=== PATIENT | female | born 1945 | race Caucasian/White ===

== ENCOUNTER → 2016-11-30 | Outpatient (CLI) | payer MEDICARE ==
[2016-11-30 11:12] LABS: Basophils % (A) 1 %; CH 31.3; CHCM 32.7; Eosinophils # (A) 0.2 k/uL (0-0.7); Eosinophils % (A) 4 %; HCT 41.7 % (34.0-46.0); HDW 2.14; HGB 13.8 gm/dL (11.4-16.0); Luc # (Auto) 0.16; Luc % (Auto) 3; Lymphocytes # (A) 1.3 k/uL (1.0-4.8); Lymphocytes % (A) 23 %; MCH 31.9 pg (25.0-35.0); MCHC 33.2 g/dL (31.0-37.0); MCV 95.9 fL (80.0-100.0); Mean Platelet Volume 6.4; Monocytes # (A) 0.4 k/uL (0-1.0); Monocytes % (A) 7 %; Neutrophils # (A) 3.5 k/uL (1.3-7.7); Neutrophils % (A) 63 %; RBC 4.35 m/uL (3.80-5.40); RDW 12.3 % (11.5-15.5); WBC 5.6 k/uL (3.8-10.6); WBC (Perox) 5.39
[2016-11-30 11:34] LABS: ALT 43 U/L (9-52); AST 30 U/L (14-36); Alkaline Phosphatase 90 U/L (38-126); Anion Gap 12 mmol/L; Blood Urea Nitrogen 17 mg/dL (7-17); Calcium 9.9 mg/dL (8.4-10.2); Carbon Dioxide 23 mmol/L (22-30); Chloride 108 mmol/L (98-107); Cholesterol 168 mg/dL (<200); Creatine Kinase 178 U/L (30-135); Glucose 114 mg/dL (74-99); HDL Cholesterol 78 mg/dL (40-60); Non-African American GFR(MDRD) >60 (>60 ml/min/1.73 sqM); Sodium 143 mmol/L (137-145); Total Protein 7.3 g/dL (6.3-8.2); Triglycerides 109 mg/dL (<150)
[2016-11-30 12:21] LABS: Vitamin B12 >1000 pg/mL
[2016-11-30 14:32] LABS: Hemoglobin A1C 5.9 % (4.2-6.1)
== END | disposition home or self-care (01) ==
LOC: LABWHC1 10:40
PROVIDERS: ATTEND Internal Medicine Nephrology
DX: Z01.419 Encounter for gynecological examination (general) (routine) without abnormal findings (principal); K57.30 Diverticulosis of large intestine without perforation or abscess without bleeding; R73.01 Impaired fasting glucose; E78.5 Hyperlipidemia, unspecified
CPT/HCPCS: 36415; 80053; 80061; 82306; 82550; 82607; 83036; 84443; 85025

== ENCOUNTER → 2017-02-01 | Outpatient (CLI) | payer MEDICARE ==
[2017-02-01 11:47] LABS: Anion Gap 12 mmol/L; Blood Urea Nitrogen 14 mg/dL (7-17); Carbon Dioxide 24 mmol/L (22-30); Chloride 108 mmol/L (98-107); Glucose 102 mg/dL (74-99); Iron 78 ug/dL (37-170); Magnesium 1.9 mg/dL (1.6-2.3); Non-African American GFR(MDRD) >60 (>60 ml/min/1.73 sqM); Phosphorous 3.5 mg/dL (2.5-4.5); Potassium 4.3 mmol/L (3.5-5.1); Sodium 144 mmol/L (137-145); Uric Acid 4.9 mg/dL (3.7-7.4)
[2017-02-01 11:56] LABS: % Iron Saturation 25.7 % (20-50); Total Iron Binding Capacity 304 ug/dL (265-497)
[2017-02-01 12:15] LABS: Appearance,Urine Clear (Clear); Bilirubin,Urine Negative (Negative); Glucose,Urine (UA) Negative (Negative); Ketones,Urine Negative (Negative); Leukocyte Esterase,Urine Moderate (Negative); Mucus,Urine Rare /hpf; Nitrite,Urine Negative (Negative); Particle Count 2086; Protein,Urine Negative (Negative); RBC,Urine <1 /hpf (0-5); Specific Gravity,Urine 1.015 (1.001-1.035); Squamous Epithelial Cell,Urine 1 /hpf (0-4); UA Billing (MACRO vs. MICRO) MICRO; Urobilinogen,Urine <2.0 mg/dL (<2.0); WBC,Urine 4 /hpf (0-5)
[2017-02-01 12:33] LABS: Basophils % (A) 1 %; CH 31.6; CHCM 33.1; Eosinophils # (A) 0.3 k/uL (0-0.7); Eosinophils % (A) 5 %; HCT 43.6 % (34.0-46.0); HDW 2.12; HGB 14.2 gm/dL (11.4-16.0); Luc # (Auto) 0.16; Luc % (Auto) 2; Lymphocytes # (A) 1.4 k/uL (1.0-4.8); Lymphocytes % (A) 21 %; MCH 31.2 pg (25.0-35.0); MCHC 32.5 g/dL (31.0-37.0); Mean Platelet Volume 6.7; Monocytes # (A) 0.4 k/uL (0-1.0); Monocytes % (A) 6 %; Neutrophils # (A) 4.4 k/uL (1.3-7.7); Neutrophils % (A) 65 %; RBC 4.54 m/uL (3.80-5.40); RDW 12.6 % (11.5-15.5); WBC 6.7 k/uL (3.8-10.6); WBC (Perox) 6.58
== END | disposition home or self-care (01) ==
LOC: LABWHC1 10:51
PROVIDERS: ATTEND Nurse Practitioner Family
DX: I10 Essential (primary) hypertension (principal); D64.9 Anemia, unspecified; E55.9 Vitamin D deficiency, unspecified; E21.3 Hyperparathyroidism, unspecified; M10.9 Gout, unspecified; N39.0 Urinary tract infection, site not specified
CPT/HCPCS: 36415; 80048; 81001; 82306; 82728; 83540; 83550; 83735; 83970; 84100; 84550; 85025

== ENCOUNTER → 2017-06-07 | Outpatient (CLI) | payer MEDICARE ==
[2017-06-07 08:25] LABS: Basophils % (A) 1 %; CH 29.6; CHCM 31.6; Eosinophils # (A) 0.3 k/uL (0-0.7); Eosinophils % (A) 6 %; HCT 43.4 % (34.0-46.0); HDW 2.12; HGB 14.2 gm/dL (11.4-16.0); Luc % (Auto) 2; Lymphocytes # (A) 1.9 k/uL (1.0-4.8); Lymphocytes % (A) 33 %; MCH 30.7 pg (25.0-35.0); MCHC 32.7 g/dL (31.0-37.0); Mean Platelet Volume 7.2; Monocytes # (A) 0.5 k/uL (0-1.0); Monocytes % (A) 9 %; Neutrophils # (A) 2.8 k/uL (1.3-7.7); Neutrophils % (A) 50 %; RBC 4.61 m/uL (3.80-5.40); RDW 13.2 % (11.5-15.5); WBC 5.6 k/uL (3.8-10.6); WBC (Perox) 5.45
[2017-06-07 08:34] LABS: ALT 46 U/L (9-52); AST 32 U/L (14-36); Alkaline Phosphatase 92 U/L (38-126); Anion Gap 9 mmol/L; Blood Urea Nitrogen 16 mg/dL (7-17); Calcium 10.1 mg/dL (8.4-10.2); Carbon Dioxide 25 mmol/L (22-30); Chloride 108 mmol/L (98-107); Cholesterol 188 mg/dL (<200); Creatine Kinase 69 U/L (30-135); Glucose 111 mg/dL (74-99); HDL Cholesterol 71 mg/dL (40-60); Non-African American GFR(MDRD) >60 (>60 ml/min/1.73 sqM); Potassium 4.2 mmol/L (3.5-5.1); Sodium 142 mmol/L (137-145); Total Bilirubin 0.7 mg/dL (0.2-1.3); Total Protein 7.2 g/dL (6.3-8.2)
== END | disposition home or self-care (01) ==
LOC: LABWHC1 07:53
PROVIDERS: ATTEND Family Medicine
DX: E78.5 Hyperlipidemia, unspecified (principal); I10 Essential (primary) hypertension; R73.01 Impaired fasting glucose; R60.9 Edema, unspecified
CPT/HCPCS: 36415; 80053; 80061; 82550; 83036; 84439; 84443; 85025

== ENCOUNTER → 2017-06-23 | Outpatient (CLI) | payer MEDICARE ==
--- NOTE | 2017-06-24 14:03 | MM ---
Reason for exam: screening (asymptomatic). Last mammogram was performed 1 year ago. History: Patient is postmenopausal. Family history of breast cancer in cousin and breast cancer in aunt. Benign excisional biopsy of the right breast, September 13, 1998. Benign cyst aspiration of the left breast. Physical Findings: A clinical breast exam by your physician is recommended on an annual basis and results should be correlated with mammographic findings. MG 3D Screening Mammo W/Cad Bilateral CC and MLO view(s) were taken. Prior study comparison: July 06, 2016, bilateral MG 3d screening mammo w/cad. June 14, 2015, bilateral MG 3d screening mammo w/cad. The breast tissue is heterogeneously dense. This may lower the sensitivity of mammography. Finding: There are typically benign vascular, round calcifications in both breasts. There is no discrete abnormality. ASSESSMENT: Benign, BI-RAD 2 RECOMMENDATION: Routine screening mammogram of both breasts in 1 year.
== END | disposition home or self-care (01) ==
LOC: RADMAMWWP 07:12
PROVIDERS: ATTEND Family Medicine
DX: Z12.31 Encounter for screening mammogram for malignant neoplasm of breast (principal); Z80.3 Family history of malignant neoplasm of breast
CPT/HCPCS: 77063; G0202

== ENCOUNTER → 2017-11-23 | Outpatient (CLI) | payer MEDICARE ==
[2017-11-23 10:46] LABS: Appearance,Urine Cloudy (Clear); Bilirubin,Urine Negative (Negative); Blood,Urine Negative (Negative); Color,Urine Yellow; Glucose,Urine (UA) Negative (Negative); Ketones,Urine Negative (Negative); Leukocyte Esterase,Urine Large (Negative); Mucus,Urine Occasional /hpf; Nitrite,Urine Negative (Negative); Protein,Urine Negative (Negative); RBC,Urine 2 /hpf (0-5); Specific Gravity,Urine 1.013 (1.001-1.035); Squamous Epithelial Cell,Urine 6 /hpf (0-4); Urobilinogen,Urine <2.0 mg/dL (<2.0); WBC,Urine 19 /hpf (0-5)
[2017-11-23 10:48] LABS: Basophils % (A) 1 %; Eosinophils # (A) 0.3 k/uL (0-0.7); Eosinophils % (A) 6 %; HCT 41.8 % (34.0-46.0); HGB 14.2 gm/dL (11.4-16.0); Lymphocytes # (A) 1.3 k/uL (1.0-4.8); Lymphocytes % (A) 26 %; MCH 31.2 pg (25.0-35.0); MCHC 34.1 g/dL (31.0-37.0); MCV 91.4 fL (80.0-100.0); Mean Platelet Volume 6.8; Monocytes # (A) 0.3 k/uL (0-1.0); Monocytes % (A) 7 %; Neutrophils # (A) 2.8 k/uL (1.3-7.7); Neutrophils % (A) 59 %; Platelet Count 300 k/uL (150-450); RBC 4.57 m/uL (3.80-5.40); RDW 12.2 % (11.5-15.5); WBC 4.8 k/uL (3.8-10.6)
[2017-11-23 11:12] LABS: Albumin 4.3 g/dL (3.5-5.0); Potassium 3.9 mmol/L (3.5-5.1); Total Bilirubin 0.5 mg/dL (0.2-1.3); Total Protein 6.6 g/dL (6.3-8.2)
[2017-11-23 11:24] LABS: T4, Free (Free Thyroxine) 1.22 ng/dL (0.78-2.19)
[2017-11-23 15:34] LABS: Vitamin D 25 Hydroxy 47.1 ng/mL (30.0-100.0)
[2017-11-23 18:39] LABS: Hemoglobin A1C 6.2 % (4.0-6.0)
== END | disposition home or self-care (01) ==
LOC: LABWHC1 09:57
PROVIDERS: ATTEND Family Medicine
DX: E78.5 Hyperlipidemia, unspecified (principal); R73.03 Prediabetes; R73.01 Impaired fasting glucose
CPT/HCPCS: 36415; 80053; 80061; 81001; 82306; 82607; 83036; 84439; 84443; 85025

== ENCOUNTER → 2017-12-29 | Outpatient (CLI) | payer MEDICARE ==
[2017-12-29 11:52] LABS: Basophils % (A) 1 %; Eosinophils # (A) 0.3 k/uL (0-0.7); Eosinophils % (A) 5 %; HCT 44.6 % (34.0-46.0); HGB 14.5 gm/dL (11.4-16.0); Lymphocytes # (A) 1.4 k/uL (1.0-4.8); Lymphocytes % (A) 22 %; MCH 30.4 pg (25.0-35.0); MCHC 32.4 g/dL (31.0-37.0); MCV 93.9 fL (80.0-100.0); Mean Platelet Volume 6.6; Monocytes # (A) 0.4 k/uL (0-1.0); Monocytes % (A) 6 %; Neutrophils % (A) 64 %; Platelet Count 323 k/uL (150-450); RBC 4.75 m/uL (3.80-5.40); RDW 12.2 % (11.5-15.5); WBC 6.2 k/uL (3.8-10.6)
[2017-12-29 11:55] LABS: Appearance,Urine Cloudy (Clear); Bilirubin,Urine Negative (Negative); Blood,Urine Negative (Negative); Color,Urine Yellow; Glucose,Urine (UA) Negative (Negative); Ketones,Urine Negative (Negative); Leukocyte Esterase,Urine Large (Negative); Mucus,Urine Few /hpf; Nitrite,Urine Negative (Negative); Protein,Urine Trace (Negative); RBC,Urine 6 /hpf (0-5); Squamous Epithelial Cell,Urine 4 /hpf (0-4); Urobilinogen,Urine <2.0 mg/dL (<2.0); WBC,Urine 35 /hpf (0-5)
[2017-12-29 12:09] LABS: Magnesium 1.8 mg/dL (1.6-2.3); Phosphorus 3.6 mg/dL (2.5-4.5); Potassium 3.9 mmol/L (3.5-5.1); Uric Acid 5.9 mg/dL (3.7-7.4)
[2017-12-29 15:43] LABS: Parathyroid Hormone Intact 61.7 pg/mL (14.0-72.0)
[2017-12-29 15:57] LABS: Iron Saturation 32.48 (12.00-45.00)
== END | disposition home or self-care (01) ==
LOC: LABWHC1 11:04
PROVIDERS: ATTEND Internal Medicine Nephrology
DX: N18.2 Chronic kidney disease, stage 2 (mild) (principal); D63.1 Anemia in chronic kidney disease; E55.9 Vitamin D deficiency, unspecified; N39.0 Urinary tract infection, site not specified; M10.9 Gout, unspecified
CPT/HCPCS: 36415; 80048; 81001; 82306; 82728; 83540; 83550; 83735; 83970; 84100; 84550; 85025

== ENCOUNTER → 2018-06-21 | Outpatient (CLI) | payer MEDICARE ==
[2018-06-21 12:03] LABS: Basophils % (A) 1 %; Eosinophils # (A) 0.2 k/uL (0-0.7); Eosinophils % (A) 5 %; HCT 43.1 % (34.0-46.0); HGB 14.4 gm/dL (11.4-16.0); Lymphocytes # (A) 1.1 k/uL (1.0-4.8); Lymphocytes % (A) 29 %; MCH 31.2 pg (25.0-35.0); MCHC 33.4 g/dL (31.0-37.0); MCV 93.6 fL (80.0-100.0); Mean Platelet Volume 6.7; Monocytes # (A) 0.3 k/uL (0-1.0); Monocytes % (A) 8 %; Neutrophils # (A) 2.1 k/uL (1.3-7.7); Neutrophils % (A) 55 %; Platelet Count 303 k/uL (150-450); RBC 4.61 m/uL (3.80-5.40); RDW 12.2 % (11.5-15.5); WBC 3.8 k/uL (3.8-10.6)
[2018-06-21 12:26] LABS: Appearance,Urine Clear (Clear); Bilirubin,Urine Negative (Negative); Blood,Urine Negative (Negative); Color,Urine Yellow; Glucose,Urine (UA) Negative (Negative); Ketones,Urine Negative (Negative); Leukocyte Esterase,Urine Large (Negative); Mucus,Urine Rare /hpf; Nitrite,Urine Negative (Negative); PH, Urine 6.5 (5.0-8.0); Protein,Urine Negative (Negative); RBC,Urine 2 /hpf (0-5); Specific Gravity,Urine 1.015 (1.001-1.035); Squamous Epithelial Cell,Urine 4 /hpf (0-4); Urobilinogen,Urine <2.0 mg/dL (<2.0)
[2018-06-21 17:22] LABS: Iron Saturation 37.76 (12.00-45.00)
[2018-06-21 18:25] LABS: Parathyroid Hormone Intact 39.1 pg/mL (14.0-72.0)
[2018-06-21 18:34] LABS: DNA Double-Stranded NEGATIVE (NEGATIVE)
[2018-06-21 18:44] LABS: Anion Gap 7.5 mmol/L (4.00-12.00); Carbon Dioxide 25.5 mmol/L (21.6-31.8); Magnesium 1.8 mg/dL (1.5-2.4); Phosphorus 3.4 mg/dL (2.4-5.1); Potassium 4.1 mmol/L (3.5-5.5); Uric Acid 6.1 mg/dL (2.9-7.7)
[2018-06-21 19:54] LABS: Total Volume 24 Hour,Urine 2050 mL
[2018-06-21 20:30] LABS: Total Protein 24 Hour,Urine 102.5 mg/24Hr
[2018-06-22 09:07] LABS: Complement C3 93.1 mg/dL (80.0-207.0)
[2018-06-22 14:10] LABS: C-ANCA <1:20 Titer (<1:20); P-ANCA <1:20 Titer (<1:20)
== END | disposition home or self-care (01) ==
LOC: LABWHC1 10:42
PROVIDERS: ATTEND Internal Medicine Nephrology
DX: N18.2 Chronic kidney disease, stage 2 (mild) (principal); D63.1 Anemia in chronic kidney disease; E55.9 Vitamin D deficiency, unspecified; N39.0 Urinary tract infection, site not specified; R80.9 Proteinuria, unspecified; M10.9 Gout, unspecified; N17.9 Acute kidney failure, unspecified
CPT/HCPCS: 36415; 80048; 81001; 81050; 82728; 83516; 83540; 83550; 83735; 83883; 83970; 84100; 84156; 84166; 84550; 85025; 86038; 86160; 86162; 86225; 86255; 86334; 87086

== ENCOUNTER → 2018-11-30 | Outpatient (CLI) | payer MEDICARE ==
[2018-11-30 09:54] LABS: Basophils % (A) 1 %; Eosinophils # (A) 0.4 k/uL (0-0.7); Eosinophils % (A) 9 %; HCT 43.9 % (34.0-46.0); HGB 13.9 gm/dL (11.4-16.0); Lymphocytes # (A) 1.2 k/uL (1.0-4.8); Lymphocytes % (A) 27 %; MCH 30.7 pg (25.0-35.0); MCHC 31.6 g/dL (31.0-37.0); MCV 96.9 fL (80.0-100.0); Mean Platelet Volume 6.5; Monocytes # (A) 0.3 k/uL (0-1.0); Monocytes % (A) 6 %; Neutrophils # (A) 2.3 k/uL (1.3-7.7); Neutrophils % (A) 54 %; Platelet Count 302 k/uL (150-450); RBC 4.53 m/uL (3.80-5.40); RDW 12.7 % (11.5-15.5); WBC 4.3 k/uL (3.8-10.6)
[2018-11-30 10:48] LABS: Appearance,Urine Clear (Clear); Bacteria,Urine Rare /hpf; Bilirubin,Urine Negative (Negative); Blood,Urine Trace (Negative); Color,Urine Light Yellow; Glucose,Urine (UA) Negative (Negative); Ketones,Urine Negative (Negative); Leukocyte Esterase,Urine Moderate (Negative); Mucus,Urine Rare /hpf; Nitrite,Urine Negative (Negative); PH, Urine 6.5 (5.0-8.0); Protein,Urine Negative (Negative); RBC,Urine <1 /hpf (0-5); Specific Gravity,Urine 1.014 (1.001-1.035); Squamous Epithelial Cell,Urine 1 /hpf (0-4); Urobilinogen,Urine <2.0 mg/dL (<2.0); WBC,Urine 3 /hpf (0-5)
[2018-11-30 19:52] LABS: Hemoglobin A1C 5.9 % (4.0-6.0)
[2018-11-30 20:14] LABS: T4, Free (Free Thyroxine) 1.1 ng/dL (0.80-1.80)
[2018-11-30 20:20] LABS: Albumin 4.5 g/dL (3.80-4.90); Albumin/Globulin Ratio 2.37 (1.60-3.17); Calcium 9.9 mg/dL (8.7-10.3); Globulin 1.9 g/dL (1.6-3.3); LDL Cholesterol,Calculated 81.2 mg/dL (0.0-131.0); Potassium 4.2 mmol/L (3.5-5.5); Total Bilirubin 0.6 mg/dL (0.3-1.2); Total Protein 6.4 g/dL (6.2-8.2); Uric Acid 5.7 mg/dL (2.9-7.7); VLDL Calculation 13.8 mg/dL (5.00-40.00)
[2018-11-30 20:46] LABS: Protein, Total 6.3 g/dL (6.2-8.2)
[2018-12-01 13:59] LABS: Albumin 3.85 g/dL (3.80-4.90); Gamma Globulin 0.69 g/dL (0.70-1.50)
== END ==
LOC: LABWHC1 08:29
PROVIDERS: ATTEND Family Medicine
DX: I10 Essential (primary) hypertension (principal); J45.20 Mild intermittent asthma, uncomplicated; E78.5 Hyperlipidemia, unspecified; R73.03 Prediabetes
CPT/HCPCS: 36415; 80053; 80061; 81001; 82164; 82607; 83036; 84165; 84439; 84443; 84550; 85025; 86038

== ENCOUNTER → 2018-12-13 | Outpatient (CLI) | payer MEDICARE ==
--- NOTE | 2018-12-14 08:34 | BD ---
EXAMINATION TYPE: Axial Bone Density DATE OF EXAM: 12/13/2018 COMPARISON: 07.06.2016 CLINICAL HISTORY: 73 YR OLD FEMALE....ICD-10 M89.9 N95.1 POST MENOPAUSAL Height: 58.8 Weight: 142 FRAX RISK QUESTIONS: Family History (Parent hip fracture): YES Glucocorticoids (More than 3mos): YES (Ex: prednisone, prednisolone, methylprednisolone, dexamethasone, and hydrocortisone). RISK FACTORS HISTORY OF: Family History of Osteoporosis: YES, HER MOTHER, WITH BROKEN HIP Postmenopausal woman: YES AT 52 YRS OLD Lost more than 2 inches in height since high school: YES MEDICATIONS: Prednisone or other steroids: YES, ADVAIR INHALER, SINGULAIR, PROAIR, ASTHMA, FOR ABOUT 25 YRS Additional Medications: BP MEDS, STATIN FOR CHOLESTEROL, REFLUX MEDS, VIT D Additional History: HYPERTENSION, CHOLESTEROL, EXAM MEASUREMENTS: Bone mineral densitometry was performed using the [employer]. Bone mineral density as measured about the Lumbar spine is: ----- L1-L4(G/cm2): 1.258 T Score Values are as follows: ----- L1: -0.5 ----- L2: 1.2 ----- L3: 0.8 ----- L4: 0.8 ----- L1-L4: 0.7 Bone mineral density has: Increased 6.9% since study of: 07.06.2016 Bone mineral density about the R hip (g/cm2): 1.116 Bone mineral density about the L hip (g/cm2): 1.091 T Score values are as follows: -----R Neck: 0.4 -----L Neck: -0.4 -----R Total: 0.9 -----L Total: 0.7 Bone mineral density has: Increased 4.2% since study of: 07.06.2016 FRAX%s: THERE IS A 18.6% CHANCE FOR A MAJOR OSTEOPOROTIC FX AND A 6.8% FOR HIP.....PROBABILITY FOR FX IN 10 YRS TIME IMPRESSION: Normal (Values between +1 and -1 indicate normal bone mass). Consider repeating this study in 5 year s or sooner if there is some new clinical indication. There is a spinal curvature. NOTE: T-SCORE=SD OF THE YOUNG ADULT MEAN.
--- NOTE | 2018-12-15 08:58 | MM ---
Reason for exam: screening (asymptomatic). Last mammogram was performed 1 year and 6 months ago. History: Patient is postmenopausal. Family history of breast cancer in cousin and breast cancer in aunt. Benign excisional biopsy of the right breast, September 13, 1998. Benign cyst aspiration of the left breast. Physical Findings: A clinical breast exam by your physician is recommended on an annual basis and results should be correlated with mammographic findings. MG 3D Screening Mammo W/Cad Bilateral CC and MLO view(s) were taken. Prior study comparison: June 23, 2017, bilateral MG 3d screening mammo w/cad. July 06, 2016, bilateral MG 3d screening mammo w/cad. The breast tissue is heterogeneously dense. This may lower the sensitivity of mammography. No significant changes when compared with prior studies. ASSESSMENT: Benign, BI-RAD 2 RECOMMENDATION: Routine screening mammogram of both breasts in 1 year.
== END | disposition home or self-care (01) ==
LOC: RADMAMWWP 14:35
PROVIDERS: ATTEND Family Medicine
DX: Z12.31 Encounter for screening mammogram for malignant neoplasm of breast (principal); N95.1 Menopausal and female climacteric states; M89.9 Disorder of bone, unspecified
CPT/HCPCS: 77063; 77067; 77080

== ENCOUNTER → 2018-12-29 | Outpatient (CLI) | payer MEDICARE ==
[2018-12-29 11:51] LABS: Appearance,Urine Clear (Clear); Bilirubin,Urine Negative (Negative); Blood,Urine Negative (Negative); Color,Urine Light Yellow; Glucose,Urine (UA) Negative (Negative); Ketones,Urine Negative (Negative); Leukocyte Esterase,Urine Moderate (Negative); Nitrite,Urine Negative (Negative); PH, Urine 6.5 (5.0-8.0); Protein,Urine Negative (Negative); Specific Gravity,Urine 1.009 (1.001-1.035); Squamous Epithelial Cell,Urine <1 /hpf (0-4); Urobilinogen,Urine <2.0 mg/dL (<2.0)
[2018-12-29 11:59] LABS: Basophils % (A) 1 %; Eosinophils # (A) 0.3 k/uL (0-0.7); Eosinophils % (A) 7 %; HCT 40.9 % (34.0-46.0); HGB 13.4 gm/dL (11.4-16.0); Lymphocytes # (A) 1.3 k/uL (1.0-4.8); Lymphocytes % (A) 28 %; MCH 30.8 pg (25.0-35.0); MCHC 32.7 g/dL (31.0-37.0); MCV 94.1 fL (80.0-100.0); Mean Platelet Volume 6.9; Monocytes # (A) 0.3 k/uL (0-1.0); Monocytes % (A) 6 %; Neutrophils # (A) 2.6 k/uL (1.3-7.7); Neutrophils % (A) 56 %; Platelet Count 304 k/uL (150-450); RBC 4.34 m/uL (3.80-5.40); RDW 13.3 % (11.5-15.5); WBC 4.6 k/uL (3.8-10.6)
[2018-12-29 17:11] LABS: Iron Saturation 34.46 (12.00-45.00)
[2018-12-29 17:15] LABS: Anion Gap 8.3 mmol/L (4.00-12.00); Calcium 9.6 mg/dL (8.7-10.3); Carbon Dioxide 22.7 mmol/L (21.6-31.8); Magnesium 1.8 mg/dL (1.5-2.4); Phosphorus 3.7 mg/dL (2.4-5.1); Potassium 3.9 mmol/L (3.5-5.5); Uric Acid 4.5 mg/dL (2.9-7.7)
[2018-12-29 17:19] LABS: Vitamin D 25 Hydroxy 48.3 ng/mL (30.0-100.0)
== END | disposition home or self-care (01) ==
LOC: LABWHC1 11:11
PROVIDERS: ATTEND Nurse Practitioner Family
DX: E55.9 Vitamin D deficiency, unspecified (principal); M10.9 Gout, unspecified; N39.0 Urinary tract infection, site not specified; N18.2 Chronic kidney disease, stage 2 (mild); D63.1 Anemia in chronic kidney disease
CPT/HCPCS: 36415; 80048; 81001; 82306; 82728; 83540; 83550; 83735; 83970; 84100; 84550; 85025

== ENCOUNTER → 2019-06-16 | Outpatient (CLI) | payer MEDICARE ==
[2019-06-16 10:34] LABS: Basophils # (A) 0.1 k/uL (0-0.2); Basophils % (A) 1 %; Eosinophils # (A) 0.3 k/uL (0-0.7); Eosinophils % (A) 6 %; HCT 43.3 % (34.0-46.0); HGB 14.2 gm/dL (11.4-16.0); Lymphocytes # (A) 1.2 k/uL (1.0-4.8); Lymphocytes % (A) 24 %; MCH 31.2 pg (25.0-35.0); MCHC 32.7 g/dL (31.0-37.0); MCV 95.2 fL (80.0-100.0); Mean Platelet Volume 5.8; Monocytes # (A) 0.4 k/uL (0-1.0); Monocytes % (A) 8 %; Neutrophils # (A) 2.9 k/uL (1.3-7.7); Neutrophils % (A) 59 %; Platelet Count 314 k/uL (150-450); RBC 4.55 m/uL (3.80-5.40); RDW 12.6 % (11.5-15.5); WBC 4.9 k/uL (3.8-10.6)
[2019-06-16 16:52] LABS: African American GFR (CKD) 83.6 (60.0-200.0); Albumin 4.6 g/dL (3.80-4.90); Albumin/Globulin Ratio 2.3 (1.60-3.17); BUN/Creat Ratio 22.5 Ratio (12.00-20.00); Calcium 9.8 mg/dL (8.7-10.3); Chol/HDL Ratio 2.2; LDL Cholesterol,Calculated 80.4 mg/dL (0.0-131.0); Non-African American GFR(CKD) 72.1 (60.0-200.0); Potassium 4.1 mmol/L (3.5-5.5); Total Bilirubin 0.6 mg/dL (0.2-1.2); Total Protein 6.6 g/dL (6.2-8.2); Uric Acid 5.3 mg/dL (2.9-7.7); VLDL Calculation 14.6 mg/dL (5.00-40.00)
[2019-06-16 16:59] LABS: T4, Free (Free Thyroxine) 1.2 ng/dL (0.80-1.80)
[2019-06-16 18:39] LABS: Hemoglobin A1C 5.8 % (4.0-6.0)
== END | disposition home or self-care (01) ==
LOC: LABWHC1 09:09
PROVIDERS: ATTEND Family Medicine
DX: J45.20 Mild intermittent asthma, uncomplicated (principal); E78.5 Hyperlipidemia, unspecified; I12.9 Hypertensive chronic kidney disease with stage 1 through stage 4 chronic kidney disease, or unspecified chronic kidney disease; N17.9 Acute kidney failure, unspecified; R73.03 Prediabetes
CPT/HCPCS: 36415; 80053; 80061; 82607; 83036; 84439; 84443; 84550; 85025

== ENCOUNTER → 2020-03-15 | Outpatient (CLI) | payer MEDICARE ==
[2020-03-15 15:11] LABS: Basophils % (A) 1 %; Eosinophils # (A) 0.3 k/uL (0-0.7); Eosinophils % (A) 5 %; HCT 42.8 % (34.0-46.0); HGB 13.6 gm/dL (11.4-16.0); Lymphocytes # (A) 1.6 k/uL (1.0-4.8); Lymphocytes % (A) 26 %; MCH 30.7 pg (25.0-35.0); MCHC 31.8 g/dL (31.0-37.0); MCV 96.4 fL (80.0-100.0); Mean Platelet Volume 6.8; Monocytes # (A) 0.5 k/uL (0-1.0); Monocytes % (A) 8 %; Neutrophils # (A) 3.6 k/uL (1.3-7.7); Neutrophils % (A) 59 %; Platelet Count 325 k/uL (150-450); RBC 4.44 m/uL (3.80-5.40); RDW 12.3 % (11.5-15.5); WBC 6.2 k/uL (3.8-10.6)
[2020-03-15 15:21] LABS: Appearance,Urine Clear (Clear); Bacteria,Urine Rare /hpf; Bilirubin,Urine Negative (Negative); Blood,Urine Negative (Negative); Color,Urine Yellow; Glucose,Urine (UA) Negative (Negative); Ketones,Urine Negative (Negative); Leukocyte Esterase,Urine Large (Negative); Mucus,Urine Occasional /hpf; Nitrite,Urine Negative (Negative); PH, Urine 5.5 (5.0-8.0); Protein,Urine Negative (Negative); RBC,Urine 1 /hpf (0-5); Specific Gravity,Urine 1.024 (1.001-1.035); Squamous Epithelial Cell,Urine 2 /hpf (0-4); Urobilinogen,Urine <2.0 mg/dL (<2.0); WBC,Urine 4 /hpf (0-5)
[2020-03-15 15:45] LABS: Protein/Creatinine Ratio,Urine 0.037
[2020-03-15 19:30] LABS: % Iron Saturation 22.85 (12.00-45.00); Albumin 4.4 g/dL (3.80-4.90); Anion Gap 6.4 mmol/L (4.00-12.00); BUN/Creat Ratio 23.33 Ratio (12.00-20.00); Calcium 9.9 mg/dL (8.7-10.3); Carbon Dioxide 26.6 mmol/L (21.6-31.8); Magnesium 1.9 mg/dL (1.5-2.4); Non-African American GFR(CKD) 62.1 (60.0-200.0); Phosphorus 3.5 mg/dL (2.4-5.1); Potassium 4.6 mmol/L (3.5-5.5); Uric Acid 6.3 mg/dL (2.9-7.7)
[2020-03-15 19:37] LABS: Ferritin 93.9 ng/mL (10.0-291.0)
== END | disposition home or self-care (01) ==
LOC: LABWHC1 13:50
PROVIDERS: ATTEND Internal Medicine Nephrology
DX: N39.0 Urinary tract infection, site not specified (principal); E55.9 Vitamin D deficiency, unspecified; N25.81 Secondary hyperparathyroidism of renal origin; M10.9 Gout, unspecified; D63.1 Anemia in chronic kidney disease; N18.2 Chronic kidney disease, stage 2 (mild); R80.9 Proteinuria, unspecified
CPT/HCPCS: 36415; 80048; 81001; 82040; 82306; 82570; 82728; 83540; 83550; 83735; 83970; 84100; 84156; 84550; 85025

== ENCOUNTER → 2020-06-12 | Outpatient (CLI) | payer MEDICARE ==
[2020-06-12 11:27] LABS: Basophils % (A) 1 %; Eosinophils # (A) 0.3 k/uL (0-0.7); Eosinophils % (A) 5 %; HCT 43.8 % (34.0-46.0); HGB 14.3 gm/dL (11.4-16.0); Lymphocytes # (A) 1.2 k/uL (1.0-4.8); Lymphocytes % (A) 22 %; MCH 31.3 pg (25.0-35.0); MCHC 32.7 g/dL (31.0-37.0); MCV 95.9 fL (80.0-100.0); Mean Platelet Volume 6.7; Monocytes # (A) 0.4 k/uL (0-1.0); Monocytes % (A) 7 %; Neutrophils # (A) 3.3 k/uL (1.3-7.7); Neutrophils % (A) 62 %; Platelet Count 292 k/uL (150-450); RBC 4.57 m/uL (3.80-5.40); RDW 12.3 % (11.5-15.5); WBC 5.3 k/uL (3.8-10.6)
[2020-06-12 18:52] LABS: Albumin 4.4 g/dL (3.80-4.90); Albumin/Globulin Ratio 1.91 (1.60-3.17); Anion Gap 7.5 mmol/L (4.00-12.00); BUN/Creat Ratio 18.75 Ratio (12.00-20.00); Calcium 9.8 mg/dL (8.7-10.3); Carbon Dioxide 26.5 mmol/L (21.6-31.8); Chol/HDL Ratio 2.33; Globulin 2.3 g/dL (1.6-3.3); LDL Cholesterol,Calculated 78.6 mg/dL (0.0-131.0); Magnesium 1.8 mg/dL (1.5-2.4); Non-African American GFR(CKD) 71.6 (60.0-200.0); Potassium 4.2 mmol/L (3.5-5.5); Total Bilirubin 0.7 mg/dL (0.2-1.2); Total Protein 6.7 g/dL (6.2-8.2); VLDL Calculation 14.4 mg/dL (5.00-40.00)
[2020-06-12 18:59] LABS: T4, Free (Free Thyroxine) 1.2 ng/dL (0.80-1.80)
[2020-06-12 19:22] LABS: Hemoglobin A1C 6.2 % (4.0-6.0)
== END | disposition home or self-care (01) ==
LOC: LABWHC1 10:09
PROVIDERS: ATTEND Family Medicine
DX: I10 Essential (primary) hypertension (principal); E78.5 Hyperlipidemia, unspecified; R60.9 Edema, unspecified; R73.01 Impaired fasting glucose
CPT/HCPCS: 36415; 80053; 80061; 82550; 82607; 83036; 83735; 84439; 84443; 85025

== ENCOUNTER → 2021-03-12 | Outpatient (CLI) | payer MEDICARE ==
--- NOTE | 2021-03-12 10:35 | BD ---
EXAMINATION TYPE: Axial Bone Density DATE OF EXAM: 03/12/2021 COMPARISON: 12.13.2018 CLINICAL HISTORY: 75 YR OLD FEMALE.....ICD-10 CODE: M89.9 DISORDER OF BD Height: 58.2 Weight: 151 FRAX RISK QUESTIONS: Family History (Parent hip fracture): YES Glucocorticoids (More than 3mos): YES (Ex: prednisone, prednisolone, methylprednisolone, dexamethasone, and hydrocortisone). RISK FACTORS HISTORY OF: Family History of Osteoporosis: YES, MOTHER Postmenopausal woman: YES, AT AGE 56 YRS OLD Lost more than 2 inches in height since high school: YES Hyperparathyroidism: NO Adrenal Insufficiency: NO MEDICATIONS: Prednisone or other steroids: YES FOR ASTHMA, Additional Medications: BP MEDS, CHOLESTEROL MEDS, VIT D Additional History: HYPERTENSION, BORDERLINE DIABETIC, CHOLESTEROL EXAM MEASUREMENTS: Bone mineral densitometry was performed using the [employer]. Bone mineral density as measured about the Lumbar spine is: ----- L1-L4(G/cm2): 1.172 T Score Values are as follows: ----- L1: -0.6 ----- L2: 1.0 ----- L3: -1.0 ----- L4: 0.1 ----- L1-L4: -0.1 Bone mineral density has: Decreased -7.9% SINCE: 12.04.2018 STUDY Bone mineral density about the R hip (g/cm2): 1.061 Bone mineral density about the L hip (g/cm2): 1.114 T Score values are as follows: -----R Neck: 0.2 -----L Neck: 0.2 -----R Total: 0.4 -----L Total: 0.8 Bone mineral density has: Decreased -1.5% SINCE: 12.04.2018 STUDY FRAX%s: THERE IS A 16.4% CHANCE FOR A MAJOR OSTEOPOROTIC FX AND A 5.2% FOR HIP.....PROBABILITY FO R FX IN 10 YRS TIME IMPRESSION: No evidence for osteoporosis or osteopenia at this time. NOTE: T-SCORE=SD OF THE YOUNG ADULT MEAN.
== END | disposition home or self-care (01) ==
LOC: RADBDWWP 08:36
PROVIDERS: ATTEND Family Medicine
DX: Z12.31 Encounter for screening mammogram for malignant neoplasm of breast (principal)
CPT/HCPCS: 77063; 77067; 77080

== ENCOUNTER → 2021-04-07 | Outpatient (CLI) | payer MEDICARE ==
[2021-04-07 15:19] LABS: Basophils # (A) 0.05 X 10*3/uL (0.00-0.10); Basophils % (A) 0.9 %; Eosinophils # (A) 0.31 X 10*3/uL (0.04-0.35); Eosinophils % (A) 5.4 %; HCT 40.1 % (37.2-46.3); Lymphocytes % (A) 22.8 %; MCH 30.2 pg (27.0-32.0); MCHC 32.4 g/dL (32.0-37.0); Mean Platelet Volume 9.1 fL (9.5-12.2); Monocytes # (A) 0.52 X 10*3/uL (0.20-1.00); Monocytes % (A) 9.1 %; Neutrophils # (A) 3.51 X 10*3/uL (1.80-7.70); Neutrophils % (A) 61.4 %; Platelet Count 337 X 10*3/uL (140-440); RBC 4.31 X 10*6/uL (4.10-5.20); RDW 12.3 % (11.5-14.5); WBC 5.71 X 10*3/uL (4.50-10.00)
[2021-04-07 16:10] LABS: African American GFR (CKD) 96.9 (60.0-200.0); Albumin 4.4 g/dL (3.80-4.90); Albumin/Globulin Ratio 1.91 (1.60-3.17); Anion Gap 8.4 mmol/L (4.00-12.00); BUN/Creat Ratio 22.86 Ratio (12.00-20.00); Calcium 9.7 mg/dL (8.7-10.3); Carbon Dioxide 25.6 mmol/L (21.6-31.8); Chol/HDL Ratio 2.46; Globulin 2.3 g/dL (1.6-3.3); LDL Cholesterol,Calculated 84.2 mg/dL (0.0-131.0); Non-African American GFR(CKD) 83.6 (60.0-200.0); Total Bilirubin 0.8 mg/dL (0.2-1.2); Total Protein 6.7 g/dL (6.2-8.2); VLDL Calculation 13.8 mg/dL (5.00-40.00)
[2021-04-07 18:22] LABS: Hemoglobin A1C 6.2 % (4.0-6.0)
== END | disposition home or self-care (01) ==
LOC: LABWHC1 09:13
PROVIDERS: ATTEND Family Medicine
DX: R73.01 Impaired fasting glucose (principal); I10 Essential (primary) hypertension; E78.5 Hyperlipidemia, unspecified; R73.03 Prediabetes; J45.20 Mild intermittent asthma, uncomplicated
CPT/HCPCS: 36415; 80053; 80061; 82550; 82607; 83036; 84443; 85025

== ENCOUNTER → 2021-12-29 | Outpatient (CLI) | payer MEDICARE ==
[2021-12-29 17:56] LABS: Basophils # (A) 0.05 X 10*3/uL (0.00-0.10); Basophils % (A) 0.8 %; Eosinophils # (A) 0.23 X 10*3/uL (0.04-0.35); Eosinophils % (A) 3.9 %; HCT 44.1 % (37.2-46.3); HGB 13.7 g/dL (12.0-15.0); Immature Grans, Automated 0.3 %; Lymphocytes # (A) 1.42 X 10*3/uL (0.90-5.00); MCH 29.8 pg (27.0-32.0); MCHC 31.1 g/dL (32.0-37.0); MCV 96.1 fL (80.0-97.0); Mean Platelet Volume 9.2 fL (9.5-12.2); Monocytes # (A) 0.53 X 10*3/uL (0.20-1.00); NRBC Per 100 WBC 0 /100 WBCS (0.0-0.0); Neutrophils # (A) 3.67 X 10*3/uL (1.80-7.70); Platelet Count 340 X 10*3/uL (140-440); RBC 4.59 X 10*6/uL (4.10-5.20); RDW 12.6 % (11.5-14.5); WBC 5.92 X 10*3/uL (4.50-10.00)
[2021-12-29 18:31] LABS: ALT 27 U/L (8-44); AST 24 U/L (13-35); African American GFR (CKD) 81.8 (60.0-200.0); Albumin 4.6 g/dL (3.8-4.9); Alkaline Phosphatase 97 U/L (41-126); BUN/Creat Ratio 17.63 Ratio (12.00-20.00); Blood Urea Nitrogen 14.1 mg/dL (9.0-27.0); Carbon Dioxide 25.3 mmol/L (20.0-27.5); Chloride 106 mmol/L (96-109); Chol/HDL Ratio 2.46 Ratio; Globulin 2.3 g/dL (1.6-3.3); Glucose 102 mg/dL (70-110); LDL Cholesterol,Calculated 86.7 mg/dL (0.0-131.0); Non-African American GFR(CKD) 70.6 (60.0-200.0); Potassium 4.6 mmol/L (3.5-5.5); Sodium 141 mmol/L (135-145); Total Protein 6.9 g/dL (6.2-8.2)
== END | disposition home or self-care (01) ==
LOC: LABWHC1 10:33
PROVIDERS: ATTEND Family Medicine
DX: Z00.00 Encounter for general adult medical examination without abnormal findings (principal); N17.9 Acute kidney failure, unspecified; R73.9 Hyperglycemia, unspecified; E78.5 Hyperlipidemia, unspecified
CPT/HCPCS: 36415; 80053; 80061; 82306; 82607; 83036; 84443; 85025

== ENCOUNTER → 2022-06-16 | Outpatient (CLI) | payer MEDICARE ==
[2022-06-16 18:28] LABS: Basophils # (A) 0.07 X 10*3/uL (0.00-0.10); Basophils % (A) 0.9 %; Eosinophils # (A) 0.21 X 10*3/uL (0.04-0.35); Eosinophils % (A) 2.8 %; HCT 42.5 % (37.2-46.3); HGB 13.5 g/dL (12.0-15.0); Immature Grans, Automated 0.4 %; Lymphocytes # (A) 1.64 X 10*3/uL (0.90-5.00); Lymphocytes % (A) 21.7 %; MCH 29.9 pg (27.0-32.0); MCHC 31.8 g/dL (32.0-37.0); Mean Platelet Volume 9.4 fL (9.5-12.2); Monocytes # (A) 0.67 X 10*3/uL (0.20-1.00); Monocytes % (A) 8.9 %; NRBC Per 100 WBC 0 /100 WBCS (0.0-0.0); Neutrophils # (A) 4.93 X 10*3/uL (1.80-7.70); Neutrophils % (A) 65.3 %; Platelet Count 305 X 10*3/uL (140-440); RBC 4.52 X 10*6/uL (4.10-5.20); RDW 12.8 % (11.5-14.5); WBC 7.55 X 10*3/uL (4.50-10.00)
[2022-06-16 19:56] LABS: ALT 30 U/L (8-44); AST 20 U/L (13-35); African American GFR (CKD) 95.5 (60.0-200.0); Albumin 4.5 g/dL (3.8-4.9); Albumin/Globulin Ratio 2.09 (1.60-3.17); Alkaline Phosphatase 107 U/L (41-126); Blood Urea Nitrogen 13.8 mg/dL (9.0-27.0); Calcium 10.1 mg/dL (8.7-10.3); Carbon Dioxide 25.5 mmol/L (20.0-27.5); Chloride 105 mmol/L (96-109); Chol/HDL Ratio 2.23 Ratio; Globulin 2.2 g/dL (1.6-3.3); Glucose 110 mg/dL (70-110); LDL Cholesterol,Calculated 84.3 mg/dL (0.0-131.0); Non-African American GFR(CKD) 82.4 (60.0-200.0); Potassium 4.5 mmol/L (3.5-5.5); Sodium 141 mmol/L (135-145); Total Protein 6.7 g/dL (6.2-8.2); VLDL Calculation 14.44 mg/dL (5.00-40.00)
== END | disposition home or self-care (01) ==
LOC: LABWHC1 12:30
PROVIDERS: ATTEND Family Medicine
DX: I10 Essential (primary) hypertension (principal); E78.5 Hyperlipidemia, unspecified; R73.01 Impaired fasting glucose
CPT/HCPCS: 36415; 80053; 80061; 83036; 84443; 85025

== ENCOUNTER → 2023-06-09 | Outpatient (CLI) | payer MEDICARE ==
--- NOTE | 2023-06-10 17:23 | MM ---
Reason for Exam: Screening (asymptomatic). Last mammogram was performed 1 year(s) and 3 month(s) ago. Patient History: Menarche at age 11. First Full-Term at age 20. Postmenopausal. Patient has history of breast feeding. Other cancer, age 68. Benign Cyst Aspiration on the left side. 09/13/1998, Benign Excisional Biopsy on the right side. Maternal cousin had breast cancer. Maternal aunt had breast cancer. Risk Values: Mila 5 year model risk: 1.8%. NCI Lifetime model risk: 3.0%. Prior Study Comparison: 03/12/2021 Bilateral Screening Mammogram, [facility]. 03/16/2022 Bilateral MG 3D screening mammo w/cad, [facility]. 03/19/2022 Right MG 3D work up w/cad RT, [facility]. Tissue Density: The breast tissue is heterogeneously dense. This may lower the sensitivity of mammography. Findings: Analyzed By CAD. Abdomen appears symmetrical and stable. No significant interval change. Was marked on the right breast. No suspicious groups of microcalcifications, spiculated or lobular masses, architectural distortion or other secondary signs of malignancy are mammographically apparent. Overall Assessment: Benign, BI-RAD 2 Management: Screening Mammogram of both breasts in 1 year. A negative mammogram report should not preclude additional follow up of suspicious palpable abnormalities. Patient should continue monthly self breast exam. A clinical breast exam by your physician is recommended on an annual basis and results should be correlated with mammographic findings. Electronically signed and approved by: Barber Hubbard D.O. Radiologis
== END | disposition home or self-care (01) ==
LOC: RADMAMWWP 15:27
PROVIDERS: ATTEND Family Medicine
DX: Z12.31 Encounter for screening mammogram for malignant neoplasm of breast (principal); Z78.0 Asymptomatic menopausal state; Z80.3 Family history of malignant neoplasm of breast
CPT/HCPCS: 77063; 77067

== ENCOUNTER 2023-11-29 17:27 | Emergency (ER) | payer MEDICARE ==
--- NOTE | 2023-11-29 17:35 | ED ---
General Adult HPI - General Stated complaint: poss Stroke Time Seen by Provider: 11/29/23 17:30 Source: patient, EMS, RN notes reviewed Mode of arrival: EMS Limitations: altered mental status, physical limitation - History of Present Illness Initial comments: Patient is an 78-year-old female presenting to the emergency department with concern for stroke. Last known well 430. EMS states that was present and witnessed the event. EMS notices waxing and waning of mental status. They did notice right-sided weakness as well. Patient has slurred speech and nonsensical speech and unable to provide additional history. EMS believes patient is on Eliquis - Related Data Home Medications Medication Instructions Recorded Confirmed Atorvastatin [Lipitor] 10 mg PO DAILY 01/25/15 11/29/23 Bumetanide [BUMEX] 0.5 mg PO MOTH 11/29/23 11/29/23 Bumetanide [BUMEX] 0.5 mg PO SUTUWEFRSA PRN 11/29/23 11/29/23 Montelukast [Singulair] 10 mg PO HS 11/29/23 11/29/23 Olmesartan Medoxomil 40 mg PO DAILY 11/29/23 11/29/23 amLODIPine [Norvasc] 5 mg PO DAILY 11/29/23 11/29/23 hydrALAZINE HCL [Apresoline] 50 mg PO TID 11/29/23 11/29/23 hydroCHLOROthiazide 12.5 mg PO DAILY 11/29/23 11/29/23 Allergies Allergy/AdvReac Type Severity Reaction Status Date / Time Penicillins Allergy Rash/Hives Verified 11/29/23 18:09 Review of Systems ROS Statement: Those systems with pertinent positive or pertinent negative responses have been documented in the HPI. ROS Other: All systems not noted in ROS Statement are negative. Limitations: ROS unobtainable due to patients medical condition Neurological: Reports: as per HPI, weakness Past Medical History Past Medical History: Asthma, Hyperlipidemia, Hypertension History of Any Multi-Drug Resistant Organisms: None Reported Past Surgical History: Tubal Ligation Additional Past Surgical History / Comment(s): kidney removed Past Psychological History: No Psychological Hx Reported Smoking Status: Never smoker Past Alcohol Use History: Occasional Past Drug Use History: None Reported General Exam Limitations: altered mental status, physical limitation General appearance: alert Head exam: Present: normocephalic Eye exam: Present: normal appearance, PERRL, EOMI ENT exam: Present: normal oropharynx Neck exam: Present: normal inspection Respiratory exam: Present: normal lung sounds bilaterally Cardiovascular Exam: Present: regular rate, normal rhythm GI/Abdominal exam: Present: soft. Absent: tenderness Extremities exam: Present: normal inspection Neurological exam: Present: alert, altered Expanded Neurological exam: Present: protecting the airway, other (Slurred speech and garbled speech. Nonsensical speech. Some right-sided neglect. Unable to assess sensation) Speech: Present: expressive aphasia Cranial nerves: EOM's Intact: Normal Motor strength exam: RUE: 2/1, LUE: 5, RLE: 4, LLE: 5 Eye Response: (3) open to voice Motor Response: (6) obeys commands Verbal Response: incomprehensible sounds Psychiatric exam: Present: flat affect Skin exam: Present: normal color Course Vital Signs 11/29/23 11/29/23 11/29/23 17:29 17:38 17:42 Temperature 98.4 F Pulse Rate 86 193 H Respiratory 16 Rate Blood Pressure 200/111 193/103 202/99 O2 Sat by Pulse 97 Oximetry Fraction of Inspired Oxygen (FIO2) 11/29/23 11/29/23 11/29/23 17:45 17:49 18:00 Temperature Pulse Rate 86 84 Respiratory 18 18 Rate Blood Pressure 183/106 164/87 192/106 O2 Sat by Pulse 94 L 92 L Oximetry Fraction of Inspired Oxygen (FIO2) 11/29/23 11/29/23 11/29/23 18:10 18:20 18:25 Temperature Pulse Rate 84 97 106 H Respiratory 18 14 14 Rate Blood Pressure 197/90 202/135 221/124 O2 Sat by Pulse 91 L 98 98 Oximetry Fraction of Inspired Oxygen (FIO2) 11/29/23 11/29/23 11/29/23 18:30 18:35 18:40 Temperature Pulse Rate 114 H 112 H Respiratory Rate Blood Pressure 210/115 214/100 O2 Sat by Pulse 97 86 L Oximetry Fraction of 100 Inspired Oxygen (FIO2) 11/29/23 11/29/23 11/29/23 18:45 18:48 18:55 Temperature Pulse Rate 110 H 105 H Respiratory 20 18 Rate Blood Pressure 141/74 146/71 O2 Sat by Pulse 99 100 Oximetry Fraction of 100 Inspired Oxygen (FIO2) 11/29/23 19:05 Temperature Pulse Rate 104 H Respiratory 20 Rate Blood Pressure 134/71 O2 Sat by Pulse 100 Oximetry Fraction of Inspired Oxygen (FIO2) EKG Findings - EKG Results: EKG: interpreted by MARIE, sinus rhythm, normal axis, normal QRS, normal ST/T Procedures - Intubation Paralytic: Rocuronium Mg Given: 70 Laryngoscope: other (Attempt with Salas, Landry and glides) Intubation Complications: unable to intubate, difficult intubation Additional Comments: Unable to intubate with standard as well is glide scope despite several a ttempts. JIGGER MACHINE OPERATOR was called and was able to intubate after several attempts using glide scope and bougie. Breaks were taken for bag ventilation to ensure patient did not become hypoxic. Patient did not aspirate. Medical Decision Making - Medical Decision Making Code stroke was called at 5:30 PM. Conversation with at 5:45 PM. He confirms that patient is not on Eliquis. He also states last known well was noon. Secondary to this patient is not a candidate for tPA. Last known well is greater than 4.5 hours and risks are felt to outweigh the benefits [id number] Case was earlier discussed with Dr. Deluca who does recommend transfer to [facility]. Family refuses transfer to [facility]. Discussion had regarding [facility]. But that has also been refused. Patient family requests [facility] and we are calling them I did speak with Grey at [facility], who recommends transfer to a closer facility. He did speak with his neurosurgeon Dr. Garces and they do not accept. Was pt. sent in by a medical professional or institution (, PA, INJECTION MOULDING MACHINE OPERATOR, urgent care, hospital, or custodial...) When possible be specific @ -No Did you speak to anyone other than the patient for history (EMS, parent, family, police, friend...)? What history was obtained from this source @ -EMS helps provide history as patient is a poor historian. Did you review nursing and triage notes (agree or disagree)? Why? @ -I reviewed and agree with nursing and triage notes Were old charts reviewed (outside hosp., previous admission, EMS record, old EKG, old radiological studies, urgent care reports/EKG's, custodial records)? Report findings @ -No old charts were reviewed Differential Diagnosis (chest pain, altered mental status, abdominal pain women, abdominal pain men, vaginal bleeding, weakness, fever, dyspnea, syncope, hea dache, dizziness, GI bleed, back pain, seizure, CVA, palpatations, mental health, musculoskeletal)? @ -Differential Weakness: Hypoglycemia, shock, sepsis, hyponatremia, anemia, infection, SC, ETOH, adverse medicine reaction, overdose, stroke, this is not meant to be an all-inclusive list. EKG interpreted by me (3pts min.). @ -As above X-rays interpreted by me (1pt min.). @ -Chest x-ray shows endotracheal tube in appropriate position CT interpreted by me (1pt min.). @ -CT scan of the brain shows left thalamic bleed with blood in the ventricle U/S interpreted by me (1pt. min.). @ -None done What testing was considered but not performed or refused? (CT, X-rays, U/S, labs)? Why? @ -None What meds were considered but not given or refused? Why? @ -None Did you discuss the management of the patient with other professionals (professionals i.e. , PA, INJECTION MOULDING MACHINE OPERATOR, lab, RT, psych nurse, social sciences department chair, manager inside, teacher, postal delivery officer, case management associate)? Give summary @ -Case was discussed with Dr. Deluca who does recommend transfer to [facility]. Case also discussed with Dr. Cotto who will accept to the emergency department at [facility] Was smoking cessation discussed for >3mins.? @ -No Was critical care preformed (if so, how long)? @ -35 minutes critical care Were there social determinants of health that impacted care today? How? (Homelessness, low income, unemployed, alcoholism, drug addiction, transportation, low edu. Level, literacy, decrease access to med. care, prison, rehab)? @ -No Was there de-escalation of care discussed even if they declined (Discuss DNR or withdrawal of care, Hospice)? DNR status @ -No What co-morbidities impacted this encounter? (DM, HTN, Smoking, COPD, CAD, Cancer, CVA, ARF, Chemo, Hep., AIDS, mental health diagnosis, sleep apnea, morbid obesity)? @ -Underlying hypertension Was patient admitted / discharged? Hospital course, mention meds given and route, prescriptions, significant lab abnormalities, going to OR and other pertinent info. @ -Patient presents with NIH 12 onset sometime between noon and 4. Last known well is noon. Patient not a candidate for tPA. CT scan with thalamic bleed. Patient is hypertensive. Patient was started on nicardipine. Patient was intubated secondary to reevaluation not protecting her airway. Patient will be transferred to [facility]. Undiagnosed new problem with uncertain prognosis? @ -No Drug Therapy requiring intensive monitoring for toxicity (Heparin, Nitro, Insulin, Cardizem)? @ -Patient is on nicardipine drip Were any procedures done? @ -No Diagnosis/symptom? @ -Intracranial hemorrhage Acute, or Chronic, or Acute on Chronic? @ -Acute Uncomplicated (without systemic symptoms) or Complicated (systemic symptoms)? @ -Complicated with hypertensive emergency Side effects of treatment? @ -No Exacerbation, Progression, or Severe Exacerbation? @ -No Poses a threat to life or bodily function? How? (Chest pain, USA, SC, pneumonia, PE, COPD, DKA, ARF, appy, cholecystitis, CVA, Diverticulitis, Homicidal, Suicidal, threat to staff... and all critical care pts) @ -Threat to neurological function - Lab Data Result diagrams: 11/29/23 17:43 11/29/23 17:43 Lab Results 11/29/23 11/29/23 11/29/23 Range/Units 17:43 17:43 17:43 WBC 5.5 (3.8-10.6) k/uL RBC 4.01 (3.80-5.40) m/uL Hgb 12.8 (11.4-16.0) gm/dL Hct 38.2 (34.0-46.0) % MCV 95.4 (80.0-100.0) fL MCH 32.0 (25.0-35.0) pg MCHC 33.6 (31.0-37.0) g/dL RDW 13.0 (11.5-15.5) % Plt Count 292 (150-450) k/uL MPV 8.2 Neutrophils % 55 % Lymphocytes % 26 % Monocytes % 9 % Eosinophils % 6 % Basophils % 1 % Neutrophils # 3.0 (1.3-7.7) k/uL Lymphocytes # 1.4 (1.0-4.8) k/uL Monocytes # 0.5 (0-1.0) k/uL Eosinophils # 0.4 (0-0.7) k/uL Basophils # 0.0 (0-0.2) k/uL PT 10.0 (10.0-12.5) sec INR 0.9 (<1.2) APTT 24.2 (22.0-30.0) sec Sodium 139 (137-145) mmol/L Potassium 4.2 (3.5-5.1) mmol/L Chloride 109 H (98-107) mmol/L Carbon Dioxide 23 (22-30) mmol/L Anion Gap 7 mmol/L BUN 15 (7-17) mg/dL Creatinine 0.57 (0.52-1.04) mg/dL Est GFR (CKD-EPI)AfAm >90 (>60 ml/min/1.73 sqM) Est GFR (CKD-EPI)NonAf 88 (>60 ml/min/1.73 sqM) Glucose 97 (74-99) mg/dL Calcium 9.9 (8.4-10.2) mg/dL Total Bilirubin 0.3 (0.2-1.3) mg/dL AST 28 (14-36) U/L ALT 26 (4-34) U/L Alkaline Phosphatase 114 (38-126) U/L Creatine Kinase 83 (30-135) U/L Total Protein 6.5 (6.3-8.2) g/dL Albumin 4.0 (3.5-5.0) g/dL Critical Care Time Critical Care Time: Yes Total Critical Care Time: 35 Disposition Clinical Impression: Thalamic hemorrhage with stroke Disposition: OTHER INSTITUTION NOT DEFINED Condition: Critical Is patient prescribed a controlled substance at d/c from ED?: No Referrals: Silvina Coronado MD [Primary Care Provider] - 1-2 days Time of Disposition: 19:00 - Out of Hospital Transfer - Req. Specs Out of Hospital Transfer - Requested Specifics: Other Emergency Center
[2023-11-29] MEDS: ONDANSETRON 4 MG/2 ML VIAL IVP STA (17:48)
--- NOTE | 2023-11-29 18:02 | CT ---
EXAMINATION TYPE: CT brain wo con DATE OF EXAM: 11/29/2023 COMPARISON: 04/27/2023 HISTORY: code stroke, neuro defecits, vomiting and weakness. CT DLP: 1116.0 mGycm Automated exposure control for dose reduction was used. FINDINGS: There is moderate to marked acute intraventricular hemorrhage involving the lateral, third ventricles and fourth ventricle. There is a small parenchymal hemorrhage in the region of the left thalamus and posterior limb of the left internal capsule which is likely secondary to hypertension. There is no mass effect or shift of the midline structures. The ventricles, basal cisterns and sulci over convexities are moderately enlarged consistent with mod erate generalized atrophy appropriate for the patient's age. There is moderate decreased density in t he periventricular white matter consistent with moderate ischemic white matter demyelination. The intraorbital contents appear normal symmetric. Visualized paranasal sinuses and mastoid air cells are well aerated. IMPRESSION: 1. Moderate to marked acute diffuse intraventricular hemorrhage. 2. Acute parenchymal hemorrhage in the region of the left thalamus and posterior limb of the left int ernal capsule which extends to the intraventricular system. 3. NO MASS EFFECT OR SHIFT IN MIDLINE STRUCTURES. 4. STABLE SENESCENT CHANGES
[2023-11-29] MEDS: ROCURONIUM 10 MG/ML (5 ML VIAL) IV STA (18:18)
--- NOTE | 2023-11-29 18:20 | CT ---
EXAMINATION TYPE: CT angio head neck DATE OF EXAM: 11/29/2023 HISTORY: code stroke, neuro defecits, vomiting and weakness. confusion and slurred speech COMPARISON: CT DLP: 360 mGycm. Automated Exposure Control for Dose Reduction was Utilized. TECHNIQUE: CTA scan of the head and neck is performed with IV Contrast, patient injected with 65ml m L of Isovue 370, axial images are obtained, coronal and sagittal reformatted images are reviewed. 3D reconstructed images are created on an independent workstation and reviewed. FINDINGS: FINDINGS: The brachiocephalic origins are widely patent and no significant stenosis. There is no significant stenosis of the common or internal carotid arteries within the neck. There is no stenosis of the vertebral arteries. Intracranially, there is no stenosis, segmental occlusion, sizable aneurysm sac or vascular malformat ion. IMPRESSION:. No significant abnormality seen. NASCET criteria was used in interpretation of this exam?
[2023-11-29 18:23] LABS: Basophils % (A) 1 %; Eosinophils # (A) 0.4 k/uL (0-0.7); Eosinophils % (A) 6 %; HCT 38.2 % (34.0-46.0); HGB 12.8 gm/dL (11.4-16.0); Lymphocytes # (A) 1.4 k/uL (1.0-4.8); Lymphocytes % (A) 26 %; MCHC 33.6 g/dL (31.0-37.0); MCV 95.4 fL (80.0-100.0); Mean Platelet Volume 8.2; Monocytes # (A) 0.5 k/uL (0-1.0); Monocytes % (A) 9 %; Neutrophils % (A) 55 %; Platelet Count 292 k/uL (150-450); RBC 4.01 m/uL (3.80-5.40); WBC 5.5 k/uL (3.8-10.6)
[2023-11-29] MEDS: niCARdipine 20 MG in SODIUM CHLORIDE 0.9% 192 ML IV SCH (18:23)
[2023-11-29] MEDS: MIDAZOLAM 1 MG/ML 5 ML VIAL IV STA (18:31)
[2023-11-29 18:35] LABS: INR 0.9 (<1.2); Partial Thromboplastin Time 24.2 sec (22.0-30.0)
[2023-11-29] MEDS ORDERED: LORazepam 2 MG/ML INJ IV PRN (18:48)
[2023-11-29 18:59] LABS: ALT 26 U/L (4-34); AST 28 U/L (14-36); African American GFR (CKD) >90 (>60 ml/min/1.73 sqM); Alkaline Phosphatase 114 U/L (38-126); Anion Gap 7 mmol/L; Blood Urea Nitrogen 15 mg/dL (7-17); Calcium 9.9 mg/dL (8.4-10.2); Carbon Dioxide 23 mmol/L (22-30); Chloride 109 mmol/L (98-107); Creatine Kinase 83 U/L (30-135); Glucose 97 mg/dL (74-99); Non-African American GFR(CKD) 88 (>60 ml/min/1.73 sqM); Potassium 4.2 mmol/L (3.5-5.1); Sodium 139 mmol/L (137-145); Total Bilirubin 0.3 mg/dL (0.2-1.3); Total Protein 6.5 g/dL (6.3-8.2)
--- NOTE | 2023-11-29 19:03 | XR ---
EXAMINATION TYPE: XR chest 1V confirm line [facility] DATE OF EXAM: 11/29/2023 COMPARISON: NONE HISTORY: Tube placement TECHNIQUE: Single frontal view of the chest is obtained. FINDINGS: ET tube is 1.3 cm above the burke. There is an NG tube within the stomach. There is possible mild pulmonary vascular congestion. There is no pleural effusion or pneumothorax. The heart size is normal for the technique. There is no airspace consolidation. The osseous structures are intact. IMPRESSION: 1. ET tube 1.3 cm above the burke. NG tube within the stomach. 2. Possible mild pulmonary vascular congestion with no other significant abnormality seen. IMPRESSION: No acute process.
[2023-11-29] MEDS: LORazepam 2 MG/ML INJ IV PRN (20:02)
[2023-11-29 20:52] VITALS: BP 142/70; PULSE 101; RESP 22; TEMP 98
[2023-11-29] MEDS ORDERED: CHLORHEXIDINE GLUCONATE 15 ML CUP MUCOUS MEM SCH (21:00)
== END 2023-11-29 20:10 | disposition other institution (70) ==
LOC: EC 17:27
DX: I62.9 Nontraumatic intracranial hemorrhage, unspecified (principal); R29.712 NIHSS score 12; I10 Essential (primary) hypertension; Z88.0 Allergy status to penicillin; Z79.899 Other long term (current) drug therapy
CPT/HCPCS: 36415; 94002; 93005; 80053; 82550; 85025; 85610; 85730; 70496; 70450; 70498; 99291; 96365; 96375 ×2; J2060; J2405; J2704; Q9967

== ENCOUNTER 2024-04-18 17:00 | Inpatient (IN) | payer MEDICARE ==
--- NOTE | 2024-04-18 17:25 | ED ---
Altered Mental Status HPI - General Chief Complaint: Weakness Stated Complaint: Weakness Time Seen by Provider: 04/18/24 17:02 Source: EMS, RN notes reviewed, old records reviewed Mode of arrival: EMS - History of Present Illness Initial Comments: This is an 78-year-old female to the ER. Patient presents today for evaluation of of failure to thrive weakness altered mental status difficulty breathing increased respiration rate, patient has increased unresponsiveness difficulty and slow to respond with worsening symptoms at home. Patient recently did have an inpatient transfer for intracranial hemorrhage and has been at rehab with significant and slow deterioration MD Complaint: altered mental status, confusion, decreased responsiveness -: unknown Severity: severe Associated Symptoms: denies other symptoms Treatments Prior to Arrival: IV fluid, oxygen - Related Data Home Medications Medication Instructions Recorded Confirmed Acetaminophen Tab [Tylenol] 650 mg PEG/G-TUBE Q6H PRN 04/18/24 04/18/24 Amino Acids/Protein Hydrolys 30 ml PEG/G-TUBE TID@0900,1300,2100 04/18/24 04/18/24 [Pro-Stat Awc Liquid] Ascorbic Acid [Vitamin C] 500 mg PEG/G-TUBE DAILY 04/18/24 04/18/24 Carbidopa-Levodopa 25-100 mg See Taper PEG/G-TUBE DIRECTED 04/18/24 04/18/24 [Sinemet 25-100] Cholecalciferol [Vitamin D3 (25 50 mcg PEG/G-TUBE DAILY 04/18/24 04/18/24 Mcg = 1000 Iu)] Dapagliflozin Propanediol [Farxiga] 5 mg PEG/G-TUBE HS 04/18/24 04/18/24 Enoxaparin [Lovenox] 40 mg SQ HS 04/18/24 04/18/24 Famotidine [Pepcid] 20 mg PEG/G-TUBE DAILY@0600 04/18/24 04/18/24 Insulin Glargine,Hum.rec.anlog 15 units SQ HS 04/18/24 04/18/24 [Lantus Solostar Pen] Jevity 1.5 Vladimir Liquid 1 dose PEG/G-TUBE DIRECTED 04/18/24 04/18/24 Loratadine 10 mg PEG/G-TUBE DAILY PRN 04/18/24 04/18/24 Metoprolol Tartrate [Lopressor] 25 mg PEG/G-TUBE BID 04/18/24 04/18/24 Sennosides/Docusate Sodium [Senna 1 tab PEG/G-TUBE Q24H PRN 04/18/24 04/18/24 Plus 8.6-50 mg Tablet] Therahoney External Gel 1 applic TOPICAL DAILY PRN 04/18/24 04/18/24 Therahoney External Gel 1 applic TOPICAL HS 04/18/24 04/18/24 Zinc Gluconate [Zinc] 50 mg PEG/G-TUBE DAILY 04/18/24 04/18/24 amLODIPine [Norvasc] 10 mg PEG/G-TUBE DAILY 04/18/24 04/18/24 guaiFENesin [guaiFENesin Oral 200 mg PEG/G-TUBE Q4H PRN 04/18/24 04/18/24 Solution] levETIRAcetam ORAL SOLN [Keppra 500 mg PEG/G-TUBE BID 04/18/24 04/18/24 Oral Soln] lisinopriL [Zestril] 20 mg PEG/G-TUBE DAILY 04/18/24 04/18/24 metFORMIN HCL [Glucophage] 500 mg PEG/G-TUBE BID 04/18/24 04/18/24 Allergies Allergy/AdvReac Type Severity Reaction Status Date / Time Penicillins Allergy Rash/Hives Verified 04/18/24 17:35 Review of Systems ROS Statement: Those systems with pertinent positive or pertinent negative responses have been documented in the HPI. ROS Other: All systems not noted in ROS Statement are negative. Past Medical History Past Medical History: Asthma, Hyperlipidemia, Hypertension History of Any Multi-Drug Resistant Organisms: None Reported Past Surgical History: Tubal Ligation Additional Past Surgical History / Comment(s): kidney removed Past Psychological History: No Psychological Hx Reported Smoking Status: Never smoker Past Alcohol Use History: Occasional Past Drug Use History: None Reported General Exam Limitations: language barrier, altered mental status, physical limitation General appearance: alert, anxious, in distress Head exam: Present: atraumatic, normocephalic, normal inspection Eye exam: Present: normal appearance, PERRL, EOMI. Absent: scleral icterus, conjunctival injection, periorbital swelling ENT exam: Present: normal exam, mucous membranes moist Neck exam: Present: normal inspection. Absent: tenderness, meningismus, lymphadenopathy Respiratory exam: Present: normal lung sounds bilaterally. Absent: respiratory distress, wheezes, rales, rhonchi, stridor Cardiovascular Exam: Present: regular rate, normal rhythm, normal heart sounds. Absent: systolic murmur, diastolic murmur, rubs, gallop, clicks GI/Abdominal exam: Present: soft, normal bowel sounds. Absent: distended, tenderness, guarding, rebound, rigid Extremities exam: Present: normal inspection, full ROM, normal capillary refill. Absent: tenderness, pedal edema, joint swelling, calf tenderness Back exam: Present: normal inspection Neurological exam: Present: alert, oriented X3, CN II-XII intact Psychiatric exam: Present: normal affect, normal mood Skin exam: Present: warm, dry, intact, normal color. Absent: rash Course Vital Signs 04/18/24 04/18/24 04/18/24 17:02 17:31 17:32 Temperature 98.5 F Pulse Rate 96 Respiratory 24 Rate Blood Pressure 142/78 O2 Sat by Pulse 95 Oximetry Fraction of 35 35 Inspired Oxygen (FIO2) 04/18/24 04/18/24 04/18/24 17:36 17:41 17:59 Temperature 98.2 F Pulse Rate 109 H 112 H Respiratory 18 Rate Blood Pressure 196/108 O2 Sat by Pulse 97 Oximetry Fraction of 35 Inspired Oxygen (FIO2) 04/18/24 04/18/24 04/18/24 19:19 21:12 22:19 Temperature Pulse Rate 110 H 106 H 105 H Respiratory 18 20 20 Rate Blood Pressure 178/95 153/85 160/88 O2 Sat by Pulse 95 94 L 95 Oximetry Fraction of Inspired Oxygen (FIO2) 04/18/24 04/19/24 04/19/24 23:00 01:55 04:48 Temperature Pulse Rate 105 H 116 H 92 Respiratory 20 16 18 Rate Blood Pressure 170/93 151/113 142/74 O2 Sat by Pulse 95 94 L 94 L Oximetry Fraction of Inspired Oxygen (FIO2) 04/19/24 04/19/24 06:38 07:59 Temperature 98.8 F Pulse Rate 90 92 Respiratory 14 18 Rate Blood Pressure 129/68 132/66 O2 Sat by Pulse 92 L 92 L Oximetry Fraction of Inspired Oxygen (FIO2) - Reevaluation(s) Reevaluation #1: 04/18/24 18:01 Medical records reviewed Reevaluation #2: 04/18/24 18:01 Patient symptoms unchanged Reevaluation #3: 04/19/24 12:24 Family informed of results at length, the ER spoken with in regards to transition to hospice which they agree with Reevaluation #4: 04/18/24 18:01 Was pt. sent in by a medical professional or institution ([facility] Pantoja, PHYSICALLY IMPAIRED TEACHER, urgent care, hospital, or [place] [facility] facility...) When possible be specific @ -no Did you speak to anyone other than the patient for history (EMS, parent, family, police, friend...)? What history was obtained from this source @ -no Did you review nursing and triage notes (agree or disagree)? Why? @ -agree Are old charts reviewed (outside hosp., previous admission, EMS record, old EKG, old radiological studies, urgent care reports/EKG's, [place] [facility] records)? Report findings @ -yes Differential Diagnosis (chest pain, altered mental status, abdominal pain women, abdominal pain men, vaginal bleeding, weakness, fever, dyspnea, syncope, headache, dizziness, GI bleed, back pain, seizure, CVA, palpatations, mental he alth, musculoskeletal)? @ -prior EKG interpreted by me (3pts min.). @ -yes X-rays interpreted by me (1pt min.). @ -yes negative for acute disease CT interpreted by me (1pt min.). @ -Yes negative for acute disease U/S interpreted by me (1pt. min.). @ -no What testing was considered but not performed or refused? (CT, X-rays, U/S, labs)? Why? @ -none What meds were considered but not given or refused? Why? @ -none Did you discuss the management of the patient with other professionals (meera barbour i.e. [facility] Pantoja, PHYSICALLY IMPAIRED TEACHER, lab, RT, psych nurse, social work nurse, tire debeader, teacher, program officer, case packer)? Give summary @ -no Was smoking cessation discussed for >3mins.? @ -no Was critical care preformed (if so, how long)? @ -yes31 Were there social determinants of health that impacted care today? How? (Homelessness, low income, unemployed, alcoholism, drug addiction, transportation, low edu. Level, literacy, decrease access to med. care, assisted, rehab)? @ -none Was there de-escalation of care discussed even if they declined (Discuss DNR or withdrawal of care, Hospice)? DNR status @ -no What co-morbidities impacted this encounter? (DM, HTN, Smoking, COPD, CAD, Cancer, CVA, ARF, Chemo, Hep., AIDS, mental health diagnosis, sleep apnea, morbid obesity)? @ -none Was patient admitted / discharged? Hospital course, mention meds given and route, prescriptions, significant lab abnormalities, going to OR and other pertinent info. @ - 78 female to ER placed on BiPAP on arrival secondary to significant tachypnea. Patient taken off BiPAP after she has normal bowel gas patient remains unresponsive here in the ER, after long conversation with family patient is transition to hospice care and comfort care Admitted Undiagnosed new problem with uncertain prognosis? @ -no Drug Therapy requiring intensive monitoring for toxicity (Heparin, Nitro, Insulin, Cardizem)? @ -no Were any procedures done? @ -no Diagnosis/symptom? @ -Failure to thrive, clinical and physical deterioration from positive CVA Acute, or Chronic, or Acute on Chronic? @ -Acute Uncomplicated (without systemic symptoms) or Complicated (systemic symptoms)? @ -Complicated Side effects of treatment? @ -no Exacerbation, Progression, or Severe Exacerbation? @ -exacerbation Poses a threat to life or bodily function? How? (Chest pain, [place], [place], pneumonia, PE, COPD, DKA, ARF, appy, cholecystitis, CVA, Diverticulitis, Homicidal, Suicidal, threat to staff... and all critical care pts) @ -yes Reevaluation #5: Differential Altered Mental Status: Hypoglycemia, DKA, hypercapnia, ETOH, overdose, CO poisoning, trauma, myxedema coma, HTN encephalopathy, infection, encephalitis, psychosis, intercranial hemorrhage, hepatic encephalopathy, meningitis, CVA, this is not meant to be an all-inclusive list Differential Dyspnea: Coronary syndrome, arrhythmia, tamponade, asthma, COPD, pulmonary embolism, pneumonia, pneumothorax, pulmonary effusion, anaphylaxis, diabetic ketoacidosis, flailed chest, pulmonary contusion, diaphragmatic rupture, anemia, neuromuscular, this is not meant to be an all-inclusive list. - Consultations Consultation #1: Spoke with Dr. Cox who agrees to accept this patient Medical Decision Making - Medical Decision Making 78 female to ER placed on BiPAP on arrival secondary to significant tachypnea. Patient taken off BiPAP after she has normal bowel gas patient remains unresponsive here in the ER, after long conversation with family patient is tra nsition to hospice care and comfort care - Lab Data Result diagrams: 04/27/24 06:10 04/27/24 06:10 Lab Results 04/18/24 04/18/24 04/18/24 Range/Units 17:40 17:40 17:40 WBC 12.7 H (3.8-10.6) k/uL RBC 4.54 (3.80-5.40) m/uL Hgb 14.1 (11.4-16.0) gm/dL Hct 43.9 (34.0-46.0) % MCV 96.6 (80.0-100.0) fL MCH 31.1 (25.0-35.0) pg MCHC 32.2 (31.0-37.0) g/dL RDW 12.7 (11.5-15.5) % Plt Count 394 (150-450) k/uL MPV 7.8 Neutrophils % 73 % Lymphocytes % 18 % Monocytes % 6 % Eosinophils % 2 % Basophils % 0 % Neutrophils # 9.2 H (1.3-7.7) k/uL Lymphocytes # 2.3 (1.0-4.8) k/uL Monocytes # 0.7 (0-1.0) k/uL Eosinophils # 0.2 (0-0.7) k/uL Basophils # 0.1 (0-0.2) k/uL PT 9.7 L (10.0-12.5) sec INR 0.9 (<1.2) APTT 22.3 (22.0-30.0) sec D-Dimer (<0.60) mg/L FEU VBG pH (7.31-7.41) VBG pCO2 (37-51) mmHg VBG HCO3 (24-28) mmol/L Sodium 138 (137-145) mmol/L Potassium 4.5 (3.5-5.1) mmol/L Chloride 107 (98-107) mmol/L Carbon Dioxide 23 (22-30) mmol/L Anion Gap 8 mmol/L BUN 25 H (7-17) mg/dL Creatinine 0.40 L (0.52-1.04) mg/dL Est GFR (CKD-EPI)AfAm >90 (>60 ml/min/1.73 sqM) Est GFR (CKD-EPI)NonAf >90 (>60 ml/min/1.73 sqM) Glucose 161 H (74-99) mg/dL Plasma Lactic Acid Parminder (0.7-2.0) mmol/L Calcium 10.1 (8.4-10.2) mg/dL Phosphorus 3.1 (2.5-4.5) mg/dL Magnesium 2.0 (1.6-2.3) mg/dL Total Bilirubin 0.6 (0.2-1.3) mg/dL AST 34 (14-36) U/L ALT 62 H (4-34) U/L Alkaline Phosphatase 172 H (38-126) U/L Troponin I (0.000-0.034) ng/mL Total Protein 6.7 (6.3-8.2) g/dL Albumin 3.8 (3.5-5.0) g/dL TSH 1.050 (0.465-4.680) mIU/L 04/18/24 04/18/24 04/18/24 Range/Units 17:40 17:40 17:40 WBC (3.8-10.6) k/uL RBC (3.80-5.40) m/uL Hgb (11.4-16.0) gm/dL Hct (34.0-46.0) % MCV (80.0-100.0) fL MCH (25.0-35.0) pg MCHC (31.0-37.0) g/dL RDW (11.5-15.5) % Plt Count (150-450) k/uL MPV Neutrophils % % Lymphocytes % % Monocytes % % Eosinophils % % Basophils % % Neutrophils # (1.3-7.7) k/uL Lymphocytes # (1.0-4.8) k/uL Monocytes # (0-1.0) k/uL Eosinophils # (0-0.7) k/uL Basophils # (0-0.2) k/uL PT (10.0-12.5) sec INR (<1.2) APTT (22.0-30.0) sec D-Dimer (<0.60) mg/L FEU VBG pH 7.45 H (7.31-7.41) VBG pCO2 37 (37-51) mmHg VBG HCO3 25 (24-28) mmol/L Sodium (137-145) mmol/L Potassium (3.5-5.1) mmol/L Chloride (98-107) mmol/L Carbon Dioxide (22-30) mmol/L Anion Gap mmol/L BUN (7-17) mg/dL Creatinine (0.52-1.04) mg/dL Est GFR (CKD-EPI)AfAm (>60 ml/min/1.73 sqM) Est GFR (CKD-EPI)NonAf (>60 ml/min/1.73 sqM) Glucose (74-99) mg/dL Plasma Lactic Acid Parminder 1.5 (0.7-2.0) mmol/L Calcium (8.4-10.2) mg/dL Phosphorus (2.5-4.5) mg/dL Magnesium (1.6-2.3) mg/dL Total Bilirubin (0.2-1.3) mg/dL AST (14-36) U/L ALT (4-34) U/L Alkaline Phosphatase (38-126) U/L Troponin I <0.012 (0.000-0.034) ng/mL Total Protein (6.3-8.2) g/dL Albumin (3.5-5.0) g/dL TSH (0.465-4.680) mIU/L 04/18/24 Range/Units 20:57 WBC (3.8-10.6) k/uL RBC (3.80-5.40) m/uL Hgb (11.4-16.0) gm/dL Hct (34.0-46.0) % MCV (80.0-100.0) fL MCH (25.0-35.0) pg MCHC (31.0-37.0) g/dL RDW (11.5-15.5) % Plt Count (150-450) k/uL MPV Neutrophils % % Lymphocytes % % Monocytes % % Eosinophils % % Basophils % % Neutrophils # (1.3-7.7) k/uL Lymphocytes # (1.0-4.8) k/uL Monocytes # (0-1.0) k/uL Eosinophils # (0-0.7) k/uL Basophils # (0-0.2) k/uL PT (10.0-12.5) sec INR (<1.2) APTT (22.0-30.0) sec D-Dimer 0.96 H (<0.60) mg/L FEU VBG pH (7.31-7.41) VBG pCO2 (37-51) mmHg VBG HCO3 (24-28) mmol/L Sodium (137-145) mmol/L Potassium (3.5-5.1) mmol/L Chloride (98-107) mmol/L Carbon Dioxide (22-30) mmol/L Anion Gap mmol/L BUN (7-17) mg/dL Creatinine (0.52-1.04) mg/dL Est GFR (CKD-EPI)AfAm (>60 ml/min/1.73 sqM) Est GFR (CKD-EPI)NonAf (>60 ml/min/1.73 sqM) Glucose (74-99) mg/dL Plasma Lactic Acid Parminder (0.7-2.0) mmol/L Calcium (8.4-10.2) mg/dL Phosphorus (2.5-4.5) mg/dL Magnesium (1.6-2.3) mg/dL Total Bilirubin (0.2-1.3) mg/dL AST (14-36) U/L ALT (4-34) U/L Alkaline Phosphatase (38-126) U/L Troponin I (0.000-0.034) ng/mL Total Protein (6.3-8.2) g/dL Albumin (3.5-5.0) g/dL TSH (0.465-4.680) mIU/L - EKG Data -: EKG Interpreted by Me (EKG is sinus tachycardia 103 MS 158 QRS 82 QTc 412) - Radiology Data Radiology results: report reviewed (Chest x-ray is negative for acute disease CT brain CTA chest negative for acute disease), image reviewed Critical Care Time Critical Care Time: Yes Total Critical Care Time: 31 Disposition Clinical Impression: Dehydration, Weakness, Altered mental status, Unresponsive, Status post CVA Disposition: ADMITTED IP TO THIS [facility] Condition: Serious Is patient prescribed a controlled substance at d/c from ED?: No
[2024-04-18] MEDS: IPRATROPIUM-ALBUTEROL 3 ML NEB INHALATION STA (17:41)
[2024-04-18] MEDS: MORPHINE SULFATE 2 MG/ML SYRINGE IVP STA (17:52)
[2024-04-18] MEDS: SODIUM CHLORIDE 0.9% 1,000 ML IV STA ×2 (17:55→17:57)
[2024-04-18 17:56] LABS: Basophils # (A) 0.1 k/uL (0-0.2); Basophils % (A) 0 %; Eosinophils # (A) 0.2 k/uL (0-0.7); Eosinophils % (A) 2 %; HCT 43.9 % (34.0-46.0); HGB 14.1 gm/dL (11.4-16.0); Lymphocytes # (A) 2.3 k/uL (1.0-4.8); Lymphocytes % (A) 18 %; MCH 31.1 pg (25.0-35.0); MCHC 32.2 g/dL (31.0-37.0); MCV 96.6 fL (80.0-100.0); Mean Platelet Volume 7.8; Monocytes # (A) 0.7 k/uL (0-1.0); Monocytes % (A) 6 %; Neutrophils # (A) 9.2 k/uL (1.3-7.7); Neutrophils % (A) 73 %; Platelet Count 394 k/uL (150-450); RBC 4.54 m/uL (3.80-5.40); RDW 12.7 % (11.5-15.5); WBC 12.7 k/uL (3.8-10.6)
[2024-04-18 18:10] LABS: ALT 62 U/L (4-34); AST 34 U/L (14-36); African American GFR (CKD) >90 (>60 ml/min/1.73 sqM); Albumin 3.8 g/dL (3.5-5.0); Alkaline Phosphatase 172 U/L (38-126); Anion Gap 8 mmol/L; Blood Urea Nitrogen 25 mg/dL (7-17); Calcium 10.1 mg/dL (8.4-10.2); Carbon Dioxide 23 mmol/L (22-30); Chloride 107 mmol/L (98-107); Glucose 161 mg/dL (74-99); Non-African American GFR(CKD) >90 (>60 ml/min/1.73 sqM); Phosphorus 3.1 mg/dL (2.5-4.5); Potassium 4.5 mmol/L (3.5-5.1); Sodium 138 mmol/L (137-145); Total Bilirubin 0.6 mg/dL (0.2-1.3); Total Protein 6.7 g/dL (6.3-8.2)
[2024-04-18 18:12] LABS: VBG PH 7.45 (7.31-7.41)
[2024-04-18 18:23] LABS: INR 0.9 (<1.2); Partial Thromboplastin Time 22.3 sec (22.0-30.0); Prothrombin Time 9.7 sec (10.0-12.5)
--- NOTE | 2024-04-18 19:14 | XR ---
EXAMINATION TYPE: XR chest 1V portable DATE OF EXAM: 04/18/2024 COMPARISON: 11/29/2023 INDICATION: Short of breath history of recent COVID TECHNIQUE: Single frontal view of the chest is obtained. FINDINGS: The heart size is normal. The pulmonary vasculature is normal. The lungs are clear. 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 IMPRESSION: 1. No acute pulmonary process radiographically apparent. [facility], , 04/18/2024 7:12 PM
--- NOTE | 2024-04-18 21:06 | CT ---
EXAMINATION TYPE: CT brain wo con DATE OF EXAM: 04/18/2024 COMPARISON: INDICATION: AMS DLP: 1242.9 mGycm, Automated exposure control for dose reduction was used. CONTRAST: None CT of the brain is performed utilizing 3 mm thick sections through the posterior fossa and 3 mm thick sections through the remaining calvarium. Study is performed within 24 hours of arrival to the hosp ital. No abnormal hyperdensity is present to suggest an acute intracranial hemorrhage. No mass lesion is evident. There is a hypodense area within the frontal parietal junction. Subcortical infarct be considered. Va sogenic edema could be within the differential. White matter ischemic changes could be considered. Th ere is additional periventricular white matter hypodensity likely on the basis of white matter ischem ic changes. Ventricles and sulci are prominent for the patient age. Calcifications within the right frontal sinus. Mild mucosal thickening anterior ethmoid air cells. r-fluid levels in the right sphenoid sinus. Remaining paranasal sinuses and mastoid air cells are maranda ar. IMPRESSION: 1. Right frontal parietal subcortical white matter hypodensity. Differential diagnosis could includ e subcortical infarct, vasogenic edema, or chronic white matter ischemic changes. Consider MRI with c ontrast for additional evaluation. 2. Atrophy with additional chronic appearing periventricular white matter ischemic-type changes. 3. Possible acute paranasal sinusitis with air-fluid levels right sphenoid and right frontal sinuses. [facility], , 04/18/2024 9:04 PM
--- NOTE | 2024-04-18 21:08 | CT ---
CTA CHEST EXAMINATION TYPE: CT angio chest DATE OF EXAM: 04/18/2024 INDICATION: R/O PE. CT DLP: 314.9 mGycm, Automated exposure control for dose reduction was used. CONTRAST: Patient injected with 100 ml mL of Isovue 370. COMPARISON: None TECHNIQUE: CT of the chest is performed on a spiral scan at 2 mm thick sections. Study is performed with intravenous contrast timed for evaluation for pulmonary embolism. This will limit additional po rtions of the evaluation. 3-D MIP images reconstructed by the technologist are reviewed on the compu ter in the coronal and sagittal planes. FINDINGS: No persistent filling defects are evident to suggest an acute pulmonary embolism. No mediastinal or hilar adenopathy enlarged by CT criteria is evident. The ascending aorta diameter at the level of the main pulmonary artery is 3.6 cm. The main pulmonary artery diameter at the bifurcation is 2.8 cm. Some atelectasis is likely within the dependent lung bases bilaterally. There is a hypodensity within the left lobe thyroid. Ill-defined hypodensity may be a right lobe thyr oid. Additional evaluation with ultrasound is recommended. Limited CT sections were through the upper abdomen. Upper abdomen appears unremarkable. IMPRESSION: 1. Acute pulmonary embolism. 2. Atelectasis within the dependent lung bases bilaterally. [facility], , 04/18/2024 9:06 PM
[2024-04-18] MEDS ORDERED: NALOXONE 0.4 MG/ML 1 ML VIAL IV PRN (21:14)
[2024-04-18 22:34] LABS: Appearance,Urine Clear (Clear); Bilirubin,Urine Negative (Negative); Blood,Urine Negative (Negative); Color,Urine Colorless; Glucose,Urine (UA) 4+ (Negative); Ketones,Urine Negative (Negative); Leukocyte Esterase,Urine Negative (Negative); Nitrite,Urine Negative (Negative); Protein,Urine Negative (Negative); Specific Gravity,Urine 1.018 (1.001-1.035); Urobilinogen,Urine <2.0 mg/dL (<2.0)
[2024-04-19] MEDS ORDERED: [UNRECOGNIZED DRUG - OTHER] TOPICAL PRN (01:51)
[2024-04-19] MEDS: METOPROLOL TARTRATE 25 MG TAB PEG/G-TUBE SCH (02:05)
[2024-04-19] MEDS: NON FORMULARY DRUG (Jevity 1.5 Cal Liquid 1,000 ML Ml) PEG/G-TUBE SCH (02:47)
[2024-04-19] MEDS: FAMOTIDINE 20 MG TAB PEG/G-TUBE SCH (07:34)
[2024-04-19] MEDS ORDERED: LORATADINE 10 MG TAB PEG/G-TUBE PRN (09:00)
[2024-04-19] MEDS: metFORMIN 500 MG TAB PEG/G-TUBE SCH (10:33)
[2024-04-19] MEDS: ASCORBIC ACID 500 MG TAB PEG/G-TUBE SCH (10:34)
[2024-04-19] MEDS: CHOLECALCIFEROL 25 MCG (1000 IU) TABLET PEG/G-TUBE SCH (10:34)
[2024-04-19] MEDS: lisinopriL 20 MG TAB PEG/G-TUBE SCH (10:34)
[2024-04-19] MEDS: CARBIDOPA-LEVODOPA 25-100 MG 1 EACH TAB PEG/G-TUBE SCH (10:36)
[2024-04-19] MEDS: levETIRAcetam ORAL SOLN 500 MG/5 ML CUP PEG/G-TUBE SCH (10:36)
[2024-04-19] MEDS: amLODIPine 10 MG TAB PEG/G-TUBE SCH (10:36)
[2024-04-19] MEDS: ZINC SULFATE 220 MG CAP PEG/G-TUBE SCH ×2 (10:37→10:50)
[2024-04-19] MEDS ORDERED: DEXTROSE 50% SYRINGE 50 ML IVP PRN ×2 (14:10)
[2024-04-19 17:03] LABS: Glucose,Whole Blood 182 mg/dL (70-110)
--- NOTE | 2024-04-19 17:50 | P.CNNES ---
History of Present Illness Consult date: 04/19/24 Requesting physician: Lisa Cox Reason for Consult: unresponsiveness, hx of stroke History of Present Illness: This is an 78-year-old woman with history of intraventricular hemorrhage/parenchymal hemorrhage status post EVD on 11/2023, recent COVID 19 infection about 2 weeks ago present emergency department because of altered mental status and failure to thrive. History is obtained from the patient's daughter who are bedside. It seems the patient presented to our facility 11/29/2023 to our emergency department she had weakness vomiting and she had a CT of the head which shows acute parenchymal hemorrhage over the left thalamus posterior limb of left internal capsule which extends into the intraventricular system/intraventricular hemorrhage as a result she was transferred to [facility]. There she was evaluated by neurosurgeon and she had EVD temporary. She was started on Keppra as seizure prophylaxis. Intubated on the ventilator. Because of her stroke she had right-sided weakness. Eventually discharged to rehab and she was having fluctuation in mentation. About 2 weeks ago she had COVID-19 infection was having fluctuation in mentation. She was evaluated by Dr. Oviedo, neurologist as an outpatient and she suspected patient has Parkinson's from her recent stroke and placed her on Sinemet 2023. Family did not feel that there is any improvement in her symptoms. She is also on baclofen as well as she was on amantadine. Baclofen was discontinued since it was making her sleepy. According to the daughters they were notified by [facility] team that her bleed was due to uncontrolled hypertension. But they think her blood pressure was controlled. There is a questionable whether she was on anticoagulation or not such as Eliquis and and it is not consistent answer for patient's per the daughters but they will try to clarify. Some of the workup during this hospital visit consisted of: Oxygen saturation is between 92-94 since overnight. Ammonia level is less than 9 TSH is 1.050 Sodium, calcium, AST is within normal limits. ALT 62 Serum glucose is 161 CT of the head is reported as right frontal parietal subcortical white matter hypodensity. Differential diagnosis could include subcortical infarct, vasogenic edema or chronic white matter ischemic changes. Consider MRI with contrast for additional evaluation. Atrophy with additional chronic appearing periventricular white matter ischemic type changes. Possible acute paranasal sinusitis. Personally reviewed CT and I do see the hypodensity over the right frontal parietal region more on the right but questionably also on the left but does not seem acute seems more subacute. CT angiography of the chest is reported as acute pulmonary embolism. But addendum states no pulmonary embolism. Review of Systems Limited. 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 Lt Knee replacment Feb 2023 . Past Psychological History: No Psychological Hx Reported Smoking Status: Never smoker Past Alcohol Use History: Occasional Past Drug Use History: None Reported Medications and Allergies Home Medications Medication Instructions Recorded Confirmed Type Acetaminophen Tab [Tylenol] 650 mg PEG/G-TUBE Q6H PRN 04/18/24 04/18/24 History Amino Acids/Protein Hydrolys 30 ml PEG/G-TUBE TID@0900,1300,2100 04/18/24 04/18/24 History [Pro-Stat Awc Liquid] Ascorbic Acid [Vitamin C] 500 mg PEG/G-TUBE DAILY 04/18/24 04/18/24 History Carbidopa-Levodopa 25-100 mg See Taper PEG/G-TUBE DIRECTED 04/18/24 04/18/24 History [Sinemet 25-100] Cholecalciferol [Vitamin D3 (25 50 mcg PEG/G-TUBE DAILY 04/18/24 04/18/24 History Mcg = 1000 Iu)] Dapagliflozin Propanediol [Farxiga] 5 mg PEG/G-TUBE HS 04/18/24 04/18/24 History Enoxaparin [Lovenox] 40 mg SQ HS 04/18/24 04/18/24 History Famotidine [Pepcid] 20 mg PEG/G-TUBE DAILY@0600 04/18/24 04/18/24 History Insulin Glargine,Hum.rec.anlog 15 units SQ HS 04/18/24 04/18/24 History [Lantus Solostar Pen] Jevity 1.5 Vladimir Liquid 1 dose PEG/G-TUBE DIRECTED 04/18/24 04/18/24 History Loratadine 10 mg PEG/G-TUBE DAILY PRN 04/18/24 04/18/24 History Metoprolol Tartrate [Lopressor] 25 mg PEG/G-TUBE BID 04/18/24 04/18/24 History Sennosides/Docusate Sodium [Senna 1 tab PEG/G-TUBE Q24H PRN 04/18/24 04/18/24 History Plus 8.6-50 mg Tablet] Therahoney External Gel 1 applic TOPICAL DAILY PRN 04/18/24 04/18/24 History Therahoney External Gel 1 applic TOPICAL HS 04/18/24 04/18/24 History Zinc Gluconate [Zinc] 50 mg PEG/G-TUBE DAILY 04/18/24 04/18/24 History amLODIPine [Norvasc] 10 mg PEG/G-TUBE DAILY 04/18/24 04/18/24 History guaiFENesin [guaiFENesin Oral 200 mg PEG/G-TUBE Q4H PRN 04/18/24 04/18/24 History Solution] levETIRAcetam ORAL SOLN [Keppra 500 mg PEG/G-TUBE BID 04/18/24 04/18/24 History Oral Soln] lisinopriL [Zestril] 20 mg PEG/G-TUBE DAILY 04/18/24 04/18/24 History metFORMIN HCL [Glucophage] 500 mg PEG/G-TUBE BID 04/18/24 04/18/24 History Allergies Allergy/AdvReac Type Severity Reaction Status Date / Time Penicillins Allergy Rash/Hives Verified 04/18/24 17:35 Physical Examination - Vital Signs Vital Signs: Vital Signs Temp Pulse Pulse Resp BP BP Pulse Ox 04/19/24 12:48 98.6 F 104 H 20 146/67 92 L 04/19/24 08:29 93 L 04/19/24 08:00 98.5 F 99 18 164/76 93 L 04/19/24 07:59 92 18 132/66 92 L 04/19/24 06:38 98.8 F 90 14 129/68 92 L 04/19/24 04:48 92 18 142/74 94 L 04/19/24 01:55 116 H 16 151/113 94 L 04/18/24 23:00 105 H 20 170/93 95 04/18/24 22:19 105 H 20 160/88 95 04/18/24 21:12 106 H 20 153/85 94 L 04/18/24 19:19 110 H 18 178/95 95 04/18/24 17:59 98.2 F 112 H 18 196/108 97 04/18/24 17:41 109 H 04/18/24 17:36 04/18/24 17:32 04/18/24 17:31 FiO2 04/19/24 12:48 04/19/24 08:29 04/19/24 08:00 04/19/24 07:59 04/19/24 06:38 04/19/24 04:48 04/19/24 01:55 04/18/24 23:00 04/18/24 22:19 04/18/24 21:12 04/18/24 19:19 04/18/24 17:59 04/18/24 17:41 04/18/24 17:36 35 04/18/24 17:32 35 04/18/24 17:31 35 Intake and Output 04/19/24 04/19/24 04/19/24 06:59 14:59 22:59 Output Total 750 Balance -750 Output: Urine 750 Other: Voiding Method External Catheter Weight 62.596 kg General: Lying in bed and does not appear in acute distress. Neuro: Very Limited. She is severely encephalopathic and minimally open eyes with painful stimuli. She is not verbally responsive. Questionable right facial weakness but per family they do not appreciate it. Motor: Strength is limited and has her knees bend. Otherwise limited in assessment. Results - Laboratory Findings CBC and BMP: 04/18/24 17:40 04/18/24 17:40 Abnormal Lab Findings: Abnormal Labs 04/18/24 04/18/24 04/18/24 17:40 17:40 17:40 WBC 12.7 H Neutrophils # 9.2 H PT 9.7 L D-Dimer VBG pH BUN 25 H Creatinine 0.40 L Glucose 161 H POC Glucose (mg/dL) ALT 62 H Alkaline Phosphatase 172 H Urine Glucose (UA) 04/18/24 04/18/24 04/18/24 17:40 20:57 22:15 WBC Neutrophils # PT D-Dimer 0.96 H VBG pH 7.45 H BUN Creatinine Glucose POC Glucose (mg/dL) ALT Alkaline Phosphatase Urine Glucose (UA) 4+ H 04/19/24 17:01 WBC Neutrophils # PT D-Dimer VBG pH BUN Creatinine Glucose POC Glucose (mg/dL) 182 H ALT Alkaline Phosphatase Urine Glucose (UA) Assessment and Plan Assessment: This is an 78-year-old woman who on November 2023 had left basal ganglia bleed with intraventricular hemorrhage on the CT in our facility as a result she was transferred to [facility] and had EVD and was placed on Keppra intubated on a ventilator. Per family members as result of stroke she had right-sided weakness then eventually was discharged to rehab. 2 weeks ago she had COVID-19. She is having fluctuation in mentation. Also she was evaluated by her outpatient neurologist who on 04/06/2024 suspected Parkinson's questionable due to her bleed and placed her on Sinemet, was placed on Baclofen which Baclofen was discontinue who is recently having altered mental status. Altered mental status fluctuation in mentation seems more delirium. Rule out underlying seizure because of recent bleed. Also rule out stroke. CT head shows right frontal parietal subcortical white matter hypodensity. Recent left basal ganglia bleed with intraventricular hemorrhage on 11/2023 and outside facility felt due to uncontrol hypertension status post EVD ([facility]) patient has residual right hemiparesis Parkinson's disease that suspected by her outpatient neurologist due to her bleed Status post PEG tube Hypertension Plan: MRI of the brain with and without is ordered by the primary team is pending. If does have acute stroke then will get rest of stroke work-up. I ordered a routine EEG Patient is continued on her Keppra 500 mg twice daily that was started since her bleed on 11/2023. I discontinued her Sinemet since per family no improvement in her condition with medication and patient were in agreement of discontinuing medication. I ordered vitamin B12 folate Will defer the rest of the medical management to primary and other specialist Plan is discussed with the patient's daughters were at bedside as well as the nurse Thank for the consult Time with Patient: Greater than 30
[2024-04-19] MEDS: INSULIN ASPART (NovoLOG) 100 UNIT/ML VIAL SQ SCH (17:59)
[2024-04-19 20:17] LABS: Glucose,Whole Blood 109 mg/dL (70-110)
[2024-04-19] MEDS ORDERED: [UNRECOGNIZED DRUG - OTHER] TOPICAL SCH (21:00)
[2024-04-19] MEDS: DAPAGLIFLOZIN PROPANEDIOL 5 MG TABLET PEG/G-TUBE SCH (21:26)
[2024-04-19] MEDS: INSULIN DETEMIR (LEVEMIR) 100 UNIT/ML SYR SQ SCH (21:26)
[2024-04-20 07:14] LABS: Glucose,Whole Blood 101 mg/dL (70-110)
[2024-04-20 12:55] LABS: Glucose,Whole Blood 167 mg/dL (70-110)
[2024-04-20] MEDS: ENOXAPARIN 40 MG/0.4 ML SYRINGE SQ SCH (13:54)
--- NOTE | 2024-04-20 15:47 | P.PN ---
Subjective Progress Note Date: 04/20/24 I am following up with the patient and she is accompanied with her daughter who feels she is slightly better today compared to yesterday. Objective - Vital Signs Vital signs: Vital Signs Temp 98.0 F 04/20/24 12:50 Pulse 89 04/20/24 12:50 Resp 18 04/20/24 12:50 BP 123/76 04/20/24 12:50 Pulse Ox 96 04/20/24 12:50 FiO2 35 04/18/24 17:36 Intake & Output 04/19/24 04/20/24 04/20/24 18:59 06:59 18:59 Output Total 750 400 Balance -750 -400 Weight 62.596 kg 62.596 kg Output: Urine 750 400 Other: Voiding Method External Catheter External Catheter - Exam General: Lying in bed and does not appear in acute distress. Neuro: Limited. Patient is drowsy but is awake to voice. She is not verbalizing but is following commands. She was able to show me a thumbs up closing her eyes, attempting to stick out her tongue and she smiled. Patient is tracking well today. Motor: Strength is unable to assess because of her overall cooperation. Some of the workup during this hospital visit consisted of: Ammonia level is less than 9 TSH is 1.050 Vitamin B12: 811 Serum folate: 9.6 HbA1c: 7.3 Sodium, calcium, AST is within normal limits. ALT 62 Serum glucose is 161 CT of the head is reported as right frontal parietal subcortical white matter hypodensity. Differential diagnosis could include subcortical infarct, vasogenic edema or chronic white matter ischemic changes. Consider MRI with contrast for additional evaluation. Atrophy with additional chronic appearing periventricular white matter ischemic type changes. Possible acute paranasal sinusitis. Personally reviewed CT and I do see the hypodensity over the right frontal parietal region more on the right but questionably also on the left but does not seem acute seems more subacute. CT angiography of the chest is reported as acute pulmonary embolism. But addendum states no pulmonary embolism. - Labs CBC & Chem 7: 04/18/24 17:40 04/18/24 17:40 Labs: Abnormal Lab Results - Last 24 Hours (Table) 04/19/24 04/20/24 04/20/24 Range/Units 17:01 05:02 12:52 POC Glucose (mg/dL) 182 H 167 H (70-110) mg/dL Hemoglobin A1c 7.3 H (<=6.0) % Assessment and Plan Assessment: This is an 78-year-old woman who on November 2023 had left basal ganglia bleed with intraventricular hemorrhage on the CT in our facility as a result she was transferred to [facility] and had EVD and was placed on Keppra intubated on a ventilator. Per family members as result of stroke she had right-sided weakness then eventually was discharged to rehab. 2 weeks ago she had COVID-19. She is having fluctuation in mentation. Also she was evaluated by her outpatient neurologist who on 04/06/2024 suspected Parkinson's questionable due to her bleed and placed her on Sinemet, was placed on Baclofen which Baclofen was discontinue who is recently having altered mental status. Altered mental status fluctuation in mentation seems more delirium. Rule out stroke. CT head shows right frontal parietal subcortical white matter hypodensity. Preliminary EEG is negative for seizure---mentation is mildly better today (more awake, following commands). Recent left basal ganglia bleed with intraventricular hemorrhage on 11/2023 and outside facility felt due to uncontrol hypertension status post EVD ([facility]) patient has residual right hemiparesis Parkinson's disease that suspected by her outpatient neurologist due to her bleed Status post PEG tube Hypertension Plan: MRI of the brain with and without is ordered by the primary team is pending. If does have acute stroke then will get rest of stroke work-up. Preliminary EEG: Is negative for seizure Patient is continued on her Keppra 500 mg twice daily that was started since her bleed on 11/2023. I discontinued her Sinemet on 04/19/2024 since per family no improvement in her condition with medication and patient were in agreement of discontinuing medication. Will defer the rest of the medical management to primary and other specialist Plan is discussed with the patient's daughter who is at bedside. Time with Patient: Less than 30
--- NOTE | 2024-04-20 16:11 | MR ---
EXAMINATION TYPE: MR brain wo/w con DATE OF EXAM: 04/20/2024 COMPARISON: CT brain noncontrast 414 HISTORY: Weakness, mental status changes. CONTRAST: Performed utilizing 6 mL intravenous Gadavist gadolinium contrast. TECHNIQUE: Multiplanar, multiecho imaging on a 3.0 Kemi magnet is performed through the brain. Stud y is performed within 24 hours of arrival to the hospital. The craniovertebral junction is normal. The pituitary is normal. There is no intensity within the right frontal lobe extending towards the anterior right lateral vent ricle. Vascular flow voids into this region. Venous malformation may be within the differential. Some blooming artifact may be present. Suspicious enhancement is not identified. Diffusion-weighted imaging is performed. No abnormal hyperintensity is present to suggest an acute i ntracranial infarct or acute ischemic change. There is patchy to confluent periventricular white matter hyperintensity, likely on the basis of alterations workroom clerk dave white matter ischemic changes. Ventricles and sulci are prominent for the patient age. IMPRESSION: 1. 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 2. Atrophy with chronic appearing patchy periventricular white matter ischemic-type changes. [facility], , 04/20/2024 4:09 PM
[2024-04-20 17:15] LABS: Glucose,Whole Blood 143 mg/dL (70-110)
[2024-04-20 20:26] LABS: Glucose,Whole Blood 118 mg/dL (70-110)
[2024-04-20] MEDS ORDERED: NON FORMULARY DRUG (Amino Acids/Protein Hydrolys [Pro-Stat Awc Liquid] 887 ML Liquid) PEG/G-TUBE SCH (21:00)
--- NOTE | 2024-04-21 03:19 | EEG ---
ELECTROENCEPHALOGRAM REPORT CLINICAL HISTORY: This is an 78-year-old woman with altered mental status. The video EEG is obtained to evaluate for seizure epileptiform activity. RELEVANT MEDICATION: Keppra. EEG TYPE: This is a routine 21 channel EEG with video using the 10/20 electrode placement system. DESCRIPTION: Wakefulness is only obtained. During awake state, background consists of low-to- moderate voltage of 6 to 7 hertz activity and minimally intermixed with delta activity at times. There is no physiological stage 2 sleep architecture. There is no focal slowing. There is moderate diffuse myogenic artifact. Interictal and ictal are none. ACTIVATION PROCEDURE: Photic stimulation did not evoke a posterior driving response. There is no abnormality during the photic stimulation. Hyperventilation is not performed. CLINICAL INTERPRETATION: This is an abnormal routine EEG. The background slowing is suggestive of mild to moderate encephalopathy. There is no focal slowing, epileptiform discharge, or seizure on the EEG. Clinical correlation is recommended. PETER / MARY: [id number] / [id number]
[2024-04-21 07:20] LABS: Glucose,Whole Blood 188 mg/dL (70-110)
--- NOTE | 2024-04-21 09:13 | P.HPIM ---
History of Present Illness H&P Date: 04/19/24 Chief Complaint: Metabolic encephalopathy HISTORY OF PRESENT ILLNESS: This is an 78-year-old female with a previous medical history significant for hypertension and hypertensive cardiovascular disease, hyperlipidemia, history of asthma, history of major cerebrovascular accident that was in December 2023 when she suffered from significant intracranial hemorrhage she was initially evaluated at [facility] at that time, and she was transported to a tertiary care center at [facility], she ended up having evacuation of the hematoma and after that she had a prolonged hospital stay due to significant respiratory failure requiring ventilator and a trach placement along with a PEG tube placement, she became nonverbal, she had dense right-sided hemiplegia, patient apparently transported to [facility] and after that she was transported to [facility] for physical therapy and rehabilitation, she was under the care of a different physician, I assumed her care care few weeks ago at [facility], patient had contacted [facility] about a week ago and she developed to have a significant respiratory distress at that time, she had a chest x-ray did not show evidence of acute or maladies she could not take Paxlovid because she was unable to swallow the medications, and we could not crush the medicine put in the PEG tube, patient was treated with supportive care at that time, she was given zinc as well as vitamin D and vitamin C and she was given some breathing treatment, patient has done well up till yesterday when the patient became more obtunded and she has been none verbal ever since her stroke, and the family requested the patient to be transported to the emergency department [facility], she had a CT scan of brain did not show evidence of acute normalities, but because of her presentation she was sent for CT angiography of the chest to rule out any pulm embolism that was negative, but because of the presentation she was admitted to the hospital initially family were in agreement to go for no code and a hospice consult however they changed her mind next day after I spoke with the daughter and the and they s tated they wanted her to continue current treatment without any resuscitation at this point in time, I consulted neurology and obtained MRI of the brain with and without deion. REVIEW OF SYSTEMS: Patient is unresponsive at this point in time. Could not obtain any review of system Constitutional: No documented fever, no chills, no night sweats. No weight change. No weakness, fatigue or lethargy. No daytime sleepiness. EENT: No headache. No blurred vision or double vision, no loss of vision. No loss of Hearing, no ringing in the ears, no dizziness. No nasal drainage or congestion. No epistaxis. No sore throat. Lungs: No shortness of breath, no cough, no sputum production. No wheezing. Reports dyspnea with activity. Cardiovascular: No chest pain, no lower extremity edema. No palpitations. No paroxysmal nocturnal dyspnea. No orthopnea. No lightheadedness or dizziness. No syncopal episodes. Abdominal: Reports abdominal pain. No nausea, vomiting. No diarrhea. No constipation. No bloody or tarry stools reports loss of appetite. Genitourinary: No dysuria, increased frequency, urgency. No urinary retention. Musculoskeletal: No myalgias. No muscle weakness, no gait dysfunction, no frequent falls. No back pain. No neck pain. Integumentary: No wounds, no lesions. No rash or pruritus. No unusual bruising. No change in hair or nails. Neurologic: No aphasia. No facial droop. No change in mentation. No head injury. No headache. No paralysis. No paresthesia. Psychiatric: No depression. No anxiety. No mood swings. Endocrine: No abnormal blood sugars. No weight change. PAST MEDICAL HISTORY: Hypertension and hypertensive cardiovascular disease. Mixed hyperlipidemia. History of mild persistent asthma. History of intracranial bleed with right-sided hemiplegia. History of respiratory failure status post tracheostomy placement and removal Prolonged history of dysphagia status post PEG tube placement. Nonverbal. Parkinsonism. PAST SURGICAL HISTORY: Craniotomy for intracranial bleed. Tracheostomy placement and removal PEG tube placement Left knee replacement 2022 Donated one of her kidneys to her brother. SOCIAL HISTORY: Patient is a lifelong non-smoker, she denies any alcohol ingestion she denies any drug use or abuse, she currently resides at [facility]. FAMILY HISTORY: Noncontributory. PHYSICAL EXAMINATION: General: 78-year-old female laying down in bed does not respond to verbal stimuli. HEENT: Head is atraumatic, normocephalic, pupils were equal patient does not follow any command at this time and her mucous membranes of mouth are somewhat dry. Neck: Supple, no JVP, normal carotid upstroke bilaterally, no lymphadenopathy. Chest: Decreased breath sounds at the bases, few rhonchi, no expiratory wheezes, no chest wall tenderness, no intercostal retractions. Heart: First heart sound is normal, second heart sounds normal Abdomen: Soft, nontender, nondistended, positive bowel sounds. PEG tube in place. Extremities: There is no edema no calf tenderness DP +2 bilaterally. Neurologic examination: Patient is unresponsive at this point in time, she is clenching both upper and lower extremities, she does have a baseline right-sided hemiplegia. ASSESSMENT AND PLAN: 1. Acute toxic metabolic encephalopathy of unclear etiology rule out acute ischemic event CT scan of the brain did not show evidence of acute normalities, laboratory evaluation did not show any evidence of metabolic abnormality that explain her mental status changes, I obtain MRI of the brain with and without deion I obtain neurology consultation, I reviewed the CT scan of the brain with her family, I reviewed the CT angiography of the chest with her family, we will continue to monitor the patient very closely at this point in time. 2. History of intracranial bleed with right sided hemiplegia status post surgical intervention status post tracheostomy placement removal status post PEG tube placement, patient is currently nonverbal she is a wheelchair/bedbound with right-sided hemiplegia. 3. Hypertension and hypertensive cardiovascular disease. Continue budipine 10 mg orally once every day, continue metoprolol 25 mg per PEG tube twice every day, continue with lisinopril 20 mg once every day. Monitor the patient blood pressure very closely. 4. Mixed hyperlipidemia. Patient is not take any statin at this point in time. 5. Diabetes mellitus type 2. Continue Levemir 15 units at bedtime along with the Farxiga 5 mg once every day, hold metformin since the patient received IV diet for the next 48 hours monitor the patient blood glucose level before each meal and bedtime. 6. Parkinsonism. Patient was taken off Sinemet per the request of her family. 7. Atelectasis continue guaifenesin as needed. 8. Recent COVID-19 infection resolved. 9. DVT prophylaxis. Continue Lovenox 40 mg subcutaneous every 24 hours. 10. GI prophylaxis. Continue patient on famotidine 20 mg per PEG tube once every day. 11. Admit to inpatient. Estimated length of stay 2 midnights. 12. Patient is no code. 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 Lt Knee replacment Feb 2023 . Past Psychological History: No Psychological Hx Reported Smoking Status: Never smoker Past Alcohol Use History: Occasional Past Drug Use History: None Reported Medications and Allergies Home Medications Medication Instructions Recorded Confirmed Type Acetaminophen Tab [Tylenol] 650 mg PEG/G-TUBE Q6H PRN 04/18/24 04/18/24 History Amino Acids/Protein Hydrolys 30 ml PEG/G-TUBE TID@0900,1300,2100 04/18/24 04/18/24 History [Pro-Stat Awc Liquid] Ascorbic Acid [Vitamin C] 500 mg PEG/G-TUBE DAILY 04/18/24 04/18/24 History Carbidopa-Levodopa 25-100 mg See Taper PEG/G-TUBE DIRECTED 04/18/24 04/18/24 History [Sinemet 25-100] Cholecalciferol [Vitamin D3 (25 50 mcg PEG/G-TUBE DAILY 04/18/24 04/18/24 History Mcg = 1000 Iu)] Dapagliflozin Propanediol [Farxiga] 5 mg PEG/G-TUBE HS 04/18/24 04/18/24 History Enoxaparin [Lovenox] 40 mg SQ HS 04/18/24 04/18/24 History Famotidine [Pepcid] 20 mg PEG/G-TUBE DAILY@0600 04/18/24 04/18/24 History Insulin Glargine,Hum.rec.anlog 15 units SQ HS 04/18/24 04/18/24 History [Lantus Solostar Pen] Jevity 1.5 Vladimir Liquid 1 dose PEG/G-TUBE DIRECTED 04/18/24 04/18/24 History Loratadine 10 mg PEG/G-TUBE DAILY PRN 04/18/24 04/18/24 History Metoprolol Tartrate [Lopressor] 25 mg PEG/G-TUBE BID 04/18/24 04/18/24 History Sennosides/Docusate Sodium [Senna 1 tab PEG/G-TUBE Q24H PRN 04/18/24 04/18/24 History Plus 8.6-50 mg Tablet] Therahoney External Gel 1 applic TOPICAL DAILY PRN 04/18/24 04/18/24 History Therahoney External Gel 1 applic TOPICAL HS 04/18/24 04/18/24 History Zinc Gluconate [Zinc] 50 mg PEG/G-TUBE DAILY 04/18/24 04/18/24 History amLODIPine [Norvasc] 10 mg PEG/G-TUBE DAILY 04/18/24 04/18/24 History guaiFENesin [guaiFENesin Oral 200 mg PEG/G-TUBE Q4H PRN 04/18/24 04/18/24 History Solution] levETIRAcetam ORAL SOLN [Keppra 500 mg PEG/G-TUBE BID 04/18/24 04/18/24 History Oral Soln] lisinopriL [Zestril] 20 mg PEG/G-TUBE DAILY 04/18/24 04/18/24 History metFORMIN HCL [Glucophage] 500 mg PEG/G-TUBE BID 04/18/24 04/18/24 History Allergies Allergy/AdvReac Type Severity Reaction Status Date / Time Penicillins Allergy Rash/Hives Verified 04/18/24 17:35 Physical Exam Vitals: Vital Signs Temp Pulse Pulse Resp BP BP Pulse Ox 04/19/24 12:48 98.6 F 104 H 20 146/67 92 L 04/19/24 08:29 93 L 04/19/24 08:00 98.5 F 99 18 164/76 93 L 04/19/24 07:59 92 18 132/66 92 L 04/19/24 06:38 98.8 F 90 14 129/68 92 L 04/19/24 04:48 92 18 142/74 94 L 04/19/24 01:55 116 H 16 151/113 94 L 04/18/24 23:00 105 H 20 170/93 95 04/18/24 22:19 105 H 20 160/88 95 04/18/24 21:12 106 H 20 153/85 94 L 04/18/24 19:19 110 H 18 178/95 95 04/18/24 17:59 98.2 F 112 H 18 196/108 97 04/18/24 17:41 109 H 04/18/24 17:36 04/18/24 17:32 04/18/24 17:31 04/18/24 17:02 98.5 F 96 24 142/78 95 FiO2 04/19/24 12:48 04/19/24 08:29 04/19/24 08:00 04/19/24 07:59 04/19/24 06:38 04/19/24 04:48 04/19/24 01:55 04/18/24 23:00 04/18/24 22:19 04/18/24 21:12 04/18/24 19:19 04/18/24 17:59 04/18/24 17:41 04/18/24 17:36 35 04/18/24 17:32 35 04/18/24 17:31 35 04/18/24 17:02 Intake and Output 04/18/24 04/19/24 04/19/24 22:59 06:59 14:59 Other: Weight 62.596 kg 62.596 kg Results CBC & Chem 7: 04/18/24 17:40 04/18/24 17:40 Labs: Abnormal Lab Results - Last 24 Hours (Table) 04/18/24 04/18/24 04/18/24 Range/Units 17:40 17:40 17:40 WBC 12.7 H (3.8-10.6) k/uL Neutrophils # 9.2 H (1.3-7.7) k/uL PT 9.7 L (10.0-12.5) sec D-Dimer (<0.60) mg/L FEU VBG pH (7.31-7.41) BUN 25 H (7-17) mg/dL Creatinine 0.40 L (0.52-1.04) mg/dL Glucose 161 H (74-99) mg/dL ALT 62 H (4-34) U/L Alkaline Phosphatase 172 H (38-126) U/L Urine Glucose (UA) (Negative) 04/18/24 04/18/24 04/18/24 Range/Units 17:40 20:57 22:15 WBC (3.8-10.6) k/uL Neutrophils # (1.3-7.7) k/uL PT (10.0-12.5) sec D-Dimer 0.96 H (<0.60) mg/L FEU VBG pH 7.45 H (7.31-7.41) BUN (7-17) mg/dL Creatinine (0.52-1.04) mg/dL Glucose (74-99) mg/dL ALT (4-34) U/L Alkaline Phosphatase (38-126) U/L Urine Glucose (UA) 4+ H (Negative) Thrombosis Risk Factor Assmnt - Choose All That Apply Any of the Below Risk Factors Present?: No
--- NOTE | 2024-04-21 09:15 | P.PN ---
Subjective Progress Note Date: 04/20/24 HISTORY OF PRESENT ILLNESS: This is an 78-year-old female with a previous medical history signi ficant for hypertension and hypertensive cardiovascular disease, hyperlipidemia, history of asthma, history of major cerebrovascular accident that was in December 2023 when she suffered from significant intracranial hemorrhage she was initially evaluated at [facility] at that time, and she was transported to a tertiary care center at [facility], she ended up having evacuation of the hematoma and after that she had a prolonged hospital stay due to significant respiratory failure requiring ventilator and a trach placement along with a PEG tube placement, she became nonverbal, she had dense right-sided hemiplegia, patient apparently transported to [facility] and after that she was transported to [facility] for physical therapy and rehabilitation, she was under the care of a different physician, I assumed her care care few weeks ago at [facility], patient had contacted COVID-19 about a week ago and she developed to have a significant respiratory distress at that time, she had a chest x-ray did not show evidence of acute or maladies she could not take Paxlovid because she was unable to swallow the medications, and we could not crush the medicine put in the PEG tube, patient was treated with supportive care at that time, she was given zinc as well as vitamin D and vitamin C and she was given some breathing treatment, patient has done well up till yesterday when the patient became more obtunded and she has been none verbal ever since her stroke, and the family requested the patient to be transported to the emergency department [facility], she had a CT scan of brain did not show evidence of acute normalities, but because of her presentation she was sent for CT angiography of the chest to rule out any pulm embolism that was negative, but because of the presentation she was admitted to the hospital initially family were in agreement to go for no code and a hospice consult however they changed her mind next day after I spoke with the daughter and the and they stated they wanted her to continue current treatment without any resuscitation at this point in time, I consulted neurology and obtained MRI of the brain with and without deion. 04/20: Patient is more awake and more alert today, she is nonverbal, she is not responding to any verbal stimuli at this time, she is staring at everybody and but she is not following any command at this point in time, she is not moving her upper or lower extremities, she is scheduled to go for MRI of the brain with and without gadolinium at 3:00 this afternoon, I will continue to follow-up with the patient very closely continue patient on Keppra 500 mg per PEG tube twice every day, neurology is following, we will continue with current treatment at this point in time until further recommendation the family stated that the patient is a candidate to go for inpatient rehabilitation I will discuss this with physical therapy and Occupational Therapy will keep patient on nothing per mouth until evaluated by the speech therapist again. REVIEW OF SYSTEMS: Patient is unresponsive at this point in time. Could not obtain any review of system Constitutional: No documented fever, no chills, no night sweats. No weight change. No weakness, fatigue or lethargy. No daytime sleepiness. EENT: No headache. No blurred vision or double vision, no loss of vision. No loss of Hearing, no ringing in the ears, no dizziness. No nasal drainage or congestion. No epistaxis. No sore throat. Lungs: No shortness of breath, no cough, no sputum production. No wheezing. Reports dyspnea with activity. Cardiovascular: No chest pain, no lower extremity edema. No palpitations. No paroxysmal nocturnal dyspnea. No orthopnea. No lightheadedness or dizziness. No syncopal episodes. Abdominal: Reports abdominal pain. No nausea, vomiting. No diarrhea. No constipation. No bloody or tarry stools reports loss of appetite. Genitourinary: No dysuria, increased frequency, urgency. No urinary retention. Musculoskeletal: No myalgias. No muscle weakness, no gait dysfunction, no frequent falls. No back pain. No neck pain. Integumentary: No wounds, no lesions. No rash or pruritus. No unusual br uising. No change in hair or nails. Neurologic: No aphasia. No facial droop. No change in mentation. No head injury. No headache. No paralysis. No paresthesia. Psychiatric: No depression. No anxiety. No mood swings. Endocrine: No abnormal blood sugars. No weight change. PHYSICAL EXAMINATION: General: 78-year-old female laying down in bed does not respond to verbal stimuli. HEENT: Head is atraumatic, normocephalic, pupils were equal patient does not follow any command at this time and her mucous membranes of mouth are somewhat dry. Neck: Supple, no JVP, normal carotid upstroke bilaterally, no lymphadenopathy. Chest: Decreased breath sounds at the bases, few rhonchi, no expiratory wheezes, no chest wall tenderness, no intercostal retractions. Heart: First heart sound is normal, second heart sounds normal Abdomen: Soft, nontender, nondistended, positive bowel sounds. PEG tube in place. Extremities: There is no edema no calf tenderness DP +2 bilaterally. Neurologic examination: Patient is unresponsive at this point in time, she is clenching both upper and lower extremities, she does have a baseline right-sided hemiplegia. ASSESSMENT AND PLAN: 1. Acute toxic metabolic encephalopathy of unclear etiology rule out acute ischemic event CT scan of the brain did not show evidence of acute normalities, laboratory evaluation did not show any evidence of metabolic abnormality that explain her mental status changes, I obtain MRI of the brain with and without deion I obtain neurology consultation, I reviewed the CT scan of the brain with her family, I reviewed the CT angiography of the chest with her family, we will continue to monitor the patient very closely at this point in time. 2. History of intracranial bleed with right sided hemiplegia status post surgical intervention status post tracheostomy placement removal status post PEG tube placement, patient is currently nonverbal she is a wheelchair/bedbound with right-sided hemiplegia. Continue Keppra 500 mg twice every day monitor levels. 3. Hypertension and hypertensive cardiovascular disease. Continue amlodipine 10 mg orally once every day, continue metoprolol 25 mg per PEG tube twice every day, continue with lisinopril 20 mg once every day. Monitor the patient blood pressure very closely. 4. Mixed hyperlipidemia. Patient is not take any statin at this point in time. 5. Diabetes mellitus type 2. Continue Levemir 15 units at bedtime along with the Farxiga 5 mg once every day, hold metformin since the patient received IV diet for the next 48 hours monitor the patient blood glucose level before each meal and bedtime. 6. Parkinsonism. Patient was taken off Sinemet per the request of her family. 7. Atelectasis continue guaifenesin as needed. 8. Recent COVID-19 infection resolved. 9. DVT prophylaxis. Continue Lovenox 40 mg subcutaneous every 24 hours. 10. GI prophylaxis. Continue patient on famotidine 20 mg per PEG tube once every day. Objective - Vital Signs Vital signs: Vital Signs Temp 98.0 F 04/20/24 12:50 Pulse 89 04/20/24 12:50 Resp 18 04/20/24 12:50 BP 123/76 04/20/24 12:50 Pulse Ox 96 04/20/24 12:50 FiO2 35 04/18/24 17:36 Intake & Output 04/19/24 04/20/24 04/20/24 18:59 06:59 18:59 Output Total 750 400 Balance -750 -400 Weight 62.596 kg 62.596 kg Output: Urine 750 400 Other: Voiding Method External Catheter External Catheter - Labs CBC & Chem 7: 04/18/24 17:40 04/18/24 17:40 Labs: Abnormal Lab Results - Last 24 Hours (Table) 04/19/24 04/20/24 04/20/24 Range/Units 17:01 05:02 12:52 POC Glucose (mg/dL) 182 H 167 H (70-110) mg/dL Hemoglobin A1c 7.3 H (<=6.0) %
[2024-04-21 11:02] LABS: Basophils # (A) 0.04 X 10*3/uL (0.00-0.10); Basophils % (A) 0.6 %; Eosinophils # (A) 0.23 X 10*3/uL (0.04-0.35); Eosinophils % (A) 3.7 %; HCT 35.7 % (37.2-46.3); HGB 11.5 g/dL (12.0-15.0); Lymphocytes # (A) 0.98 X 10*3/uL (0.90-5.00); Lymphocytes % (A) 15.7 %; MCH 31.7 pg (27.0-32.0); MCHC 32.2 g/dL (32.0-37.0); MCV 98.3 FL (80.0-97.0); Mean Platelet Volume 10.5 FL (9.5-12.2); Monocytes # (A) 0.53 X 10*3/uL (0.20-1.00); Monocytes % (A) 8.5 %; NRBC Per 100 WBC 0 X 10*3/uL (0.00-0.01); Neutrophils # (A) 4.43 X 10*3/uL (1.80-7.70); Neutrophils % (A) 70.7 %; Platelet Count 325 X 10*3/uL (140-440); RBC 3.63 X 10*6/uL (4.10-5.20); RDW 12.8 % (11.5-14.5); WBC 6.26 X 10*3/uL (4.50-10.00)
[2024-04-21 11:04] LABS: ALT 39 U/L (8-44); AST 21 U/L (13-35); Albumin 3.1 g/dL (3.8-4.9); Albumin/Globulin Ratio 1.35 Ratio (1.60-3.17); Alkaline Phosphatase 116 U/L (41-126); Blood Urea Nitrogen 12.2 mg/dL (9.0-27.0); Calcium 9.1 mg/dL (8.7-10.3); Carbon Dioxide 23.3 mmol/L (21.6-31.8); Chloride 107 mmol/L (96-109); Globulin 2.3 g/dL (1.6-3.3); Glucose 143 mg/dL (70-110); Potassium 4.1 mmol/L (3.5-5.5); Sodium 141 mmol/L (135-145); Total Bilirubin 0.2 mg/dL (0.3-1.2); Total Protein 5.4 g/dL (6.2-8.2)
[2024-04-21 11:27] LABS: Glucose,Whole Blood 188 mg/dL (70-110)
--- NOTE | 2024-04-21 14:25 | P.PN ---
Subjective Progress Note Date: 04/21/24 I am following up with the patient and she is accompanied with her daughter and she stated that the patient has fluctuation in mentation. Objective - Vital Signs Vital signs: Vital Signs Temp 98.1 F 04/21/24 13:08 Pulse 88 04/21/24 13:08 Resp 16 04/21/24 13:08 BP 129/73 04/21/24 13:08 Pulse Ox 96 04/21/24 13:08 FiO2 35 04/18/24 17:36 Intake & Output 04/20/24 04/21/24 04/21/24 18:59 06:59 18:59 Output Total 500 600 Balance -500 -600 Weight 62.596 kg Output: Urine 500 600 Other: Voiding Method External Catheter External Catheter External Catheter # Bowel Movements 1 - Exam General: Lying in bed and does not appear in acute distress. Neuro: Limited. Patient is drowsy. Is following few simple command but had to repeat the comma nd to her multiple times. She was able to close her eyes, showed me a thumbs up and attempted to open her mouth. She is not verbalizing. Motor: Strength is unable to assess because of her overall cooperation. Some of the workup during this hospital visit consisted of: Ammonia level is less than 9 TSH is 1.050 Vitamin B12: 811 Serum folate: 9.6 HbA1c: 7.3 Sodium, calcium, AST is within normal limits. ALT 62 Serum glucose is 161 CT of the head is reported as right frontal parietal subcortical white matter hypodensity. Differential diagnosis could include subcortical infarct, vasogenic edema or chronic white matter ischemic changes. Consider MRI with contrast for additional evaluation. Atrophy with additional chronic appearing periventricular white matter ischemic type changes. Possible acute paranasal sinusitis. Personally reviewed CT and I do see the hypodensity over the right frontal parietal region more on the right but questionably also on the left but does not seem acute seems more subacute. CT angiography of the chest is reported as acute pulmonary embolism. But rebecca hill states no pulmonary embolism. Routine EEG is abnormal. The background slowing suggestive of mild to moderate encephalopathy. 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 Atrophy with chronic appearing patchy periventricular white matter ischemic type changes. - Labs CBC & Chem 7: 04/21/24 04:16 04/21/24 04:16 Labs: Abnormal Lab Results - Last 24 Hours (Table) 04/20/24 04/20/24 04/21/24 Range/Units 17:08 20:22 04:16 RBC 3.63 L (4.10-5.20) X 10*6/uL Hgb 11.5 L (12.0-15.0) g/dL Hct 35.7 L (37.2-46.3) % MCV 98.3 H (80.0-97.0) FL Immature Gran # 0.05 H (0.00-0.04) X 10*3/uL Creatinine (0.6-1.5) mg/dL BUN/Creatinine Ratio (12.00-20.00) Ratio Glucose (70-110) mg/dL POC Glucose (mg/dL) 143 H 118 H (70-110) mg/dL Total Bilirubin (0.3-1.2) mg/dL Total Protein (6.2-8.2) g/dL Albumin (3.8-4.9) g/dL Albumin/Globulin Ratio (1.60-3.17) Ratio 04/21/24 04/21/24 04/21/24 Range/Units 04:16 07:19 11:25 RBC (4.10-5.20) X 10*6/uL Hgb (12.0-15.0) g/dL Hct (37.2-46.3) % MCV (80.0-97.0) FL Immature Gran # (0.00-0.04) X 10*3/uL Creatinine 0.5 L (0.6-1.5) mg/dL BUN/Creatinine Ratio 24.40 H (12.00-20.00) Ratio Glucose 143 H (70-110) mg/dL POC Glucose (mg/dL) 188 H 188 H (70-110) mg/dL Total Bilirubin 0.2 L (0.3-1.2) mg/dL Total Protein 5.4 L (6.2-8.2) g/dL Albumin 3.1 L (3.8-4.9) g/dL Albumin/Globulin Ratio 1.35 L (1.60-3.17) Ratio Assessment and Plan Assessment: This is an 78-year-old woman who on November 2023 had left basal ganglia bleed with intraventricular hemorrhage on the CT in our facility as a result she was transferred to [facility] and had EVD and was placed on Keppra intubated on a ventilator. Per family members as result of stroke she had right-sided weakness then eventually was discharged to rehab. 2 weeks ago she had COVID-19. She is having fluctuation in mentation. Also she was evaluated by her outpatient neurologist who on 04/06/2024 suspected Parkinson's questionable due to her bleed and placed her on Sinemet, was placed on Baclofen which Baclofen was discontinue who is recently having altered mental status. Altered mental status fluctuation in mentation seems more delirium. EEG is negative for seizure or discharges. On MRI Brain there is no acute or subacute ischemic stroke. 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 I recommend the patient to follow- up with Dr. Power (interventional neurologist over [facility]) for further management of malformation. Consider outpatient Diagnostic cerebral angiogram. Patient is continued on her Keppra 500 mg twice daily that was started since her bleed on 11/2023. I discontinued her Sinemet on 04/19/2024 since per family no improvement in her condition with medication and patient were in agreement of discontinuing medication. Will defer the rest of the medical management to primary and other specialist The patient will benefit from rehab. Plan is discussed with the patient's daughter who is at bedside. Will follow-up with patient sporadically. Time with Patient: Less than 30
--- NOTE | 2024-04-21 16:39 | P.PN ---
Subjective Progress Note Date: 04/21/24 HISTORY OF PRESENT ILLNESS: This is an 78-year-old female with a previous medical history signi ficant for hypertension and hypertensive cardiovascular disease, hyperlipidemia, history of asthma, history of major cerebrovascular accident that was in December 2023 when she suffered from significant intracranial hemorrhage she was initially evaluated at [facility] at that time, and she was transported to a tertiary care center at [facility], she ended up having evacuation of the hematoma and after that she had a prolonged hospital stay due to significant respiratory failure requiring ventilator and a trach placement along with a PEG tube placement, she became nonverbal, she had dense right-sided hemiplegia, patient apparently transported to [facility] and after that she was transported to [facility] for physical therapy and rehabilitation, she was under the care of a different physician, I assumed her care care few weeks ago at [facility], patient had contacted COVID-19 about a week ago and she developed to have a significant respiratory distress at that time, she had a chest x-ray did not show evidence of acute or maladies she could not take Paxlovid because she was unable to swallow the medications, and we could not crush the medicine put in the PEG tube, patient was treated with supportive care at that time, she was given zinc as well as vitamin D and vitamin C and she was given some breathing treatment, patient has done well up till yesterday when the patient became more obtunded and she has been none verbal ever since her stroke, and the family requested the patient to be transported to the emergency department [facility], she had a CT scan of brain did not show evidence of acute normalities, but because of her presentation she was sent for CT angiography of the chest to rule out any pulm embolism that was negative, but because of the presentation she was admitted to the hospital initially family were in agreement to go for no code and a hospice consult however they changed her mind next day after I spoke with the daughter and the and they stated they wanted her to continue current treatment without any resuscitation at this point in time, I consulted neurology and obtained MRI of the brain with and without deion. 04/20: Patient is more awake and more alert today, she is nonverbal, she is not responding to any verbal stimuli at this time, she is staring at everybody and but she is not following any command at this point in time, she is not moving her upper or lower extremities, she is scheduled to go for MRI of the brain with and without gadolinium at 3:00 this afternoon, I will continue to follow-up with the patient very closely continue patient on Keppra 500 mg per PEG tube twice every day, neurology is following, we will continue with current treatment at this point in time until further recommendation the family stated that the patient is a candidate to go for inpatient rehabilitation I will discuss this with physical therapy and Occupational Therapy will keep patient on nothing per mouth until evaluated by the speech therapist again. 04/21: Patient is laying down in bed does not follow any commands at this point in time, her daughter who is a visiting dentist from [place] is having issues with her mom going back to [facility] on the [place] at this time, and she think her mother can go home and according to what piano case and bench assembler suggested for the patient to be a good candidate for inpatient rehabilitation as well as physical therapy we will discuss with them and we will consult Dr. Melara for further evaluation recommendation patient underwent MRI of the brain with and without deion that showed evidence of right frontal AV malformation, and our neurologist recommended outpatient angiogram by neurosurgery that she has seen at [facility], meanwhile the patient had an EEG did not show evidence of acute seizure, continue Keppra for now, continue current treatment plan, will follow-up with the patient very closely, apparently the family is not ready for hospice at this point in time, and they want the patient to have more physical therapy in an inpatient rehab facility. REVIEW OF SYSTEMS: Patient is unresponsive at this point in time. Could not obtain any review of system Constitutional: No documented fever, no chills, no night sweats. No weight change. No weakness, fatigue or lethargy. No daytime sleepiness. EENT: No headache. No blurred vision or double vision, no loss of vision. No loss of Hearing, no ringing in the ears, no dizziness. No nasal drainage or congestion. No epistaxis. No sore throat. Lungs: No shortness of breath, no cough, no sputum production. No wheezing. Reports dyspnea with activity. Cardiovascular: No chest pain, no lower extremity edema. No palpitations. No paroxysmal nocturnal dyspnea. No orthopnea. No lightheadedness or dizziness. No syncopal episodes. Abdominal: Reports abdominal pain. No nausea, vomiting. No diarrhea. No constipation. No bloody or tarry stools reports loss of appetite. Genitourinary: No dysuria, increased frequency, urgency. No urinary retention. Musculoskeletal: No myalgias. No muscle weakness, no gait dysfunction, no frequent falls. No back pain. No neck pain. Integumentary: No wounds, no lesions. No rash or pruritus. No unusual bruising. No change in hair or nails. Neurologic: No aphasia. No facial droop. No change in mentation. No head injury. No headache. No paralysis. No paresthesia. Psychiatric: No depression. No anxiety. No mood swings. Endocrine: No abnormal blood sugars. No weight change. PHYSICAL EXAMINATION: General: 78-year-old female laying down in bed does not respond to verbal stimuli. HEENT: Head is atraumatic, normocephalic, pupils were equal patient does not follow any command at this time and her mucous membranes of mouth are somewhat dry. Neck: Supple, no JVP, normal carotid upstroke bilaterally, no lymphadenopathy. Chest: Decreased breath sounds at the bases, few rhonchi, no expiratory wheezes, no chest wall tenderness, no intercostal retractions. Heart: First heart sound is normal, second heart sounds normal Abdomen: Soft, nontender, nondistended, positive bowel sounds. PEG tube in place. Extremities: There is no edema no calf tenderness DP +2 bilaterally. Neurologic examination: Patient is unresponsive at this point in time, she is clenching both upper and lower extremities, she does have a baseline right-sided hemiplegia. ASSESSMENT AND PLAN: 1. Acute toxic metabolic encephalopathy of unclear etiology rule out acute is chemic event CT scan of the brain did not show evidence of acute normalities, laboratory evaluation did not show any evidence of metabolic abnormality that explain her mental status changes, I obtain MRI of the brain with and without deion I obtain neurology consultation, I reviewed the CT scan of the brain with her family, I reviewed the CT angiography of the chest with her family, we will continue to monitor the patient very closely at this point in time. MRI of the brain did not show evidence of acute infarct or stroke it did show evidence of AV malformation in the right frontal lobe. 2. History of intracranial bleed with right sided hemiplegia status post surgical intervention status post tracheostomy placement removal status post PEG tube placement, patient is currently nonverbal she is a wheelchair/bedbound with right-sided hemiplegia. Continue Keppra 500 mg twice every day monitor levels. MRI did show evidence of right frontal AV malformation that she will need to have an angiogram as an outpatient. 3. Hypertension and hypertensive cardiovascular disease. Continue amlodipine 10 mg orally once every day, continue metoprolol 25 mg per PEG tube twice every day, continue with lisinopril 20 mg once every day. Monitor the patient blood pressure very closely. 4. Mixed hyperlipidemia. Patient is not take any statin at this point in time. 5. Diabetes mellitus type 2. Continue Levemir 15 units at bedtime along with the Farxiga 5 mg once every day, hold metformin since the patient received IV diet for the next 48 hours monitor the patient blood glucose level before each meal and bedtime. 6. Parkinsonism. Patient was taken off Sinemet per the request of her family. 7. Atelectasis continue guaifenesin as needed. 8. Recent COVID-19 infection resolved. 9. DVT prophylaxis. Continue Lovenox 40 mg subcutaneous every 24 hours. 10. GI prophylaxis. Continue patient on famotidine 20 mg per PEG tube once every day. 11. Medical debility continue physical therapy and Occupational Therapy. 12. Consult physical therapy and rehabilitation for possible inpatient rehabilitation. Objective - Vital Signs Vital signs: Vital Signs Temp 98.1 F 04/21/24 13:08 Pulse 88 04/21/24 13:08 Resp 16 04/21/24 13:08 BP 129/73 04/21/24 13:08 Pulse Ox 96 04/21/24 13:08 FiO2 35 04/18/24 17:36 Intake & Output 04/20/24 04/21/24 04/21/24 18:59 06:59 18:59 Output Total 500 600 Balance -500 -600 Weight 62.596 kg Output: Urine 500 600 Other: Voiding Method External Catheter External Catheter External Catheter # Bowel Movements 1 - Labs CBC & Chem 7: 04/21/24 04:16 04/21/24 04:16 Labs: Abnormal Lab Results - Last 24 Hours (Table) 04/20/24 04/20/24 04/21/24 Range/Units 17:08 20:22 04:16 RBC 3.63 L (4.10-5.20) X 10*6/uL Hgb 11.5 L (12.0-15.0) g/dL Hct 35.7 L (37.2-46.3) % MCV 98.3 H (80.0-97.0) FL Immature Gran # 0.05 H (0.00-0.04) X 10*3/uL Creatinine (0.6-1.5) mg/dL BUN/Creatinine Ratio (12.00-20.00) Ratio Glucose (70-110) mg/dL POC Glucose (mg/dL) 143 H 118 H (70-110) mg/dL Total Bilirubin (0.3-1.2) mg/dL Total Protein (6.2-8.2) g/dL Albumin (3.8-4.9) g/dL Albumin/Globulin Ratio (1.60-3.17) Ratio 04/21/24 04/21/24 04/21/24 Range/Units 04:16 07:19 11:25 RBC (4.10-5.20) X 10*6/uL Hgb (12.0-15.0) g/dL Hct (37.2-46.3) % MCV (80.0-97.0) FL Immature Gran # (0.00-0.04) X 10*3/uL Creatinine 0.5 L (0.6-1.5) mg/dL BUN/Creatinine Ratio 24.40 H (12.00-20.00) Ratio Glucose 143 H (70-110) mg/dL POC Glucose (mg/dL) 188 H 188 H (70-110) mg/dL Total Bilirubin 0.2 L (0.3-1.2) mg/dL Total Protein 5.4 L (6.2-8.2) g/dL Albumin 3.1 L (3.8-4.9) g/dL Albumin/Globulin Ratio 1.35 L (1.60-3.17) Ratio
[2024-04-21 17:23] LABS: Glucose,Whole Blood 127 mg/dL (70-110)
[2024-04-21 20:00] LABS: Glucose,Whole Blood 134 mg/dL (70-110)
[2024-04-22 07:15] LABS: Glucose,Whole Blood 193 mg/dL (70-110)
[2024-04-22 12:08] LABS: Glucose,Whole Blood 130 mg/dL (70-110)
--- NOTE | 2024-04-22 17:04 | P.PN ---
Subjective Progress Note Date: 04/22/24 78-year-old female with a previous medical history significant for hypertension and hypertensive cardiovascular disease, hyperlipidemia, history of asthma, history of major cerebrovascular accident that was in December 2023 when she suffered from significant intracranial hemorrhage she was initially evaluated at [facility] at that time, and she was transported to a tertiary care center at [facility], she ended up having evacuation of the hematoma and after that she had a prolonged hospital stay due to significant respiratory failure requiring ventilator and a trach placement along with a PEG tube placement, she became nonverbal, she had dense right-sided hemiplegia, patient apparently transported to [facility] and after that she was transported to [facility] for physical therapy and rehabilitation, she was under the care of a different physician, I assumed her care care few weeks ago at [facility], patient had contacted [facility] about a week ago and she developed to have a significant respiratory distress at that time, she had a chest x-ray did not show evidence of acute or maladies she could not take Paxlovid because she was unable to swallow the medications, and we could not crush the medicine put in the PEG tube, patient was treated with supportive care at that time, she was given zinc as well as vitamin D and vitamin C and she was given some b reathing treatment, patient has done well up till yesterday when the patient became more obtunded and she has been none verbal ever since her stroke, and the family requested the patient to be transported to the emergency department [facility], she had a CT scan of brain did not show evidence of acute normalities, but because of her presentation she was sent for CT angiography of the chest to rule out any pulm embolism that was negative, but because of the presentation she was admitted to the hospital initially family were in agreement to go for no code and a hospice consult however they changed her mind next day after I spoke with the daughter and the and they stated they wanted her to continue current treatment without any resuscitation at this point in time, I consulted neurology and obtained MRI of the brain with and without deion. Objective - Vital Signs Vital signs: Vital Signs Temp 98.5 F 04/22/24 07:16 Pulse 89 04/22/24 07:16 Resp 18 04/22/24 07:16 BP 108/67 04/22/24 07:16 Pulse Ox 96 09/28/24 07:16 FiO2 35 04/18/24 17:36 Intake & Output 04/21/24 04/22/24 04/22/24 18:59 06:59 18:59 Intake Total 735 Balance 735 Weight 48 kg Intake: Tube Feeding 675 Other 60 Other: Voiding Method External Catheter External Catheter External Catheter - Exam General: 78-year-old female laying down in bed does not respond to verbal stimuli. HEENT: Head is atraumatic, normocephalic, pupils were equal patient does not follow any command at this time and her mucous membranes of mouth are somewhat dry. Neck: Supple, no JVP, normal carotid upstroke bilaterally, no lymphadenopathy. Chest: Decreased breath sounds at the bases, few rhonchi, no expiratory wheezes, no chest wall tenderness, no intercostal retractions. Heart: First heart sound is normal, second heart sounds normal Abdomen: Soft, nontender, nondistended, positive bowel sounds. PEG tube in place. Extremities: There is no edema no calf tenderness DP +2 bilaterally. Neurologic examination: Patient is unresponsive at this point in time, she is clenching both upper and lower extremities, she does have a baseline right-sided hemiplegia. - Labs CBC & Chem 7: 04/21/24 04:16 04/21/24 04:16 Labs: Abnormal Lab Results - Last 24 Hours (Table) 04/21/24 04/21/24 04/22/24 Range/Units 17:21 19:58 07:14 POC Glucose (mg/dL) 127 H 134 H 193 H (70-110) mg/dL 04/22/24 Range/Units 12:06 POC Glucose (mg/dL) 130 H (70-110) mg/dL Assessment and Plan Assessment: 1. Acute toxic metabolic encephalopathy of unclear etiology rule out acute ischemic event CT scan of the brain did not show evidence of acute normalities, laboratory evaluation did not show any evidence of metabolic abnormality that explain her mental status changes, I obtain MRI of the brain with and without deion I obtain neurology consultation, I reviewed the CT scan of the brain with her family, I reviewed the CT angiography of the chest with her family, we will continue to monitor the patient very closely at this point in time. MRI of the brain did not show evidence of acute infarct or stroke it did show evidence of AV malformation in the right frontal lobe. 2. History of intracranial bleed with right sided hemiplegia status post surgical intervention status post tracheostomy placement removal status post PEG tube placement, patient is currently nonverbal she is a wheelchair/bedbound with right-sided hemiplegia. Continue Keppra 500 mg twice every day monitor levels. MRI did show evidence of right frontal AV malformation that she will need to have an angiogram as an outpatient. 3. Hypertension and hypertensive cardiovascular disease. Continue amlodipine 10 mg orally once every day, continue metoprolol 25 mg per PEG tube twice every day, continue with lisinopril 20 mg once every day. Monitor the patient blood pressure very closely. 4. Mixed hyperlipidemia. Patient is not take any statin at this point in time. 5. Diabetes mellitus type 2. Continue Levemir 15 units at bedtime along with the Farxiga 5 mg once every day, hold metformin since the patient received IV diet for the next 48 hours monitor the patient blood glucose level before each meal and bedtime. 6. Parkinsonism. Patient was taken off Sinemet per the request of her family. 7. Atelectasis continue guaifenesin as needed. 8. Recent COVID-19 infection resolved. 9. DVT prophylaxis. Continue Lovenox 40 mg subcutaneous every 24 hours. 10. GI prophylaxis. Continue patient on famotidine 20 mg per PEG tube once every day. 11. Medical debility continue physical therapy and Occupational Therapy. 12. Consult physical therapy and rehabilitation for possible inpatient rehabilitation.
[2024-04-22 17:18] LABS: Glucose,Whole Blood 117 mg/dL (70-110)
[2024-04-22 20:06] LABS: Glucose,Whole Blood 118 mg/dL (70-110)
[2024-04-23 07:09] LABS: Glucose,Whole Blood 214 mg/dL (70-110)
[2024-04-23 09:09] LABS: Basophils # (A) 0.04 X 10*3/uL (0.00-0.10); Basophils % (A) 0.6 %; Eosinophils # (A) 0.23 X 10*3/uL (0.04-0.35); Eosinophils % (A) 3.4 %; HCT 35.4 % (37.2-46.3); HGB 11.5 g/dL (12.0-15.0); Lymphocytes # (A) 1.07 X 10*3/uL (0.90-5.00); Lymphocytes % (A) 15.7 %; MCH 31.9 pg (27.0-32.0); MCHC 32.5 g/dL (32.0-37.0); MCV 98.1 FL (80.0-97.0); Mean Platelet Volume 9.9 FL (9.5-12.2); Monocytes # (A) 0.59 X 10*3/uL (0.20-1.00); Monocytes % (A) 8.6 %; NRBC Per 100 WBC 0 X 10*3/uL (0.00-0.01); Neutrophils # (A) 4.86 X 10*3/uL (1.80-7.70); Neutrophils % (A) 71.1 %; Platelet Count 354 X 10*3/uL (140-440); RBC 3.61 X 10*6/uL (4.10-5.20); RDW 12.7 % (11.5-14.5); WBC 6.83 X 10*3/uL (4.50-10.00)
[2024-04-23 09:39] LABS: BUN/Creat Ratio 37.25 Ratio (12.00-20.00); Blood Urea Nitrogen 14.9 mg/dL (9.0-27.0); Calcium 9.3 mg/dL (8.7-10.3); Carbon Dioxide 26.2 mmol/L (21.6-31.8); Chloride 106 mmol/L (96-109); Glucose 222 mg/dL (70-110); Potassium 4.1 mmol/L (3.5-5.5); Sodium 142 mmol/L (135-145)
--- NOTE | 2024-04-23 10:50 | P.PN ---
Subjective Progress Note Date: 04/23/24 I am following-up with patient and she is accompanied with her daughter. The daughter stated that her mother actually smiled to her and has good and bad days. She feels her mother will benefit from short and mcc rehab. Objective - Vital Signs Vital signs: Vital Signs Temp 98.1 F 04/23/24 07:07 Pulse 95 04/23/24 07:07 Resp 18 04/23/24 07:07 BP 129/68 04/23/24 07:07 Pulse Ox 97 04/23/24 08:41 FiO2 35 04/18/24 17:36 Intake & Output 04/22/24 04/23/24 04/23/24 18:59 06:59 18:59 Intake Total 555 Balance 555 Intake: Tube Feeding 525 Other 30 Other: Voiding Method External Catheter External Catheter - Exam General: Lying in bed and does not appear in acute distress. Neuro: Very Limited. Severely drowsy and briefly open eyes. Otherwise not verbalizing or following commands or moving extremities. Some of the workup during this hospital visit consisted of: Ammonia level is less than 9 TSH is 1.050 Vitamin B12: 811 Serum folate: 9.6 HbA1c: 7.3 Sodium, calcium, AST is within normal limits. ALT 62 Serum glucose is 161 CT of the head is reported as right frontal parietal subcortical white matter hypodensity. Differential diagnosis could include subcortical infarct, vasogenic edema or chronic white matter ischemic changes. Consider MRI with contrast for additional evaluation. Atrophy with additional chronic appearing periventricular white matter ischemic type changes. Possible acute paranasal sinusitis. Personally reviewed CT and I do see the hypodensity over the right frontal parietal region more on the right but questionably also on the left but does not seem acute seems more subacute. CT angiography of the chest is reported as acute pulmonary embolism. But addendum states no pulmonary embolism. Routine EEG is abnormal. The background slowing suggestive of mild to moderate encephalopathy. 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 Atrophy with chronic appearing patchy periventricular white matter ischemic type changes. - Labs CBC & Chem 7: 04/23/24 06:06 04/23/24 06:06 Labs: Abnormal Lab Results - Last 24 Hours (Table) 09/28/24 09/28/24 09/28/24 Range/Units 12:06 17:16 20:04 RBC (4.10-5.20) X 10*6/uL Hgb (12.0-15.0) g/dL Hct (37.2-46.3) % MCV (80.0-97.0) FL Creatinine (0.6-1.5) mg/dL BUN/Creatinine Ratio (12.00-20.00) Ratio Glucose (70-110) mg/dL POC Glucose (mg/dL) 130 H 117 H 118 H (70-110) mg/dL 04/23/24 04/23/24 04/23/24 Range/Units 06:06 06:06 07:08 RBC 3.61 L (4.10-5.20) X 10*6/uL Hgb 11.5 L (12.0-15.0) g/dL Hct 35.4 L (37.2-46.3) % MCV 98.1 H (80.0-97.0) FL Creatinine 0.4 L (0.6-1.5) mg/dL BUN/Creatinine Ratio 37.25 H (12.00-20.00) Ratio Glucose 222 H (70-110) mg/dL POC Glucose (mg/dL) 214 H (70-110) mg/dL Assessment and Plan Assessment: This is an 78-year-old woman who on November 2023 had left basal ganglia bleed with intraventricular hemorrhage on the CT in our facility as a result she was transferred to [facility] and had EVD and was placed on Keppra intubated on a ventilator. Per family members as result of stroke she had right-sided weakness then eventually was discharged to rehab. 2 weeks ago she had COVID-19. She is having fluctuation in mentation. Also she was evaluated by her outpatient neurologist who on 04/06/2024 suspected Parkinson's questionable due to her bleed and placed her on Sinemet, was placed on Baclofen which Baclofen was discontinue who is recently having altered mental status. Altered mental status fluctuation in mentation seems more delirium. EEG is negative for seizure or discharges. On MRI Brain there is no acute or subacute ischemic stroke. 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 I recommend the patient to follow- up with Dr. Power (interventional neurologist over [facility]) for further management of malformation. Consider outpatient Diagnostic cerebral angiogram. I will obtain a repeat EEG since continues to be very encephalopathic. Patient is continued on her home Keppra 500 mg twice daily that was started since her bleed on 11/2023. If repeat EEG is negative for seizure or discharges and continues to be sleepy, consider changing medicaiton to Vimpat 50mg bid. I discontinued her Sinemet on 04/19/2024 since per family no improvement in her condition with medication and patient were in agreement of discontinuing medication. Will defer the rest of the medical management to primary and other specialist The patient is severely encephalopathic and it will be hard for her to participate in rehab at this time from neurological perspective. But the daughter feels she will benefit from acute and mcc rehab. At this time if she remains this without improvement, her quality of life appears poor. Plan is discussed with the patient's daughter who is at bedside and her nurse. Dr. Parmar will resume neurology service tomorrow A.M. Time with Patient: Less than 30
[2024-04-23 11:59] LABS: Glucose,Whole Blood 201 mg/dL (70-110)
--- NOTE | 2024-04-23 13:05 | P.PN ---
Subjective Progress Note Date: 04/23/24 78-year-old female with a previous medical history significant for hypertension and hypertensive cardiovascular disease, hyperlipidemia, history of asthma, history of major cerebrovascular accident that was in December 2023 when she suffered from significant intracranial hemorrhage she was initially evaluated at [facility] at that time, and she was transported to a tertiary care center at [facility], she ended up having evacuation of the hematoma and after that she had a prolonged hospital stay due to significant respiratory failure requiring ventilator and a trach placement along with a PEG tube placement, she became nonverbal, she had dense right-sided hemiplegia, patient apparently [facility] and after that she was transported to [facility] for physical therapy and rehabilitation, she was under the care of a different physician, I assumed her care care few weeks ago at [facility], patient had contacted [facility] about a week ago and she developed to have a significant respiratory distress at that time, she had a chest x-ray did not show evidence of acute or maladies she could not take Paxlovid because she was unable to swallow the medications, and we could not crush the medicine put in the PEG tube, patient was treated with supportive care at that time, she was given zinc as well as vitamin D and vitamin C and she was given some b reathing treatment, patient has done well up till yesterday when the patient became more obtunded and she has been none verbal ever since her stroke, and the family requested the patient to be transported to the emergency department [facility], she had a CT scan of brain did not show evidence of acute normalities, but because of her presentation she was sent for CT angiography of the chest to rule out any pulm embolism that was negative, but because of the presentation she was admitted to the hospital initially family were in agreement to go for no code and a hospice consult however they changed her mind next day after I spoke with the daughter and the and they stated they wanted her to continue current treatment without any resuscitation at this point in time, I consulted neurology and obtained MRI of the brain with and without deion. 04/23/2024 Patient is seen and evaluated with daughter at bedside; family is still interested in inpatient rehab; PMR has been consulted Vital signs are reviewed and remained stable Labs reviewed WBC 6.8, hemoglobin of 11.5 and platelet count of 354, sodium 142, potassium 4.1, BUNs/creatinine of 14.9/0.4 --Plan is for patient to be evaluated by PMR for possible inpatient rehab; family does seem to be thinking about possible palliative care if patient does not qualify for rehab Objective - Vital Signs Vital signs: Vital Signs Temp 98.1 F 04/23/24 07:07 Pulse 95 04/23/24 07:07 Resp 18 04/23/24 07:07 BP 129/68 04/23/24 07:07 Pulse Ox 97 04/23/24 07:07 FiO2 35 04/18/24 17:36 Intake & Output 04/22/24 04/23/24 04/23/24 18:59 06:59 18:59 Intake Total 555 Balance 555 Intake: Tube Feeding 525 Other 30 Other: Voiding Method External Catheter External Catheter - Exam General: 78-year-old female laying down in bed does not respond to verbal stimuli. HEENT: Head is atraumatic, normocephalic, pupils were equal patient does not f ollow any command at this time and her mucous membranes of mouth are somewhat dry. Neck: Supple, no JVP, normal carotid upstroke bilaterally, no lymphadenopathy. Chest: Decreased breath sounds at the bases, few rhonchi, no expiratory wheezes, no chest wall tenderness, no intercostal retractions. Heart: First heart sound is normal, second heart sounds normal Abdomen: Soft, nontender, nondistended, positive bowel sounds. PEG tube in place. Extremities: There is no edema no calf tenderness DP +2 bilaterally. Neurologic examination: Patient is unresponsive at this point in time, she is clenching both upper and lower extremities, she does have a baseline right-sided hemiplegia. - Labs CBC & Chem 7: 04/23/24 06:06 04/23/24 06:06 Labs: Abnormal Lab Results - Last 24 Hours (Table) 04/22/24 04/22/24 04/22/24 Range/Units 12:06 17:16 20:04 POC Glucose (mg/dL) 130 H 117 H 118 H (70-110) mg/dL 04/23/24 Range/Units 07:08 POC Glucose (mg/dL) 214 H (70-110) mg/dL Assessment and Plan Assessment: 1. Acute toxic metabolic encephalopathy of unclear etiology rule out acute ischemic event CT scan of the brain did not show evidence of acute normalities, laboratory evaluation did not show any evidence of metabolic abnormality that explain her mental status changes, I obtain MRI of the brain with and without deion I obtain neurology consultation, I reviewed the CT scan of the brain with her family, I reviewed the CT angiography of the chest with her family, we will continue to monitor the patient very closely at this point in time. MRI of the brain did not show evidence of acute infarct or stroke it did show evidence of AV malformation in the right frontal lobe. 2. History of intracranial bleed with right sided hemiplegia status post surgical intervention status post tracheostomy placement removal status post PEG tube placement, patient is currently nonverbal she is a wheelchair/bedbound with right-sided hemiplegia. Continue Keppra 500 mg twice every day monitor levels. MRI did show evidence of right frontal AV malformation that she will need to have an angiogram as an outpatient. 3. Hypertension and hypertensive cardiovascular disease. Continue amlodipine 10 mg orally once every day, continue metoprolol 25 mg per PEG tube twice every day, continue with lisinopril 20 mg once every day. Monitor the patient blood pressure very closely. 4. Mixed hyperlipidemia. Patient is not take any statin at this point in time. 5. Diabetes mellitus type 2. Continue Levemir 15 units at bedtime along with the Farxiga 5 mg once every day, hold metformin since the patient received IV diet for the next 48 hours monitor the patient blood glucose level before each meal and bedtime. 6. Parkinsonism. Patient was taken off Sinemet per the request of her family. 7. Atelectasis continue guaifenesin as needed. 8. Recent COVID-19 infection resolved. 9. DVT prophylaxis. Continue Lovenox 40 mg subcutaneous every 24 hours. 10. GI prophylaxis. Continue patient on famotidine 20 mg per PEG tube once every day. 11. Medical debility continue physical therapy and Occupational Therapy. 12. Consult physical therapy and rehabilitation for possible inpatient rehabilitation.
[2024-04-23 16:52] LABS: Glucose,Whole Blood 105 mg/dL (70-110)
[2024-04-23 20:21] LABS: Glucose,Whole Blood 123 mg/dL (70-110)
[2024-04-24 06:28] LABS: Basophils % (A) 1 %; Eosinophils # (A) 0.3 k/uL (0-0.7); Eosinophils % (A) 4 %; HCT 35.6 % (34.0-46.0); HGB 11.8 gm/dL (11.4-16.0); Lymphocytes # (A) 0.9 k/uL (1.0-4.8); Lymphocytes % (A) 15 %; MCH 31.6 pg (25.0-35.0); MCHC 33.1 g/dL (31.0-37.0); MCV 95.5 fL (80.0-100.0); Mean Platelet Volume 8.3; Monocytes # (A) 0.4 k/uL (0-1.0); Monocytes % (A) 7 %; Neutrophils # (A) 4.4 k/uL (1.3-7.7); Neutrophils % (A) 71 %; Platelet Count 350 k/uL (150-450); RBC 3.73 m/uL (3.80-5.40); RDW 13.1 % (11.5-15.5); WBC 6.1 k/uL (3.8-10.6)
[2024-04-24 07:28] LABS: Glucose,Whole Blood 221 mg/dL (70-110)
[2024-04-24 07:31] LABS: African American GFR (CKD) >90 (>60 ml/min/1.73 sqM); Anion Gap 6 mmol/L; Blood Urea Nitrogen 20 mg/dL (7-17); Calcium 9.6 mg/dL (8.4-10.2); Carbon Dioxide 29 mmol/L (22-30); Chloride 109 mmol/L (98-107); Glucose 200 mg/dL (74-99); Non-African American GFR(CKD) >90 (>60 ml/min/1.73 sqM); Potassium 4.4 mmol/L (3.5-5.1); Sodium 144 mmol/L (137-145)
[2024-04-24] MEDS: ACETAMINOPHEN TAB 325 MG TAB PEG/G-TUBE PRN (09:19)
[2024-04-24 12:08] LABS: Glucose,Whole Blood 111 mg/dL (70-110)
[2024-04-24 17:24] LABS: Glucose,Whole Blood 144 mg/dL (70-110)
[2024-04-24 17:42] LABS: Appearance,Urine Clear (Clear); Bacteria,Urine Rare /hpf; Bilirubin,Urine Negative (Negative); Blood,Urine Negative (Negative); Color,Urine Yellow; Glucose,Urine (UA) 3+ (Negative); Ketones,Urine Negative (Negative); Leukocyte Esterase,Urine Negative (Negative); Mucus,Urine Rare /hpf; Nitrite,Urine Negative (Negative); Protein,Urine 1+ (Negative); RBC,Urine 4 /hpf (0-5); Squamous Epithelial Cell,Urine 14 /hpf (0-4); WBC,Urine 3 /hpf (0-5)
[2024-04-24 17:44] LABS: Specific Gravity,Urine 1.047 (1.001-1.035)
--- NOTE | 2024-04-24 19:18 | P.PN ---
Subjective Progress Note Date: 04/24/24 Patient was initially seen by Dr. Anurag Esteves. Please refer to his note for details. Patient is a 78-year-old female with left thalamic and basal ganglia bleed, with intraventricular extension in November 2023 and was placed on Keppra, who is having altered mental status and cannot cooperate in rehab. 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 Some of the workup during this hospital visit consisted of: Ammonia level is less than 9 TSH is 1.050 Vitamin B12: 811 Serum folate: 9.6 HbA1c: 7.3 Sodium, calcium, AST is within normal limits. ALT 62 Serum glucose is 161 CT of the head is reported as right frontal parietal subcortical white matter hypodensity. Differential diagnosis could include subcortical infarct, vasogenic edema or chronic white matter ischemic changes. Consider MRI with contrast for additional evaluation. Atrophy with additional chronic appearing periventricular white matter ischemic type changes. Possible acute paranasal sinusitis. Personally reviewed CT and I do see the hypodensity over the right frontal parietal region more on the right but questionably also on the left but does not seem acute seems more subacute. CT angiography of the chest is reported as acute pulmonary embolism. But addendum states no pulmonary embolism. Routine EEG is abnormal. The background slowing suggestive of mild to moderate encephalopathy. 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 Atrophy with chronic appearing patchy periventricular white matter ischemic type changes. Objective - Vital Signs Vital signs: Vital Signs Temp 97.7 F 04/24/24 13:25 Pulse 88 04/24/24 13:25 Resp 17 04/24/24 13:25 BP 141/77 04/24/24 13:25 Pulse Ox 97 04/24/24 13:25 FiO2 35 04/18/24 17:36 Intake & Output 04/24/24 04/24/24 04/25/24 06:59 18:59 06:59 Intake Total 945 Balance 945 Weight 39 kg 62.5 kg Intake: Tube Feeding 825 Other 120 Other: Voiding Method External Catheter External Catheter - Exam Patient is an elderly female, who is laying in the bed, obtunded. Patient has oxygen by nasal cannula. Patient appears very spacey, encephalopathic, nonverbal. Patient's strength is very limited, she is spastic in the arms and legs. Patient does not follow directions. Does not squeeze hand. Patient's legs are spastic. No obvious visible seizure-like activity noted. - Labs CBC & Chem 7: 04/24/24 05:31 04/24/24 05:31 Labs: Abnormal Lab Results - Last 24 Hours (Table) 04/23/24 04/24/24 04/24/24 Range/Units 20:20 05:31 05:31 RBC 3.73 L (3.80-5.40) m/uL Lymphocytes # 0.9 L (1.0-4.8) k/uL Chloride 109 H (98-107) mmol/L BUN 20 H (7-17) mg/dL Creatinine 0.46 L (0.52-1.04) mg/dL Glucose 200 H (74-99) mg/dL POC Glucose (mg/dL) 123 H (70-110) mg/dL Ur Specific [place] (1.001-1.035) Urine Protein (Negative) Urine Glucose (UA) (Negative) Ur Squamous Epith Cells (0-4) /hpf Urine Bacteria (None) /hpf Urine Mucus (None) /hpf 04/24/24 04/24/24 04/24/24 Range/Units 07:27 12:07 14:48 RBC (3.80-5.40) m/uL Lymphocytes # (1.0-4.8) k/uL Chloride (98-107) mmol/L BUN (7-17) mg/dL Creatinine (0.52-1.04) mg/dL Glucose (74-99) mg/dL POC Glucose (mg/dL) 221 H 111 H (70-110) mg/dL Ur Specific [place] 1.047 H (1.001-1.035) Urine Protein 1+ H (Negative) Urine Glucose (UA) 3+ H (Negative) Ur Squamous Epith Cells 14 H (0-4) /hpf Urine Bacteria Rare H (None) /hpf Urine Mucus Rare H (None) /hpf 04/24/24 Range/Units 17:22 RBC (3.80-5.40) m/uL Lymphocytes # (1.0-4.8) k/uL Chloride (98-107) mmol/L BUN (7-17) mg/dL Creatinine (0.52-1.04) mg/dL Glucose (74-99) mg/dL POC Glucose (mg/dL) 144 H (70-110) mg/dL Ur Specific [place] (1.001-1.035) Urine Protein (Negative) Urine Glucose (UA) (Negative) Ur Squamous Epith Cells (0-4) /hpf Urine Bacteria (None) /hpf Urine Mucus (None) /hpf Assessment and Plan Assessment: This is an 78-year-old woman who on November 2023 had left basal ganglia bleed with intraventricular hemorrhage on the CT in our facility as a result she was t ransferred to [facility] and had EVD and was placed on Keppra intubated on a ventilator. Per family members as result of stroke she had right-sided weakness then eventually was discharged to rehab. 2 weeks ago she had COVID-19. She is having fluctuation in mentation. Also she was evaluated by her outpatient neurologist who on 04/06/2024 suspected Parkinson's questionable due to her bleed and placed her on Sinemet, was placed on Baclofen which Baclofen was discontinue who is recently having altered mental status. Altered mental status fluctuation in mentation seems more delirium. Initial EEG is negative for seizure or discharges, however repeat EEG performed today showed epileptiform activity over the left temporal parietal region. On MRI Brain there is no acute or subacute ischemic stroke. 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 Recent left basal ganglia bleed with intraventricular hemorrhage on 11/2023 and outside facility felt due to uncontrol hypertension status post EVD ([facility]) patient has residual right hemiparesis Parkinson's disease that suspected by her outpatient neurologist due to her bleed Status post PEG tube Hypertension Plan: Patient's repeat EEG performed today revealed epileptic focus involving the left temporal parietal region, and also evidence of moderate to severe background slowing, consistent with encephalopathy. No electrographic seizure was recorded. Patient is currently on Keppra 500 mg twice daily. Increase Keppra to 1000 mg twice daily. We will give her Vimpat 200 mg loading dose followed by 100 mg IV twice daily. Repeat EEG in the morning. Dr. Esteves has discontinued her Sinemet on 04/19/2024 since per family no improvement in her condition with medication and patient were in agreement of discontinuing medication. Will defer the rest of the medical management to primary and other specialist The patient is severely encephalopathic and it will be hard for her to participate in rehab at this time from neurological perspective. Agree with this recommendation. However as per Dr. Esteves's discussion with patient's daughter, she feels she will benefit from acute and nursing home rehab. At this time if she remains this without improvement, her quality of life appears poor.
[2024-04-24 20:05] LABS: Glucose,Whole Blood 137 mg/dL (70-110)
--- NOTE | 2024-04-24 20:17 | P.CONS ---
History of Present Illness - Reason for Consult Consult date: 04/24/24 rehab recommendations - Chief Complaint AMS - History of Present Illness This is an 78-year-old female who has been residing at a rehab facility since her CVA in November. Per Patient's daughter Tiara, her father has been paying private pay for her to stay there and get therapy. Patient made some gains with therapy but daughter did not feel she got enough Speech therapy. Prior to stroke was living with her . She has supportive family. Patient with a previous medical history significant for hypertension and hypertensive cardiovascular disease, hyperlipidemia, history of asthma, history of major cerebrovascular accident that was in December 2023 when she suffered from significant intracranial hemorrhage she was initially evaluated at [facility] at that time, and she was transported to a tertiary care center at [facility], she ended up having evacuation of the hematoma and after that she had a prolonged hospital stay due to significant respiratory failure requiring ventilator and a trach placement along with a PEG tube placement, she became nonverbal, she had dense right-sided hemiplegia, patient apparently transported to [facility] and after that she was transported to [facility] for physical therapy and rehabilitation. While at [facility], patient had contacted COVID-19 about a week ago and she developed to have a significant respiratory distress at that time, she had a chest x-ray did not show evidence of acute or maladies she could not take Paxlovid because she was unable to swallow the medications, and could not crush the medicine put in the PEG tube, patient was treated with supportive care at that time, she was given zinc as w ell as vitamin D and vitamin C and she was given some breathing treatment. Patient became more obtunded and she has been none verbal ever since her stroke, and the family requested the patient to be transported to the emergency department [facility]. She had a CT scan of brain, did not show evidence of acute normalities, but because of her presentation she was sent for CT angiography of the chest to rule out any pulm embolism that was negative. Neurology consulted and MRI of the brain with and without deion ordered, venous malformation of frontal lobe on MRI, f/u with Dr Power recommended. Patient still very encephalopathic, having trouble participating with therapy. PM&R consulted for rehab recommendations. patient seen by therapies, total assist. Per records, Family requested hospice informational. 9/30/24: Patient sleeping With initial presentation to see her, patient's abundio urbina was at the bedside and reports the patient just recently fell asleep. She reports that she's very frustrated, she does not want hospice for her mother. She reports that her father just wants to be able to take her home, she feels that they have the funds and support to be able to have her go home. She did not care for the amount of services from a therapy standpoint that were being provided at [facility] for being a private pay patient. She reports that she has worked with her mother over the past several days, and her mother has bent her right arm up at the elbow, has smiled, and has done tracking with her eyes. She feels that the Covid infection really knocked her back, reports that the week prior she was able to say hi to her mom and she would reply back. She has been aphasic since her stroke. Patient's daughter expresses multiple times that she wants long-term rehab and short-term rehab and hopefully can get her home. Unfortunately, I think that she is not grasping the different types of rehabs. She reports that she would be happy to have her mom go home and work with therapies and have support. I did observe videos of the patient moving her right arm at the elbow, this was during the evening hours. I discussed with the daughter that sometimes there is Sleep wake disturbances that occur with strokes and that she may be more receptive and active during the evening/night hours. Review of Systems reviewed, encephalopathy limiting Past Medical History Past Medical History: Asthma, Hyperlipidemia, Hypertension Additional Past Medical History / Comment(s): CVA November,-R side deficit and nonverbal History of Any Multi-Drug Resistant Organisms: None Reported Past Surgical History: Orthopedic Surgery, Tubal Ligation Additional Past Surgical History / Comment(s): kidney removed [Donated to [facility]] . Lt Knee replacment Feb 2023 . Past Psychological History: No Psychological Hx Reported Smoking Status: Never smoker Past Alcohol Use History: Occasional Past Drug Use History: None Reported Medications and Allergies Home Medications Medication Instructions Recorded Confirmed Type Acetaminophen Tab [Tylenol] 650 mg PEG/G-TUBE Q6H PRN 04/18/24 04/18/24 History Amino Acids/Protein Hydrolys 30 ml PEG/G-TUBE TID@0900,1300,2100 04/18/24 04/18/24 History [Pro-Stat Awc Liquid] Ascorbic Acid [Vitamin C] 500 mg PEG/G-TUBE DAILY 04/18/24 04/18/24 History Carbidopa-Levodopa 25-100 mg See Taper PEG/G-TUBE DIRECTED 04/18/24 04/18/24 History [Sinemet 25-100] Cholecalciferol [Vitamin D3 (25 50 mcg PEG/G-TUBE DAILY 04/18/24 04/18/24 History Mcg = 1000 Iu)] Dapagliflozin Propanediol [Farxiga] 5 mg PEG/G-TUBE HS 04/18/24 04/18/24 History Enoxaparin [Lovenox] 40 mg SQ HS 04/18/24 04/18/24 History Famotidine [Pepcid] 20 mg PEG/G-TUBE DAILY@0600 04/18/24 04/18/24 History Insulin Glargine,Hum.rec.anlog 15 units SQ HS 04/18/24 04/18/24 History [Lantus Solostar Pen] Jevity 1.5 Vladimir Liquid 1 dose PEG/G-TUBE DIRECTED 04/18/24 04/18/24 History Loratadine 10 mg PEG/G-TUBE DAILY PRN 04/18/24 04/18/24 History Metoprolol Tartrate [Lopressor] 25 mg PEG/G-TUBE BID 04/18/24 04/18/24 History Sennosides/Docusate Sodium [Senna 1 tab PEG/G-TUBE Q24H PRN 04/18/24 04/18/24 History Plus 8.6-50 mg Tablet] Therahoney External Gel 1 applic TOPICAL DAILY PRN 04/18/24 04/18/24 History Therahoney External Gel 1 applic TOPICAL HS 04/18/24 04/18/24 History Zinc Gluconate [Zinc] 50 mg PEG/G-TUBE DAILY 04/18/24 04/18/24 History amLODIPine [Norvasc] 10 mg PEG/G-TUBE DAILY 04/18/24 04/18/24 History guaiFENesin [guaiFENesin Oral 200 mg PEG/G-TUBE Q4H PRN 04/18/24 04/18/24 History Solution] levETIRAcetam ORAL SOLN [Keppra 500 mg PEG/G-TUBE BID 04/18/24 04/18/24 History Oral Soln] lisinopriL [Zestril] 20 mg PEG/G-TUBE DAILY 04/18/24 04/18/24 History metFORMIN HCL [Glucophage] 500 mg PEG/G-TUBE BID 04/18/24 04/18/24 History Allergies Allergy/AdvReac Type Severity Reaction Status Date / Time Penicillins Allergy Rash/Hives Verified 04/18/24 17:35 Physical Exam Vitals: Vital Signs Temp Pulse Resp BP Pulse Ox 04/24/24 13:25 97.7 F 88 17 141/77 97 04/24/24 07:29 99.8 F H 99 18 122/67 96 04/24/24 01:38 98.5 F 95 16 117/65 96 04/23/24 20:00 98.8 F 99 16 144/79 97 Intake and Output 04/24/24 04/24/24 04/24/24 06:59 14:59 22:59 Intake Total 945 Balance 945 Intake: Tube Feeding 825 Other 120 Other: Voiding Method External Catheter Weight 39 kg 39 kg General: Patient Resting in bed with head of bed, elevated, Daughter at the bedside. Patient with some right side neglect, does track her eyes to the left. HEENT: Head is atraumatic, normocephalic, pupils were equal, her mucous membranes of mouth are somewhat dry. Neck: Supple Respiratory:Even a non-labored, respirations and oxygen via nasal cannula Heart: in no acute cardiac distress Abdomen: Soft, nontender, nondistended, PEG tube in place. Extremities: There is no edema no calf tenderness Neurologic examination:Patient is aphasic, likely global. She does not produce any speech. She does show some emotion to painful stimuli, tries to withdraw. She has right upper extremity flaccid hemiparesis, she has increased tone in her left arm, possibly some cogwheel rigidity. She has contracture in the bilateral legs, she is wearing prafos. inaccurately able to assess sensation Results CBC & Chem 7: 04/24/24 05:31 04/24/24 05:31 Labs: Abnormal Lab Results - Last 24 Hours (Table) 04/23/24 04/24/24 04/24/24 Range/Units 20:20 05:31 05:31 RBC 3.73 L (3.80-5.40) m/uL Lymphocytes # 0.9 L (1.0-4.8) k/uL Chloride 109 H (98-107) mmol/L BUN 20 H (7-17) mg/dL Creatinine 0.46 L (0.52-1.04) mg/dL Glucose 200 H (74-99) mg/dL POC Glucose (mg/dL) 123 H (70-110) mg/dL 04/24/24 04/24/24 Range/Units 07:27 12:07 RBC (3.80-5.40) m/uL Lymphocytes # (1.0-4.8) k/uL Chloride (98-107) mmol/L BUN (7-17) mg/dL Creatinine (0.52-1.04) mg/dL Glucose (74-99) mg/dL POC Glucose (mg/dL) 221 H 111 H (70-110) mg/dL Assessment and Plan Assessment: # Acute toxic metabolic encephalopathy of unclear etiology -neurology following -family requested hospice informational, Tiara, she is not interested in hospice for her mother, does not feel that her father wants hospice for her either, father is her DPOA #Venous malformation of frontal lobe -Do you recommend follow up with Dr. Power #History of intracranial bleed with right sided hemiplegia status post surgical intervention with right hemiplegia # History of tracheostomy placement removal #History of PEG tube placement # Aphasia, global #Lower extremity contractures # Hypertension and hypertensive cardiovascular disease. # Mixed hyperlipidemia. # Diabetes mellitus type 2 # Parkinsonism. Patient was taken off Sinemet per the request of her family. # Recent COVID-19 infection resolved. # DVT prophylaxis. Continue Lovenox 40 mg subcutaneous every 24 hours. # your medical dx and management Dispo: Patient unable to participate with therapy in current state, although hospice seems appropriate at this time, family does not want it at this time. Had lengthy discussion with patient's daughter Tiara, if patient has The financial funds and the support at home, meaning 15/02 support with appropriate equipment i.e. hospital bed, Alex lift, peg tube supplies, patient could return home with her if this is what the family wants. If she has improvements would recommend [facility] for slower paced rehab although as patient has been in rehab facility since November, likely minimal improvements. Patient seen and examined in coordination with Dr Joyner Thank you for consulting our services.
[2024-04-24] MEDS: Lacosamide IV (ages 17+ yrs) 200 MG/20 ML ML IVP SCH (20:21)
--- NOTE | 2024-04-24 21:12 | EEG ---
ELECTROENCEPHALOGRAM REPORT PREAMBLE: This is an 78-year-old female who has altered mental status, does not respond to any questions or follows command. CURRENT MEDICATIONS: 1. Keppra. 2. Zestril. 3. Lopressor. 4. Insulin. 5. Lovenox. 6. Norvasc. EEG FINDINGS: This is a 21-channel digital EEG recorded with video component, utilizing 10/20 international system with referential and bipolar montages. The background consists of disorganized, generalized slowing in mixed frequencies of 4 to 6 hertz theta intermixed with some 2 to 3 years of delta in bihemispheric region. Background does not seem to be reactive to eye opening or closing. Photic driving response was not seen. Frequent left temporal sharp and slow waves were seen frequently during the study. No electrographic seizures were recorded. Different stages of sleep were not clearly seen. IMPRESSION: 1. This is an abnormal EEG due to presence of epileptic focus involving the left temporoparietal region. This is suggestive of underlying cortical irritability and tendency for focal onset seizure. No electrographic seizure was recorded. 2. Background slowing and disorganization suggestive of at least moderate encephalopathy. 3. When compared to the EEG from 04/20/2024, this focal epileptiform activity is a new finding. Followup EEG recommended as clinically indicated. MMODL / IJN: [id number] /
[2024-04-25 07:25] LABS: Glucose,Whole Blood 227 mg/dL (70-110)
[2024-04-25 08:32] LABS: Basophils # (A) 0.04 X 10*3/uL (0.00-0.10); Basophils % (A) 0.5 %; Eosinophils # (A) 0.31 X 10*3/uL (0.04-0.35); Eosinophils % (A) 3.8 %; HCT 36.4 % (37.2-46.3); HGB 11.7 g/dL (12.0-15.0); Lymphocytes # (A) 0.98 X 10*3/uL (0.90-5.00); MCH 31.4 pg (27.0-32.0); MCHC 32.1 g/dL (32.0-37.0); MCV 97.6 FL (80.0-97.0); Mean Platelet Volume 9.8 FL (9.5-12.2); Monocytes % (A) 7.3 %; NRBC Per 100 WBC 0 X 10*3/uL (0.00-0.01); Neutrophils % (A) 75.9 %; Platelet Count 382 X 10*3/uL (140-440); RBC 3.73 X 10*6/uL (4.10-5.20); RDW 12.9 % (11.5-14.5); WBC 8.17 X 10*3/uL (4.50-10.00)
[2024-04-25] MEDS: Lacosamide IV (ages 17+ yrs) 200 MG/20 ML ML IVP SCH ×2 (08:54→21:46)
[2024-04-25 09:05] LABS: ALT 47 U/L (8-44); AST 28 U/L (13-35); Albumin 3.3 g/dL (3.8-4.9); Albumin/Globulin Ratio 1.22 Ratio (1.60-3.17); Alkaline Phosphatase 129 U/L (41-126); Blood Urea Nitrogen 25.4 mg/dL (9.0-27.0); Calcium 9.6 mg/dL (8.7-10.3); Carbon Dioxide 27.2 mmol/L (21.6-31.8); Chloride 108 mmol/L (96-109); Globulin 2.7 g/dL (1.6-3.3); Glucose 192 mg/dL (70-110); Potassium 3.9 mmol/L (3.5-5.5); Sodium 146 mmol/L (135-145); Total Bilirubin 0.3 mg/dL (0.3-1.2)
[2024-04-25] MEDS: levETIRAcetam ORAL SOLN 500 MG/5 ML CUP PEG/G-TUBE SCH ×2 (09:24→21:45)
[2024-04-25 12:11] LABS: Glucose,Whole Blood 173 mg/dL (70-110)
[2024-04-25 17:07] LABS: Glucose,Whole Blood 129 mg/dL (70-110)
[2024-04-25 20:54] LABS: Glucose,Whole Blood 144 mg/dL (70-110)
--- NOTE | 2024-04-25 21:12 | EEG ---
ELECTROENCEPHALOGRAM REPORT PREAMBLE: This is an 78-year-old female with a severely abnormal EEG yesterday, now is undergoing a followup EEG today. The patient currently on Vimpat and Keppra besides other medications. EEG FINDINGS: This is a 21-channel digital EEG recorded with video component, utilizing 10/20 international system with referential and bipolar montages. This is a prolonged EEG performed for 46 minutes. Recording start time is 12:39 p.m. on 04/25/2024 and recording end time is 1:25 p.m. on 04/25/2024. The recording starts with presence of diffuse, moderate amplitude bilaterally symmetric mixed theta and some delta frequency rhythm. Frequent right hemispheric sharp waves were seen. Sometimes these are bilaterally symmetric and sometimes independent involving the left hemispheric region as well. Sometimes it becomes repetitive at 1 hertz. Clinically, no motor activity was noted. Different stages of sleep were not seen. Photic driving response was not seen. IMPRESSION: 1. This is a severely abnormal EEG due to background slowing, suggestive of moderate to severe encephalopathy. 2. Continued presence of epileptiform activity, now fluctuating between the right hemispheric region, and left and sometimes bisynchronous, at times becomes repetitive at 1 hertz. No clear-cut electrographic seizure however was seen. When compared to the EEG from yesterday, there is improvement in the epileptiform activity over the left hemispheric region, but now with more involvement of the right hemispheric region. Clinical correlation and continuous EEG monitoring recommended. Nonconvulsive status in the differential. PETER / PETERN: [id number] / OBINNA
[2024-04-26 07:08] LABS: Glucose,Whole Blood 176 mg/dL (70-110)
--- NOTE | 2024-04-26 09:26 | P.PN ---
Subjective Progress Note Date: 04/25/24 04/25/2024: Patient was seen for a follow-up. Patient continues to be severely encephalopathic. Patient is very groggy. No obvious seizure-like activity noted. Patient's granddaughter was present, but I was able to talk to patient's daughter Alina Hinkle on the phone. 04/24/2024: Patient was initially seen by Dr. Anurag Esteves. Please refer to his note for details. Patient is a 78-year-old female with left thalamic and basal ganglia bleed, with intraventricular extension in November 2023 and was placed on Keppra, who is having altered mental status and cannot cooperate in rehab. 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 Some of the workup during this hospital visit consisted of: Ammonia level is less than 9 TSH is 1.050 Vitamin B12: 811 Serum folate: 9.6 HbA1c: 7.3 Sodium, calcium, AST is within normal limits. ALT 62 Serum glucose is 161 CT of the head is reported as right frontal parietal subcortical white matter hypodensity. Differential diagnosis could include subcortical infarct, vasogenic edema or chronic white matter ischemic changes. Consider MRI with contrast for additional evaluation. Atrophy with additional chronic appearing periventricular white matter ischemic type changes. Possible acute paranasal sinusitis. Personally reviewed CT and I do see the hypodensity over the right frontal parietal region more on the right but questionably also on the left but does not seem acute seems more subacute. CT angiography of the chest is reported as acute pulmonary embolism. But addendum states no pulmonary embolism. Routine EEG is abnormal. The background slowing suggestive of mild to moderate encephalopathy. 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 Atrophy with chronic appearing patchy periventricular white matter ischemic type changes. Objective - Vital Signs Vital signs: Vital Signs Temp 99.6 F 04/25/24 19:22 Pulse 90 04/25/24 19:22 Resp 18 04/25/24 19:22 BP 119/71 04/25/24 19:22 Pulse Ox 96 04/25/24 19:22 FiO2 35 04/18/24 17:36 Intake & Output 04/25/24 04/25/24 04/26/24 06:59 18:59 06:59 Output Total 400 Balance -400 Output: Urine 400 Other: Voiding Method Diaper Diaper External Catheter External Catheter - Exam Patient is an elderly female, who is laying in the bed. Patient has oxygen by nasal cannula. Patient is very somnolent, encephalopathic. Patient slightly opens her eyes with noxious stimulus. She moves her fingers to nailbed pressure. No obvious seizure-like activity noted. Patient slightly facial grimaces. - Labs CBC & Chem 7: 04/25/24 05:38 04/25/24 05:38 Labs: Abnormal Lab Results - Last 24 Hours (Table) 04/24/24 04/25/24 04/25/24 Range/Units 20:05 05:38 05:38 RBC 3.73 L (4.10-5.20) X 10*6/uL Hgb 11.7 L (12.0-15.0) g/dL Hct 36.4 L (37.2-46.3) % MCV 97.6 H (80.0-97.0) FL Sodium 146 H (135-145) mmol/L Creatinine 0.5 L (0.6-1.5) mg/dL BUN/Creatinine Ratio 50.80 H (12.00-20.00) Ratio Glucose 192 H (70-110) mg/dL POC Glucose (mg/dL) 137 H (70-110) mg/dL ALT 47 H (8-44) U/L Alkaline Phosphatase 129 H (41-126) U/L Total Protein 6.0 L (6.2-8.2) g/dL Albumin 3.3 L (3.8-4.9) g/dL Albumin/Globulin Ratio 1.22 L (1.60-3.17) Ratio 04/25/24 04/25/24 04/25/24 Range/Units 07:24 12:11 17:06 RBC (4.10-5.20) X 10*6/uL Hgb (12.0-15.0) g/dL Hct (37.2-46.3) % MCV (80.0-97.0) FL Sodium (135-145) mmol/L Creatinine (0.6-1.5) mg/dL BUN/Creatinine Ratio (12.00-20.00) Ratio Glucose (70-110) mg/dL POC Glucose (mg/dL) 227 H 173 H 129 H (70-110) mg/dL ALT (8-44) U/L Alkaline Phosphatase (41-126) U/L Total Protein (6.2-8.2) g/dL Albumin (3.8-4.9) g/dL Albumin/Globulin Ratio (1.60-3.17) Ratio Assessment and Plan Assessment: This is an 78-year-old woman who on November 2023 had left basal ganglia bleed with intraventricular hemorrhage on the CT in our facility as a result she was transferred to [facility] and had EVD and was placed on Keppra intubated on a ventilator. Per family members as result of stroke she had right-sided weakness then eventually was discharged to rehab. 2 weeks ago she had COVID-19. She is having fluctuation in mentation. Also she was evaluated by her outpatient neurologist who on 04/06/2024 suspected Parkinson's questionable due to her bleed and placed her on Sinemet, was placed on Baclofen which Baclofen was discontinue who is recently having altered mental status. Altered mental status fluctuation in mentation seems more delirium. Initial EEG is negative for seizure or discharges, however repeat EEG performed 04/24/2024 showed epileptiform activity over the left temporal parietal region. On MRI Brain there is no acute or subacute ischemic stroke. 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 Recent left basal ganglia bleed with intraventricular hemorrhage on 11/2023 due to uncontrolled hypertension status post EVD ([facility]) patient has residual right hemiparesis Parkinson's disease that suspected by her outpatient neurologist due to her bleed Status post PEG tube Hypertension Plan: EEG 04/24/2024 revealed epileptic focus involving the left temporal parietal region, and also evidence of moderate to severe background slowing, consistent with encephalopathy. No electrographic seizure was recorded. Patient was placed on Vimpat 200 mg loading dose followed by 100 mg IV twice daily. Also dose of Keppra was increased from 500 to 1000 mg twice daily. EEG 04/25/2024 revealed continued presence of epileptiform activity now fluctuating between the right hemispheric region and left and sometimes bi synchronous, at times becomes repetitive at 1 Hz. No clear-cut electrographic seizure however was seen. When compared to the EEG from yesterday, there is improvement in the epileptiform activity over the left hemispheric region, but now with more involvement of the right hemispheric region. Clinical correlation and continuous EEG monitoring recommended. Vimpat increased to 200 mg twice daily and Keppra 1500 mg twice daily. I discussed with patient's daughter Alina Hinkle, informed her about the results of the EEG. Also recommended patient may need continuous EEG monitoring. She is okay for patient to be transferred to higher level of care. I discussed with patient's primary physician, informed him about the results of the EEG and discussion with the daughter. Repeat EEG in the morning. Dr. Esteves has discontinued her Sinemet on 04/19/2024 since per family no improvement in her condition with medication and patient were in agreement of discontinuing medication. Will defer the rest of the medical management to primary and other specialist
[2024-04-26 12:06] LABS: Glucose,Whole Blood 167 mg/dL (70-110)
--- NOTE | 2024-04-26 16:05 | P.PN ---
Subjective Progress Note Date: 04/25/24 HISTORY OF PRESENT ILLNESS: This is an 78-year-old female with a previous medical history signi ficant for hypertension and hypertensive cardiovascular disease, hyperlipidemia, history of asthma, history of major cerebrovascular accident that was in December 2023 when she suffered from significant intracranial hemorrhage she was initially evaluated at [facility] at that time, and she was transported to a tertiary care center at [facility], she ended up having evacuation of the hematoma and after that she had a prolonged hospital stay due to significant respiratory failure requiring ventilator and a trach placement along with a PEG tube placement, she became nonverbal, she had dense right-sided hemiplegia, patient apparently transported to [facility] and after that she was transported to [facility] for physical therapy and rehabilitation, she was under the care of a different physician, I assumed her care care few weeks ago at [facility], patient had contacted COVID-19 about a week ago and she developed to have a significant respiratory distress at that time, she had a chest x-ray did not show evidence of acute or maladies she could not take Paxlovid because she was unable to swallow the medications, and we could not crush the medicine put in the PEG tube, patient was treated with supportive care at that time, she was given zinc as well as vitamin D and vitamin C and she was given some breathing treatment, patient has done well up till yesterday when the patient became more obtunded and she has been none verbal ever since her stroke, and the family requested the patient to be transported to the emergency department [facility], she had a CT scan of brain did not show evidence of acute normalities, but because of her presentation she was sent for CT angiography of the chest to rule out any pulm embolism that was negative, but because of the presentation she was admitted to the hospital initially family were in agreement to go for no code and a hospice consult however they changed her mind next day after I spoke with the daughter and the and they stated they wanted her to continue current treatment without any resuscitation at this point in time, I consulted neurology and obtained MRI of the brain with and without deion. 04/20: Patient is more awake and more alert today, she is nonverbal, she is not responding to any verbal stimuli at this time, she is staring at everybody and but she is not following any command at this point in time, she is not moving her upper or lower extremities, she is scheduled to go for MRI of the brain with and without gadolinium at 3:00 this afternoon, I will continue to follow-up with the patient very closely continue patient on Keppra 500 mg per PEG tube twice every day, neurology is following, we will continue with current treatment at this point in time until further recommendation the family stated that the patient is a candidate to go for inpatient rehabilitation I will discuss this with physical therapy and Occupational Therapy will keep patient on nothing per mouth until evaluated by the speech therapist again. 04/21: Patient is laying down in bed does not follow any commands at this point in time, her daughter who is a visiting dentist from [place] is having issues with her mom going back to [facility] on the [place] at this time, and she think her mother can go home and according to what immigration case worker suggested for the patient to be a good candidate for inpatient rehabilitation as well as physical therapy we will discuss with them and we will consult Dr. Melara for further evaluation recommendation patient underwent MRI of the brain with and without deion that showed evidence of right frontal AV malformation, and our neurologist recommended outpatient angiogram by neurosurgery that she has seen at [facility], meanwhile the patient had an EEG did not show evidence of acute seizure, continue Keppra for now, continue current treatment plan, will follow-up with the patient very closely, apparently the family is not ready for hospice at this point in time, and they want the patient to have more physical therapy in an inpatient rehab facility. 04/24: Patient is laying down in bed in no apparent distress, she continues to be nonverbal, at this time, she does not follow any commands at this point in time, family were concerned that the patient is having urinary tract infection, she did have a urinalysis did not show evidence of acute infection at this time, they were concerned that the patient is not getting enough fluid discussed with the dietitian, to give the patient 125 cc of water every 8 hours, continue current tube feeding, patient did have an EEG done by neurology and that showed evidence of seizure activity of the left frontal area, she has been maintained on Keppra that was increased to 1000 mg twice every day and she was started on Vimpat 200 mg daily. Will continue to monitor the patient very closely follow- up with the patient very closely at this point in time. 04/25: Patient has been seen by inpatient rehab for evaluation but because patient is unable to participate with therapy in the current state, hospice seems appropriate at this time. If patient has improvements would recommend [facility] for slower pace rehab. Family is considering returning the patient home with 24-hour care and social work is following for discharge planning. Family declined hospice services. Vital signs have been stable and patient has been afebrile. REVIEW OF SYSTEMS: Patient is unresponsive at this point in time. Could not obtain any review of system Constitutional: No documented fever, no chills, no night sweats. No weight change. No weakness, fatigue or lethargy. No daytime sleepiness. EENT: No headache. No blurred vision or double vision, no loss of vision. No loss of Hearing, no ringing in the ears, no dizziness. No nasal drainage or congestion. No epistaxis. No sore throat. Lungs: No shortness of breath, no cough, no sputum production. No wheezing. Reports dyspnea with activity. Cardiovascular: No chest pain, no lower extremity edema. No palpitations. No paroxysmal nocturnal dyspnea. No orthopnea. No lightheadedness or dizziness. No syncopal episodes. Abdominal: Reports abdominal pain. No nausea, vomiting. No diarrhea. No constipation. No bloody or tarry stools reports loss of appetite. Genitourinary: No dysuria, increased frequency, urgency. No urinary retention. Musculoskeletal: No myalgias. No muscle weakness, no gait dysfunction, no frequent falls. No back pain. No neck pain. Integumentary: No wounds, no lesions. No rash or pruritus. No unusual bruising. No change in hair or nails. Neurologic: No aphasia. No facial droop. No change in mentation. No head injury. No headache. No paralysis. No paresthesia. Psychiatric: No depression. No anxiety. No mood swings. Endocrine: No abnormal blood sugars. No weight change. PHYSICAL EXAMINATION: General: 78-year-old female laying down in bed does not respond to verbal stimuli. HEENT: Head is atraumatic, normocephalic, pupils were equal patient does not follow any command at this time and her mucous membranes of mouth are somewhat dry. Neck: Supple, no JVP, normal carotid upstroke bilaterally, no lymphadenopathy. Chest: Decreased breath sounds at the bases, few rhonchi, no expiratory wheezes, no chest wall tenderness, no intercostal retractions. Heart: First heart sound is normal, second heart sounds normal Abdomen: Soft, nontender, nondistended, positive bowel sounds. PEG tube in place. Extremities: There is no edema no calf tenderness DP +2 bilaterally. Neurologic examination: Patient is unresponsive at this point in time, she is clenching both upper and lower extremities, she does have a baseline right-sided hemiplegia. ASSESSMENT AND PLAN: 1. Acute toxic metabolic encephalopathy of unclear etiology. 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 2. History of intracranial bleed with right sided hemiplegia status post surgical intervention status post tracheostomy placement removal status post PEG tube placement, patient is currently nonverbal she is a wheelchair/bedbound with right-sided hemiplegia. Continue Keppra 1000 mg twice every day, added Vimpat 200 mg daily monitor levels. MRI did show evidence of right frontal AV malformation that she will need to have an angiogram as an outpatient. 3. Hypertension and hypertensive cardiovascular disease. Continue amlodipine 10 mg orally once every day, continue metoprolol 25 mg per PEG tube twice every day, continue with lisinopril 20 mg once every day. Monitor the patient blood pressure very closely. 4. Mixed hyperlipidemia. Patient is not take any statin at this point in time. 5. Diabetes mellitus type 2. Continue Levemir 15 units at bedtime along with the Farxiga 5 mg once every day, hold metformin since the patient received IV diet for the next 48 hours monitor the patient blood glucose level before each meal and bedtime. 6. Parkinsonism. Patient was taken off Sinemet per the request of her family. 7. Atelectasis continue guaifenesin as needed. 8. Recent COVID-19 infection resolved. 9. DVT prophylaxis. Continue Lovenox 40 mg subcutaneous every 24 hours. 10. GI prophylaxis. Continue patient on famotidine 20 mg per PEG tube once every day. 11. Medical debility continue physical therapy and Occupational Therapy. 12. Consult physical therapy and rehabilitation for possible inpatient rehabi litation. Patient has been deemed not appropriate for inpatient rehab. Discharge planning is in process and waiting for family decision. Objective - Vital Signs Vital signs: Vital Signs Temp 99.1 F 04/25/24 07:26 Pulse 95 04/25/24 07:26 Resp 17 04/25/24 07:26 BP 129/66 04/25/24 07:26 Pulse Ox 96 04/25/24 08:32 FiO2 35 04/18/24 17:36 Intake & Output 04/24/24 04/25/24 04/25/24 18:59 06:59 18:59 Output Total 400 Balance -400 Weight 62.5 kg Output: Urine 400 Other: Voiding Method External Catheter Diaper External Catheter - Labs CBC & Chem 7: 04/25/24 05:38 04/25/24 05:38 Labs: Abnormal Lab Results - Last 24 Hours (Table) 04/24/24 04/24/24 04/24/24 Range/Units 14:48 17:22 20:05 RBC (4.10-5.20) X 10*6/uL Hgb (12.0-15.0) g/dL Hct (37.2-46.3) % MCV (80.0-97.0) FL Sodium (135-145) mmol/L Creatinine (0.6-1.5) mg/dL BUN/Creatinine Ratio (12.00-20.00) Ratio Glucose (70-110) mg/dL POC Glucose (mg/dL) 144 H 137 H (70-110) mg/dL ALT (8-44) U/L Alkaline Phosphatase (41-126) U/L Total Protein (6.2-8.2) g/dL Albumin (3.8-4.9) g/dL Albumin/Globulin Ratio (1.60-3.17) Ratio Ur Specific [place] 1.047 H (1.001-1.035) Urine Protein 1+ H (Negative) Urine Glucose (UA) 3+ H (Negative) Ur Squamous Epith Cells 14 H (0-4) /hpf Urine Bacteria Rare H (None) /hpf Urine Mucus Rare H (None) /hpf 04/25/24 04/25/24 04/25/24 Range/Units 05:38 05:38 07:24 RBC 3.73 L (4.10-5.20) X 10*6/uL Hgb 11.7 L (12.0-15.0) g/dL Hct 36.4 L (37.2-46.3) % MCV 97.6 H (80.0-97.0) FL Sodium 146 H (135-145) mmol/L Creatinine 0.5 L (0.6-1.5) mg/dL BUN/Creatinine Ratio 50.80 H (12.00-20.00) Ratio Glucose 192 H (70-110) mg/dL POC Glucose (mg/dL) 227 H (70-110) mg/dL ALT 47 H (8-44) U/L Alkaline Phosphatase 129 H (41-126) U/L Total Protein 6.0 L (6.2-8.2) g/dL Albumin 3.3 L (3.8-4.9) g/dL Albumin/Globulin Ratio 1.22 L (1.60-3.17) Ratio Ur Specific [place] (1.001-1.035) Urine Protein (Negative) Urine Glucose (UA) (Negative) Ur Squamous Epith Cells (0-4) /hpf Urine Bacteria (None) /hpf Urine Mucus (None) /hpf
--- NOTE | 2024-04-26 16:09 | P.PN ---
Subjective Progress Note Date: 04/26/24 HISTORY OF PRESENT ILLNESS: This is an 78-year-old female with a previous medical history signi ficant for hypertension and hypertensive cardiovascular disease, hyperlipidemia, history of asthma, history of major cerebrovascular accident that was in December 2023 when she suffered from significant intracranial hemorrhage she was initially evaluated at [facility] at that time, and she was transported to a tertiary care center at [facility], she ended up having evacuation of the hematoma and after that she had a prolonged hospital stay due to significant respiratory failure requiring ventilator and a trach placement along with a PEG tube placement, she became nonverbal, she had dense right-sided hemiplegia, patient apparently transported to [facility] and after that she was transported to [facility] for physical therapy and rehabilitation, she was under the care of a different physician, I assumed her care care few weeks ago at [facility], patient had contacted COVID-19 about a week ago and she developed to have a significant respiratory distress at that time, she had a chest x-ray did not show evidence of acute or maladies she could not take Paxlovid because she was unable to swallow the medications, and we could not crush the medicine put in the PEG tube, patient was treated with supportive care at that time, she was given zinc as well as vitamin D and vitamin C and she was given some breathing treatment, patient has done well up till yesterday when the patient became more obtunded and she has been none verbal ever since her stroke, and the family requested the patient to be transported to the emergency department [facility], she had a CT scan of brain did not show evidence of acute normalities, but because of her presentation she was sent for CT angiography of the chest to rule out any pulm embolism that was negative, but because of the presentation she was admitted to the hospital initially family were in agreement to go for no code and a hospice consult however they changed her mind next day after I spoke with the daughter and the and they stated they wanted her to continue current treatment without any resuscitation at this point in time, I consulted neurology and obtained MRI of the brain with and without deion. 04/20: Patient is more awake and more alert today, she is nonverbal, she is not responding to any verbal stimuli at this time, she is staring at everybody and but she is not following any command at this point in time, she is not moving her upper or lower extremities, she is scheduled to go for MRI of the brain with and without gadolinium at 3:00 this afternoon, I will continue to follow-up with the patient very closely continue patient on Keppra 500 mg per PEG tube twice every day, neurology is following, we will continue with current treatment at this point in time until further recommendation the family stated that the patient is a candidate to go for inpatient rehabilitation I will discuss this with physical therapy and Occupational Therapy will keep patient on nothing per mouth until evaluated by the speech therapist again. 04/21: Patient is laying down in bed does not follow any commands at this point in time, her daughter who is a visiting dentist from [place] is having issues with her mom going back to [facility] on the [place] at this time, and she think her mother can go home and according to what case management associate suggested for the patient to be a good candidate for inpatient rehabilitation as well as physical therapy we will discuss with them and we will consult Dr. Melara for further evaluation recommendation patient underwent MRI of the brain with and without deion that showed evidence of right frontal AV malformation, and our neurologist recommended outpatient angiogram by neurosurgery that she has seen at [facility], meanwhile the patient had an EEG did not show evidence of acute seizure, continue Keppra for now, continue current treatment plan, will follow-up with the patient very closely, apparently the family is not ready for hospice at this point in time, and they want the patient to have more physical therapy in an inpatient rehab facility. 04/24: Patient is laying down in bed in no apparent distress, she continues to be nonverbal, at this time, she does not follow any commands at this point in time, family were concerned that the patient is having urinary tract infection, she did have a urinalysis did not show evidence of acute infection at this time, they were concerned that the patient is not getting enough fluid discussed with the dietitian, to give the patient 125 cc of water every 8 hours, continue current tube feeding, patient did have an EEG done by neurology and that showed evidence of seizure activity of the left frontal area, she has been maintained on Keppra that was increased to 1000 mg twice every day and she was started on Vimpat 200 mg daily. Will continue to monitor the patient very closely follow- up with the patient very closely at this point in time. 04/25: Patient has been seen by inpatient rehab for evaluation but because patient is unable to participate with therapy in the current state, hospice seems appropriate at this time. If patient has improvements would recommend [facility] for slower pace rehab. Family is considering returning the patient home with 24-hour care and social work is following for discharge planning. Family declined hospice services. Vital signs have been stable and patient has been afebrile. 04/26: Patient is about the same, she is completely unresponsive, she barely open her eyes in response to verbal stimuli, her was at the bedside, he was advised about transferring the patient back to [facility] on the [place] and after making a decision on transferring her out of the state to a different institution that can be done as an outpatient, I spoke with Dr. Winston yesterday in the neurologist who recommended for the patient to be transferred to [facility] I spoke with [facility] and they declined the transfer at this point in time because is not can add anything for her treatment at this point, her seizure medications were adjusted, patient continues to be about the same, we will start her on a small dose of IV fluid resuscitation in the form of normal saline at 50 cc an hour, repeat her labs tomorrow morning, I will follow- up with the patient REVIEW OF SYSTEMS: Patient is unresponsive at this point in time. Could not obtain any review of system Constitutional: No documented fever, no chills, no night sweats. No weight change. No weakness, fatigue or lethargy. No daytime sleepiness. EENT: No headache. No blurred vision or double vision, no loss of vision. No loss of Hearing, no ringing in the ears, no dizziness. No nasal drainage or co ngestion. No epistaxis. No sore throat. Lungs: No shortness of breath, no cough, no sputum production. No wheezing. Reports dyspnea with activity. Cardiovascular: No chest pain, no lower extremity edema. No palpitations. No paroxysmal nocturnal dyspnea. No orthopnea. No lightheadedness or dizziness. No syncopal episodes. Abdominal: Reports abdominal pain. No nausea, vomiting. No diarrhea. No constipation. No bloody or tarry stools reports loss of appetite. Genitourinary: No dysuria, increased frequency, urgency. No urinary retention. Musculoskeletal: No myalgias. No muscle weakness, no gait dysfunction, no frequent falls. No back pain. No neck pain. Integumentary: No wounds, no lesions. No rash or pruritus. No unusual bruising. No change in hair or nails. Neurologic: No aphasia. No facial droop. No change in mentation. No head injury. No headache. No paralysis. No paresthesia. Psychiatric: No depression. No anxiety. No mood swings. Endocrine: No abnormal blood sugars. No weight change. PHYSICAL EXAMINATION: General: 78-year-old female laying down in bed does not respond to verbal stimuli. HEENT: Head is atraumatic, normocephalic, pupils were equal patient does not follow any command at this time and her mucous membranes of mouth are somewhat dry. Neck: Supple, no JVP, normal carotid upstroke bilaterally, no lymphadenopathy. Chest: Decreased breath sounds at the bases, few rhonchi, no expiratory wheezes, no chest wall tenderness, no intercostal retractions. Heart: First heart sound is normal, second heart sounds normal Abdomen: Soft, nontender, nondistended, positive bowel sounds. PEG tube in place. Extremities: There is no edema no calf tenderness DP +2 bilaterally. Neurologic examination: Patient is unresponsive at this point in time, she is clenching both upper and lower extremities, she does have a baseline right-sided hemiplegia. ASSESSMENT AND PLAN: 1. Acute toxic metabolic encephalopathy of unclear etiology. 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 2. History of intracranial bleed with right sided hemiplegia status post surgical intervention status post tracheostomy placement removal status post PEG tube placement, patient is currently nonverbal she is a wheelchair/bedbound with right-sided hemiplegia. Continue Keppra 1500 mg twice every day, added Vimpat 200 mg IV push twice every day monitor levels. MRI did show evidence of right frontal AV malformation that she will need to have an angiogram as an outpatient. 3. Hypertension and hypertensive cardiovascular disease. Continue amlodipine 10 mg orally once every day, continue metoprolol 25 mg per PEG tube twice every day, continue with lisinopril 20 mg once every day. Monitor the patient blood pressure very closely. 4. Mixed hyperlipidemia. Patient is not take any statin at this point in time. 5. Diabetes mellitus type 2. Continue Levemir 15 units at bedtime along with the Farxiga 5 mg once every day, hold metformin since the patient received IV diet for the next 48 hours monitor the patient blood glucose level before each meal and bedtime. 6. Parkinsonism. Patient was taken off Sinemet per the request of her family. 7. Atelectasis continue guaifenesin as needed. 8. Recent COVID-19 infection resolved. 9. DVT prophylaxis. Continue Lovenox 40 mg subcutaneous every 24 hours. 10. GI prophylaxis. Continue patient on famotidine 20 mg per PEG tube once every day. 11. Medical debility continue physical therapy and Occupational Therapy. 12. patient prognosis is continued to be dismal she is at an end-of-life I do not see any improvement at this stage in time and a discussion of hospice need to be undertaken. 13. Patient continues to be DNR. Objective - Vital Signs Vital signs: Vital Signs Temp 98.8 F 04/26/24 14:00 Pulse 88 04/26/24 14:00 Resp 16 04/26/24 14:00 BP 119/72 04/26/24 14:00 Pulse Ox 97 04/26/24 14:00 FiO2 35 04/18/24 17:36 Intake & Output 04/25/24 04/26/24 04/26/24 18:59 06:59 18:59 Other: Voiding Method Diaper Diaper External Catheter External Catheter - Labs CBC & Chem 7: 04/25/24 05:38 04/25/24 05:38 Labs: Abnormal Lab Results - Last 24 Hours (Table) 04/25/24 04/25/24 04/26/24 Range/Units 17:06 20:53 07:07 POC Glucose (mg/dL) 129 H 144 H 176 H (70-110) mg/dL 04/26/24 Range/Units 12:02 POC Glucose (mg/dL) 167 H (70-110) mg/dL
[2024-04-26] MEDS: SODIUM CHLORIDE 0.9% 1,000 ML IV SCH (17:05)
[2024-04-26 17:33] LABS: Glucose,Whole Blood 147 mg/dL (70-110)
[2024-04-26 20:21] LABS: Glucose,Whole Blood 119 mg/dL (70-110)
--- NOTE | 2024-04-26 22:49 | EEG ---
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 The patient's EEG continues to be severely abnormal. CURRENT MEDICATIONS: 1. Vimpat 200 mg b.i.d. 2. Keppra 1500 mg b.i.d. and other medications. EEG FINDINGS: This is a 21-channel digital EEG recorded with video component, utilizing 10/20 international system with referential and bipolar montages. This is a prolonged EEG performed for 1 hour. The recording start time is 1:04 p.m. on 04/26/2024, and recording end time is 2:08 p.m. on 04/26/2024. The recording starts and continues with presence of diffuse disorganized background with mixed frequencies of delta and theta slowing in bihemispheric region. Frequent independent left or right parietal sharp waves were seen, which sometimes becomes bisynchronous. At times, these become slightly more rhythmic at 1 hertz. Different stages of sleep were not seen. IMPRESSION: Abnormal EEG due to, 1. Background slowing, suggestive of a moderate to severe encephalopathy. 2. Continued presence of intermittent epileptiform activity involving the right parietal and left parietal temporal region, independent and sometimes bisynchronous. In an appropriate clinical setting, nonconvulsive status can have this presentation. Suggest continuous EEG monitoring. MMIVETTEL / IJN: [id number] / OBINNA
[2024-04-26] MEDS: PHENYTOIN SODIUM INJ 1,200 MG in SODIUM CHLORIDE 0.9% 100 ML IVPB STA (23:17)
[2024-04-27 06:52] LABS: Glucose,Whole Blood 188 mg/dL (70-110)
[2024-04-27 08:30] LABS: HCT 35.8 % (37.2-46.3); HGB 11.3 g/dL (12.0-15.0); MCH 31.3 pg (27.0-32.0); MCHC 31.6 g/dL (32.0-37.0); MCV 99.2 FL (80.0-97.0); NRBC Per 100 WBC 0 X 10*3/uL (0.00-0.01); Platelet Count 394 X 10*3/uL (140-440); RBC 3.61 X 10*6/uL (4.10-5.20); WBC 6.99 X 10*3/uL (4.50-10.00)
[2024-04-27 08:52] LABS: ALT 54 U/L (8-44); AST 26 U/L (13-35); Albumin 3.3 g/dL (3.8-4.9); Albumin/Globulin Ratio 1.22 Ratio (1.60-3.17); Alkaline Phosphatase 128 U/L (41-126); Blood Urea Nitrogen 25.9 mg/dL (9.0-27.0); Calcium 9.3 mg/dL (8.7-10.3); Carbon Dioxide 25.9 mmol/L (21.6-31.8); Chloride 112 mmol/L (96-109); Globulin 2.7 g/dL (1.6-3.3); Glucose 216 mg/dL (70-110); Magnesium 2.3 mg/dL (1.5-2.4); Phenytoin (Dilantin) 14.2 UG/ML (10.0-20.0); Potassium 3.9 mmol/L (3.5-5.5); Sodium 148 mmol/L (135-145); Total Bilirubin <0.2 mg/dL (0.3-1.2)
[2024-04-27] MEDS: PHENYTOIN SODIUM INJ 200 MG in SODIUM CHLORIDE 0.9% 36 ML IVPB SCH (09:59)
[2024-04-27 12:04] LABS: Glucose,Whole Blood 129 mg/dL (70-110)
--- NOTE | 2024-04-27 12:42 | P.PN ---
Subjective Progress Note Date: 04/26/24 04/26/2024: Patient was seen for follow-up. Family members were not present. Patient has not improved at all as compared to yesterday. 04/25/2024: Patient was seen for a follow-up. Patient continues to be severely encephalopathic. Patient is very groggy. No obvious seizure-like activity noted. Patient's granddaughter was present, but I was able to talk to patient's daughter Alina Hinkle on the phone. 04/24/2024: Patient was initially seen by Dr. Anurag Esteves. Please refer to his note for details. Patient is a 78-year-old female with left thalamic and basal ganglia bleed, with intraventricular extension in November 2023 and was placed on Keppra, who is having altered mental status and cannot cooperate in rehab. 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 Some of the workup during this hospital visit consisted of: Ammonia level is less than 9 TSH is 1.050 Vitamin B12: 811 Serum folate: 9.6 HbA1c: 7.3 Sodium, calcium, AST is within normal limits. ALT 62 Serum glucose is 161 CT of the head is reported as right frontal parietal subcortical white matter hypodensity. Differential diagnosis could include subcortical infarct, vasogenic edema or chronic white matter ischemic changes. Consider MRI with contrast for additional evaluation. Atrophy with additional chronic appearing periventricular white matter ischemic type changes. Possible acute paranasal sinusitis. Personally reviewed CT and I do see the hypodensity over the right frontal parietal region more on the right but questionably also on the left but does not seem acute seems more subacute. CT angiography of the chest is reported as acute pulmonary embolism. But addendum states no pulmonary embolism. Routine EEG is abnormal. The background slowing suggestive of mild to moderate encephalopathy. 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 Atrophy with chronic appearing patchy periventricular white matter ischemic type changes. Objective - Vital Signs Vital signs: Vital Signs Temp 98.7 F 04/26/24 19:25 Pulse 89 04/26/24 19:25 Resp 16 04/26/24 19:25 BP 125/76 04/26/24 19:25 Pulse Ox 95 04/26/24 19:25 FiO2 35 04/18/24 17:36 Intake & Output 04/26/24 04/26/24 04/27/24 06:59 18:59 06:59 Other: Voiding Method Diaper External Catheter - Exam Patient is an elderly female, who is laying in the bed. Patient has oxygen by nasal cannula. Patient is very somnolent, encephalopathic. Patient slightly opens her eyes with noxious stimulus. She moves her fingers to nailbed pressure. No obvious seizure-like activity noted. Patient slightly facial grimaces. Examination essentially unchanged. - Labs CBC & Chem 7: 04/27/24 06:10 04/27/24 06:10 Labs: Abnormal Lab Results - Last 24 Hours (Table) 04/26/24 04/26/24 04/26/24 Range/Units 07:07 12:02 17:31 POC Glucose (mg/dL) 176 H 167 H 147 H (70-110) mg/dL 04/26/24 Range/Units 20:20 POC Glucose (mg/dL) 119 H (70-110) mg/dL Assessment and Plan Assessment: This is an 78-year-old woman who on November 2023 had left basal ganglia bleed with intraventricular hemorrhage on the CT in our facility as a result she was transferred to [facility] and had EVD and was placed on Keppra intubated on a ventilator. Per family members as result of stroke she had right-sided weakness then eventually was discharged to rehab. 2 weeks ago she had COVID-19. She is having fluctuation in mentation. Also she was evaluated by her outpatient neurologist who on 04/06/2024 suspected Parkinson's questionable due to her bleed and placed her on Sinemet, was placed on Baclofen which Baclofen was discontinue who is recently having altered mental status. Altered mental status fluctuation in mentation seems more delirium. Initial EEG is negative for seizure or discharges, however repeat EEG performed 04/24/2024 showed epileptiform activity over the left temporal parietal region. On MRI Brain there is no acute or subacute ischemic stroke. 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 Recent left basal ganglia bleed with intraventricular hemorrhage on 11/2023 due to uncontrolled hypertension status post EVD ([facility]) patient has residual right hemiparesis Parkinson's disease that suspected by her outpatient neurologist due to her bleed Status post PEG tube Hypertension Plan: EEG 04/26/2024 was abnormal due to background slowing, suggestive of moderate to severe encephalopathy. Continued presence of intermittent epileptiform activity involving the right parietal and left parietal temporal region, independent and sometimes bisynchronous. In the appropriate setting, nonconvulsive status cannot have this presentation. Suggest continuous EEG monitoring. Patient will be started on Dilantin loading dose of 20 mg/kg x 1 dose, followed by 200 mg twice daily. Repeat EEG in the morning. Check Dilantin level. [facility] have declined to accept the patient. Suggest transfer to [facility] or [facility]. EEG 04/24/2024 revealed epileptic focus involving the left temporal parietal region, and also evidence of moderate to severe background slowing, consistent with encephalopathy. No electrographic seizure was recorded. Patient was placed on Vimpat 200 mg loading dose followed by 100 mg IV twice daily. Also dose of Keppra was increased from 500 to 1000 mg twice daily. EEG 04/25/2024 revealed continued presence of epileptiform activity now fluctuating between the right hemispheric region and left and sometimes bisynchronous, at times becomes repetitive at 1 Hz. No clear-cut electrographic seizure however was seen. When compared to the EEG from yesterday, there is improvement in the epileptiform activity over the left hemispheric region, but now with more involvement of the right hemispheric region. Clinical correlation and continuous EEG monitoring recommended. Vimpat increased to 200 mg twice daily and Keppra [address] Esteves has discontinued her Sinemet on 04/19/2024 since per family no improvement in her condition with medication and patient were in agreement of discontinuing medication. Will defer the rest of the medical management to primary and other specialist Patient's overall prognosis for meaningful recovery appears poor. Consider palliative care.
[2024-04-27 17:21] LABS: Glucose,Whole Blood 129 mg/dL (70-110)
[2024-04-27 20:35] LABS: Glucose,Whole Blood 118 mg/dL (70-110)
[2024-04-27] MEDS: levETIRAcetam ORAL SOLN 500 MG/5 ML CUP PEG/G-TUBE SCH (21:27)
--- NOTE | 2024-04-27 22:58 | EEG ---
ELECTROENCEPHALOGRAM REPORT PREAMBLE: This is an 78-year-old female with nonconvulsive status. CURRENT MEDICATIONS: 1. Vimpat. 2. Keppra. 3. Dilantin. EEG FINDINGS: This is a 21-channel digital EEG recorded with video component, utilizing 10/20 international system with referential and bipolar montages. This is a prolonged study performed for 44 minutes. Recording start time is 1:53 p.m. on 04/27/2024, and recording end time is 2:38 p.m. on 04/27/2024. The background consists of moderately well-developed and regulated mixed frequencies of moderate amplitude 6 hertz theta, intermixed with some delta sporadically in bihemispheric region. Background does not seem to be reactive to eye opening and closing. Sporadic left or right temporal sharp waves were seen. No electrographic seizure was recorded. Different stages of sleep were not seen. IMPRESSION: This is an abnormal EEG due to, 1. Background slowing, suggestive of moderate encephalopathy. 2. Remarkable improvement in the epileptiform activity, with resolution of electrographic nonconvulsive status. Sporadic left or right temporal, independent sharp waves were seen during the study. This may suggest underlying cortical irritability. Clinical correlation recommended. MMODL / IJN: [id number] /
[2024-04-28 07:12] LABS: Glucose,Whole Blood 213 mg/dL (70-110)
--- NOTE | 2024-04-28 09:18 | P.PN ---
Subjective Progress Note Date: 04/27/24 04/27/2024: Patient was seen for a follow-up. Patient continues to be very sedated, not having any obvious seizure activity. Patient's daughter was also present. 04/26/2024: Patient was seen for follow-up. Family members were not present. Patient has not improved at all as compared to yesterday. 04/25/2024: Patient was seen for a follow-up. Patient continues to be severely encephalopathic. Patient is very groggy. No obvious seizure-like activity noted. Patient's granddaughter was present, but I was able to talk to patient's daughter Alina Hinkle on the phone. 04/24/2024: Patient was initially seen by Dr. Anurag Esteves. Please refer to his note for details. Patient is a 78-year-old female with left thalamic and basal ganglia bleed, with intraventricular extension in November 2023 and was placed on Keppra, who is having altered mental status and cannot cooperate in rehab. 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 Some of the workup during this hospital visit consisted of: Ammonia level is less than 9 TSH is 1.050 Vitamin B12: 811 Serum folate: 9.6 HbA1c: 7.3 Sodium, calcium, AST is within normal limits. ALT 62 Serum glucose is 161 CT of the head is reported as right frontal parietal subcortical white matter hypodensity. Differential diagnosis could include subcortical infarct, vasogenic edema or chronic white matter ischemic changes. Consider MRI with contrast for additional evaluation. Atrophy with additional chronic appearing periventricular white matter ischemic type changes. Possible acute paranasal sinusitis. Personally reviewed CT and I do see the hypodensity over the right frontal parietal region more on the right but questionably also on the left but does not seem acute seems more subacute. CT angiography of the chest is reported as acute pulmonary embolism. But addendum states no pulmonary embolism. Routine EEG is abnormal. The background slowing suggestive of mild to moderate encephalopathy. 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 Atrophy with chronic appearing patchy periventricular white matter ischemic type changes. Objective - Vital Signs Vital signs: Vital Signs Temp 98.5 F 04/27/24 12:23 Pulse 89 04/27/24 12:23 Resp 16 04/27/24 12:23 BP 135/77 04/27/24 12:23 Pulse Ox 93 L 04/27/24 12:23 FiO2 35 04/18/24 17:36 Intake & Output 04/26/24 04/27/24 04/27/24 18:59 06:59 18:59 Intake Total 1575 Balance 1575 Weight 44.5 kg Intake: Intake, IV Titration 700 Amount Phenytoin Sodium Inj 1, 100 200 mg In Sodium Chloride 0.9% 100 ml @ 200 mls/hr IVPB ONCE STA Rx#: [id number] Sodium Chloride 0.9% 1, 600 000 ml @ 50 mls/hr IV . Q20H [facility] Rx#:[id number] Tube Feeding 675 Other 200 Other: Voiding Method Diaper Diaper Diaper External Catheter External Catheter External Catheter # Voids 2 # Bowel Movements 1 - Exam Patient is an elderly female, who is laying in the bed. Patient has oxygen by nasal cannula. Patient is very somnolent, encephalopathic. Patient slightly opens her eyes with noxious stimulus. She moves her fingers to nailbed pressure. No obvious seizure-like activity noted. Patient slightly facial grimaces. Examination essentially unchanged. - Labs CBC & Chem 7: 04/27/24 06:10 04/27/24 06:10 Labs: Abnormal Lab Results - Last 24 Hours (Table) 04/26/24 04/27/24 04/27/24 Range/Units 20:20 06:10 06:10 RBC 3.61 L (4.10-5.20) X 10*6/uL Hgb 11.3 L (12.0-15.0) g/dL Hct 35.8 L (37.2-46.3) % MCV 99.2 H (80.0-97.0) FL MCHC 31.6 L (32.0-37.0) g/dL Sodium 148 H (135-145) mmol/L Chloride 112 H (96-109) mmol/L Creatinine 0.5 L (0.6-1.5) mg/dL BUN/Creatinine Ratio 51.80 H (12.00-20.00) Ratio Glucose 216 H (70-110) mg/dL POC Glucose (mg/dL) 119 H (70-110) mg/dL Total Bilirubin <0.2 L (0.3-1.2) mg/dL ALT 54 H (8-44) U/L Alkaline Phosphatase 128 H (41-126) U/L Total Protein 6.0 L (6.2-8.2) g/dL Albumin 3.3 L (3.8-4.9) g/dL Albumin/Globulin Ratio 1.22 L (1.60-3.17) Ratio 04/27/24 04/27/24 04/27/24 Range/Units 06:51 12:03 17:19 RBC (4.10-5.20) X 10*6/uL Hgb (12.0-15.0) g/dL Hct (37.2-46.3) % MCV (80.0-97.0) FL MCHC (32.0-37.0) g/dL Sodium (135-145) mmol/L Chloride (96-109) mmol/L Creatinine (0.6-1.5) mg/dL BUN/Creatinine Ratio (12.00-20.00) Ratio Glucose (70-110) mg/dL POC Glucose (mg/dL) 188 H 129 H 129 H (70-110) mg/dL Total Bilirubin (0.3-1.2) mg/dL ALT (8-44) U/L Alkaline Phosphatase (41-126) U/L Total Protein (6.2-8.2) g/dL Albumin (3.8-4.9) g/dL Albumin/Globulin Ratio (1.60-3.17) Ratio Assessment and Plan Assessment: This is an 78-year-old woman who on November 2023 had left basal ganglia bleed with intraventricular hemorrhage on the CT in our facility as a result she was transferred to [facility] and had EVD and was placed on Keppra intubated on a ventilator. Per family members as result of stroke she had right-sided weakness then eventually was discharged to rehab. 2 weeks ago she had COVID-19. She is having fluctuation in mentation. Also she was evaluated by her outpatient neurologist who on 04/06/2024 suspected Parkinson's questionable due to her bleed and placed her on Sinemet, was placed on Baclofen which Baclofen was discontinue who is recently having altered mental status. Altered mental status fluctuation in mentation seems more delirium. Initial EEG is negative for seizure or discharges, however repeat EEG performed 04/24/2024 showed epileptiform activity over the left temporal parietal region. On MRI Brain there is no acute or subacute ischemic stroke. 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 Recent left basal ganglia bleed with intraventricular hemorrhage on 11/2023 due to uncontrolled hypertension status post EVD ([facility]) patient has residual right hemiparesis Parkinson's disease that suspected by her outpatient neurologist due to her bleed Status post PEG tube Hypertension Plan: EEG 04/27/2024 revealed background slowing, suggestive of moderate encephalopathy. Remarkable improvement in the epileptiform activity, with resolution of electrographic nonconvulsive status. Sporadic left or right temporal independent sharp waves were seen during the study. This may suggest underlying cortical irritability. Clinical correlation recommended. Continue Dilantin 200 mg twice daily, Vimpat 200 mg twice daily and Keppra decreased to 500 mg twice daily. If remains stable, we will decrease Vimpat to 100 mg twice daily in the morning. Repeat EEG in the morning to make sure patient is out of status over the weekend. Discussed with family members. EEG 04/26/2024 was abnormal due to background slowing, suggestive of moderate to severe encephalopathy. Continued presence of intermittent epileptiform activity involving the right parietal and left parietal temporal region, independent and sometimes bisynchronous. In the appropriate setting, nonconvulsive status cannot have this presentation. Suggest continuous EEG monitoring. Patient was started on Dilantin therapy. EEG 04/24/2024 revealed epileptic focus involving the left temporal parietal region, and also evidence of moderate to severe background slowing, consistent with encephalopathy. No electrographic seizure was recorded. Patient was placed on Vimpat 200 mg loading dose followed by 100 mg IV twice daily. Also dose of Keppra was increased from 500 to 1000 mg twice daily. EEG 04/25/2024 revealed continued presence of epileptiform activity now fluctuati ng between the right hemispheric region and left and sometimes bisynchronous, at times becomes repetitive at 1 Hz. No clear-cut electrographic seizure however was seen. When compared to the EEG from yesterday, there is improvement in the epileptiform activity over the left hemispheric region, but now with more involvement of the right hemispheric region. Clinical correlation and continuous EEG monitoring recommended. Vimpat increased to 200 mg twice daily and Keppra [address] Esteves has discontinued her Sinemet on 04/19/2024 since per family no improvement in her condition with medication and patient were in agreement of discontinuing medication. Will defer the rest of the medical management to primary and other specialist Patient's overall prognosis for meaningful recovery appears poor. Consider palliative care.
[2024-04-28 12:08] LABS: Glucose,Whole Blood 127 mg/dL (70-110)
--- NOTE | 2024-04-28 16:18 | P.PN ---
Subjective Progress Note Date: 04/27/24 HISTORY OF PRESENT ILLNESS: This is an 78-year-old female with a previous medical history signi ficant for hypertension and hypertensive cardiovascular disease, hyperlipidemia, history of asthma, history of major cerebrovascular accident that was in December 2023 when she suffered from significant intracranial hemorrhage she was initially evaluated at [facility] at that time, and she was transported to a tertiary care center at [facility], she ended up having evacuation of the hematoma and after that she had a prolonged hospital stay due to significant respiratory failure requiring ventilator and a trach placement along with a PEG tube placement, she became nonverbal, she had dense right-sided hemiplegia, patient apparently transported to [facility] and after that she was transported to [facility] for physical therapy and rehabilitation, she was under the care of a different physician, I assumed her care care few weeks ago at [facility], patient had contacted COVID-19 about a week ago and she developed to have a significant respiratory distress at that time, she had a chest x-ray did not show evidence of acute or maladies she could not take Paxlovid because she was unable to swallow the medications, and we could not crush the medicine put in the PEG tube, patient was treated with supportive care at that time, she was given zinc as well as vitamin D and vitamin C and she was given some breathing treatment, patient has done well up till yesterday when the patient became more obtunded and she has been none verbal ever since her stroke, and the family requested the patient to be transported to the emergency department [facility], she had a CT scan of brain did not show evidence of acute normalities, but because of her presentation she was sent for CT angiography of the chest to rule out any pulm embolism that was negative, but because of the presentation she was admitted to the hospital initially family were in agreement to go for no code and a hospice consult however they changed her mind next day after I spoke with the daughter and the and they stated they wanted her to continue current treatment without any resuscitation at this point in time, I consulted neurology and obtained MRI of the brain with and without deion. 04/20: Patient is more awake and more alert today, she is nonverbal, she is not responding to any verbal stimuli at this time, she is staring at everybody and but she is not following any command at this point in time, she is not moving her upper or lower extremities, she is scheduled to go for MRI of the brain with and without gadolinium at 3:00 this afternoon, I will continue to follow-up with the patient very closely continue patient on Keppra 500 mg per PEG tube twice every day, neurology is following, we will continue with current treatment at this point in time until further recommendation the family stated that the patient is a candidate to go for inpatient rehabilitation I will discuss this with physical therapy and Occupational Therapy will keep patient on nothing per mouth until evaluated by the speech therapist again. 04/21: Patient is laying down in bed does not follow any commands at this point in time, her daughter who is a visiting dentist from [place] is having issues with her mom going back to [facility] on the [place] at this time, and she think her mother can go home and according to what shoe parts caser suggested for the patient to be a good candidate for inpatient rehabilitation as well as physical therapy we will discuss with them and we will consult Dr. Melara for further evaluation recommendation patient underwent MRI of the brain with and without deion that showed evidence of right frontal AV malformation, and our neurologist recommended outpatient angiogram by neurosurgery that she has seen at [facility], meanwhile the patient had an EEG did not show evidence of acute seizure, continue Keppra for now, continue current treatment plan, will follow-up with the patient very closely, apparently the family is not ready for hospice at this point in time, and they want the patient to have more physical therapy in an inpatient rehab facility. 04/24: Patient is laying down in bed in no apparent distress, she continues to be nonverbal, at this time, she does not follow any commands at this point in time, family were concerned that the patient is having urinary tract infection, she did have a urinalysis did not show evidence of acute infection at this time, they were concerned that the patient is not getting enough fluid discussed with the dietitian, to give the patient 125 cc of water every 8 hours, continue current tube feeding, patient did have an EEG done by neurology and that showed evidence of seizure activity of the left frontal area, she has been maintained on Keppra that was increased to 1000 mg twice every day and she was started on Vimpat 200 mg daily. Will continue to monitor the patient very closely follow- up with the patient very closely at this point in time. 04/25: Patient has been seen by inpatient rehab for evaluation but because patient is unable to participate with therapy in the current state, hospice seems appropriate at this time. If patient has improvements would recommend [facility] for slower pace rehab. Family is considering returning the patient home with 24-hour care and social work is following for discharge planning. Family declined hospice services. Vital signs have been stable and patient has been afebrile. 04/26: Patient is about the same, she is completely unresponsive, she barely open her eyes in response to verbal stimuli, her was at the bedside, he was advised about transferring the patient back to [facility] and after making a decision on transferring her out of the critical access hospital to a different institution that can be done as an outpatient, I spoke with Dr. Winston yesterday in the neurologist who recommended for the patient to be transferred to [facility] I spoke with [facility] and they declined the transfer at this point in time because is not can add anything for her treatment at this point, her seizure medications were adjusted, patient continues to be about the same, we will start her on a small dose of IV fluid resuscitation in the form of normal saline at 50 cc an hour, repeat her labs tomorrow morning, I will follow- up with the patient 04/27: Patient is laying down in bed that she continues to be unresponsive, both of her daughters were at the bedside, patient does not appear to have improved despite current treatment plan, we will continue to monitor the patient very closely, patient was taken down on her Keppra to 500 mg orally twice per day because the patient is completely obtunded, she was also started on Dilantin 200 mg IV piggyback every 12 hours, she was also on Vimpat 100 mg IV push every 12 hours, monitor the patient Dilantin level, monitor the patient very closely, once the patient is seizures controlled patient can be transferred back to [facility], and then the final decision will be made by the family whether or not the family is interested with hospice or end-of-life care at this point in time. REVIEW OF SYSTEMS: Patient is unresponsive at this point in time. Could not obtain any review of system Constitutional: No documented fever, no chills, no night sweats. No weight change. No weakness, fatigue or lethargy. No daytime sleepiness. EENT: No headache. No blurred vision or double vision, no loss of vision. No loss of Hearing, no ringing in the ears, no dizziness. No nasal drainage or congestion. No epistaxis. No sore throat. Lungs: No shortness of breath, no cough, no sputum production. No wheezing. Reports dyspnea with activity. Cardiovascular: No chest pain, no lower extremity edema. No palpitations. No paroxysmal nocturnal dyspnea. No orthopnea. No lightheadedness or dizziness. No syncopal episodes. Abdominal: Reports abdominal pain. No nausea, vomiting. No diarrhea. No constipation. No bloody or tarry stools reports loss of appetite. Genitourinary: No dysuria, increased frequency, urgency. No urinary retention. Musculoskeletal: No myalgias. No muscle weakness, no gait dysfunction, no frequent falls. No back pain. No neck pain. Integumentary: No wounds, no lesions. No rash or pruritus. No unusual bruising. No change in hair or nails. Neurologic: No aphasia. No facial droop. No change in mentation. No head injury. No headache. No paralysis. No paresthesia. Psychiatric: No depression. No anxiety. No mood swings. Endocrine: No abnormal blood sugars. No weight change. PHYSICAL EXAMINATION: General: 78-year-old female laying down in bed does not respond to verbal stimuli. HEENT: Head is atraumatic, normocephalic, pupils were equal patient does not follow any command at this time and her mucous membranes of mouth are somewhat dry. Neck: Supple, no JVP, normal carotid upstroke bilaterally, no lymphadenopathy. Chest: Decreased breath sounds at the bases, few rhonchi, no expiratory wheezes, no chest wall tenderness, no intercostal retractions. Heart: First heart sound is normal, second heart sounds normal Abdomen: Soft, nontender, nondistended, positive bowel sounds. PEG tube in place. Extremities: There is no edema no calf tenderness DP +2 bilaterally. Neurologic examination: Patient is unresponsive at this point in time, she is clenching both upper and lower extremities, she does have a baseline right-sided hemiplegia. ASSESSMENT AND PLAN: 1. Acute toxic metabolic encephalopathy of unclear etiology. 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 2. History of intracranial bleed with right sided hemiplegia status post surgical intervention status post tracheostomy placement removal status post PEG tube placement, patient is currently nonverbal she is a wheelchair/bedbound with right-sided hemiplegia. Continue Keppra 500 mg twice every day, Vimpat 100 mg IV push twice every day monitor levels. Also Dilantin 200 mg with piggyback every 12 hours. MRI did show evidence of right frontal AV malformation that she will need to have an angiogram as an outpatient. However the patient is not a candidate for any invasive procedure at this point in time. 3. Hypertension and hypertensive cardiovascular disease. Continue amlodipine 10 mg orally once every day, continue metoprolol 25 mg per PEG tube twice every day, continue with lisinopril 20 mg once every day. Monitor the patient blood pressure very closely. 4. Mixed hyperlipidemia. Patient is not take any statin at this point in time. 5. Diabetes mellitus type 2. Continue Levemir 15 units at bedtime along with the Farxiga 5 mg once every day, monitor the patient blood glucose level before each meal and bedtime. 6. Parkinsonism. Patient was taken off Sinemet per the request of her family and we will start her back on amantadine 100 mg per PEG tube twice every day per their request as well. 7. Atelectasis continue guaifenesin as needed. 8. Recent COVID-19 infection resolved. 9. DVT prophylaxis. Continue Lovenox 40 mg subcutaneous every 24 hours. 10. GI prophylaxis. Continue patient on famotidine 20 mg per PEG tube once every day. 11. Medical debility continue physical therapy and Occupational Therapy. 12. patient prognosis is continued to be dismal she is at an end-of-life I do not see any improvement at this stage in time and a discussion of hospice need to be undertaken. 13. Patient continues to be DNR. Objective - Vital Signs Vital signs: Vital Signs Temp 98.5 F 04/27/24 12:23 Pulse 89 04/27/24 12:23 Resp 16 04/27/24 12:23 BP 135/77 04/27/24 12:23 Pulse Ox 93 L 04/27/24 12:23 FiO2 35 04/18/24 17:36 Intake & Output 04/26/24 04/27/24 04/27/24 18:59 06:59 18:59 Intake Total 1575 Balance 1575 Weight 44.5 kg Intake: Intake, IV Titration 700 Amount Phenytoin Sodium Inj 1, 100 200 mg In Sodium Chloride 0.9% 100 ml @ 200 mls/hr IVPB ONCE STA Rx#: [id number] Sodium Chloride 0.9% 1, 600 000 ml @ 50 mls/hr IV . Q20H [facility] Rx#:[id number] Tube Feeding 675 Other 200 Other: Voiding Method Diaper Diaper Diaper External Catheter External Catheter External Catheter # Voids 2 # Bowel Movements 1 - Labs CBC & Chem 7: 04/27/24 06:10 04/27/24 06:10 Labs: Abnormal Lab Results - Last 24 Hours (Table) 04/26/24 04/26/24 04/27/24 Range/Units 17:31 20:20 06:10 RBC 3.61 L (4.10-5.20) X 10*6/uL Hgb 11.3 L (12.0-15.0) g/dL Hct 35.8 L (37.2-46.3) % MCV 99.2 H (80.0-97.0) FL MCHC 31.6 L (32.0-37.0) g/dL Sodium (135-145) mmol/L Chloride (96-109) mmol/L Creatinine (0.6-1.5) mg/dL BUN/Creatinine Ratio (12.00-20.00) Ratio Glucose (70-110) mg/dL POC Glucose (mg/dL) 147 H 119 H (70-110) mg/dL Total Bilirubin (0.3-1.2) mg/dL ALT (8-44) U/L Alkaline Phosphatase (41-126) U/L Total Protein (6.2-8.2) g/dL Albumin (3.8-4.9) g/dL Albumin/Globulin Ratio (1.60-3.17) Ratio 04/27/24 04/27/24 04/27/24 Range/Units 06:10 06:51 12:03 RBC (4.10-5.20) X 10*6/uL Hgb (12.0-15.0) g/dL Hct (37.2-46.3) % MCV (80.0-97.0) FL MCHC (32.0-37.0) g/dL Sodium 148 H (135-145) mmol/L Chloride 112 H (96-109) mmol/L Creatinine 0.5 L (0.6-1.5) mg/dL BUN/Creatinine Ratio 51.80 H (12.00-20.00) Ratio Glucose 216 H (70-110) mg/dL POC Glucose (mg/dL) 188 H 129 H (70-110) mg/dL Total Bilirubin <0.2 L (0.3-1.2) mg/dL ALT 54 H (8-44) U/L Alkaline Phosphatase 128 H (41-126) U/L Total Protein 6.0 L (6.2-8.2) g/dL Albumin 3.3 L (3.8-4.9) g/dL Albumin/Globulin Ratio 1.22 L (1.60-3.17) Ratio
--- NOTE | 2024-04-28 16:48 | P.PN ---
Subjective Progress Note Date: 04/28/24 HISTORY OF PRESENT ILLNESS: This is an 78-year-old female with a previous medical history signi ficant for hypertension and hypertensive cardiovascular disease, hyperlipidemia, history of asthma, history of major cerebrovascular accident that was in December 2023 when she suffered from significant intracranial hemorrhage she was initially evaluated at [facility] at that time, and she was transported to a tertiary care center at [facility], she ended up having evacuation of the hematoma and after that she had a prolonged hospital stay due to significant respiratory failure requiring ventilator and a trach placement along with a PEG tube placement, she became nonverbal, she had dense right-sided hemiplegia, patient apparently transported to [facility] and after that she was transported to [facility] for physical therapy and rehabilitation, she was under the care of a different physician, I assumed her care care few weeks ago at [facility], patient had contacted COVID-19 about a week ago and she developed to have a significant respiratory distress at that time, she had a chest x-ray did not show evidence of acute or maladies she could not take Paxlovid because she was unable to swallow the medications, and we could not crush the medicine put in the PEG tube, patient was treated with supportive care at that time, she was given zinc as well as vitamin D and vitamin C and she was given some breathing treatment, patient has done well up till yesterday when the patient became more obtunded and she has been none verbal ever since her stroke, and the family requested the patient to be transported to the emergency department [facility], she had a CT scan of brain did not show evidence of acute normalities, but because of her presentation she was sent for CT angiography of the chest to rule out any pulm embolism that was negative, but because of the presentation she was admitted to the hospital initially family were in agreement to go for no code and a hospice consult however they changed her mind next day after I spoke with the daughter and the and they stated they wanted her to continue current treatment without any resuscitation at this point in time, I consulted neurology and obtained MRI of the brain with and without deion. 04/20: Patient is more awake and more alert today, she is nonverbal, she is not responding to any verbal stimuli at this time, she is staring at everybody and but she is not following any command at this point in time, she is not moving her upper or lower extremities, she is scheduled to go for MRI of the brain with and without gadolinium at 3:00 this afternoon, I will continue to follow-up with the patient very closely continue patient on Keppra 500 mg per PEG tube twice every day, neurology is following, we will continue with current treatment at this point in time until further recommendation the family stated that the patient is a candidate to go for inpatient rehabilitation I will discuss this with physical therapy and Occupational Therapy will keep patient on nothing per mouth until evaluated by the speech therapist again. 04/21: Patient is laying down in bed does not follow any commands at this point in time, her daughter who is a visiting dentist from [place] is having issues with her mom going back to [facility] on the [place] at this time, and she think her mother can go home and according to what protective services case worker suggested for the patient to be a good candidate for inpatient rehabilitation as well as physical therapy we will discuss with them and we will consult Dr. Melara for further evaluation recommendation patient underwent MRI of the brain with and without deion that showed evidence of right frontal AV malformation, and our neurologist recommended outpatient angiogram by neurosurgery that she has seen at [facility], meanwhile the patient had an EEG did not show evidence of acute seizure, continue Keppra for now, continue current treatment plan, will follow-up with the patient very closely, apparently the family is not ready for hospice at this point in time, and they want the patient to have more physical therapy in an inpatient rehab facility. 04/24: Patient is laying down in bed in no apparent distress, she continues to be nonverbal, at this time, she does not follow any commands at this point in time, family were concerned that the patient is having urinary tract infection, she did have a urinalysis did not show evidence of acute infection at this time, they were concerned that the patient is not getting enough fluid discussed with the dietitian, to give the patient 125 cc of water every 8 hours, continue current tube feeding, patient did have an EEG done by neurology and that showed evidence of seizure activity of the left frontal area, she has been maintained on Keppra that was increased to 1000 mg twice every day and she was started on Vimpat 200 mg daily. Will continue to monitor the patient very closely follow- up with the patient very closely at this point in time. 04/25: Patient has been seen by inpatient rehab for evaluation but because patient is unable to participate with therapy in the current state, hospice seems appropriate at this time. If patient has improvements would recommend [facility] for slower pace rehab. Family is considering returning the patient home with 24-hour care and social work is following for discharge planning. Family declined hospice services. Vital signs have been stable and patient has been afebrile. 04/26: Patient is about the same, she is completely unresponsive, she barely open her eyes in response to verbal stimuli, her was at the bedside, he was advised about transferring the patient back to [facility] and after making a decision on transferring her out of the state to a different institution that can be done as an outpatient, I spoke with Dr. Winsotn yesterday in the neurologist who recommended for the patient to be transferred to [facility] I spoke with [facility] and they declined the transfer at this point in time because is not can add anything for her treatment at this point, her seizure medications were adjusted, patient continues to be about the same, we will start her on a small dose of IV fluid resuscitation in the form of normal saline at 50 cc an hour, repeat her labs tomorrow morning, I will follow- up with the patient 04/27: Patient is laying down in bed that she continues to be unresponsive, both of her daughters were at the bedside, patient does not appear to have improved despite current treatment plan, we will continue to monitor the patient very closely, patient was taken down on her Keppra to 500 mg orally twice per day because the patient is completely obtunded, she was also started on Dilantin 200 mg IV piggyback every 12 hours, she was also on Vimpat 100 mg IV push every 12 hours, monitor the patient Dilantin level, monitor the patient very closely, once the patient is seizures controlled patient can be transferred back to [facility], and then the final decision will be made by the family whether or not the family is interested with hospice or end-of-life care at this point in time. 04/28: Patient is laying down in bed she opened her eye once while we were going to adjust her body position, she appears to be somewhat rhonchorous, will discontinue IV fluid, will obtain chest x-ray, I spoke with neurology about Dilantin that was increased to 200 mg of piggyback every 12 hours, she was decr eased on Vimpat 200 mg IV push every 12 hours and Keppra down to 500 mg twice every day, we will continue to follow up with the patient very closely, patient will have a daily EEG once her activity is better patient can be discharged to either [facility] the [place] versus hospice home on Wednesday a consult was placed for [facility] at this point in time since the patient appears to be at end-stage. REVIEW OF SYSTEMS: Patient is unresponsive at this point in time. Could not obtain any review of system Constitutional: No documented fever, no chills, no night sweats. No weight change. No weakness, fatigue or lethargy. No daytime sleepiness. EENT: No headache. No blurred vision or double vision, no loss of vision. No loss of Hearing, no ringing in the ears, no dizziness. No nasal drainage or congestion. No epistaxis. No sore throat. Lungs: No shortness of breath, no cough, no sputum production. No wheezing. Reports dyspnea with activity. Cardiovascular: No chest pain, no lower extremity edema. No palpitations. No paroxysmal nocturnal dyspnea. No orthopnea. No lightheadedness or dizziness. No syncopal episodes. Abdominal: Reports abdominal pain. No nausea, vomiting. No diarrhea. No constipation. No bloody or tarry stools reports loss of appetite. Genitourinary: No dysuria, increased frequency, urgency. No urinary retention. Musculoskeletal: No myalgias. No muscle weakness, no gait dysfunction, no frequent falls. No back pain. No neck pain. Integumentary: No wounds, no lesions. No rash or pruritus. No unusual bruising. No change in hair or nails. Neurologic: No aphasia. No facial droop. No change in mentation. No head injury. No headache. No paralysis. No paresthesia. Psychiatric: No depression. No anxiety. No mood swings. Endocrine: No abnormal blood sugars. No weight change. PHYSICAL EXAMINATION: General: 78-year-old female laying down in bed does not respond to verbal stimuli. HEENT: Head is atraumatic, normocephalic, pupils were equal patient does not follow any command at this time and her mucous membranes of mouth are somewhat dry. Neck: Supple, no JVP, normal carotid upstroke bilaterally, no lymphadenopathy. Chest: Decreased breath sounds at the bases, few rhonchi, no expiratory wheezes, no chest wall tenderness, no intercostal retractions. Heart: First heart sound is normal, second heart sounds normal Abdomen: Soft, nontender, nondistended, positive bowel sounds. PEG tube in place. Extremities: There is no edema no calf tenderness DP +2 bilaterally. Neurologic examination: Patient is unresponsive at this point in time, she is clenching both upper and lower extremities, she does have a baseline right-sided hemiplegia. ASSESSMENT AND PLAN: 1. Acute toxic metabolic encephalopathy of unclear etiology. 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 Check chest x-ray. 2. History of intracranial bleed with right sided hemiplegia status post surgical intervention status post tracheostomy placement removal status post PEG tube placement, patient is currently nonverbal she is a wheelchair/bedbound with right-sided hemiplegia. Continue Keppra 500 mg twice every day, Vimpat 100 mg IV push twice every day monitor levels. Also Dilantin 200 mg with piggyback every 12 hours. MRI did show evidence of right frontal AV malformation that she will need to have an angiogram as an outpatient. However the patient is not a candidate for any invasive procedure at this point in time. 3. Hypertension and hypertensive cardiovascular disease. Continue amlodipine 10 mg orally once every day, continue metoprolol 25 mg per PEG tube twice every day, continue with lisinopril 20 mg once every day. Monitor the patient blood pressure very closely. 4. Mixed hyperlipidemia. Patient is not take any statin at this point in time. 5. Diabetes mellitus type 2. Continue Levemir 15 units at bedtime along with the Farxiga 5 mg once every day, monitor the patient blood glucose level before each meal and bedtime. 6. Parkinsonism. Patient was taken off Sinemet per the request of her family and we will start her back on amantadine 100 mg per PEG tube twice every day per their request as well. 7. Atelectasis continue guaifenesin as needed. 8. Recent COVID-19 infection resolved. 9. DVT prophylaxis. Continue Lovenox 40 mg subcutaneous every 24 hours. 10. GI prophylaxis. Continue patient on famotidine 20 mg per PEG tube once every day. 11. Medical debility continue physical therapy and Occupational Therapy. 12. patient prognosis is continued to be dismal she is at an end-of-life I do not see any improvement at this stage in time and a discussion of hospice need to be undertaken. 13. Patient continues to be DNR. Objective - Vital Signs Vital signs: Vital Signs Temp 99.6 F 04/28/24 13:52 Pulse 91 04/28/24 13:52 Resp 18 04/28/24 13:52 BP 130/78 04/28/24 13:52 Pulse Ox 96 04/28/24 13:52 FiO2 35 04/18/24 17:36 Intake & Output 04/27/24 04/28/24 04/28/24 18:59 06:59 18:59 Intake Total 100 Balance 100 Weight 47 kg 47 kg Intake: Oral 100 Other: Voiding Method Diaper Diaper Diaper External Catheter Incontinent Incontinent # Voids 3 - Labs CBC & Chem 7: 04/27/24 06:10 04/27/24 06:10 Labs: Abnormal Lab Results - Last 24 Hours (Table) 04/27/24 04/27/24 04/28/24 Range/Units 17:19 20:33 07:11 POC Glucose (mg/dL) 129 H 118 H 213 H (70-110) mg/dL 04/28/24 Range/Units 12:06 POC Glucose (mg/dL) 127 H (70-110) mg/dL
--- NOTE | 2024-04-28 16:53 | XR ---
EXAMINATION TYPE: XR chest 1V portable DATE OF EXAM: 04/28/2024 COMPARISON: 04/18/2024 INDICATION: Fever TECHNIQUE: Single frontal view of the chest is obtained. FINDINGS: The heart size is normal. The pulmonary vasculature is normal. Mild posterior right lower lobe infiltrate is present. Correlate for pneumonia. Atelectasis could be considered. IMPRESSION: 1. Atelectasis versus pneumonia right lower lobe [facility], Workstation: [facility], 04/28/2024 4:51 PM
[2024-04-28 16:56] LABS: Basophils % (A) 0 %; Eosinophils # (A) 0.2 k/uL (0-0.7); Eosinophils % (A) 3 %; HCT 35.4 % (34.0-46.0); HGB 11.1 gm/dL (11.4-16.0); Hypochromasia Moderate; Lymphocytes # (A) 1.5 k/uL (1.0-4.8); Lymphocytes % (A) 23 %; MCHC 31.3 g/dL (31.0-37.0); MCV 99.3 fL (80.0-100.0); Mean Platelet Volume 7.6; Monocytes # (A) 0.5 k/uL (0-1.0); Monocytes % (A) 7 %; Neutrophils # (A) 4.3 k/uL (1.3-7.7); Neutrophils % (A) 65 %; Platelet Count 371 k/uL (150-450); RBC 3.57 m/uL (3.80-5.40); RDW 12.8 % (11.5-15.5); WBC 6.6 k/uL (3.8-10.6)
[2024-04-28 17:17] LABS: Glucose,Whole Blood 131 mg/dL (70-110)
[2024-04-28 17:23] LABS: ALT 55 U/L (4-34); AST 31 U/L (14-36); African American GFR (CKD) >90 (>60 ml/min/1.73 sqM); Albumin/Globulin Ratio 1.1; Alkaline Phosphatase 121 U/L (38-126); Anion Gap 5 mmol/L; Blood Urea Nitrogen 21 mg/dL (7-17); Calcium 9.4 mg/dL (8.4-10.2); Carbon Dioxide 27 mmol/L (22-30); Chloride 118 mmol/L (98-107); Globulin 2.8 g/dL; Glucose 133 mg/dL (74-99); Non-African American GFR(CKD) >90 (>60 ml/min/1.73 sqM); Potassium 3.8 mmol/L (3.5-5.1); Sodium 150 mmol/L (137-145); Total Bilirubin 0.3 mg/dL (0.2-1.3); Total Protein 5.8 g/dL (6.3-8.2)
[2024-04-28 20:13] LABS: Glucose,Whole Blood 112 mg/dL (70-110)
[2024-04-28] MEDS: Lacosamide IV (ages 17+ yrs) 200 MG/20 ML ML IVP SCH (21:57)
--- NOTE | 2024-04-28 22:28 | EEG ---
ELECTROENCEPHALOGRAM REPORT PREAMBLE: This is an 78-year-old female with history of nonconvulsive status. This is a followup study. CURRENT MEDICATIONS: 1. Keppra. 2. Dilantin. 3. Vimpat. EEG FINDINGS: This is a 21-channel digital EEG recorded with video component, utilizing 10/20 international system with referential and bipolar montages. The recording starts and continues with presence of diffuse moderate amplitude mixed frequencies of 4 hertz theta with some 2 to 3 hertz delta slowing in bihemispheric region. Frequent left parietal temporal sharp waves were seen, which sometimes generalized this. Very rare right temporal sharp waves were seen. No obvious electrographic seizure was recorded however. Different stages of sleep were not seen. IMPRESSION: Abnormal EEG due to, 1. Background slowing, suggestive of moderate to severe encephalopathy. 2. Continued presence of epileptic focus particularly involving the left hemispheric region. Very frequent left temporal parietal sharp waves were seen, which sometimes generalized this to bihemispheric region. Very rare right parietal sharp waves were seen. Overall, this is suggestive of severe encephalopathy, with underlying multifocal irritable foci, with tendency for partial onset seizure. In an appropriate clinical setting, nonconvulsive status cannot be ruled out. Clinical correlation is recommended. Continuous EEG monitoring recommended. MMODL / IJN: [id number] / MTDD
[2024-04-29 07:16] LABS: Glucose,Whole Blood 182 mg/dL (70-110)
[2024-04-29] MEDS: PHENYTOIN SODIUM IVPB STA (09:21)
[2024-04-29] MEDS: SODIUM CHLORIDE 0.9% IVPB STA (09:21)
[2024-04-29 10:01] LABS: ALT 58 U/L (8-44); AST 29 U/L (13-35); Albumin 3.2 g/dL (3.8-4.9); Albumin/Globulin Ratio 1.28 Ratio (1.60-3.17); Alkaline Phosphatase 130 U/L (41-126); BUN/Creat Ratio 48.75 Ratio (12.00-20.00); Blood Urea Nitrogen 19.5 mg/dL (9.0-27.0); Calcium 9.2 mg/dL (8.7-10.3); Carbon Dioxide 26.1 mmol/L (21.6-31.8); Chloride 117 mmol/L (96-109); Globulin 2.5 g/dL (1.6-3.3); Glucose 229 mg/dL (70-110); Sodium 151 mmol/L (135-145); Total Bilirubin <0.2 mg/dL (0.3-1.2); Total Protein 5.7 g/dL (6.2-8.2)
[2024-04-29 10:09] LABS: Basophils # (A) 0.04 X 10*3/uL (0.00-0.10); Basophils % (A) 0.7 %; Eosinophils # (A) 0.19 X 10*3/uL (0.04-0.35); Eosinophils % (A) 3.1 %; HCT 35.3 % (37.2-46.3); HGB 10.8 g/dL (12.0-15.0); Lymphocytes # (A) 1.54 X 10*3/uL (0.90-5.00); Lymphocytes % (A) 25.2 %; MCH 31.3 pg (27.0-32.0); MCHC 30.6 g/dL (32.0-37.0); MCV 102.3 FL (80.0-97.0); Mean Platelet Volume 10.1 FL (9.5-12.2); Monocytes # (A) 0.66 X 10*3/uL (0.20-1.00); Monocytes % (A) 10.8 %; NRBC Per 100 WBC 0 X 10*3/uL (0.00-0.01); Neutrophils # (A) 3.63 X 10*3/uL (1.80-7.70); Neutrophils % (A) 59.2 %; Platelet Count 355 X 10*3/uL (140-440); RBC 3.45 X 10*6/uL (4.10-5.20); WBC 6.12 X 10*3/uL (4.50-10.00)
[2024-04-29] MEDS ORDERED: ALBUTEROL NEBULIZED 2.5 MG/3 ML INHALATION PRN (10:49)
[2024-04-29] MEDS: DEXTROSE 5%-0.45% NACL 1,000 ML IV SCH (11:09)
[2024-04-29 12:15] LABS: Glucose,Whole Blood 114 mg/dL (70-110)
--- NOTE | 2024-04-29 12:42 | P.NPCON ---
History of Present Illness - Reason for Consult hypernatremia - History of Present Illness patient is an 78-year-old female with history of hypertension, CVA with intracranial hemorrhage currently maintained on tube feedings. Patient has dense right hemiplegia. Patient is admitted to the hospital with altered mentation. She is being followed by neurology and EEG G showed epileptiform discharges. Patient is maintained on Keppra which has been increased. Vimpat was also started. Serum sodium increased from around 140-144 on 04/24/2024 to 151 today. No diarrhea noted. Past Medical History Past Medical History: Asthma, Hyperlipidemia, Hypertension Additional Past Medical History / Comment(s): CVA November,-R side deficit and nonverbal History of Any Multi-Drug Resistant Organisms: None Reported Past Surgical History: Tubal Ligation Additional Past Surgical History / Comment(s): kidney removed Past Psychological History: No Psychological Hx Reported Smoking Status: Never smoker Past Alcohol Use History: Occasional Past Drug Use History: None Reported Medications and Allergies Home Medications Medication Instructions Recorded Confirmed Type Acetaminophen Tab [Tylenol] 650 mg PEG/G-TUBE Q6H PRN 04/18/24 04/18/24 History Amino Acids/Protein Hydrolys 30 ml PEG/G-TUBE TID@0900,1300,2100 04/18/24 04/18/24 History [Pro-Stat Awc Liquid] Ascorbic Acid [Vitamin C] 500 mg PEG/G-TUBE DAILY 04/18/24 04/18/24 History Carbidopa-Levodopa 25-100 mg See Taper PEG/G-TUBE DIRECTED 04/18/24 04/18/24 History [Sinemet 25-100] Cholecalciferol [Vitamin D3 (25 50 mcg PEG/G-TUBE DAILY 04/18/24 04/18/24 History Mcg = 1000 Iu)] Dapagliflozin Propanediol [Farxiga] 5 mg PEG/G-TUBE HS 04/18/24 04/18/24 History Enoxaparin [Lovenox] 40 mg SQ HS 04/18/24 04/18/24 History Famotidine [Pepcid] 20 mg PEG/G-TUBE DAILY@0600 04/18/24 04/18/24 History Insulin Glargine,Hum.rec.anlog 15 units SQ HS 04/18/24 04/18/24 History [Lantus Solostar Pen] Jevity 1.5 Vladimir Liquid 1 dose PEG/G-TUBE DIRECTED 04/18/24 04/18/24 History Loratadine 10 mg PEG/G-TUBE DAILY PRN 04/18/24 04/18/24 History Metoprolol Tartrate [Lopressor] 25 mg PEG/G-TUBE BID 04/18/24 04/18/24 History Sennosides/Docusate Sodium [Senna 1 tab PEG/G-TUBE Q24H PRN 04/18/24 04/18/24 History Plus 8.6-50 mg Tablet] Therahoney External Gel 1 applic TOPICAL DAILY PRN 04/18/24 04/18/24 History Therahoney External Gel 1 applic TOPICAL HS 04/18/24 04/18/24 History Zinc Gluconate [Zinc] 50 mg PEG/G-TUBE DAILY 04/18/24 04/18/24 History amLODIPine [Norvasc] 10 mg PEG/G-TUBE DAILY 04/18/24 04/18/24 History guaiFENesin [guaiFENesin Oral 200 mg PEG/G-TUBE Q4H PRN 04/18/24 04/18/24 History Solution] levETIRAcetam ORAL SOLN [Keppra 500 mg PEG/G-TUBE BID 04/18/24 04/18/24 History Oral Soln] lisinopriL [Zestril] 20 mg PEG/G-TUBE DAILY 04/18/24 04/18/24 History metFORMIN HCL [Glucophage] 500 mg PEG/G-TUBE BID 04/18/24 04/18/24 History Allergies Allergy/AdvReac Type Severity Reaction Status Date / Time Penicillins Allergy Rash/Hives Verified 04/18/24 17:35 Physical Exam Vitals: Vital Signs Temp Pulse Resp BP Pulse Ox 04/29/24 07:13 98.3 F 75 20 137/77 98 04/29/24 01:49 98.1 F 73 16 124/72 98 04/28/24 19:27 98.4 F 82 16 135/74 97 04/28/24 16:29 99.5 F 04/28/24 13:52 99.6 F 91 18 130/78 96 Intake and Output 04/28/24 04/29/24 04/29/24 22:59 06:59 14:59 Intake Total 345 Balance 345 Intake: Oral 120 Tube Feeding 225 Other: Voiding Method Diaper Diaper Incontinent Incontinent # Voids 3 1 # Bowel Movements 1 Weight 49.5 kg patient is not responding much. She is comfortable Examination of the heart S1 and S2 Examination of the lungs bilateral breath sounds are heard Abdomen is soft nontender with PEG tube Examination of lower extremity shows no significant edema Results - Lab Results Most recent lab results Calcium 9.2 mg/dL (8.7-10.3) 04/29/24 02:52 Phosphorus 3.1 mg/dL (2.5-4.5) 04/18/24 17:40 Magnesium 2.3 mg/dL (1.5-2.4) 04/27/24 06:10 04/29/24 02:52 04/29/24 02:52 Assessment and Plan Assessment: 1. Hyponatremia associated with free water deficit. Tube feeding will be adjusted with increased free water administration. IV fluids have also been changed to half normal saline this morning. 2. CVA with dense right hemiplegia 3. Altered mentation being followed by neurology. Anti seizure medications have been adjusted. EEG showed epileptiform discharges. Plan: repeat sodium at 4 PM today Increase free water with Q feedings to 200 Q 6 hours Repeat labs in a.m. Thank you for the consultation. We will continue to follow the patient with you during her hospitalization.
[2024-04-29] MEDS ORDERED: ZINC OXIDE PASTE (Z-GUARD) 1 APPLIC TOPICAL PRN (16:17)
[2024-04-29] MEDS: AZTREONAM 1 GM in SODIUM CHLORIDE 0.9% 50 ML IVPB SCH (16:20)
[2024-04-29] MEDS: guaiFENesin SYRUP 100MG/5ML 200 MG/10 ML CUP PEG/G-TUBE PRN (16:20)
[2024-04-29 17:12] LABS: Glucose,Whole Blood 120 mg/dL (70-110)
--- NOTE | 2024-04-29 18:29 | P.PN ---
Subjective Progress Note Date: 04/29/24 Objective - Vital Signs Vital signs: Vital Signs Temp 98.8 F 04/29/24 13:12 Pulse 80 04/29/24 13:12 Resp 14 04/29/24 13:12 BP 123/75 04/29/24 13:12 Pulse Ox 97 04/29/24 13:12 FiO2 35 04/18/24 17:36 Intake & Output 04/28/24 04/29/24 04/29/24 18:59 06:59 18:59 Intake Total 225 Balance 225 Weight 47 kg 49.5 kg Intake: Tube Feeding 225 Other: Voiding Method Diaper Diaper Diaper Incontinent Incontinent Incontinent # Voids 3 3 # Bowel Movements 1 3 - Labs CBC & Chem 7: 04/29/24 02:52 04/29/24 16:42 Labs: Abnormal Lab Results - Last 24 Hours (Table) 04/28/24 04/29/24 04/29/24 Range/Units 20:12 02:52 02:52 RBC 3.45 L (4.10-5.20) X 10*6/uL Hgb 10.8 L (12.0-15.0) g/dL Hct 35.3 L (37.2-46.3) % MCV 102.3 H (80.0-97.0) FL MCHC 30.6 L (32.0-37.0) g/dL Immature Gran # 0.06 H (0.00-0.04) X 10*3/uL Sodium 151 H (135-145) mmol/L Chloride 117 H (96-109) mmol/L Creatinine 0.4 L (0.6-1.5) mg/dL BUN/Creatinine Ratio 48.75 H (12.00-20.00) Ratio Glucose 229 H (70-110) mg/dL POC Glucose (mg/dL) 112 H (70-110) mg/dL Total Bilirubin <0.2 L (0.3-1.2) mg/dL ALT 58 H (8-44) U/L Alkaline Phosphatase 130 H (41-126) U/L Total Protein 5.7 L (6.2-8.2) g/dL Albumin 3.2 L (3.8-4.9) g/dL Albumin/Globulin Ratio 1.28 L (1.60-3.17) Ratio 04/29/24 04/29/24 04/29/24 Range/Units 07:14 12:13 16:42 RBC (4.10-5.20) X 10*6/uL Hgb (12.0-15.0) g/dL Hct (37.2-46.3) % MCV (80.0-97.0) FL MCHC (32.0-37.0) g/dL Immature Gran # (0.00-0.04) X 10*3/uL Sodium 146 H (135-145) mmol/L Chloride (96-109) mmol/L Creatinine (0.6-1.5) mg/dL BUN/Creatinine Ratio (12.00-20.00) Ratio Glucose (70-110) mg/dL POC Glucose (mg/dL) 182 H 114 H (70-110) mg/dL Total Bilirubin (0.3-1.2) mg/dL ALT (8-44) U/L Alkaline Phosphatase (41-126) U/L Total Protein (6.2-8.2) g/dL Albumin (3.8-4.9) g/dL Albumin/Globulin Ratio (1.60-3.17) Ratio 04/29/24 Range/Units 17:10 RBC (4.10-5.20) X 10*6/uL Hgb (12.0-15.0) g/dL Hct (37.2-46.3) % MCV (80.0-97.0) FL MCHC (32.0-37.0) g/dL Immature Gran # (0.00-0.04) X 10*3/uL Sodium (135-145) mmol/L Chloride (96-109) mmol/L Creatinine (0.6-1.5) mg/dL BUN/Creatinine Ratio (12.00-20.00) Ratio Glucose (70-110) mg/dL POC Glucose (mg/dL) 120 H (70-110) mg/dL Total Bilirubin (0.3-1.2) mg/dL ALT (8-44) U/L Alkaline Phosphatase (41-126) U/L Total Protein (6.2-8.2) g/dL Albumin (3.8-4.9) g/dL Albumin/Globulin Ratio (1.60-3.17) Ratio
[2024-04-29 20:09] LABS: Glucose,Whole Blood 121 mg/dL (70-110)
[2024-04-30 07:03] LABS: Glucose,Whole Blood 249 mg/dL (70-110)
--- NOTE | 2024-04-30 09:06 | P.PN ---
Subjective Progress Note Date: 04/28/24 04/28/2024: Patient was seen for follow-up. Family members were not present. Patient continues to be severely encephalopathic. No obvious seizure-like activity noted. 04/27/2024: Patient was seen for a follow-up. Patient continues to be very sedated, not having any obvious seizure activity. Patient's daughter was also present. 04/26/2024: Patient was seen for follow-up. Family members were not present. Patient has not improved at all as compared to yesterday. 04/25/2024: Patient was seen for a follow-up. Patient continues to be severely encephalopathic. Patient is very groggy. No obvious seizure-like activity note d. Patient's granddaughter was present, but I was able to talk to patient's daughter Alina Hinkle on the phone. 04/24/2024: Patient was initially seen by Dr. Anurag Esteves. Please refer to his note for details. Patient is a 78-year-old female with left thalamic and basal ganglia bleed, with intraventricular extension in November 2023 and was placed on Keppra, who is having altered mental status and cannot cooperate in rehab. 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 Some of the workup during this hospital visit consisted of: Ammonia level is less than 9 TSH is 1.050 Vitamin B12: 811 Serum folate: 9.6 HbA1c: 7.3 Sodium, calcium, AST is within normal limits. ALT 62 Serum glucose is 161 CT of the head is reported as right frontal parietal subcortical white matter hypodensity. Differential diagnosis could include subcortical infarct, vasogenic edema or chronic white matter ischemic changes. Consider MRI with contrast for additional evaluation. Atrophy with additional chronic appearing periventricular white matter ischemic type changes. Possible acute paranasal sinusitis. Personally reviewed CT and I do see the hypodensity over the right frontal parietal region more on the right but questionably also on the left but does not seem acute seems more subacute. CT angiography of the chest is reported as acute pulmonary embolism. But addendum states no pulmonary embolism. Routine EEG is abnormal. The background slowing suggestive of mild to moderate encephalopathy. 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 Atrophy with chronic appearing patchy periventricular white matter ischemic type changes. Objective - Vital Signs Vital signs: Vital Signs Temp 99.5 F 04/28/24 16:29 Pulse 91 04/28/24 13:52 Resp 18 04/28/24 13:52 BP 130/78 04/28/24 13:52 Pulse Ox 96 04/28/24 13:52 FiO2 35 04/18/24 17:36 Intake & Output 04/27/24 04/28/24 04/28/24 18:59 06:59 18:59 Intake Total 100 Balance 100 Weight 47 kg 47 kg Intake: Oral 100 Other: Voiding Method Diaper Diaper Diaper External Catheter Incontinent Incontinent # Voids 3 - Exam Patient is an elderly female, who is laying in the bed. Patient has oxygen by nasal cannula. Patient is very somnolent, encephalopathic. Patient slightly opens her eyes with noxious stimulus. She moves her fingers to nailbed pressure. No obvious seizure-like activity noted. Patient slightly facial grimaces. Examination essentially unchanged. - Labs CBC & Chem 7: 04/29/24 02:52 04/29/24 16:42 Labs: Abnormal Lab Results - Last 24 Hours (Table) 04/27/24 04/27/24 04/28/24 Range/Units 17:19 20:33 07:11 RBC (3.80-5.40) m/uL Hgb (11.4-16.0) gm/dL POC Glucose (mg/dL) 129 H 118 H 213 H (70-110) mg/dL 04/28/24 04/28/24 Range/Units 12:06 16:41 RBC 3.57 L (3.80-5.40) m/uL Hgb 11.1 L (11.4-16.0) gm/dL POC Glucose (mg/dL) 127 H (70-110) mg/dL Assessment and Plan Assessment: This is an 78-year-old woman who on November 2023 had left basal ganglia bleed with intraventricular hemorrhage on the CT in our facility as a result she was transferred to [facility] and had EVD and was placed on Keppra intubated on a ventilator. Per family members as result of stroke she had right-sided weakness then eventually was discharged to rehab. 2 weeks ago she had COVID-19. She is having fluctuation in mentation. Also she was evaluated by her outpatient neurologist who on 04/06/2024 suspected Parkinson's questionable due to her bleed and placed her on Sinemet, was placed on Baclofen which Baclofen was discontinue who is recently having altered mental status. Altered mental status fluctuation in mentation seems more delirium. Initial EEG is negative for seizure or discharges, however repeat EEG performed 04/24/2024 showed epileptiform activity over the left temporal parietal region. On MRI Brain there is no acute or subacute ischemic stroke. 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 Recent left basal ganglia bleed with intraventricular hemorrhage on 11/2023 due to uncontrolled hypertension status post EVD ([facility]) patient has residual right hemiparesis Parkinson's disease that suspected by her outpatient neurologist due to her bleed Status post PEG tube Hypertension Plan: EEG 04/28/2024: Abnormal EEG due to background slowing, suggestive of moderate to severe encephalopathy. Continued presence of epileptic focus particularly involving the left hemispheric region. Very frequent left temporal parietal sharp waves were seen, which sometimes generalized to bihemispheric region. Very rare right parietal sharp waves were seen. Overall this is suggestive of severe encephalopathy with underlying multifocal irritable foci, with tendency for partial onset seizures. In an appropriate clinical setting, nonconvulsive status can be considered. Continuous EEG monitoring recommended. Stat Dilantin level was checked. It was 11.6. We will reload Dilantin 250 mg x 1 dose to increase the level. Continue same dose of Vimpat 100 mg twice daily and Keppra 500 mg twice daily. Prognosis appears poor based upon persistent epileptiform activity, current clinical condition and comorbid conditions. Discussed with primary physician. EEG 04/27/2024 revealed background slowing, suggestive of moderate encephalopathy. Remarkable improvement in the epileptiform activity, with resolution of electrographic nonconvulsive status. Sporadic left or right temporal independent sharp waves were seen during the study. This may suggest underlying cortical irritability. Clinical correlation recommended. Continue Dilantin 200 mg twice daily, decreased Vimpat to 100 mg twice daily because of severe somnolence, also Keppra decreased to 500 mg twice daily. Repeat EEG in the morning to make sure patient is staying out of status, before the weekend. EEG 04/26/2024 was abnormal due to background slowing, suggestive of moderate to severe encephalopathy. Continued presence of intermittent epileptiform activity involving the right parietal and left parietal temporal region, independent and sometimes bisynchronous. In the appropriate setting, nonconvulsive status cannot have this presentation. Suggest continuous EEG monitoring. Patient was started on Dilantin therapy. EEG 04/25/2024 revealed continued presence of epileptiform activity now fluctuating between the right hemispheric region and left and sometimes bisynchronous, at times becomes repetitive at 1 Hz. No clear-cut electrographic seizure however was seen. When compared to the EEG from yesterday, there is improvement in the epileptiform activity over the left hemispheric region, but now with more involvement of the right hemispheric region. Clinical correlation and continuous EEG monitoring recommended. Vimpat increased to 200 mg twice daily and Keppra 1500 mg twice daily. EEG 04/24/2024 revealed epileptic focus involving the left temporal parietal region, and also evidence of moderate to severe background slowing, consistent with encephalopathy. No electrographic seizure was recorded. Patient was placed on Vimpat 200 mg loading dose followed by 100 mg IV twice daily. Also dose of Keppra was increased from 500 to [address] Esteves has discontinued her Sinemet on 04/19/2024 since per family no improvement in her condition with medication and patient were in agreement of discontinuing medication. Will defer the rest of the medical management to primary and other specialist Patient's overall prognosis for meaningful recovery appears poor. Consider palliative care.
[2024-04-30 09:16] LABS: Basophils # (A) 0.04 X 10*3/uL (0.00-0.10); Basophils % (A) 0.7 %; Eosinophils # (A) 0.22 X 10*3/uL (0.04-0.35); Eosinophils % (A) 4.1 %; HCT 34.2 % (37.2-46.3); HGB 10.7 g/dL (12.0-15.0); MCHC 31.3 g/dL (32.0-37.0); MCV 99.1 FL (80.0-97.0); Monocytes # (A) 0.53 X 10*3/uL (0.20-1.00); Monocytes % (A) 9.9 %; NRBC Per 100 WBC 0 X 10*3/uL (0.00-0.01); Neutrophils # (A) 2.99 X 10*3/uL (1.80-7.70); Platelet Count 329 X 10*3/uL (140-440); RBC 3.45 X 10*6/uL (4.10-5.20); RDW 12.8 % (11.5-14.5); WBC 5.35 X 10*3/uL (4.50-10.00)
--- NOTE | 2024-04-30 09:17 | P.PN ---
Subjective Progress Note Date: 04/29/24 04/29/2024: Patient was seen for a follow-up. Family members were not present. Patient is clinically improved. Patient opened her eyes to calling her name. Patient made eye contact, dragged to the right and left towards the examiner. Patient tried to vocalize as well as. 04/28/2024: Patient was seen for follow-up. Family members were not present. Patient continues to be severely encephalopathic. No obvious seizure-like activity noted. 04/27/2024: Patient was seen for a follow-up. Patient continues to be very sedated, not having any obvious seizure activity. Patient's daughter was also present. 04/26/2024: Patient was seen for follow-up. Family members were not present. Patient has not improved at all as compared to yesterday. 04/25/2024: Patient was seen for a follow-up. Patient continues to be severely encephalopathic. Patient is very groggy. No obvious seizure-like activity no [place]. Patient's granddaughter was present, but I was able to talk to patient's daughter Alina Hinkle on the phone. 04/24/2024: Patient was initially seen by Dr. Anurag Esteves. Please refer to his note for details. Patient is a 78-year-old female with left thalamic and basal ganglia bleed, with intraventricular extension in November 2023 and was placed on Keppra, who is having altered mental status and cannot cooperate in rehab. 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 Some of the workup during this hospital visit consisted of: Ammonia level is less than 9 TSH is 1.050 Vitamin B12: 811 Serum folate: 9.6 HbA1c: 7.3 Sodium, calcium, AST is within normal limits. ALT 62 Serum glucose is 161 CT of the head is reported as right frontal parietal subcortical white matter hypodensity. Differential diagnosis could include subcortical infarct, vasogenic edema or chronic white matter ischemic changes. Consider MRI with contrast for additional evaluation. Atrophy with additional chronic appearing periventricular white matter ischemic type changes. Possible acute paranasal sinusitis. Personally reviewed CT and I do see the hypodensity over the right frontal parietal region more on the right but questionably also on the left but does not seem acute seems more subacute. CT angiography of the chest is reported as acute pulmonary embolism. But addendum states no pulmonary embolism. Routine EEG is abnormal. The background slowing suggestive of mild to moderate encephalopathy. 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 Atrophy with chronic appearing patchy periventricular white matter ischemic type changes. Objective - Vital Signs Vital signs: Vital Signs Temp 98.8 F 04/29/24 13:12 Pulse 80 04/29/24 13:12 Resp 14 04/29/24 13:12 BP 123/75 04/29/24 13:12 Pulse Ox 97 04/29/24 13:12 FiO2 35 04/18/24 17:36 Intake & Output 04/28/24 04/29/24 04/29/24 18:59 06:59 18:59 Intake Total 225 Balance 225 Weight 47 kg 49.5 kg Intake: Tube Feeding 225 Other: Voiding Method Diaper Diaper Diaper Incontinent Incontinent Incontinent # Voids 3 3 # Bowel Movements 1 3 - Exam Patient is an elderly female, who is laying in the bed. Patient has oxygen by nasal cannula. Patient is encephalopathic. However today patient is able to open her eyes, to calling her name. Patient made eye contact, tried to the right and left towards the examiner. Patient tried to vocalize when I asked how she was. Speech was somewhat raspy, not clearly understandable. - Labs CBC & Chem 7: 04/29/24 02:52 04/29/24 16:42 Labs: Abnormal Lab Results - Last 24 Hours (Table) 04/28/24 04/29/24 04/29/24 Range/Units 20:12 02:52 02:52 RBC 3.45 L (4.10-5.20) X 10*6/uL Hgb 10.8 L (12.0-15.0) g/dL Hct 35.3 L (37.2-46.3) % MCV 102.3 H (80.0-97.0) FL MCHC 30.6 L (32.0-37.0) g/dL Immature Gran # 0.06 H (0.00-0.04) X 10*3/uL Sodium 151 H (135-145) mmol/L Chloride 117 H (96-109) mmol/L Creatinine 0.4 L (0.6-1.5) mg/dL BUN/Creatinine Ratio 48.75 H (12.00-20.00) Ratio Glucose 229 H (70-110) mg/dL POC Glucose (mg/dL) 112 H (70-110) mg/dL Total Bilirubin <0.2 L (0.3-1.2) mg/dL ALT 58 H (8-44) U/L Alkaline Phosphatase 130 H (41-126) U/L Total Protein 5.7 L (6.2-8.2) g/dL Albumin 3.2 L (3.8-4.9) g/dL Albumin/Globulin Ratio 1.28 L (1.60-3.17) Ratio 04/29/24 04/29/24 04/29/24 Range/Units 07:14 12:13 16:42 RBC (4.10-5.20) X 10*6/uL Hgb (12.0-15.0) g/dL Hct (37.2-46.3) % MCV (80.0-97.0) FL MCHC (32.0-37.0) g/dL Immature Gran # (0.00-0.04) X 10*3/uL Sodium 146 H (135-145) mmol/L Chloride (96-109) mmol/L Creatinine (0.6-1.5) mg/dL BUN/Creatinine Ratio (12.00-20.00) Ratio Glucose (70-110) mg/dL POC Glucose (mg/dL) 182 H 114 H (70-110) mg/dL Total Bilirubin (0.3-1.2) mg/dL ALT (8-44) U/L Alkaline Phosphatase (41-126) U/L Total Protein (6.2-8.2) g/dL Albumin (3.8-4.9) g/dL Albumin/Globulin Ratio (1.60-3.17) Ratio 04/29/24 Range/Units 17:10 RBC (4.10-5.20) X 10*6/uL Hgb (12.0-15.0) g/dL Hct (37.2-46.3) % MCV (80.0-97.0) FL MCHC (32.0-37.0) g/dL Immature Gran # (0.00-0.04) X 10*3/uL Sodium (135-145) mmol/L Chloride (96-109) mmol/L Creatinine (0.6-1.5) mg/dL BUN/Creatinine Ratio (12.00-20.00) Ratio Glucose (70-110) mg/dL POC Glucose (mg/dL) 120 H (70-110) mg/dL Total Bilirubin (0.3-1.2) mg/dL ALT (8-44) U/L Alkaline Phosphatase (41-126) U/L Total Protein (6.2-8.2) g/dL Albumin (3.8-4.9) g/dL Albumin/Globulin Ratio (1.60-3.17) Ratio Assessment and Plan Assessment: This is an 78-year-old woman who on November 2023 had left basal ganglia bleed with intraventricular hemorrhage on the CT in our facility as a result she was transferred to [facility] and had EVD and was placed on Keppra intubated on a ventilator. Per family members as result of stroke she had right-sided weakness then eventually was discharged to rehab. 2 weeks ago she had COVID-19. She is having fluctuation in mentation. Also she was evaluated by her outpatient neurologist who on 04/06/2024 suspected Parkinson's questionable due to her bleed and placed her on Sinemet, was placed on Baclofen which Baclofen was discontinue who is recently having altered mental status. Altered mental status fluctuation in mentation seems more delirium. Initial EEG is negative for seizure or discharges, however repeat EEG performed 04/24/2024 showed epileptiform activity over the left temporal parietal region. On MRI Brain there is no acute or subacute ischemic stroke. 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 Recent left basal ganglia bleed with intraventricular hemorrhage on 11/2023 due to uncontrolled hypertension status post EVD ([facility]) patient has residual right hemiparesis Parkinson's disease that suspected by her outpatient neurologist due to her bleed Status post PEG tube Hypertension Plan: Patient has started waking up. She is opening her eyes to calling her name osorio go. She made eye contact and track. We will keep her on same dose of seizure medications including Dilantin 200 mg twice daily, Keppra 500 mg twice daily, Vimpat 100 mg twice daily. We will keep Dilantin level in 15-20 range. Check Dilantin level in the morning. EEG 04/28/2024: Abnormal EEG due to background slowing, suggestive of moderate to severe encephalopathy. Continued presence of epileptic focus particularly involving the left hemispheric region. Very frequent left temporal parietal sharp waves were seen, which sometimes generalized to bihemispheric region. Very rare right parietal sharp waves were seen. Overall this is suggestive of severe encephalopathy with underlying multifocal irritable foci, with tendency for partial onset seizures. In an appropriate clinical setting, nonconvulsive status can be considered. Continuous EEG monitoring recommended. Stat Dilantin level was checked. It was 11.6. We will reload Dilantin 250 mg x 1 dose to increase the level. Continue same dose of Vimpat 100 mg twice daily and Keppra 500 mg twice daily. Prognosis appears poor based upon persistent epileptiform activity, current clinical condition and comorbid conditions. Discussed with primary physician. EEG 04/27/2024 revealed background slowing, suggestive of moderate encephalopathy. Remarkable improvement in the epileptiform activity, with resolution of electrographic nonconvulsive status. Sporadic left or right temporal independent sharp waves were seen during the study. This may suggest underlying cortical irritability. Clinical correlation recommended. Continue Dilantin 200 mg twice daily, decreased Vimpat to 100 mg twice daily because of severe somnolence, also Keppra decreased to 500 mg twice daily. Repeat EEG in the morning to make sure patient is staying out of status, before the weekend. EEG 04/26/2024 was abnormal due to background slowing, suggestive of moderate to severe encephalopathy. Continued presence of intermittent epileptiform activity involving the right parietal and left parietal temporal region, independent and sometimes bisynchronous. In the appropriate setting, nonconvulsive status cannot have this presentation. Suggest continuous EEG monitoring. Patient was started on Dilantin therapy. EEG 04/25/2024 revealed continued presence of epileptiform activity now fluctuating between the right hemispheric region and left and sometimes bisynchronous, at times becomes repetitive at 1 Hz. No clear-cut electrographic seizure however was seen. When compared to the EEG from yesterday, there is improvement in the epileptiform activity over the left hemispheric region, but now with more involvement of the right hemispheric region. Clinical correlation and continuous EEG monitoring recommended. Vimpat increased to 200 mg twice daily and Keppra 1500 mg twice daily. EEG 04/24/2024 revealed epileptic focus involving the left temporal parietal region, and also evidence of moderate to severe background slowing, consistent with encephalopathy. No electrographic seizure was recorded. Patient was placed on Vimpat 200 mg loading dose followed by 100 mg IV twice daily. Also dose of Keppra was increased from 500 to [address] Esteves has discontinued her Sinemet on 04/19/2024 since per family no improvement in her condition with medication and patient were in agreement of d iscontinuing medication. Will defer the rest of the medical management to primary and other specialist Patient's overall prognosis for meaningful recovery appears poor. Consider palliative care.
--- NOTE | 2024-04-30 10:02 | P.PN ---
Subjective Progress Note Date: 04/29/24 HISTORY OF PRESENT ILLNESS: This is an 78-year-old female with a previous medical history signi ficant for hypertension and hypertensive cardiovascular disease, hyperlipidemia, history of asthma, history of major cerebrovascular accident that was in December 2023 when she suffered from significant intracranial hemorrhage she was initially evaluated at [facility] at that time, and she was transported to a tertiary care center at [facility], she ended up having evacuation of the hematoma and after that she had a prolonged hospital stay due to significant respiratory failure requiring ventilator and a trach placement along with a PEG tube placement, she became nonverbal, she had dense right-sided hemiplegia, patient apparently transported to [facility] and after that she was transported to [facility] for physical therapy and rehabilitation, she was under the care of a different physician, I assumed her care care few weeks ago at [facility], patient had contacted COVID-19 about a week ago and she developed to have a significant respiratory distress at that time, she had a chest x-ray did not show evidence of acute or maladies she could not take Paxlovid because she was unable to swallow the medications, and we could not crush the medicine put in the PEG tube, patient was treated with supportive care at that time, she was given zinc as well as vitamin D and vitamin C and she was given some breathing treatment, patient has done well up till yesterday when the patient became more obtunded and she has been none verbal ever since her stroke, and the family requested the patient to be transported to the emergency department [facility], she had a CT scan of brain did not show evidence of acute normalities, but because of her presentation she was sent for CT angiography of the chest to rule out any pulm embolism that was negative, but because of the presentation she was admitted to the hospital initially family were in agreement to go for no code and a hospice consult however they changed her mind next day after I spoke with the daughter and the and they stated they wanted her to continue current treatment without any resuscitation at this point in time, I consulted neurology and obtained MRI of the brain with and without deion. 04/20: Patient is more awake and more alert today, she is nonverbal, she is not responding to any verbal stimuli at this time, she is staring at everybody and but she is not following any command at this point in time, she is not moving her upper or lower extremities, she is scheduled to go for MRI of the brain with and without gadolinium at 3:00 this afternoon, I will continue to follow-up with the patient very closely continue patient on Keppra 500 mg per PEG tube twice every day, neurology is following, we will continue with current treatment at this point in time until further recommendation the family stated that the patient is a candidate to go for inpatient rehabilitation I will discuss this with physical therapy and Occupational Therapy will keep patient on nothing per mouth until evaluated by the speech therapist again. 04/21: Patient is laying down in bed does not follow any commands at this point in time, her daughter who is a visiting dentist from [place] is having issues with her mom going back to [facility] on the [place] at this time, and she think her mother can go home and according to what trimming caser suggested for the patient to be a good candidate for inpatient rehabilitation as well as physical therapy we will discuss with them and we will consult Dr. Melara for further evaluation recommendation patient underwent MRI of the brain with and without deion that showed evidence of right frontal AV malformation, and our neurologist recommended outpatient angiogram by neurosurgery that she has seen at [facility], meanwhile the patient had an EEG did not show evidence of acute seizure, continue Keppra for now, continue current treatment plan, will follow-up with the patient very closely, apparently the family is not ready for hospice at this point in time, and they want the patient to have more physical therapy in an inpatient rehab facility. 04/24: Patient is laying down in bed in no apparent distress, she continues to be nonverbal, at this time, she does not follow any commands at this point in time, family were concerned that the patient is having urinary tract infection, she did have a urinalysis did not show evidence of acute infection at this time, they were concerned that the patient is not getting enough fluid discussed with the dietitian, to give the patient 125 cc of water every 8 hours, continue current tube feeding, patient did have an EEG done by neurology and that showed evidence of seizure activity of the left frontal area, she has been maintained on Keppra that was increased to 1000 mg twice every day and she was started on Vimpat 200 mg daily. Will continue to monitor the patient very closely follow- up with the patient very closely at this point in time. 04/25: Patient has been seen by inpatient rehab for evaluation but because patient is unable to participate with therapy in the current state, hospice seems appropriate at this time. If patient has improvements would recommend [facility] for slower pace rehab. Family is considering returning the patient home with 24-hour care and social work is following for discharge planning. Family declined hospice services. Vital signs have been stable and patient has been afebrile. 04/26: Patient is about the same, she is completely unresponsive, she barely open her eyes in response to verbal stimuli, her was at the bedside, he was advised about transferring the patient back to [facility] and after making a decision on transferring her out of the state to a different institution that can be done as an outpatient, I spoke with Dr. Winston yesterday in the neurologist who recommended for the patient to be transferred to [facility] I spoke with [facility] and they declined the transfer at this point in time because is not can add anything for her treatment at this point, her seizure medications were adjusted, patient continues to be about the same, we will start her on a small dose of IV fluid resuscitation in the form of normal saline at 50 cc an hour, repeat her labs tomorrow morning, I will follow- up with the patient 04/27: Patient is laying down in bed that she continues to be unresponsive, both of her daughters were at the bedside, patient does not appear to have improved despite current treatment plan, we will continue to monitor the patient very closely, patient was taken down on her Keppra to 500 mg orally twice per day because the patient is completely obtunded, she was also started on Dilantin 200 mg IV piggyback every 12 hours, she was also on Vimpat 100 mg IV push every 12 hours, monitor the patient Dilantin level, monitor the patient very closely, once the patient is seizures controlled patient can be transferred back to [facility], and then the final decision will be made by the family whether or not the family is interested with hospice or end-of-life care at this point in time. 04/28: Patient is laying down in bed she opened her eye once while we were going to adjust her body position, she appears to be somewhat rhonchorous, will discontinue IV fluid, will obtain chest x-ray, I spoke with neurology about Dilantin that was increased to 200 mg of piggyback every 12 hours, she was decr eased on Vimpat 200 mg IV push every 12 hours and Keppra down to 500 mg twice every day, we will continue to follow up with the patient very closely, patient will have a daily EEG once her activity is better patient can be discharged to either [facility] the [place] versus hospice home on Wednesday a consult was placed for [facility] at this point in time since the patient appears to be at end-stage. 04/29: Patient is laying down in bed she does not follow much command, however she is more awake and alert she underwent chest x-ray yesterday that showed atelectasis and possible right lower lobe pneumonia could be aspiration, we will start the patient on Azactam 1 g IV piggyback every 8 hours since the patient is allergic to penicillin, and we will monitor the patient very closely I will a void fluoroquinolones because of her seizure activity, patient did have another EEG yesterday that showed evidence of significant encephalopathy with epileptic activity in the left hemispheric area, we will continue patient on current treatment plan, she was started back on Dilantin 200 mg of piggyback every 12 hours, Vimpat 100 mg IV push every 12 hours, as well as Keppra was down to 500 mg twice every day, neurology is following, try to transfer the patient to [facility] for continuous EEG monitoring but that was declined, her sodium was elevated due to water deficit her sodium went up to 150 nephrology consultation was obtained, increase her free fluid flushes in the PEG tube to 204 times every day continue IV fluid in the form of D5 half-normal saline, follow-up with the patient sodium this afternoon I spoke with the family including and 2 daughters and they are in the Process of transferring the patient to [facility] to another extended-care facility. REVIEW OF SYSTEMS: Patient is unresponsive at this point in time. Could not obtain any review of system PHYSICAL EXAMINATION: General: 78-year-old female laying down in bed does not respond to verbal stimuli. HEENT: Head is atraumatic, normocephalic, pupils were equal patient does not follow any command at this time and her mucous membranes of mouth are somewhat dry. Neck: Supple, no JVP, normal carotid upstroke bilaterally, no lymphadenopathy. Chest: Decreased breath sounds at the bases, few rhonchi, no expiratory wheezes, no chest wall tenderness, no intercostal retractions. Heart: First heart sound is normal, second heart sounds normal Abdomen: Soft, nontender, nondistended, positive bowel sounds. PEG tube in place. Extremities: There is no edema no calf tenderness DP +2 bilaterally. Neurologic examination: Patient is unresponsive at this point in time, she is clenching both upper and lower extremities, she does have a baseline right-sided hemiplegia. ASSESSMENT AND PLAN: 1. Acute toxic metabolic encephalopathy due to seizure activity as well as hypovolemic hyponatremia due to water deficit.. Patient underwent CT of the brain as well as MRI of the brain with and without deion that showed evidence of AV malformation of the right frontal area, patient underwent another EEG today that showed evidence of epileptic form in the left hemispheric,, she has been on Keppra to 500 mg twice every day and Vimpat 100 mg IV push twice a day, along with Dilantin 200 mg of piggyback every 12 hours neurology is following at this point in time, we will follow-up with the patient very closely, patient has been having EEG on a daily basis, urinalysis did not show any evidence of any urinary tract infection at this point in time, chest x-ray showed evidence of right lower lobe atelectasis versus pneumonia she was started on Azactam 1 g of piggyback every 8 hours. 2. History of intracranial bleed with right sided hemiplegia status post surgical intervention status post tracheostomy placement removal status post PEG tube placement, patient is currently nonverbal she is a wheelchair/bedbound with right-sided hemiplegia. Continue Keppra 500 mg twice every day, Vimpat 100 mg IV push twice every day monitor levels. Also Dilantin 200 mg with piggyback every 12 hours. MRI did show evidence of right frontal AV malformation that she will need to have an angiogram as an outpatient. However the patient is not a candidate for any invasive procedure at this point in time. 3. Hypertension and hypertensive cardiovascular disease. Continue amlodipine 10 mg orally once every day, continue metoprolol 25 mg per PEG tube twice every day, continue with lisinopril 20 mg once every day. Monitor the patient blood pressure very closely. 4. Mixed hyperlipidemia. Start the patient on atorvastatin 40 mg once every day. 5. Diabetes mellitus type 2. Continue Levemir 15 units at bedtime along with the Farxiga 5 mg once every day, continue sliding scale insulin, patient has been off metformin however will restart 500 mg twice every day. 6. Parkinsonism. Patient was taken off Sinemet per the request of her family and we will start her back on amantadine 100 mg per PEG tube once every day per their request as well. 7. Right lower lobe pneumonia versus atelectasis. Start the patient on Azactam 1 g piggyback every 8 hours, monitor the patient very closely during her hospital stay. Aspiration precautions. 8. Recent COVID-19 infection resolved. 9. Hypernatremia due to hypovolemia and free water deficit. continue IV fluid to D5 half-normal saline at 75 cc an hour, increase free water flushes through the PEG tube, 200 ml 4 times every day, nephrology consultation Dr. Montoya appreciated. 10. DVT prophylaxis. Continue Lovenox 40 mg subcutaneous every 24 hours. 11. GI prophylaxis. Continue patient on famotidine 20 mg per PEG tube once every day. 12. Medical debility continue physical therapy and Occupational Therapy. 13. patient prognosis is continued to be dismal . 14. Patient continues to be DNR. 15. Family is interested in transferring the patient to an extended care facility in [facility] we will discuss with aids social worker. Objective - Vital Signs Vital signs: Vital Signs Temp 98.3 F 04/29/24 07:13 Pulse 75 04/29/24 07:13 Resp 20 04/29/24 07:13 BP 137/77 04/29/24 07:13 Pulse Ox 98 04/29/24 07:13 FiO2 35 04/18/24 17:36 Intake & Output 04/28/24 04/29/24 04/29/24 18:59 06:59 18:59 Intake Total 120 Balance 120 Weight 47 kg 49.5 kg Intake: Oral 120 Other: Voiding Method Diaper Diaper Diaper Incontinent Incontinent Incontinent # Voids 3 1 # Bowel Movements 1 - Labs CBC & Chem 7: 04/30/24 04:33 04/29/24 16:42 Labs: Abnormal Lab Results - Last 24 Hours (Table) 04/28/24 04/28/24 04/28/24 Range/Units 12:06 16:41 16:41 RBC 3.57 L (3.80-5.40) m/uL Hgb 11.1 L (11.4-16.0) gm/dL Hct (37.2-46.3) % MCV (80.0-97.0) FL MCHC (32.0-37.0) g/dL Immature Gran # (0.00-0.04) X 10*3/uL Sodium 150 H (137-145) mmol/L Chloride 118 H (98-107) mmol/L BUN 21 H (7-17) mg/dL Creatinine 0.45 L (0.52-1.04) mg/dL BUN/Creatinine Ratio (.00-.00) Ratio Glucose 133 H (74-99) mg/dL POC Glucose (mg/dL) 127 H (70-110) mg/dL Total Bilirubin (0.3-1.2) mg/dL ALT 55 H (4-34) U/L Alkaline Phosphatase (41-126) U/L Total Protein 5.8 L (6.3-8.2) g/dL Albumin 3.0 L (3.5-5.0) g/dL Albumin/Globulin Ratio (1.60-3.17) Ratio 04/28/24 04/28/24 04/29/24 Range/Units 17:16 20:12 02:52 RBC 3.45 L (3.80-5.40) m/uL Hgb 10.8 L (11.4-16.0) gm/dL Hct 35.3 L (37.2-46.3) % MCV 102.3 H (80.0-97.0) FL MCHC 30.6 L (32.0-37.0) g/dL Immature Gran # 0.06 H (0.00-0.04) X 10*3/uL Sodium (137-145) mmol/L Chloride (98-107) mmol/L BUN (7-17) mg/dL Creatinine (0.52-1.04) mg/dL BUN/Creatinine Ratio (12.00-20.00) Ratio Glucose (74-99) mg/dL POC Glucose (mg/dL) 131 H 112 H (70-110) mg/dL Total Bilirubin (0.3-1.2) mg/dL ALT (4-34) U/L Alkaline Phosphatase (41-126) U/L Total Protein (6.3-8.2) g/dL Albumin (3.5-5.0) g/dL Albumin/Globulin Ratio (1.60-3.17) Ratio 04/29/24 04/29/24 Range/Units 02:52 07:14 RBC (3.80-5.40) m/uL Hgb (11.4-16.0) gm/dL Hct (37.2-46.3) % MCV (80.0-97.0) FL MCHC (32.0-37.0) g/dL Immature Gran # (0.00-0.04) X 10*3/uL Sodium 151 H (137-145) mmol/L Chloride 117 H (98-107) mmol/L BUN (7-17) mg/dL Creatinine 0.4 L (0.52-1.04) mg/dL BUN/Creatinine Ratio 48.75 H (12.00-20.00) Ratio Glucose 229 H (74-99) mg/dL POC Glucose (mg/dL) 182 H (70-110) mg/dL Total Bilirubin <0.2 L (0.3-1.2) mg/dL ALT 58 H (4-34) U/L Alkaline Phosphatase 130 H (41-126) U/L Total Protein 5.7 L (6.3-8.2) g/dL Albumin 3.2 L (3.5-5.0) g/dL Albumin/Globulin Ratio 1.28 L (1.60-3.17) Ratio
[2024-04-30 10:18] LABS: ALT 62 U/L (8-44); AST 36 U/L (13-35); Albumin 3.1 g/dL (3.8-4.9); Albumin/Globulin Ratio 1.29 Ratio (1.60-3.17); Alkaline Phosphatase 147 U/L (41-126); BUN/Creat Ratio 39.25 Ratio (12.00-20.00); Blood Urea Nitrogen 15.7 mg/dL (9.0-27.0); Calcium 8.8 mg/dL (8.7-10.3); Chloride 111 mmol/L (96-109); Globulin 2.4 g/dL (1.6-3.3); Glucose 217 mg/dL (70-110); Phenytoin (Dilantin) 11.9 UG/ML (10.0-20.0); Potassium 3.5 mmol/L (3.5-5.5); Sodium 145 mmol/L (135-145); Total Bilirubin <0.2 mg/dL (0.3-1.2); Total Protein 5.5 g/dL (6.2-8.2)
--- NOTE | 2024-04-30 10:42 | P.PN ---
Subjective Progress Note Date: 04/30/24 HISTORY OF PRESENT ILLNESS: This is an 78-year-old female with a previous medical history signi ficant for hypertension and hypertensive cardiovascular disease, hyperlipidemia, history of asthma, history of major cerebrovascular accident that was in December 2023 when she suffered from significant intracranial hemorrhage she was initially evaluated at [facility] at that time, and she was transported to a tertiary care center at [facility], she ended up having evacuation of the hematoma and after that she had a prolonged hospital stay due to significant respiratory failure requiring ventilator and a trach placement along with a PEG tube placement, she became nonverbal, she had dense right-sided hemiplegia, patient apparently transported to [facility] and after that she was transported to [facility] for physical therapy and rehabilitation, she was under the care of a different physician, I assumed her care care few weeks ago at [facility], patient had contacted COVID-19 about a week ago and she developed to have a significant respiratory distress at that time, she had a chest x-ray did not show evidence of acute or maladies she could not take Paxlovid because she was unable to swallow the medications, and we could not crush the medicine put in the PEG tube, patient was treated with supportive care at that time, she was given zinc as well as vitamin D and vitamin C and she was given some breathing treatment, patient has done well up till yesterday when the patient became more obtunded and she has been none verbal ever since her stroke, and the family requested the patient to be transported to the emergency department [facility], she had a CT scan of brain did not show evidence of acute normalities, but because of her presentation she was sent for CT angiography of the chest to rule out any pulm embolism that was negative, but because of the presentation she was admitted to the hospital initially family were in agreement to go for no code and a hospice consult however they changed her mind next day after I spoke with the daughter and the and they stated they wanted her to continue current treatment without any resuscitation at this point in time, I consulted neurology and obtained MRI of the brain with and without deion. 04/20: Patient is more awake and more alert today, she is nonverbal, she is not responding to any verbal stimuli at this time, she is staring at everybody and but she is not following any command at this point in time, she is not moving her upper or lower extremities, she is scheduled to go for MRI of the brain with and without gadolinium at 3:00 this afternoon, I will continue to follow-up with the patient very closely continue patient on Keppra 500 mg per PEG tube twice every day, neurology is following, we will continue with current treatment at this point in time until further recommendation the family stated that the patient is a candidate to go for inpatient rehabilitation I will discuss this with physical therapy and Occupational Therapy will keep patient on nothing per mouth until evaluated by the speech therapist again. 04/21: Patient is laying down in bed does not follow any commands at this point in time, her daughter who is a visiting dentist from [place] is having issues with her mom going back to [facility] [address] at this time, and she think her mother can go home and according to what case filler suggested for the patient to be a good candidate for inpatient rehabilitation as well as physical therapy we will discuss with them and we will consult Dr. Melara for further evaluation recommendation patient underwent MRI of the brain with and without deion that showed evidence of right frontal AV malformation, and our neurologist recommended outpatient angiogram by neurosurgery that she has seen at [facility], meanwhile the patient had an EEG did not show evidence of acute seizure, continue Keppra for now, continue current treatment plan, will follow-up with the patient very closely, apparently the family is not ready for hospice at this point in time, and they want the patient to have more physical therapy in an inpatient rehab facility. 04/24: Patient is laying down in bed in no apparent distress, she continues to be nonverbal, at this time, she does not follow any commands at this point in time, family were concerned that the patient is having urinary tract infection, she did have a urinalysis did not show evidence of acute infection at this time, they were concerned that the patient is not getting enough fluid discussed with the dietitian, to give the patient 125 cc of water every 8 hours, continue current tube feeding, patient did have an EEG done by neurology and that showed evidence of seizure activity of the left frontal area, she has been maintained on Keppra that was increased to 1000 mg twice every day and she was started on Vimpat 200 mg daily. Will continue to monitor the patient very closely follow- up with the patient very closely at this point in time. 04/25: Patient has been seen by inpatient rehab for evaluation but because patient is unable to participate with therapy in the current state, hospice seems appropriate at this time. If patient has improvements would recommend [facility] for slower pace rehab. Family is considering returning the patient home with 24-hour care and social work is following for discharge planning. Family declined hospice services. Vital signs have been stable and patient has been afebrile. 04/26: Patient is about the same, she is completely unresponsive, she barely open her eyes in response to verbal stimuli, her was at the bedside, he was advised about transferring the patient back to [facility] and after making a decision on transferring her out of the state to a different institution that can be done as an outpatient, I spoke with Dr. Winston yesterday in the neurologist who recommended for the patient to be transferred to [facility] I spoke with [facility] and they declined the transfer at this point in time because is not can add anything for her treatment at this point, her seizure medications were adjusted, patient continues to be about the same, we will start her on a small dose of IV fluid resuscitation in the form of normal saline at 50 cc an hour, repeat her labs tomorrow morning, I will follow- up with the patient 04/27: Patient is laying down in bed that she continues to be unresponsive, both of her daughters were at the bedside, patient does not appear to have improved despite current treatment plan, we will continue to monitor the patient very closely, patient was taken down on her Keppra to 500 mg orally twice per day because the patient is completely obtunded, she was also started on Dilantin 200 mg IV piggyback every 12 hours, she was also on Vimpat 100 mg IV push every 12 hours, monitor the patient Dilantin level, monitor the patient very closely, once the patient is seizures controlled patient can be transferred back to [facility], and then the final decision will be made by the family whether or not the family is interested with hospice or end-of-life care at this point in time. 04/28: Patient is laying down in bed she opened her eye once while we were going to adjust her body position, she appears to be somewhat rhonchorous, will discontinue IV fluid, will obtain chest x-ray, I spoke with neurology about Dilantin that was increased to 200 mg of piggyback every 12 hours, she was decr eased on Vimpat 200 mg IV push every 12 hours and Keppra down to 500 mg twice every day, we will continue to follow up with the patient very closely, patient will have a daily EEG once her activity is better patient can be discharged to either [facility] [address] versus hospice home on Wednesday a consult was placed for [facility] at this point in time since the patient appears to be at end-stage. 04/29: Patient is laying down in bed she does not follow much command, however she is more awake and alert she underwent chest x-ray yesterday that showed atelectasis and possible right lower lobe pneumonia could be aspiration, we will start the patient on Azactam 1 g IV piggyback every 8 hours since the patient is allergic to penicillin, and we will monitor the patient very closely I will a void fluoroquinolones because of her seizure activity, patient did have another EEG yesterday that showed evidence of significant encephalopathy with epileptic activity in the left hemispheric area, we will continue patient on current treatment plan, she was started back on Dilantin 200 mg of piggyback every 12 hours, Vimpat 100 mg IV push every 12 hours, as well as Keppra was down to 500 mg twice every day, neurology is following, try to transfer the patient to [facility] for continuous EEG monitoring but that was declined, her sodium was elevated due to water deficit her sodium went up to 150 nephrology consultation was obtained, increase her free fluid flushes in the PEG tube to 204 times every day continue IV fluid in the form of D5 half-normal saline, follow-up with the patient sodium this afternoon I spoke with the family including and 2 daughters and they are in the Process of transferring the patient to [facility] to another extended-care facility. 04/30: Patient is about the same, opens her eyes but she does not follow much commands, she is laying down in bed does not appear to be in acute distress, she has been maintained on IV fluid in the form of D5 normal saline at 75 cc an hour increase of fluid flushes in the PEG tube to 200 mL 4 times every day, her sodium last night was 146 sodium from today still pending at the time of dictation, restart the patient back on her metformin 500 mg twice every day, continue to monitor the patient very closely discussed with social services designee tomorrow the possibility of transferring the patient from hospital to [facility] or going to [facility] and then getting transferred. REVIEW OF SYSTEMS: Patient is unresponsive at this point in time. Could not obtain any review of system PHYSICAL EXAMINATION: General: 78-year-old female laying down in bed does not respond to v erbal stimuli. HEENT: Head is atraumatic, normocephalic, pupils were equal patient does not follow any command at this time and her mucous membranes of mouth are somewhat dry. Neck: Supple, no JVP, normal carotid upstroke bilaterally, no lymphadenopathy. Chest: Decreased breath sounds at the bases, few rhonchi, no expiratory wheezes, no chest wall tenderness, no intercostal retractions. Heart: First heart sound is normal, second heart sounds normal Abdomen: Soft, nontender, nondistended, positive bowel sounds. PEG tube in place. Extremities: There is no edema no calf tenderness DP +2 bilaterally. Neurologic examination: Patient is unresponsive at this point in time, she is clenching both upper and lower extremities, she does have a baseline right-sided hemiplegia. ASSESSMENT AND PLAN: 1. Acute toxic metabolic encephalopathy due to seizure activity as well as hypovolemic hyponatremia due to water deficit.. Patient underwent CT of the brain as well as MRI of the brain with and without deion that showed evidence of AV malformation of the right frontal area, patient underwent another EEG today that showed evidence of epileptic form in the left hemispheric,, she has been on Keppra to 500 mg twice every day and Vimpat 100 mg IV push twice a day, along with Dilantin 200 mg of piggyback every 12 hours neurology is following at this point in time, we will follow-up with the patient very closely, patient has been having EEG on a daily basis, urinalysis did not show any evidence of any urinary tract infection at this point in time, chest x-ray showed evidence of right lower lobe atelectasis versus pneumonia she was started on Azactam 1 g of piggyback every 8 hours. 2. History of intracranial bleed with right sided hemiplegia status post surgical intervention status post tracheostomy placement removal status post PEG tube placement, patient is currently nonverbal she is a wheelchair/bedbound with right-sided hemiplegia. Continue Keppra 500 mg twice every day, Vimpat 100 mg IV push twice every day monitor levels. Also Dilantin 200 mg with piggyback every 12 hours. MRI did show evidence of right frontal AV malformation that she will need to have an angiogram as an outpatient. However the patient is not a candidate for any invasive procedure at this point in time. 3. Hypertension and hypertensive cardiovascular disease. Continue amlodipine 10 mg orally once every day, continue metoprolol 25 mg per PEG tube twice every day, continue with lisinopril 20 mg once every day. Monitor the patient blood pressure very closely. 4. Mixed hyperlipidemia. Start the patient on atorvastatin 40 mg once every day. 5. Diabetes mellitus type 2. Continue Levemir 15 units at bedtime along with the Farxiga 5 mg once every day, continue sliding scale insulin, patient has been off metformin however will restart 500 mg twice every day. 6. Parkinsonism. Patient was taken off Sinemet per the request of her family and we will start her back on amantadine 100 mg per PEG tube once every day per their request as well. 7. Right lower lobe pneumonia versus atelectasis. Start the patient on Azactam 1 g piggyback every 8 hours, monitor the patient very closely during her hospital stay. Aspiration precautions. 8. Recent COVID-19 infection resolved. 9. Hypernatremia due to hypovolemia and free water deficit. continue IV fluid to D5 half-normal saline at 75 cc an hour, increase free water flushes through the PEG tube, 200 ml 4 times every day, nephrology consultation Dr. Montoya appreciated. 10. DVT prophylaxis. Continue Lovenox 40 mg subcutaneous every 24 hours. 11. GI prophylaxis. Continue patient on famotidine 20 mg per PEG tube once every day. 12. Medical debility continue physical therapy and Occupational Therapy. 13. patient prognosis is continued to be dismal . 14. Patient continues to be DNR. 15. Family is interested in transferring the patient to an extended care facility in [facility] we will discuss with social services designee. Objective - Vital Signs Vital signs: Vital Signs Temp 98.8 F 04/30/24 07:23 Pulse 71 04/30/24 09:10 Resp 16 04/30/24 07:23 BP 128/81 04/30/24 09:10 Pulse Ox 93 L 04/30/24 07:23 FiO2 35 04/18/24 17:36 Intake & Output 04/29/24 04/30/24 04/30/24 18:59 06:59 18:59 Intake Total 225 512 Balance 225 512 Weight 49 kg Intake: Tube Feeding 225 512 Other: Voiding Method Diaper Diaper Incontinent Incontinent # Voids 3 1 # Bowel Movements 3 - Labs CBC & Chem 7: 04/30/24 04:33 04/30/24 04:33 Labs: Abnormal Lab Results - Last 24 Hours (Table) 04/29/24 04/29/24 04/29/24 Range/Units 02:52 12:13 16:42 RBC 3.45 L (4.10-5.20) X 10*6/uL Hgb 10.8 L (12.0-15.0) g/dL Hct 35.3 L (37.2-46.3) % MCV 102.3 H (80.0-97.0) FL MCHC 30.6 L (32.0-37.0) g/dL Immature Gran # 0.06 H (0.00-0.04) X 10*3/uL Sodium 146 H (137-145) mmol/L POC Glucose (mg/dL) 114 H (70-110) mg/dL 04/29/24 04/29/24 04/30/24 Range/Units 17:10 20:08 04:33 RBC 3.45 L (4.10-5.20) X 10*6/uL Hgb 10.7 L (12.0-15.0) g/dL Hct 34.2 L (37.2-46.3) % MCV 99.1 H (80.0-97.0) FL MCHC 31.3 L (32.0-37.0) g/dL Immature Gran # 0.07 H (0.00-0.04) X 10*3/uL Sodium (137-145) mmol/L POC Glucose (mg/dL) 120 H 121 H (70-110) mg/dL 04/30/24 Range/Units 07:01 RBC (4.10-5.20) X 10*6/uL Hgb (12.0-15.0) g/dL Hct (37.2-46.3) % MCV (80.0-97.0) FL MCHC (32.0-37.0) g/dL Immature Gran # (0.00-0.04) X 10*3/uL Sodium (137-145) mmol/L POC Glucose (mg/dL) 249 H (70-110) mg/dL
--- NOTE | 2024-04-30 11:45 | P.PN ---
Subjective patient is seen for follow-up for hypernatremia. Free water through the tube feeding was increased and patient is currently maintained on D5 half normal saline. Mentation is about the same Objective - Vital Signs Vital signs: Vital Signs Temp 98.8 F 04/30/24 07:23 Pulse 71 04/30/24 09:10 Resp 16 04/30/24 07:23 BP 128/81 04/30/24 09:10 Pulse Ox 93 L 04/30/24 07:23 FiO2 35 04/18/24 17:36 Intake & Output 04/29/24 04/30/24 04/30/24 18:59 06:59 18:59 Intake Total 225 512 Balance 225 512 Weight 49 kg Intake: Tube Feeding 225 512 Other: Voiding Method Diaper Diaper Incontinent Incontinent # Voids 3 1 # Bowel Movements 3 - Exam patient is not responding much. She is comfortable Examination of the heart S1 and S2 Examination of the lungs bilateral breath sounds are heard Abdomen is soft nontender with PEG tube Examination of lower extremity shows no significant edema - Labs CBC & Chem 7: 04/30/24 04:33 04/30/24 04:33 Labs: Abnormal Lab Results - Last 24 Hours (Table) 04/29/24 04/29/24 04/29/24 Range/Units 12:13 16:42 17:10 RBC (4.10-5.20) X 10*6/uL Hgb (12.0-15.0) g/dL Hct (37.2-46.3) % MCV (80.0-97.0) FL MCHC (32.0-37.0) g/dL Immature Gran # (0.00-0.04) X 10*3/uL Sodium 146 H (137-145) mmol/L Chloride (96-109) mmol/L Creatinine (0.6-1.5) mg/dL BUN/Creatinine Ratio (12.00-20.00) Ratio Glucose (70-110) mg/dL POC Glucose (mg/dL) 114 H 120 H (70-110) mg/dL Total Bilirubin (0.3-1.2) mg/dL AST (13-35) U/L ALT (8-44) U/L Alkaline Phosphatase (41-126) U/L Total Protein (6.2-8.2) g/dL Albumin (3.8-4.9) g/dL Albumin/Globulin Ratio (1.60-3.17) Ratio 04/29/24 04/30/24 04/30/24 Range/Units 20:08 04:33 04:33 RBC 3.45 L (4.10-5.20) X 10*6/uL Hgb 10.7 L (12.0-15.0) g/dL Hct 34.2 L (37.2-46.3) % MCV 99.1 H (80.0-97.0) FL MCHC 31.3 L (32.0-37.0) g/dL Immature Gran # 0.07 H (0.00-0.04) X 10*3/uL Sodium (137-145) mmol/L Chloride 111 H (96-109) mmol/L Creatinine 0.4 L (0.6-1.5) mg/dL BUN/Creatinine Ratio 39.25 H (12.00-20.00) Ratio Glucose 217 H (70-110) mg/dL POC Glucose (mg/dL) 121 H (70-110) mg/dL Total Bilirubin <0.2 L (0.3-1.2) mg/dL AST 36 H (13-35) U/L ALT 62 H (8-44) U/L Alkaline Phosphatase 147 H (41-126) U/L Total Protein 5.5 L (6.2-8.2) g/dL Albumin 3.1 L (3.8-4.9) g/dL Albumin/Globulin Ratio 1.29 L (1.60-3.17) Ratio 04/30/24 Range/Units 07:01 RBC (4.10-5.20) X 10*6/uL Hgb (12.0-15.0) g/dL Hct (37.2-46.3) % MCV (80.0-97.0) FL MCHC (32.0-37.0) g/dL Immature Gran # (0.00-0.04) X 10*3/uL Sodium (137-145) mmol/L Chloride (96-109) mmol/L Creatinine (0.6-1.5) mg/dL BUN/Creatinine Ratio (12.00-20.00) Ratio Glucose (70-110) mg/dL POC Glucose (mg/dL) 249 H (70-110) mg/dL Total Bilirubin (0.3-1.2) mg/dL AST (13-35) U/L ALT (8-44) U/L Alkaline Phosphatase (41-126) U/L Total Protein (6.2-8.2) g/dL Albumin (3.8-4.9) g/dL Albumin/Globulin Ratio (1.60-3.17) Ratio Assessment and Plan Assessment: 1. Hyponatremia associated with free water deficit. Free water through the PEG tube has been increased. IV fluids have also been changed to half normal saline. 2. History of CVA with dense right hemiplegia 3. Altered mentation being followed by neurology. Anti seizure medications have been adjusted. EEG showed epileptiform discharges. Plan: continue current dose of free water. Continue with current IV fluids. Repeat labs in a.m.
[2024-04-30 12:01] LABS: Glucose,Whole Blood 187 mg/dL (70-110)
[2024-04-30 17:01] LABS: Glucose,Whole Blood 97 mg/dL (70-110)
[2024-04-30] MEDS: metFORMIN 500 MG TAB PEG/G-TUBE SCH (20:12)
[2024-04-30 20:25] LABS: Glucose,Whole Blood 120 mg/dL (70-110)
--- NOTE | 2024-05-01 01:59 | P.PN ---
Subjective Progress Note Date: 04/30/24 04/30/2024: Patient was seen for a follow-up. Patient is laying in the bed, in no distress. Please refer to examination below. No obvious seizure-like activity. 04/29/2024: Patient was seen for a follow-up. Family members were not present. Patient is clinically improved. Patient opened her eyes to calling her name. Patient made eye contact, dragged to the right and left towards the examiner. Patient tried to vocalize as well as. 04/28/2024: Patient was seen for follow-up. Family members were not present. Patient continues to be severely encephalopathic. No obvious seizure-like activity noted. 04/27/2024: Patient was seen for a follow-up. Patient continues to be very sedated, not having any obvious seizure activity. Patient's daughter was also present. 04/26/2024: Patient was seen for follow-up. Family members were not present. Patient has not improved at all as compared to yesterday. 04/25/2024: Patient was seen for a follow-up. Patient continues to be severely encephalopathic. Patient is very groggy. No obvious seizure-like activity noted. Patient's granddaughter was present, but I was able to talk to patient's daughter Alina Hinkle on the phone. 04/24/2024: Patient was initially seen by Dr. Anurag Esteves. Please refer to his note for details. Patient is a 78-year-old female with left thalamic and basal ganglia bleed, with intraventricular extension in November 2023 and was placed on Keppra, who is having altered mental status and cannot cooperate in rehab. 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 Some of the workup during this hospital visit consisted of: Ammonia level is less than 9 TSH is 1.050 Vitamin B12: 811 Serum folate: 9.6 HbA1c: 7.3 Sodium, calcium, AST is within normal limits. ALT 62 Serum glucose is 161 CT of the head is reported as right frontal parietal subcortical white matter hypodensity. Differential diagnosis could include subcortical infarct, vasogenic edema or chronic white matter ischemic changes. Consider MRI with contrast for additional evaluation. Atrophy with additional chronic appearing periventricular white matter ischemic type changes. Possible acute paranasal sinusitis. Personally reviewed CT and I do see the hypodensity over the right frontal parietal region more on the right but questionably also on the left but does not seem acute seems more subacute. CT angiography of the chest is reported as acute pulmonary embolism. But addendum states no pulmonary embolism. Routine EEG is abnormal. The background slowing suggestive of mild to moderate encephalopathy. 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 Atrophy with chronic appearing patchy periventricular white matter ischemic type changes. Objective - Vital Signs Vital signs: Vital Signs Temp 98.5 F 05/01/24 01:12 Pulse 90 05/01/24 01:12 Resp 18 05/01/24 01:12 BP 149/74 05/01/24 01:12 Pulse Ox 98 05/01/24 01:12 FiO2 35 04/18/24 17:36 Intake & Output 04/30/24 04/30/24 05/01/24 06:59 18:59 06:59 Intake Total 512 320 Balance 512 320 Weight 49 kg Intake: Tube Feeding 512 320 Other: Voiding Method Diaper Diaper Incontinent Incontinent # Voids 1 3 2 - Exam Patient is an elderly female, who is laying in the bed. Patient has oxygen by nasal cannula. Patient is encephalopathic. However today patient is again able to open her eyes, to calling her name. Patient made eye contact, tried to move eyes to the right and left, towards the examiner. - Labs CBC & Chem 7: 04/30/24 04:33 04/30/24 04:33 Labs: Abnormal Lab Results - Last 24 Hours (Table) 04/30/24 04/30/24 04/30/24 Range/Units 04:33 04:33 07:01 RBC 3.45 L (4.10-5.20) X 10*6/uL Hgb 10.7 L (12.0-15.0) g/dL Hct 34.2 L (37.2-46.3) % MCV 99.1 H (80.0-97.0) FL MCHC 31.3 L (32.0-37.0) g/dL Immature Gran # 0.07 H (0.00-0.04) X 10*3/uL Chloride 111 H (96-109) mmol/L Creatinine 0.4 L (0.6-1.5) mg/dL BUN/Creatinine Ratio 39.25 H (12.00-20.00) Ratio Glucose 217 H (70-110) mg/dL POC Glucose (mg/dL) 249 H (70-110) mg/dL Total Bilirubin <0.2 L (0.3-1.2) mg/dL AST 36 H (13-35) U/L ALT 62 H (8-44) U/L Alkaline Phosphatase 147 H (41-126) U/L Total Protein 5.5 L (6.2-8.2) g/dL Albumin 3.1 L (3.8-4.9) g/dL Albumin/Globulin Ratio 1.29 L (1.60-3.17) Ratio 04/30/24 04/30/24 Range/Units 11:59 20:23 RBC (4.10-5.20) X 10*6/uL Hgb (12.0-15.0) g/dL Hct (37.2-46.3) % MCV (80.0-97.0) FL MCHC (32.0-37.0) g/dL Immature Gran # (0.00-0.04) X 10*3/uL Chloride (96-109) mmol/L Creatinine (0.6-1.5) mg/dL BUN/Creatinine Ratio (12.00-20.00) Ratio Glucose (70-110) mg/dL POC Glucose (mg/dL) 187 H 120 H (70-110) mg/dL Total Bilirubin (0.3-1.2) mg/dL AST (13-35) U/L ALT (8-44) U/L Alkaline Phosphatase (41-126) U/L Total Protein (6.2-8.2) g/dL Albumin (3.8-4.9) g/dL Albumin/Globulin Ratio (1.60-3.17) Ratio Microbiology - Last 24 Hours (Table) 04/29/24 12:04 Blood Culture - Preliminary Blood Assessment and Plan Assessment: This is an 78-year-old woman who on November 2023 had left basal ganglia bleed with intraventricular hemorrhage on the CT in our facility as a result she was transferred to [facility] and had EVD and was placed on Keppra intubated on a ventilator. Per family members as result of stroke she had right-sided weakness then eventually was discharged to rehab. 2 weeks ago she had COVID-19. She is having fluctuation in mentation. Also she was evaluated by her outpatient neurologist who on 04/06/2024 suspected Parkinson's questionable due to her bleed and placed her on Sinemet, was placed on Baclofen which Baclofen was discontinue who is recently having altered mental status. Altered mental status fluctuation in mentation seems more delirium. Initial EEG is negative for seizure or discharges, however repeat EEG performed 04/24/2024 showed epileptiform activity over the left temporal parietal region. On MRI Brain there is no acute or subacute ischemic stroke. 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 Recent left basal ganglia bleed with intraventricular hemorrhage on 11/2023 due to uncontrolled hypertension status post EVD ([facility] Hicks) patient has residual right hemiparesis Parkinson's disease that suspected by her outpatient neurologist due to her bleed Status post PEG tube Hypertension Plan: Repeat Dilantin level again 11.9. We will reload with Dilantin 300 mg 1 dose. Continue Dilantin 200 mg twice a day, Keppra 500 mg twice daily, Vimpat 100 mg twice daily. We will keep Dilantin level in 15-20 range. Check Dilantin level in the morning. If the level continues to go down, may have to increase the maintenance dose. Repeat prolonged EEG in the morning. Dr. Anurag Esteves to resume neurology service in the morning. EEG 04/28/2024: Abnormal EEG due to background slowing, suggestive of moderate to severe encephalopathy. Continued presence of epileptic focus particularly involving the left hemispheric region. Very frequent left temporal parietal sharp waves were seen, which sometimes generalized to bihemispheric region. Very rare right parietal sharp waves were seen. Overall this is suggestive of severe encephalopathy with underlying multifocal irritable foci, with tendency for partial onset seizures. In an appropriate clinical setting, nonconvulsive status can be considered. Continuous EEG monitoring recommended. Repeat Stat Dilantin level was checked. It was 11.6. We will reload Dilantin 250 mg x 1 dose to increase the level. Continue same dose of Vimpat 100 mg twice daily and Keppra 500 mg twice daily. EEG 04/27/2024 revealed background slowing, suggestive of moderate encephalopathy. Remarkable improvement in the epileptiform activity, with resolution of electrographic nonconvulsive status. Sporadic left or right temporal independent sharp waves were seen during the study. This may suggest underlying cortical irritability. Clinical correlation recommended. Continue Dilantin 200 mg twice daily, decreased Vimpat to 100 mg twice daily because of severe somnolence, also Keppra decreased to 500 mg twice daily. Repeat EEG in the morning to make sure patient is staying out of status, before the weekend. EEG 04/26/2024 was abnormal due to background slowing, suggestive of moderate to severe encephalopathy. Continued presence of intermittent epileptiform activity involving the right parietal and left parietal temporal region, independent and sometimes bisynchronous. In the appropriate setting, nonconvulsive status cannot have this presentation. Suggest continuous EEG monitoring. Patient was started on Dilantin therapy. EEG 04/25/2024 revealed continued presence of epileptiform activity now fluctuating between the right hemispheric region and left and sometimes bisynchronous, at times becomes repetitive at 1 Hz. No clear-cut electrographic seizure however was seen. When compared to the EEG from yesterday, there is improvement in the epileptiform activity over the left hemispheric region, but now with more involvement of the right hemispheric region. Clinical correlation and continuous EEG monitoring recommended. Vimpat increased to 200 mg twice daily and Keppra 1500 mg twice daily. EEG 04/24/2024 revealed epileptic focus involving the left temporal parietal region, and also evidence of moderate to severe background slowing, consistent with encephalopathy. No electrographic seizure was recorded. Patient was placed on Vimpat 200 mg loading dose followed by 100 mg IV twice daily. Also dose of Keppra was increased from 500 to [address] Esteves has discontinued her Sinemet on 04/19/2024 since per family no improvement in her condition with medication and patient were in agreement of discontinuing medication. Will defer the rest of the medical management to primary and other specialist Patient's overall prognosis for meaningful recovery appears poor. Consider palliative care.
[2024-05-01] MEDS: PHENYTOIN SODIUM INJ 300 MG in SODIUM CHLORIDE 0.9% 50 ML IVPB STA (02:34)
[2024-05-01 07:48] LABS: Glucose,Whole Blood 237 mg/dL (70-110)
[2024-05-01 08:08] LABS: ALT 44 U/L (4-34); AST 20 U/L (14-36); African American GFR (CKD) >90 (>60 ml/min/1.73 sqM); Albumin 2.7 g/dL (3.5-5.0); Alkaline Phosphatase 160 U/L (38-126); Anion Gap 3 mmol/L; Blood Urea Nitrogen 14 mg/dL (7-17); Calcium 8.9 mg/dL (8.4-10.2); Carbon Dioxide 26 mmol/L (22-30); Chloride 110 mmol/L (98-107); Globulin 2.6 g/dL; Glucose 225 mg/dL (74-99); Magnesium 1.8 mg/dL (1.6-2.3); Non-African American GFR(CKD) >90 (>60 ml/min/1.73 sqM); Phenytoin (Dilantin) 8.8 ug/mL; Potassium 3.2 mmol/L (3.5-5.1); Sodium 139 mmol/L (137-145); Total Bilirubin 0.2 mg/dL (0.2-1.3); Total Protein 5.3 g/dL (6.3-8.2)
[2024-05-01 08:44] LABS: Basophils # (A) 0.04 X 10*3/uL (0.00-0.10); Basophils % (A) 0.7 %; Eosinophils # (A) 0.16 X 10*3/uL (0.04-0.35); Eosinophils % (A) 2.8 %; HCT 32.5 % (37.2-46.3); HGB 10.2 g/dL (12.0-15.0); Lymphocytes # (A) 1.35 X 10*3/uL (0.90-5.00); MCH 30.4 pg (27.0-32.0); MCHC 31.4 g/dL (32.0-37.0); MCV 96.7 FL (80.0-97.0); Mean Platelet Volume 9.7 FL (9.5-12.2); Monocytes # (A) 0.52 X 10*3/uL (0.20-1.00); Monocytes % (A) 9.2 %; NRBC Per 100 WBC 0 X 10*3/uL (0.00-0.01); Neutrophils # (A) 3.47 X 10*3/uL (1.80-7.70); Neutrophils % (A) 61.7 %; Platelet Count 322 X 10*3/uL (140-440); RBC 3.36 X 10*6/uL (4.10-5.20); RDW 12.6 % (11.5-14.5); WBC 5.63 X 10*3/uL (4.50-10.00)
[2024-05-01] MEDS: ATORVASTATIN 40 MG TAB PO SCH (09:11)
[2024-05-01] MEDS ORDERED: POTASSIUM CHLORIDE 40 MEQ in WATER FOR INJECTION 1 100ML.BAG IVPB STA (11:11)
[2024-05-01] MEDS: POTASSIUM CHLORIDE 20 MEQ in WATER FOR INJECTION 1 100ML.BAG IVPB SCH (12:30)
--- NOTE | 2024-05-01 12:38 | P.PN ---
Subjective Progress Note Date: 05/01/24 HISTORY OF PRESENT ILLNESS: This is an 78-year-old female with a previous medical history signi ficant for hypertension and hypertensive cardiovascular disease, hyperlipidemia, history of asthma, history of major cerebrovascular accident that was in December 2023 when she suffered from significant intracranial hemorrhage she was initially evaluated at [facility] at that time, and she was transported to a tertiary care center at [facility], she ended up having evacuation of the hematoma and after that she had a prolonged hospital stay due to significant respiratory failure requiring ventilator and a trach placement along with a PEG tube placement, she became nonverbal, she had dense right-sided hemiplegia, patient apparently transported to [facility] and after that she was transported to [facility] for physical therapy and rehabilitation, she was under the care of a different physician, I assumed her care care few weeks ago at [facility], patient had contacted COVID-19 about a week ago and she developed to have a significant respiratory distress at that time, she had a chest x-ray did not show evidence of acute or maladies she could not take Paxlovid because she was unable to swallow the medications, and we could not crush the medicine put in the PEG tube, patient was treated with supportive care at that time, she was given zinc as well as vitamin D and vitamin C and she was given some breathing treatment, patient has done well up till yesterday when the patient became more obtunded and she has been none verbal ever since her stroke, and the family requested the patient to be transported to the emergency department [facility], she had a CT scan of brain did not show evidence of acute normalities, but because of her presentation she was sent for CT angiography of the chest to rule out any pulm embolism that was negative, but because of the presentation she was admitted to the hospital initially family were in agreement to go for no code and a hospice consult however they changed her mind next day after I spoke with the daughter and the and they stated they wanted her to continue current treatment without any resuscitation at this point in time, I consulted neurology and obtained MRI of the brain with and without deion. 04/20: Patient is more awake and more alert today, she is nonverbal, she is not responding to any verbal stimuli at this time, she is staring at everybody and but she is not following any command at this point in time, she is not moving her upper or lower extremities, she is scheduled to go for MRI of the brain with and without gadolinium at 3:00 this afternoon, I will continue to follow-up with the patient very closely continue patient on Keppra 500 mg per PEG tube twice every day, neurology is following, we will continue with current treatment at this point in time until further recommendation the family stated that the patient is a candidate to go for inpatient rehabilitation I will discuss this with physical therapy and Occupational Therapy will keep patient on nothing per mouth until evaluated by the speech therapist again. 04/21: Patient is laying down in bed does not follow any commands at this point in time, her daughter who is a visiting dentist from [place] is having issues with her mom going back to [facility] [place] at this time, and she think her mother can go home and according to what showcase maker suggested for the patient to be a good candidate for inpatient rehabilitation as well as physical therapy we will discuss with them and we will consult Dr. Melara for further evaluation recommendation patient underwent MRI of the brain with and without deion that showed evidence of right frontal AV malformation, and our neurologist recommended outpatient angiogram by neurosurgery that she has seen at [facility], meanwhile the patient had an EEG did not show evidence of acute seizure, continue Keppra for now, continue current treatment plan, will follow-up with the patient very closely, apparently the family is not ready for hospice at this point in time, and they want the patient to have more physical therapy in an inpatient rehab facility. 04/24: Patient is laying down in bed in no apparent distress, she continues to be nonverbal, at this time, she does not follow any commands at this point in time, family were concerned that the patient is having urinary tract infection, she did have a urinalysis did not show evidence of acute infection at this time, they were concerned that the patient is not getting enough fluid discussed with the dietitian, to give the patient 125 cc of water every 8 hours, continue current tube feeding, patient did have an EEG done by neurology and that showed evidence of seizure activity of the left frontal area, she has been maintained on Keppra that was increased to 1000 mg twice every day and she was started on Vimpat 200 mg daily. Will continue to monitor the patient very closely follow- up with the patient very closely at this point in time. 04/25: Patient has been seen by inpatient rehab for evaluation but because patient is unable to participate with therapy in the current state, hospice seems appropriate at this time. If patient has improvements would recommend [facility] for slower pace rehab. Family is considering returning the patient home with 24-hour care and social work is following for discharge planning. Family declined hospice services. Vital signs have been stable and patient has been afebrile. 04/26: Patient is about the same, she is completely unresponsive, she barely open her eyes in response to verbal stimuli, her was at the bedside, he was advised about transferring the patient back to [facility] and after making a decision on transferring her out of the state to a different institution that can be done as an outpatient, I spoke with Dr. Winston yesterday in the neurologist who recommended for the patient to be transferred to [facility] I spoke with [facility] and they declined the transfer at this point in time because is not can add anything for her treatment at this point, her seizure medications were adjusted, patient continues to be about the same, we will start her on a small dose of IV fluid resuscitation in the form of normal saline at 50 cc an hour, repeat her labs tomorrow morning, I will follow- up with the patient 04/27: Patient is laying down in bed that she continues to be unresponsive, both of her daughters were at the bedside, patient does not appear to have improved despite current treatment plan, we will continue to monitor the patient very closely, patient was taken down on her Keppra to 500 mg orally twice per day because the patient is completely obtunded, she was also started on Dilantin 200 mg IV piggyback every 12 hours, she was also on Vimpat 100 mg IV push every 12 hours, monitor the patient Dilantin level, monitor the patient very closely, once the patient is seizures controlled patient can be transferred back to [facility], and then the final decision will be made by the family whether or not the family is interested with hospice or end-of-life care at this point in time. 04/28: Patient is laying down in bed she opened her eye once while we were going to adjust her body position, she appears to be somewhat rhonchorous, will discontinue IV fluid, will obtain chest x-ray, I spoke with neurology about Dilantin that was increased to 200 mg of piggyback every 12 hours, she was decr eased on Vimpat 200 mg IV push every 12 hours and Keppra down to 500 mg twice every day, we will continue to follow up with the patient very closely, patient will have a daily EEG once her activity is better patient can be discharged to either [facility] [place] versus hospice home on Wednesday a consult was placed for [facility] at this point in time since the patient appears to be at end-stage. 04/29: Patient is laying down in bed she does not follow much command, however she is more awake and alert she underwent chest x-ray yesterday that showed atelectasis and possible right lower lobe pneumonia could be aspiration, we will start the patient on Azactam 1 g IV piggyback every 8 hours since the patient is allergic to penicillin, and we will monitor the patient very closely I will a void fluoroquinolones because of her seizure activity, patient did have another EEG yesterday that showed evidence of significant encephalopathy with epileptic activity in the left hemispheric area, we will continue patient on current treatment plan, she was started back on Dilantin 200 mg of piggyback every 12 hours, Vimpat 100 mg IV push every 12 hours, as well as Keppra was down to 500 mg twice every day, neurology is following, try to transfer the patient to [facility] for continuous EEG monitoring but that was declined, her sodium was elevated due to water deficit her sodium went up to 150 nephrology consultation was obtained, increase her free fluid flushes in the PEG tube to 204 times every day continue IV fluid in the form of D5 half-normal saline, follow-up with the patient sodium this afternoon I spoke with the family including and 2 daughters and they are in the Process of transferring the patient to [facility] to another extended-care facility. 04/30: Patient is about the same, opens her eyes but she does not follow much commands, she is laying down in bed does not appear to be in acute distress, she has been maintained on IV fluid in the form of D5 normal saline at 75 cc an hour increase of fluid flushes in the PEG tube to 200 mL 4 times every day, her sodium last night was 146 sodium from today still pending at the time of dictation, restart the patient back on her metformin 500 mg twice every day, continue to monitor the patient very closely discussed with manager social work tomorrow the possibility of transferring the patient from hospital to [facility] or going to [facility] and then getting transferred. 05/01: Patient is laying down in bed she is more awake and alert, she is not saying anything however she is tracking her eyes, she does appear to yawn once in a while, her potassium is a bit on the lower side at 3.2, we will replace, we will discontinue IV fluid resuscitation at this point in time, we will follow-up with the patient very closely, family is interested to transfer the patient to a facility in the [place] that they already have a bed for her we will discuss with the manager social work and will take it from there. Patient will need to have 4 more days of IV antibiotic prior to her discharge or she can do this as an outpatient. REVIEW OF SYSTEMS: Patient is unresponsive at this point in time. Could not obtain any review of system PHYSICAL EXAMINATION: General: 78-year-old female laying down in bed does not respond to verbal stimuli. HEENT: Head is atraumatic, normocephalic, pupils were equal patient does not follow any command at this time and her mucous membranes of mouth are somewhat dry. Neck: Supple, no JVP, normal carotid upstroke bilaterally, no lymphadenopathy. Chest: Decreased breath sounds at the bases, few rhonchi, no expiratory wheezes, no chest wall tenderness, no intercostal retractions. Heart: First heart sound is normal, second heart sounds normal Abdomen: Soft, nontender, nondistended, positive bowel sounds. PEG tube in place. Extremities: There is no edema no calf tenderness DP +2 bilaterally. Neurologic examination: Patient is unresponsive at this point in time, she is clenching both upper and lower extremities, she does have a baseline right-sided hemiplegia. ASSESSMENT AND PLAN: 1. Acute toxic metabolic encephalopathy due to seizure activity as well as hypovolemic hyponatremia due to water deficit.. Patient underwent CT of the b rain as well as MRI of the brain with and without deion that showed evidence of AV malformation of the right frontal area, patient underwent another EEG today that showed evidence of epileptic form in the left hemispheric,, she has been on Keppra to 500 mg twice every day and Vimpat 100 mg IV push twice a day, along with Dilantin 200 mg of piggyback every 12 hours neurology is following at this point in time, we will follow-up with the patient very closely, patient has been having EEG on a daily basis, urinalysis did not show any evidence of any urinary tract infection at this point in time, chest x-ray showed evidence of right lower lobe atelectasis versus pneumonia she was started on Azactam 1 g of piggyback every 8 hours. 2. History of intracranial bleed with right sided hemiplegia status post surgical intervention status post tracheostomy placement removal status post PEG tube placement, patient is currently nonverbal she is a wheelchair/bedbound with right-sided hemiplegia. Continue Keppra 500 mg twice every day, Vimpat 100 mg IV push twice every day monitor levels. Also Dilantin 200 mg with piggyback every 12 hours. MRI did show evidence of right frontal AV malformation that she will need to have an angiogram as an outpatient. However the patient is not a candidate for any invasive procedure at this point in time. 3. Hypertension and hypertensive cardiovascular disease. Continue amlodipine 10 mg orally once every day, continue metoprolol 25 mg per PEG tube twice every day, continue with lisinopril 20 mg once every day. Monitor the patient blood pressure very closely. 4. Mixed hyperlipidemia. Start the patient on atorvastatin 40 mg once every day. 5. Diabetes mellitus type 2. Continue Levemir 15 units at bedtime along with the Farxiga 5 mg once every day, continue sliding scale insulin, patient has been off metformin however will restart 500 mg twice every day. 6. Parkinsonism. Patient was taken off Sinemet per the request of her family and we will start her back on amantadine 100 mg per PEG tube once every day per their request as well. 7. Right lower lobe pneumonia versus atelectasis. Start the patient on Azactam 1 g piggyback every 8 hours, monitor the patient very closely during her hospital stay. Aspiration precautions. 8. Recent COVID-19 infection resolved. 9. Hypernatremia due to hypovolemia and free water deficit. continue IV fluid to D5 half-normal saline at 75 cc an hour, increase free water flushes through the PEG tube, 200 ml 4 times every day, nephrology consultation Dr. Montoya appreciated. 10. DVT prophylaxis. Continue Lovenox 40 mg subcutaneous every 24 hours. 11. GI prophylaxis. Continue patient on famotidine 20 mg per PEG tube once every day. 12. Medical debility continue physical therapy and Occupational Therapy. 13. patient prognosis is continued to be dismal . 14. Patient continues to be DNR. 15. Family is interested in transferring the patient to an extended care facility in [facility] we will discuss with manager social work. 16. Hypokalemia status post replacement. Objective - Vital Signs Vital signs: Vital Signs Temp 97.7 F 05/01/24 07:45 Pulse 78 05/01/24 07:45 Resp 16 05/01/24 07:45 BP 150/77 05/01/24 07:45 Pulse Ox 97 05/01/24 07:45 FiO2 35 04/18/24 17:36 Intake & Output 04/30/24 05/01/24 05/01/24 18:59 06:59 18:59 Intake Total 320 675 Balance 320 675 Weight 52.5 kg Intake: Tube Feeding 320 675 Other: Voiding Method Diaper Diaper Incontinent Incontinent # Voids 3 1 - Labs CBC & Chem 7: 05/01/24 06:12 05/01/24 06:12 Labs: Abnormal Lab Results - Last 24 Hours (Table) 04/30/24 05/01/24 05/01/24 Range/Units 20:23 06:12 06:12 RBC 3.36 L (4.10-5.20) X 10*6/uL Hgb 10.2 L (12.0-15.0) g/dL Hct 32.5 L (37.2-46.3) % MCHC 31.4 L (32.0-37.0) g/dL Immature Gran # 0.09 H (0.00-0.04) X 10*3/uL Potassium 3.2 L (3.5-5.1) mmol/L Chloride 110 H (98-107) mmol/L Creatinine 0.38 L (0.52-1.04) mg/dL Glucose 225 H (74-99) mg/dL POC Glucose (mg/dL) 120 H (70-110) mg/dL ALT 44 H (4-34) U/L Alkaline Phosphatase 160 H (38-126) U/L Total Protein 5.3 L (6.3-8.2) g/dL Albumin 2.7 L (3.5-5.0) g/dL 05/01/24 Range/Units 07:47 RBC (4.10-5.20) X 10*6/uL Hgb (12.0-15.0) g/dL Hct (37.2-46.3) % MCHC (32.0-37.0) g/dL Immature Gran # (0.00-0.04) X 10*3/uL Potassium (3.5-5.1) mmol/L Chloride (98-107) mmol/L Creatinine (0.52-1.04) mg/dL Glucose (74-99) mg/dL POC Glucose (mg/dL) 237 H (70-110) mg/dL ALT (4-34) U/L Alkaline Phosphatase (38-126) U/L Total Protein (6.3-8.2) g/dL Albumin (3.5-5.0) g/dL Microbiology - Last 24 Hours (Table) 04/29/24 12:04 Blood Culture - Preliminary Blood
[2024-05-01 12:53] LABS: Glucose,Whole Blood 104 mg/dL (70-110)
--- NOTE | 2024-05-01 14:41 | P.PN ---
Subjective Progress Note Date: 05/01/24 Principal diagnosis: Hypernatremia with free water deficit Patient is a 78 year old female with history of hypertension, CVA with intracranial hemorrhage and dense right hemiplegia, currently maintained on tube feedings was admitted to the hospital with altered mentation. She was found to have hyponatremia with sodium of 151. 05/01/2024 Patient seen today for follow-up of hyponatremia. She has been receiving free water through the tube feeding and was maintained on D5 half-normal saline. Mentation has seemed to improve and she is now responding to her name. Labs today show sodium 139, potassium 3.2, BUN 14, creatinine 0.38, GFR more than 90. 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 Vitals: T 98.5 F, P 90 bpm, RR 18, BP 149/74, O2 sat 98% on 2 L nasal cannula General: nontoxic, no distress, appears at stated age, normal BMI Derm: warm, dry, intact Head: atraumatic, normocephalic, symmetric Eyes: EOMI, anicteric sclera Cardiovascular: S1 S2 reg, no murmur Lungs: CTA bilateral, no rhonchi, no rales, no accessory muscle use Abdominal: soft, non-tender to palpation, with PEG tube Extremities: no gross muscle atrophy, no edema Neuro: Mentation better than yesterday but still does not respond much Assessment: Hypernatremia associated with free water deficit. S/p free water through the PEG tube and D5 normal saline. 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 Altered mentation being followed by neurology. Routine EEG abnormal, background slowing suggestive of moderate to severe encephalopathy. Continued presence of epileptic focus particularly in the left hemispheric lesion Plan: Discontinue D5 normal saline and free water through the PEG tube Reduce tube feeds from 200/h to 150/h for 12 hours Potassium replaced today with potassium chloride 40 mEq I have seen and examined the patient with resident and agree with A&P as written. Patient currently getting water flushes 200cc q6h with TFs (not 200cc/h) - this will be continued. d/c 1/2NS. Objective - Vital Signs Vital signs: Vital Signs Temp 99.1 F 05/01/24 13:18 Pulse 76 05/01/24 13:18 Resp 16 05/01/24 13:18 BP 152/73 05/01/24 13:18 Pulse Ox 97 05/01/24 13:18 FiO2 35 04/18/24 17:36 Intake & Output 04/30/24 05/01/24 05/01/24 18:59 06:59 18:59 Intake Total 320 675 Balance 320 675 Weight 52.5 kg Intake: Tube Feeding 320 675 Other: Voiding Method Diaper Diaper Incontinent Incontinent # Voids 3 1 - Labs CBC & Chem 7: 05/01/24 06:12 05/01/24 06:12 Labs: Abnormal Lab Results - Last 24 Hours (Table) 04/30/24 05/01/24 05/01/24 Range/Units 20:23 06:12 06:12 RBC 3.36 L (4.10-5.20) X 10*6/uL Hgb 10.2 L (12.0-15.0) g/dL Hct 32.5 L (37.2-46.3) % MCHC 31.4 L (32.0-37.0) g/dL Immature Gran # 0.09 H (0.00-0.04) X 10*3/uL Potassium 3.2 L (3.5-5.1) mmol/L Chloride 110 H (98-107) mmol/L Creatinine 0.38 L (0.52-1.04) mg/dL Glucose 225 H (74-99) mg/dL POC Glucose (mg/dL) 120 H (70-110) mg/dL ALT 44 H (4-34) U/L Alkaline Phosphatase 160 H (38-126) U/L Total Protein 5.3 L (6.3-8.2) g/dL Albumin 2.7 L (3.5-5.0) g/dL 05/01/24 Range/Units 07:47 RBC (4.10-5.20) X 10*6/uL Hgb (12.0-15.0) g/dL Hct (37.2-46.3) % MCHC (32.0-37.0) g/dL Immature Gran # (0.00-0.04) X 10*3/uL Potassium (3.5-5.1) mmol/L Chloride (98-107) mmol/L Creatinine (0.52-1.04) mg/dL Glucose (74-99) mg/dL POC Glucose (mg/dL) 237 H (70-110) mg/dL ALT (4-34) U/L Alkaline Phosphatase (38-126) U/L Total Protein (6.3-8.2) g/dL Albumin (3.5-5.0) g/dL Microbiology - Last 24 Hours (Table) 04/29/24 12:04 Blood Culture - Preliminary Blood
[2024-05-01] MEDS: POTASSIUM BICARBONATE/CIT AC 20 MEQ TABLET.EFF PEG/G-TUBE ONE (16:00)
[2024-05-01 17:19] LABS: Glucose,Whole Blood 110 mg/dL (70-110)
--- NOTE | 2024-05-01 17:53 | P.PN ---
Subjective Progress Note Date: 05/01/24 I am following up with the patient and last time I have seen the patient was on 04/23/2024 and ever since patient was under the care of Dr. Parmar and please refer to his notes for further details. 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 And the patient was placed on Dilantin on Keppra 500 mg twice a day, Dilantin 200 mg twice a day, Vimpat 100 mg twice a day. Patient had multiple EEGs. Seems the patient was attempted to be transferred to [facility] by that was declined. According to the nurse she continues to show no drastic improvement since I have seen her last on 04/23/2024 Objective - Vital Signs Vital signs: Vital Signs Temp 99.1 F 05/01/24 13:18 Pulse 76 05/01/24 13:18 Resp 16 05/01/24 13:18 BP 152/73 05/01/24 13:18 Pulse Ox 97 05/01/24 13:18 FiO2 35 04/18/24 17:36 Intake & Output 04/30/24 05/01/24 05/01/24 18:59 06:59 18:59 Intake Total 320 675 Balance 320 675 Weight 52.5 kg Intake: Tube Feeding 320 675 Other: Voiding Method Diaper Diaper Incontinent Incontinent # Voids 3 1 - Exam General: Lying in bed and does not appear in acute distress. Neuro: Very Limited. Severely drowsy but opens her eyes to voice. She would smile and closes her eyes to command otherwise examination is very limited. - Labs CBC & Chem 7: 05/01/24 06:12 05/01/24 06:12 Labs: Abnormal Lab Results - Last 24 Hours (Table) 04/30/24 05/01/24 05/01/24 Range/Units 20:23 06:12 06:12 RBC 3.36 L (4.10-5.20) X 10*6/uL Hgb 10.2 L (12.0-15.0) g/dL Hct 32.5 L (37.2-46.3) % MCHC 31.4 L (32.0-37.0) g/dL Immature Gran # 0.09 H (0.00-0.04) X 10*3/uL Potassium 3.2 L (3.5-5.1) mmol/L Chloride 110 H (98-107) mmol/L Creatinine 0.38 L (0.52-1.04) mg/dL Glucose 225 H (74-99) mg/dL POC Glucose (mg/dL) 120 H (70-110) mg/dL ALT 44 H (4-34) U/L Alkaline Phosphatase 160 H (38-126) U/L Total Protein 5.3 L (6.3-8.2) g/dL Albumin 2.7 L (3.5-5.0) g/dL 05/01/24 Range/Units 07:47 RBC (4.10-5.20) X 10*6/uL Hgb (12.0-15.0) g/dL Hct (37.2-46.3) % MCHC (32.0-37.0) g/dL Immature Gran # (0.00-0.04) X 10*3/uL Potassium (3.5-5.1) mmol/L Chloride (98-107) mmol/L Creatinine (0.52-1.04) mg/dL Glucose (74-99) mg/dL POC Glucose (mg/dL) 237 H (70-110) mg/dL ALT (4-34) U/L Alkaline Phosphatase (38-126) U/L Total Protein (6.3-8.2) g/dL Albumin (3.5-5.0) g/dL Microbiology - Last 24 Hours (Table) 04/29/24 12:04 Blood Culture - Preliminary Blood Assessment and Plan Assessment: This is an 78-year-old woman who on November 2023 had 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 Per family members as result of stroke she had right-sided weakness then eventually was discharged to rehab. 2 weeks ago she had COVID-19. She is having fluctuation in mentation. Also she was evaluated by her outpatient neurologist who on 04/06/2024 suspected Parkinson's questionable due to her bleed and placed her on Sinemet, was placed on Baclofen which Baclofen was discontinue who is recently having altered mental status. Altered mental status fluctuation in mentation seems more delirium. Initial EEG is negative for seizure or discharges, however repeat EEG performed 04/24/2024 showed epileptiform activity over the left temporal parietal region. 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 Continue Dilantin 200 mg twice a day, Keppra 500 mg twice daily, Vimpat [address] Parmar, to keep Dilantin level in 15-20 range and if the level continues to go down, may have to increase the maintenance dose. Repeat prolonged EEG today. EEG 04/28/2024: Abnormal EEG due to background slowing, suggestive of moderate to severe encephalopathy. Continued presence of epileptic focus particularly involving the left hemispheric region. Very frequent left temporal parietal sharp waves were seen, which sometimes generalized to bihemispheric region. Very rare right parietal sharp waves were seen. Overall this is suggestive of severe encephalopathy with underlying multifocal irritable foci, with tendency for partial onset seizures. In an appropriate clinical setting, nonconvulsive status can be considered. Continuous EEG monitoring recommended. Repeat Stat Dilantin level was checked. It was 11.6. We will reload Dilantin 250 mg x 1 dose to increase the level. Continue same dose of Vimpat 100 mg twice daily and Keppra 500 mg twice daily. EEG 04/27/2024 revealed background slowing, suggestive of moderate encephalopathy. Remarkable improvement in the epileptiform activity, with resolution of electrographic nonconvulsive status. Sporadic left or right temporal independent sharp waves were seen during the study. This may suggest underlying cortical irritability. Clinical correlation recommended. Continue Dilantin 200 mg twice daily, decreased Vimpat to 100 mg twice daily because of severe somnolence, also Keppra decreased to 500 mg twice daily. Repeat EEG in the morning to make sure patient is staying out of status, before the weekend. EEG 04/26/2024 was abnormal due to background slowing, suggestive of moderate to severe encephalopathy. Continued presence of intermittent epileptiform activity involving the right parietal and left parietal temporal region, independent and sometimes bisynchronous. In the appropriate setting, nonconvulsive status cannot have this presentation. Suggest continuous EEG monitoring. Patient was started on Dilantin therapy. EEG 04/25/2024 revealed continued presence of epileptiform activity now fluctuating between the right hemispheric region and left and sometimes bisync hronous, at times becomes repetitive at 1 Hz. No clear-cut electrographic seizure however was seen. When compared to the EEG from yesterday, there is improvement in the epileptiform activity over the left hemispheric region, but now with more involvement of the right hemispheric region. Clinical correlation and continuous EEG monitoring recommended. Vimpat increased to 200 mg twice daily and Keppra 1500 mg twice daily. EEG 04/24/2024 revealed epileptic focus involving the left temporal parietal region, and also evidence of moderate to severe background slowing, consistent with encephalopathy. No electrographic seizure was recorded. Patient was placed on Vimpat 200 mg loading dose followed by 100 mg IV twice daily. Also dose of Keppra was increased from 500 to 1000 mg twice daily. I discontinued her Sinemet on 04/19/2024 since per family no improvement in her condition with medication and patient were in agreement of discontinuing medication. Will defer the rest of the medical management to primary and other specialist Patient's overall prognosis for meaningful recovery appears poor. Consider palliative care. Time with Patient: Less than 30
[2024-05-01] MEDS: PHENYTOIN SODIUM INJ 500 MG in SODIUM CHLORIDE 0.9% 50 ML IVPB STA (19:31)
[2024-05-01 19:59] LABS: Glucose,Whole Blood 114 mg/dL (70-110)
[2024-05-02 00:01] LABS: Glucose,Whole Blood 97 mg/dL (70-110)
--- NOTE | 2024-05-02 03:41 | EEG ---
ELECTROENCEPHALOGRAM REPORT CLINICAL HISTORY: This is an 78-year-old woman with altered mental status and concern for seizure. The video EEG is obtained to evaluate for seizure epileptiform activity. RELEVANT MEDICATION: Keppra, Dilantin, and Vimpat. EEG TYPE: This is a routine 21 channel EEG using the 10/20 electrode placement system. TIME: Starting time is 7:44 a.m. on 05/01/2024 and end time is 8:44 a.m. on 05/01/2024. DESCRIPTION: Wakefulness is only obtained. During awake state, the background consists of low-to- moderate voltage of 6.5 to 7 hertz activity. Minimally at times it was intermixed with delta activity. There was no physiological stage 2 sleep architecture. There is no focal slowing. Interictal and ictal appears to be possible rare sharp activity over the left temporal, but no clear epileptiform discharge or seizure on the EEG. ACTIVATION PROCEDURE: Photic stimulation and hyperventilation is not performed. CLINICAL INTERPRETATION: This is an abnormal routine EEG. The background slowing is suggestive of mild to moderate encephalopathy. There is no focal slowing or seizure noted during the study. There is possible rare sharply contoured activity over the left temporal region, which can increase risk of cortical irritability, but no seizure or discharges noted. Clinical correlation is recommended. MMODL / IJN: [id number] / OBINNA
[2024-05-02 07:25] LABS: Glucose,Whole Blood 146 mg/dL (70-110)
[2024-05-02 08:34] LABS: Basophils # (A) 0.06 X 10*3/uL (0.00-0.10); Basophils % (A) 0.8 %; Eosinophils % (A) 2.6 %; HCT 35.2 % (37.2-46.3); HGB 11.4 g/dL (12.0-15.0); Lymphocytes # (A) 1.43 X 10*3/uL (0.90-5.00); Lymphocytes % (A) 18.9 %; MCH 31.4 pg (27.0-32.0); MCHC 32.4 g/dL (32.0-37.0); Mean Platelet Volume 9.9 FL (9.5-12.2); Monocytes # (A) 0.58 X 10*3/uL (0.20-1.00); Monocytes % (A) 7.7 %; NRBC Per 100 WBC 0 X 10*3/uL (0.00-0.01); Neutrophils # (A) 5.16 X 10*3/uL (1.80-7.70); Neutrophils % (A) 68.4 %; Platelet Count 354 X 10*3/uL (140-440); RBC 3.63 X 10*6/uL (4.10-5.20); RDW 12.7 % (11.5-14.5); WBC 7.55 X 10*3/uL (4.50-10.00)
[2024-05-02 08:47] LABS: ALT 41 U/L (8-44); AST 18 U/L (13-35); Albumin 3.2 g/dL (3.8-4.9); Albumin/Globulin Ratio 1.19 Ratio (1.60-3.17); Alkaline Phosphatase 178 U/L (41-126); BUN/Creat Ratio 29.25 Ratio (12.00-20.00); Blood Urea Nitrogen 11.7 mg/dL (9.0-27.0); Calcium 9.3 mg/dL (8.7-10.3); Carbon Dioxide 26.7 mmol/L (21.6-31.8); Chloride 104 mmol/L (96-109); Globulin 2.7 g/dL (1.6-3.3); Glucose 153 mg/dL (70-110); Magnesium 1.9 mg/dL (1.5-2.4); Potassium 4.1 mmol/L (3.5-5.5); Sodium 140 mmol/L (135-145); Total Bilirubin <0.2 mg/dL (0.3-1.2); Total Protein 5.9 g/dL (6.2-8.2)
[2024-05-02 10:30] VITALS: BMI 20.7
--- NOTE | 2024-05-02 11:32 | P.PN ---
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 She was found to have hyponatremia with sodium of 151. 05/01/2024 Patient seen today for follow-up of hyponatremia. She has been receiving free water through the tube feeding and was maintained on D5 half-normal saline. Mentation has seemed to improve and she is now responding to her name. Labs today show sodium 139, potassium 3.2, BUN 14, creatinine 0.38, GFR more than 90. 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 05/02/24 Patient evaluated today. Her mentation is about the same as yesterday. Her Labs show Na 140, K 4.1, BUN 11.7, Creatinine 0.4, GFR 100. Her sodium is within normal range now and her hypernatremia is resolved. Vitals: T 98.1 F, P 89 bpm, RR 24, BP 136/89, O2 sat 95% on room air General: nontoxic, no distress, appears at stated age, normal BMI Derm: warm, dry, intact Head: atraumatic, normocephalic, symmetric Eyes: EOMI, anicteric sclera Cardiovascular: S1 S2 reg, no murmur Lungs: CTA bilateral, no rhonchi, no rales, no accessory muscle use Abdominal: soft, non-tender to palpation, with PEG tube Extremities: no gross muscle atrophy, no edema Neuro: Mentation better but still does not respond much Assessment: Hypernatremia associated with free water deficit. S/p free water through the PEG tube and D5 normal saline. 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 Altered mentation being followed by neurology. Routine EEG abnormal, background slowing suggestive of moderate to severe encephalopathy. Continued presence of epileptic focus particularly in the left hemispheric lesion Plan: Patient currently getting water flushes 200cc q6h with TFs Tube feeds at 75cc/hr Patient's hypernatremia and free water deficit has resolved. We will sign off on this patient. I have seen and examined the patient with resident and agree with A&P as written. Objective - Vital Signs Vital signs: Vital Signs Temp 98.1 F 05/02/24 07:15 Pulse 89 05/02/24 07:15 Resp 24 05/02/24 07:15 BP 136/89 05/02/24 07:15 Pulse Ox 95 05/02/24 07:15 FiO2 35 04/18/24 17:36 Intake & Output 05/01/24 05/02/24 05/02/24 18:59 06:59 18:59 Output Total 200 Balance -200 Weight 46.5 kg 46.5 kg Output: Urine 200 Other: Voiding Method Diaper Diaper Diaper Incontinent Incontinent Incontinent External Catheter External Catheter # Voids 1 # Bowel Movements 1 - Labs CBC & Chem 7: 05/02/24 05:17 05/02/24 05:17 Labs: Abnormal Lab Results - Last 24 Hours (Table) 05/01/24 05/02/24 05/02/24 Range/Units 19:56 05:17 05:17 RBC 3.63 L (4.10-5.20) X 10*6/uL Hgb 11.4 L (12.0-15.0) g/dL Hct 35.2 L (37.2-46.3) % Immature Gran # 0.12 H (0.00-0.04) X 10*3/uL Creatinine 0.4 L (0.6-1.5) mg/dL BUN/Creatinine Ratio 29.25 H (12.00-20.00) Ratio Glucose 153 H (70-110) mg/dL POC Glucose (mg/dL) 114 H (70-110) mg/dL Total Bilirubin <0.2 L (0.3-1.2) mg/dL Alkaline Phosphatase 178 H (41-126) U/L Total Protein 5.9 L (6.2-8.2) g/dL Albumin 3.2 L (3.8-4.9) g/dL Albumin/Globulin Ratio 1.19 L (1.60-3.17) Ratio 05/02/24 Range/Units 07:20 RBC (4.10-5.20) X 10*6/uL Hgb (12.0-15.0) g/dL Hct (37.2-46.3) % Immature Gran # (0.00-0.04) X 10*3/uL Creatinine (0.6-1.5) mg/dL BUN/Creatinine Ratio (12.00-20.00) Ratio Glucose (70-110) mg/dL POC Glucose (mg/dL) 146 H (70-110) mg/dL Total Bilirubin (0.3-1.2) mg/dL Alkaline Phosphatase (41-126) U/L Total Protein (6.2-8.2) g/dL Albumin (3.8-4.9) g/dL Albumin/Globulin Ratio (1.60-3.17) Ratio Microbiology - Last 24 Hours (Table) 04/29/24 12:04 Blood Culture - Preliminary Blood
[2024-05-02 12:11] LABS: Glucose,Whole Blood 174 mg/dL (70-110)
--- NOTE | 2024-05-02 13:07 | P.PN ---
Subjective Progress Note Date: 05/02/24 HISTORY OF PRESENT ILLNESS: This is an 78-year-old female with a previous medical history signi ficant for hypertension and hypertensive cardiovascular disease, hyperlipidemia, history of asthma, history of major cerebrovascular accident that was in December 2023 when she suffered from significant intracranial hemorrhage she was initially evaluated at [facility] at that time, and she was transported to a tertiary care center at [facility], she ended up having evacuation of the hematoma and after that she had a prolonged hospital stay due to significant respiratory failure requiring ventilator and a trach placement along with a PEG tube placement, she became nonverbal, she had dense right-sided hemiplegia, patient apparently transported to [facility] and after that she was transported to [facility] for physical therapy and rehabilitation, she was under the care of a different physician, I assumed her care care few weeks ago at [facility], patient had contacted COVID-19 about a week ago and she developed to have a significant respiratory distress at that time, she had a chest x-ray did not show evidence of acute or maladies she could not take Paxlovid because she was unable to swallow the medications, and we could not crush the medicine put in the PEG tube, patient was treated with supportive care at that time, she was given zinc as well as vitamin D and vitamin C and she was given some breathing treatment, patient has done well up till yesterday when the patient became more obtunded and she has been none verbal ever since her stroke, and the family requested the patient to be transported to the emergency department [facility], she had a CT scan of brain did not show evidence of acute normalities, but because of her presentation she was sent for CT angiography of the chest to rule out any pulm embolism that was negative, but because of the presentation she was admitted to the hospital initially family were in agreement to go for no code and a hospice consult however they changed her mind next day after I spoke with the daughter and the and they stated they wanted her to continue current treatment without any resuscitation at this point in time, I consulted neurology and obtained MRI of the brain with and without deion. 04/20: Patient is more awake and more alert today, she is nonverbal, she is not responding to any verbal stimuli at this time, she is staring at everybody and but she is not following any command at this point in time, she is not moving her upper or lower extremities, she is scheduled to go for MRI of the brain with and without gadolinium at 3:00 this afternoon, I will continue to follow-up with the patient very closely continue patient on Keppra 500 mg per PEG tube twice every day, neurology is following, we will continue with current treatment at this point in time until further recommendation the family stated that the patient is a candidate to go for inpatient rehabilitation I will discuss this with physical therapy and Occupational Therapy will keep patient on nothing per mouth until evaluated by the speech therapist again. 04/21: Patient is laying down in bed does not follow any commands at this point in time, her daughter who is a visiting dentist from [place] is having issues with her mom going back to [facility] [address] at this time, and she think her mother can go home and according to what [employer] suggested for the patient to be a good candidate for inpatient rehabilitation as well as physical therapy we will discuss with them and we will consult Dr. Melara for further evaluation recommendation patient underwent MRI of the brain with and without deion that showed evidence of right frontal AV malformation, and our neurologist recommended outpatient angiogram by neurosurgery that she has seen at [facility], meanwhile the patient had an EEG did not show evidence of acute seizure, continue Keppra for now, continue current treatment plan, will follow-up with the patient very closely, apparently the family is not ready for hospice at this point in time, and they want the patient to have more physical therapy in an inpatient rehab facility. 04/24: Patient is laying down in bed in no apparent distress, she continues to be nonverbal, at this time, she does not follow any commands at this point in time, family were concerned that the patient is having urinary tract infection, she did have a urinalysis did not show evidence of acute infection at this time, they were concerned that the patient is not getting enough fluid discussed with the dietitian, to give the patient 125 cc of water every 8 hours, continue current tube feeding, patient did have an EEG done by neurology and that showed evidence of seizure activity of the left frontal area, she has been maintained on Keppra that was increased to 1000 mg twice every day and she was started on Vimpat 200 mg daily. Will continue to monitor the patient very closely follow- up with the patient very closely at this point in time. 04/25: Patient has been seen by inpatient rehab for evaluation but because patient is unable to participate with therapy in the current state, hospice seems appropriate at this time. If patient has improvements would recommend [facility] for slower pace rehab. Family is considering returning the patient home with 24-hour care and social work is following for discharge planning. Family declined hospice services. Vital signs have been stable and patient has been afebrile. 04/26: Patient is about the same, she is completely unresponsive, she barely open her eyes in response to verbal stimuli, her was at the bedside, he was advised about transferring the patient back to [facility] on [address] and after making a decision on transferring her out of the state to a different institution that can be done as an outpatient, I spoke with Dr. Winston yesterday in the neurologist who recommended for the patient to be transferred to [facility] I spoke with [facility] and they declined the transfer at this point in time because is not can add anything for her treatment at this point, her seizure medications were adjusted, patient continues to be about the same, we will start her on a small dose of IV fluid resuscitation in the form of normal saline at 50 cc an hour, repeat her labs tomorrow morning, I will follow- up with the patient 04/27: Patient is laying down in bed that she continues to be unresponsive, both of her daughters were at the bedside, patient does not appear to have improved despite current treatment plan, we will continue to monitor the patient very closely, patient was taken down on her Keppra to 500 mg orally twice per day because the patient is completely obtunded, she was also started on Dilantin 200 mg IV piggyback every 12 hours, she was also on Vimpat 100 mg IV push every 12 hours, monitor the patient Dilantin level, monitor the patient very closely, once the patient is seizures controlled patient can be transferred back to [facility] [address], and then the final decision will be made by the family whether or not the family is interested with hospice or end-of-life care at this point in time. 04/28: Patient is laying down in bed she opened her eye once while we were going to adjust her body position, she appears to be somewhat rhonchorous, will discontinue IV fluid, will obtain chest x-ray, I spoke with neurology about Dilantin that was increased to 200 mg of piggyback every 12 hours, she was decr eased on Vimpat 200 mg IV push every 12 hours and Keppra down to 500 mg twice every day, we will continue to follow up with the patient very closely, patient will have a daily EEG once her activity is better patient can be discharged to either [facility] [address] versus hospice home on Wednesday a consult was placed for [facility] at this point in time since the patient appears to be at end-stage. 04/29: Patient is laying down in bed she does not follow much command, however she is more awake and alert she underwent chest x-ray yesterday that showed atelectasis and possible right lower lobe pneumonia could be aspiration, we will start the patient on Azactam 1 g IV piggyback every 8 hours since the patient is allergic to penicillin, and we will monitor the patient very closely I will a void fluoroquinolones because of her seizure activity, patient did have another EEG yesterday that showed evidence of significant encephalopathy with epileptic activity in the left hemispheric area, we will continue patient on current treatment plan, she was started back on Dilantin 200 mg of piggyback every 12 hours, Vimpat 100 mg IV push every 12 hours, as well as Keppra was down to 500 mg twice every day, neurology is following, try to transfer the patient to [facility] for continuous EEG monitoring but that was declined, her sodium was elevated due to water deficit her sodium went up to 150 nephrology consultation was obtained, increase her free fluid flushes in the PEG tube to 204 times every day continue IV fluid in the form of D5 half-normal saline, follow-up with the patient sodium this afternoon I spoke with the family including and 2 daughters and they are in the Process of transferring the patient to [facility] to another extended-care facility. 04/30: Patient is about the same, opens her eyes but she does not follow much commands, she is laying down in bed does not appear to be in acute distress, she has been maintained on IV fluid in the form of D5 normal saline at 75 cc an hour increase of fluid flushes in the PEG tube to 200 mL 4 times every day, her sodium last night was 146 sodium from today still pending at the time of dictation, restart the patient back on her metformin 500 mg twice every day, continue to monitor the patient very closely discussed with social professionals tomorrow the possibility of transferring the patient from hospital to [facility] or going to [facility] and then getting transferred. 05/01: Patient is laying down in bed she is more awake and alert, she is not saying anything however she is tracking her eyes, she does appear to yawn once in a while, her potassium is a bit on the lower side at 3.2, we will replace, we will discontinue IV fluid resuscitation at this point in time, we will follow-up with the patient very closely, family is interested to transfer the patient to a facility in the [place] that they already have a bed for her we will discuss with the social professionals and will take it from there. Patient will need to have 4 more days of IV antibiotic prior to her discharge or she can do this as an outpatient. 05/02: Patient is more awake and more alert today, she is tracking with her eyes, she does not appear to be in acute distress, her vital signs appears to be stable at this point in time, we are awaiting the final disposition for the patient to be transferred to medical care facility in [facility] based on the family request. edge worker and [employer] are involved. REVIEW OF SYSTEMS: Patient is unresponsive at this point in time. Could not obtain any review of system PHYSICAL EXAMINATION: General: 78-year-old female laying down in bed does not respond to verbal stimuli. HEENT: Head is atraumatic, normocephalic, pupils were equal patient does not follow any command at this time and her mucous membranes of mouth are somewhat dry. Neck: Supple, no JVP, normal carotid upstroke bilaterally, no lymphadenopathy. Chest: Decreased breath sounds at the bases, few rhonchi, no expiratory wheezes, no chest wall tenderness, no intercostal retractions. Heart: First heart sound is normal, second heart sounds normal Abdomen: Soft, nontender, nondistended, positive bowel sounds. PEG tube in place. Extremities: There is no edema no calf tenderness DP +2 bilaterally. Neurologic examination: Patient is unresponsive at this point in time, she is clenching both upper and lower extremities, she does have a baseline right-sided hemiplegia. ASSESSMENT AND PLAN: 1. Acute toxic metabolic encephalopathy due to seizure activity as well as h ypovolemic hyponatremia due to water deficit.. Patient underwent CT of the brain as well as MRI of the brain with and without deion that showed evidence of AV malformation of the right frontal area, patient underwent another EEG today that showed evidence of epileptic form in the left hemispheric,, she has been on Keppra to 500 mg twice every day and Vimpat 100 mg IV push twice a day, along with Dilantin 200 mg of piggyback every 12 hours neurology is following at this point in time, we will follow-up with the patient very closely, patient has been having EEG on a daily basis, urinalysis did not show any evidence of any urinary tract infection at this point in time, chest x-ray showed evidence of right lower lobe atelectasis versus pneumonia she was started on Azactam 1 g of piggyback every 8 hours. 2. History of intracranial bleed with right sided hemiplegia status post surgical intervention status post tracheostomy placement removal status post PEG tube placement, patient is currently nonverbal she is a wheelchair/bedbound with right-sided hemiplegia. Continue Keppra 500 mg twice every day, Vimpat 100 mg IV push twice every day monitor levels. Also Dilantin 200 mg with piggyback every 12 hours. MRI did show evidence of right frontal AV malformation that she will need to have an angiogram as an outpatient. However the patient is not a candidate for any invasive procedure at this point in time. 3. Hypertension and hypertensive cardiovascular disease. Continue amlodipine 10 mg orally once every day, continue metoprolol 25 mg per PEG tube twice every day, continue with lisinopril 20 mg once every day. Monitor the patient blood pressure very closely. 4. Mixed hyperlipidemia. Start the patient on atorvastatin 40 mg once every day. 5. Diabetes mellitus type 2. Continue Levemir 15 units at bedtime along with the Farxiga 5 mg once every day, continue sliding scale insulin, patient has been off metformin however will restart 500 mg twice every day. 6. Parkinsonism. Patient was taken off Sinemet per the request of her family and we will start her back on amantadine 100 mg per PEG tube once every day per their request as well. 7. Right lower lobe pneumonia versus atelectasis. Start the patient on Azactam 1 g piggyback every 8 hours, monitor the patient very closely during her hospital stay. Aspiration precautions. 8. Recent COVID-19 infection resolved. 9. Hypernatremia due to hypovolemia and free water deficit. continue IV fluid to D5 half-normal saline at 75 cc an hour, increase free water flushes through the PEG tube, 200 ml 4 times every day, nephrology consultation Dr. Montoya appreciated. 10. DVT prophylaxis. Continue Lovenox 40 mg subcutaneous every 24 hours. 11. GI prophylaxis. Continue patient on famotidine 20 mg per PEG tube once every day. 12. Medical debility continue physical therapy and Occupational Therapy. 13. patient prognosis is continued to be dismal . 14. Patient continues to be DNR. 15. Family is interested in transferring the patient to an extended care facility in [facility] we will discuss with social professionals. 16. Hypokalemia status post replacement. 17. Awaiting social professionals for placement and transferring the patient to [facility] to [facility] care facility. Objective - Vital Signs Vital signs: Vital Signs Temp 99.4 F 05/02/24 01:19 Pulse 86 05/02/24 01:19 Resp 18 05/02/24 01:19 BP 159/75 05/02/24 01:19 Pulse Ox 97 05/02/24 01:19 FiO2 35 04/18/24 17:36 Intake & Output 05/01/24 05/02/24 05/02/24 18:59 06:59 18:59 Output Total 200 Balance -200 Weight 46.5 kg Output: Urine 200 Other: Voiding Method Diaper Diaper Incontinent Incontinent External Catheter # Voids 1 # Bowel Movements 1 - Labs CBC & Chem 7: 05/02/24 05:17 05/02/24 05:17 Labs: Abnormal Lab Results - Last 24 Hours (Table) 05/01/24 05/02/24 05/02/24 Range/Units 19:56 05:17 07:20 RBC 3.63 L (4.10-5.20) X 10*6/uL Hgb 11.4 L (12.0-15.0) g/dL Hct 35.2 L (37.2-46.3) % Immature Gran # 0.12 H (0.00-0.04) X 10*3/uL POC Glucose (mg/dL) 114 H 146 H (70-110) mg/dL Microbiology - Last 24 Hours (Table) 04/29/24 12:04 Blood Culture - Preliminary Blood
[2024-05-02 16:59] LABS: Glucose,Whole Blood 105 mg/dL (70-110)
--- NOTE | 2024-05-02 18:04 | P.PN ---
Subjective Progress Note Date: 05/02/24 I am following up with the patient and according to the nurse she has not seen any drastic improvement with the patient. She is not verbalizing to the nurse. Upon seeing her she seems about the same she is not verbalizing to me. I do not think there is any drastic improvement. Objective - Vital Signs Vital signs: Vital Signs Temp 98.7 F 05/02/24 13:16 Pulse 89 05/02/24 13:16 Resp 20 05/02/24 13:16 BP 135/80 05/02/24 13:16 Pulse Ox 96 05/02/24 13:16 FiO2 35 04/18/24 17:36 Intake & Output 05/01/24 05/02/24 05/02/24 18:59 06:59 18:59 Output Total 200 500 Balance -200 -500 Weight 46.5 kg 46.5 kg Output: Urine 200 500 Other: Voiding Method Diaper Diaper Diaper Incontinent Incontinent Incontinent External Catheter External Catheter # Voids 1 # Bowel Movements 1 1 - Exam General: Lying in bed and does not appear in acute distress. Neuro: Very Limited. Severely drowsy but opens her eyes to voice. Not verbalizing or following commands. - Labs CBC & Chem 7: 05/02/24 05:17 05/02/24 05:17 Labs: Abnormal Lab Results - Last 24 Hours (Table) 05/01/24 05/02/24 05/02/24 Range/Units 19:56 05:17 05:17 RBC 3.63 L (4.10-5.20) X 10*6/uL Hgb 11.4 L (12.0-15.0) g/dL Hct 35.2 L (37.2-46.3) % Immature Gran # 0.12 H (0.00-0.04) X 10*3/uL Creatinine 0.4 L (0.6-1.5) mg/dL BUN/Creatinine Ratio 29.25 H (12.00-20.00) Ratio Glucose 153 H (70-110) mg/dL POC Glucose (mg/dL) 114 H (70-110) mg/dL Total Bilirubin <0.2 L (0.3-1.2) mg/dL Alkaline Phosphatase 178 H (41-126) U/L Total Protein 5.9 L (6.2-8.2) g/dL Albumin 3.2 L (3.8-4.9) g/dL Albumin/Globulin Ratio 1.19 L (1.60-3.17) Ratio 05/02/24 05/02/24 Range/Units 07:20 12:10 RBC (4.10-5.20) X 10*6/uL Hgb (12.0-15.0) g/dL Hct (37.2-46.3) % Immature Gran # (0.00-0.04) X 10*3/uL Creatinine (0.6-1.5) mg/dL BUN/Creatinine Ratio (12.00-20.00) Ratio Glucose (70-110) mg/dL POC Glucose (mg/dL) 146 H 174 H (70-110) mg/dL Total Bilirubin (0.3-1.2) mg/dL Alkaline Phosphatase (41-126) U/L Total Protein (6.2-8.2) g/dL Albumin (3.8-4.9) g/dL Albumin/Globulin Ratio (1.60-3.17) Ratio Microbiology - Last 24 Hours (Table) 04/29/24 12:04 Blood Culture - Preliminary Blood Assessment and Plan Assessment: This is an 78-year-old woman who on November 2023 had left basal ganglia bleed with intraventricular hemorrhage on the CT in our facility as a result she was transferred to [facility] and had EVD and was placed on Keppra intubated on a ventilator. Per family members as result of stroke she had right-sided weakness then eventually was discharged to rehab. 2 weeks ago she had COVID-19. She is having fluctuation in mentation. Also she was evaluated by her outpatient neurologist who on 04/06/2024 suspected Parkinson's questionable due to her bleed and placed her on Sinemet, was placed on Baclofen which Baclofen was discontinue who is recently having altered mental status. Altered mental status fluctuation in mentation seems more delirium. Initial EEG is negative for seizure or discharges, however repeat EEG performed 04/24/2024 showed epileptiform activity over the left temporal parietal region. 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 Parmar but on my most recent EEG no seizure noted and clinically for past two weeks no clinical improvement. 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 I will not change dose of Dilantin even if low since electrographically no seizure and clinically she seems about the same for past two weeks. Repeat prolonged 1 hour EEG on 05/01/2024: Is abnormal. The parkinsonian suggestive of mild to moderate encephalopathy. There is no focal slowing or seizure noted during the study. There is sharply contoured activity over the left temporal region which can increase risk of cortical irritability but no clear seizure or discharges noted. EEG 04/28/2024: Abnormal EEG due to background slowing, suggestive of moderate to severe encephalopathy. Continued presence of epileptic focus particularly invo lving the left hemispheric region. Very frequent left temporal parietal sharp waves were seen, which sometimes generalized to bihemispheric region. Very rare right parietal sharp waves were seen. Overall this is suggestive of severe encephalopathy with underlying multifocal irritable foci, with tendency for partial onset seizures. In an appropriate clinical setting, nonconvulsive status can be considered. Continuous EEG monitoring recommended. Repeat Stat Dilantin level was checked. It was 11.6. We will reload Dilantin 250 mg x 1 dose to increase the level. Continue same dose of Vimpat 100 mg twice daily and Keppra 500 mg twice daily. EEG 04/27/2024 revealed background slowing, suggestive of moderate encephalopathy. Remarkable improvement in the epileptiform activity, with resolution of electrographic nonconvulsive status. Sporadic left or right temporal independent sharp waves were seen during the study. This may suggest underlying cortical irritability. Clinical correlation recommended. Continue Dilantin 200 mg twice daily, decreased Vimpat to 100 mg twice daily because of severe somnolence, also Keppra decreased to 500 mg twice daily. Repeat EEG in the morning to make sure patient is staying out of status, before the weekend. EEG 04/26/2024 was abnormal due to background slowing, suggestive of moderate to severe encephalopathy. Continued presence of intermittent epileptiform activity involving the right parietal and left parietal temporal region, independent and sometimes bisynchronous. In the appropriate setting, nonconvulsive status cannot have this presentation. Suggest continuous EEG monitoring. Patient was started on Dilantin therapy. EEG 04/25/2024 revealed continued presence of epileptiform activity now fluctuating between the right hemispheric region and left and sometimes bisynchronous, at times becomes repetitive at 1 Hz. No clear-cut electrographic seizure however was seen. When compared to the EEG from yesterday, there is improvement in the epileptiform activity over the left hemispheric region, but now with more involvement of the right hemispheric region. Clinical correlation and continuous EEG monitoring recommended. Vimpat increased to 200 mg twice daily and Keppra 1500 mg twice daily. EEG 04/24/2024 revealed epileptic focus involving the left temporal parietal region, and also evidence of moderate to severe background slowing, consistent with encephalopathy. No electrographic seizure was recorded. Patient was placed on Vimpat 200 mg loading dose followed by 100 mg IV twice daily. Also dose of Keppra was increased from 500 to 1000 mg twice daily. I discontinued her Sinemet on 04/19/2024 since per family no improvement in her condition with medication and patient were in agreement of discontinuing medication. Will defer the rest of the medical management to primary and other specialist Patient's overall prognosis for meaningful recovery appears poor. Consider palliative care. Plan discussed with the patient nurse. Time with Patient: Less than 30
[2024-05-02 20:17] LABS: Glucose,Whole Blood 100 mg/dL (70-110)
[2024-05-03 07:19] LABS: Glucose,Whole Blood 159 mg/dL (70-110)
[2024-05-03 10:47] LABS: Basophils # (A) 0.08 X 10*3/uL (0.00-0.10); Basophils % (A) 0.9 %; Eosinophils # (A) 0.23 X 10*3/uL (0.04-0.35); Eosinophils % (A) 2.7 %; HGB 11.7 g/dL (12.0-15.0); Lymphocytes # (A) 1.55 X 10*3/uL (0.90-5.00); Lymphocytes % (A) 17.9 %; MCH 31.5 pg (27.0-32.0); MCHC 31.6 g/dL (32.0-37.0); MCV 99.7 FL (80.0-97.0); Monocytes # (A) 0.67 X 10*3/uL (0.20-1.00); Monocytes % (A) 7.7 %; NRBC Per 100 WBC 0 X 10*3/uL (0.00-0.01); Neutrophils # (A) 5.96 X 10*3/uL (1.80-7.70); Neutrophils % (A) 68.8 %; Platelet Count 353 X 10*3/uL (140-440); RBC 3.71 X 10*6/uL (4.10-5.20); RDW 13.2 % (11.5-14.5); WBC 8.66 X 10*3/uL (4.50-10.00)
[2024-05-03 11:00] LABS: ALT 41 U/L (8-44); AST 24 U/L (13-35); Albumin 3.1 g/dL (3.8-4.9); Albumin/Globulin Ratio 1.15 Ratio (1.60-3.17); Alkaline Phosphatase 182 U/L (41-126); Blood Urea Nitrogen 13.8 mg/dL (9.0-27.0); Calcium 9.2 mg/dL (8.7-10.3); Carbon Dioxide 27.2 mmol/L (21.6-31.8); Chloride 105 mmol/L (96-109); Globulin 2.7 g/dL (1.6-3.3); Glucose 148 mg/dL (70-110); Potassium 4.1 mmol/L (3.5-5.5); Sodium 141 mmol/L (135-145); Total Bilirubin <0.2 mg/dL (0.3-1.2); Total Protein 5.8 g/dL (6.2-8.2)
[2024-05-03 12:24] LABS: Glucose,Whole Blood 171 mg/dL (70-110)
--- NOTE | 2024-05-03 14:55 | P.PN ---
Subjective Progress Note Date: 05/03/24 I am following-up with patient and per her nurse continues about the same and no improvement in her symptoms. It seems she was accepted to rehab in [place] where her daughters reside. Objective - Vital Signs Vital signs: Vital Signs Temp 97.9 F 05/03/24 12:27 Pulse 84 05/03/24 12:27 Resp 18 05/03/24 12:27 BP 126/80 05/03/24 12:27 Pulse Ox 97 05/03/24 07:20 FiO2 35 04/18/24 17:36 Intake & Output 05/02/24 05/03/24 05/03/24 18:59 06:59 18:59 Output Total 500 300 Balance -500 -300 Weight 46.5 kg 44 kg Output: Urine 500 300 Other: Voiding Method Diaper Diaper Diaper Incontinent Incontinent Incontinent External Catheter External Catheter External Catheter # Bowel Movements 1 1 1 - Exam General: Lying in bed and does not appear in acute distress. Neuro: Very Limited. Severely drowsy but opens her eyes to voice. Not verbalizing or following commands. - Labs CBC & Chem 7: 05/03/24 05:05 05/03/24 05:05 Labs: Abnormal Lab Results - Last 24 Hours (Table) 05/03/24 05/03/24 05/03/24 Range/Units 05:05 05:05 07:18 RBC 3.71 L (4.10-5.20) X 10*6/uL Hgb 11.7 L (12.0-15.0) g/dL Hct 37.0 L (37.2-46.3) % MCV 99.7 H (80.0-97.0) FL MCHC 31.6 L (32.0-37.0) g/dL Immature Gran # 0.17 H (0.00-0.04) X 10*3/uL Creatinine 0.4 L (0.6-1.5) mg/dL BUN/Creatinine Ratio 34.50 H (12.00-20.00) Ratio Glucose 148 H (70-110) mg/dL POC Glucose (mg/dL) 159 H (70-110) mg/dL Total Bilirubin <0.2 L (0.3-1.2) mg/dL Alkaline Phosphatase 182 H (41-126) U/L Total Protein 5.8 L (6.2-8.2) g/dL Albumin 3.1 L (3.8-4.9) g/dL Albumin/Globulin Ratio 1.15 L (1.60-3.17) Ratio 05/03/24 Range/Units 12:22 RBC (4.10-5.20) X 10*6/uL Hgb (12.0-15.0) g/dL Hct (37.2-46.3) % MCV (80.0-97.0) FL MCHC (32.0-37.0) g/dL Immature Gran # (0.00-0.04) X 10*3/uL Creatinine (0.6-1.5) mg/dL BUN/Creatinine Ratio (12.00-20.00) Ratio Glucose (70-110) mg/dL POC Glucose (mg/dL) 171 H (70-110) mg/dL Total Bilirubin (0.3-1.2) mg/dL Alkaline Phosphatase (41-126) U/L Total Protein (6.2-8.2) g/dL Albumin (3.8-4.9) g/dL Albumin/Globulin Ratio (1.60-3.17) Ratio Microbiology - Last 24 Hours (Table) 04/29/24 12:04 Blood Culture - Preliminary Blood Assessment and Plan Assessment: This is an 78-year-old woman who on November 2023 had 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 Per family members as result of stroke she had right-sided weakness then eventually was discharged to rehab. 2 weeks ago she had COVID-19. She is having fluctuation in mentation. Also [facility] who on 04/06/2024 suspected Parkinson's questionable due to her bleed and placed her on Sinemet, was placed on Baclofen which Baclofen was discontinue who is recently having altered mental status. Altered mental status fluctuation in mentation seems more delirium. Initial EEG is negative for seizure or discharges, however repeat EEG performed 04/24/2024 showed epileptiform activity over the left temporal parietal region. 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 Parmar but on my most recent EEG no seizure noted and clinically for past two weeks no clinical improvement. 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 I will not change dose of Dilantin even if low since electrographically no seizure and clinically she seems about the same for past two weeks. Repeat prolonged 1 hour EEG on 05/01/2024: Is abnormal. The parkinsonian suggestive of mild to moderate encephalopathy. There is no focal slowing or seizure noted during the study. There is sharply contoured activity over the left temporal region which can increase risk of cortical irritability but no clear seizure or discharges noted. EEG 04/28/2024: Abnormal EEG due to background slowing, suggestive of moderate to severe encephalopathy. Continued presence of epileptic focus particularly involving the left hemispheric region. Very frequent left temporal parietal sharp waves were seen, which sometimes generalized to bihemispheric region. Very rare right parietal sharp waves were seen. Overall this is suggestive of severe encephalopathy with underlying multifocal irritable foci, with tendency for partial onset seizures. In an appropriate clinical setting, nonconvulsive status can be considered. Continuous EEG monitoring recommended. Repeat Stat Dilantin level was checked. It was 11.6. We will reload Dilantin 250 mg x 1 dose to increase the level. Continue same dose of Vimpat 100 mg twice daily and Keppra 500 mg twice daily. EEG 04/27/2024 revealed background slowing, suggestive of moderate encephalopathy. Remarkable improvement in the epileptiform activity, with resolution of electrographic nonconvulsive status. Sporadic left or right temporal independent sharp waves were seen during the study. This may suggest underlying cortical irritability. Clinical correlation recommended. Continue Dilantin 200 mg twice daily, decreased Vimpat to 100 mg twice daily because of severe somnolence, also Keppra decreased to 500 mg twice daily. Repeat EEG in the morning to make sure patient is staying out of status, before the weekend. EEG 04/26/2024 was abnormal due to background slowing, suggestive of moderate to severe encephalopathy. Continued presence of intermittent epileptiform activity involving the right parietal and left parietal temporal region, independent and sometimes bisynchronous. In the appropriate setting, nonconvulsive status cannot have this presentation. Suggest continuous EEG monitoring. Patient was started on Dilantin therapy. EEG 04/25/2024 revealed continued presence of epileptiform activity now fluctuating between the right hemispheric region and left and sometimes bisynchronous, at times becomes repetitive at 1 Hz. No clear-cut electrographic seizure however was seen. When compared to the EEG from yesterday, there is improvement in the epileptiform activity over the left hemispheric region, but now with more involvement of the right hemispheric region. Clinical correlation and continuous EEG monitoring recommended. Vimpat increased to 200 mg twice daily and Keppra 1500 mg twice daily. EEG 04/24/2024 revealed epileptic focus involving the left temporal parietal region, and also evidence of moderate to severe background slowing, consistent with encephalopathy. No electrographic seizure was recorded. Patient was placed on Vimpat 200 mg loading dose followed by 100 mg IV twice daily. Also dose of Keppra was increased from 500 to 1000 mg twice daily. I discontinued her Sinemet on 04/19/2024 since per family no improvement in her condition with medication and patient's family were in agreement of dis continuing medication. Will defer the rest of the medical management to primary and other specialist Patient's overall prognosis for meaningful recovery appears poor. Consider palliative care. Per nurse, she was accepted to rehab in [place] where her daughters reside. Plan discussed with the patient nurse. Time with Patient: Less than 30
--- NOTE | 2024-05-03 17:19 | P.PN ---
Subjective Progress Note Date: 05/03/24 HISTORY OF PRESENT ILLNESS: This is an 78-year-old female with a previous medical history signi ficant for hypertension and hypertensive cardiovascular disease, hyperlipidemia, history of asthma, history of major cerebrovascular accident that was in December 2023 when she suffered from significant intracranial hemorrhage she was initially evaluated at [facility] at that time, and she was transported to a tertiary care center at [facility], she ended up having evacuation of the hematoma and after that she had a prolonged hospital stay due to significant respiratory failure requiring ventilator and a trach placement along with a PEG tube placement, she became nonverbal, she had dense right-sided hemiplegia, patient apparently transported to [facility] and after that she was transported to [facility] for physical therapy and rehabilitation, she was under the care of a different physician, I assumed her care care few weeks ago at [facility], patient had contacted COVID-19 about a week ago and she developed to have a significant respiratory distress at that time, she had a chest x-ray did not show evidence of acute or maladies she could not take Paxlovid because she was unable to swallow the medications, and we could not crush the medicine put in the PEG tube, patient was treated with supportive care at that time, she was given zinc as well as vitamin D and vitamin C and she was given some breathing treatment, patient has done well up till yesterday when the patient became more obtunded and she has been none verbal ever since her stroke, and the family requested the patient to be transported to the emergency department [facility], she had a CT scan of brain did not show evidence of acute normalities, but because of her presentation she was sent for CT angiography of the chest to rule out any pulm embolism that was negative, but because of the presentation she was admitted to the hospital initially family were in agreement to go for no code and a hospice consult however they changed her mind next day after I spoke with the daughter and the and they stated they wanted her to continue current treatment without any resuscitation at this point in time, I consulted neurology and obtained MRI of the brain with and without deion. 04/20: Patient is more awake and more alert today, she is nonverbal, she is not responding to any verbal stimuli at this time, she is staring at everybody and but she is not following any command at this point in time, she is not moving her upper or lower extremities, she is scheduled to go for MRI of the brain with and without gadolinium at 3:00 this afternoon, I will continue to follow-up with the patient very closely continue patient on Keppra 500 mg per PEG tube twice every day, neurology is following, we will continue with current treatment at this point in time until further recommendation the family stated that the patient is a candidate to go for inpatient rehabilitation I will discuss this with physical therapy and Occupational Therapy will keep patient on nothing per mouth until evaluated by the speech therapist again. 04/21: Patient is laying down in bed does not follow any commands at this point in time, her daughter who is a visiting dentist from [place] is having issues with her mom going back to [facility] on the [place] at this time, and she think her mother can go home and according to what sample case porter suggested for the patient to be a good candidate for inpatient rehabilitation as well as physical therapy we will discuss with them and we will consult Dr. Melara for further evaluation recommendation patient underwent MRI of the brain with and without deion that showed evidence of right frontal AV malformation, and our neurologist recommended outpatient angiogram by neurosurgery that she has seen at [facility], meanwhile the patient had an EEG did not show evidence of acute seizure, continue Keppra for now, continue current treatment plan, will follow-up with the patient very closely, apparently the family is not ready for hospice at this point in time, and they want the patient to have more physical therapy in an inpatient rehab facility. 04/24: Patient is laying down in bed in no apparent distress, she continues to be nonverbal, at this time, she does not follow any commands at this point in time, family were concerned that the patient is having urinary tract infection, she did have a urinalysis did not show evidence of acute infection at this time, they were concerned that the patient is not getting enough fluid discussed with the dietitian, to give the patient 125 cc of water every 8 hours, continue current tube feeding, patient did have an EEG done by neurology and that showed evidence of seizure activity of the left frontal area, she has been maintained on Keppra that was increased to 1000 mg twice every day and she was started on Vimpat 200 mg daily. Will continue to monitor the patient very closely follow- up with the patient very closely at this point in time. 04/25: Patient has been seen by inpatient rehab for evaluation but because patient is unable to participate with therapy in the current state, hospice seems appropriate at this time. If patient has improvements would recommend [facility] for slower pace rehab. Family is considering returning the patient home with 24-hour care and social work is following for discharge planning. Family declined hospice services. Vital signs have been stable and patient has been afebrile. 04/26: Patient is about the same, she is completely unresponsive, she barely open her eyes in response to verbal stimuli, her was at the bedside, he was advised about transferring the patient back to [facility] on [facility] and after making a decision on transferring her out of the state to a different institution that can be done as an outpatient, I spoke with Dr. Winston yesterday in the neurologist who recommended for the patient to be transferred to [facility] I spoke with [facility] and they declined the transfer at this point in time because is not can add anything for her treatment at this point, her seizure medications were adjusted, patient continues to be about the same, we will start her on a small dose of IV fluid resuscitation in the form of normal saline at 50 cc an hour, repeat her labs tomorrow morning, I will follow- up with the patient 04/27: Patient is laying down in bed that she continues to be unresponsive, both of her daughters were at the bedside, patient does not appear to have improved despite current treatment plan, we will continue to monitor the patient very closely, patient was taken down on her Keppra to 500 mg orally twice per day because the patient is completely obtunded, she was also started on Dilantin 200 mg IV piggyback every 12 hours, she was also on Vimpat 100 mg IV push every 12 hours, monitor the patient Dilantin level, monitor the patient very closely, once the patient is seizures controlled patient can be transferred back to [facility] on [facility], and then the final decision will be made by the family whether or not the family is interested with hospice or end-of-life care at this point in time. 04/28: Patient is laying down in bed she opened her eye once while we were going to adjust her body position, she appears to be somewhat rhonchorous, will discontinue IV fluid, will obtain chest x-ray, I spoke with neurology about Dilantin that was increased to 200 mg of piggyback every 12 hours, she was decr eased on Vimpat 200 mg IV push every 12 hours and Keppra down to 500 mg twice every day, we will continue to follow up with the patient very closely, patient will have a daily EEG once her activity is better patient can be discharged to either [facility] on the [place] versus hospice home on Wednesday a consult was placed for [facility] at this point in time since the patient appears to be at end-stage. 04/29: Patient is laying down in bed she does not follow much command, however she is more awake and alert she underwent chest x-ray yesterday that showed atelectasis and possible right lower lobe pneumonia could be aspiration, we will start the patient on Azactam 1 g IV piggyback every 8 hours since the patient is allergic to penicillin, and we will monitor the patient very closely I will a void fluoroquinolones because of her seizure activity, patient did have another EEG yesterday that showed evidence of significant encephalopathy with epileptic activity in the left hemispheric area, we will continue patient on current treatment plan, she was started back on Dilantin 200 mg of piggyback every 12 hours, Vimpat 100 mg IV push every 12 hours, as well as Keppra was down to 500 mg twice every day, neurology is following, try to transfer the patient to [facility] for continuous EEG monitoring but that was declined, her sodium was elevated due to water deficit her sodium went up to 150 nephrology consultation was obtained, increase her free fluid flushes in the PEG tube to 204 times every day continue IV fluid in the form of D5 half-normal saline, follow-up with the patient sodium this afternoon I spoke with the family including and 2 daughters and they are in the Process of transferring the patient to [facility] to another extended-care facility. 04/30: Patient is about the same, opens her eyes but she does not follow much commands, she is laying down in bed does not appear to be in acute distress, she has been maintained on IV fluid in the form of D5 normal saline at 75 cc an hour increase of fluid flushes in the PEG tube to 200 mL 4 times every day, her sodium last night was 146 sodium from today still pending at the time of dictation, restart the patient back on her metformin 500 mg twice every day, continue to monitor the patient very closely discussed with social work assistant tomorrow the possibility of transferring the patient from hospital to [facility] or going to [facility] and then getting transferred. 05/01: Patient is laying down in bed she is more awake and alert, she is not saying anything however she is tracking her eyes, she does appear to yawn once in a while, her potassium is a bit on the lower side at 3.2, we will replace, we will discontinue IV fluid resuscitation at this point in time, we will follow-up with the patient very closely, family is interested to transfer the patient to a facility in the [place] that they already have a bed for her we will discuss with the social work assistant and will take it from there. Patient will need to have 4 more days of IV antibiotic prior to her discharge or she can do this as an outpatient. 05/02: Patient is more awake and more alert today, she is tracking with her eyes, she does not appear to be in acute distress, her vital signs appears to be stable at this point in time, we are awaiting the final disposition for the patient to be transferred to medical care facility in [facility] based on the family request. delivery sales worker and cyanide case hardener are involved. 05/03: I spoke with the social work assistant/cyanide case hardener stating that [facility] will take the patient tentatively on May 05, 2024, patient is appearing to be more awake and alert, continues to be on IV antibiotic in the form of Azactam 1 g piggyback every 8 hours, for another 48 hours today and tomorrow hopefully by Wednesday she will be done with IV antibiotic and the patient can be discharged and transferred to [place] closer to her family, we will continue current seizure medication at this point in time, neurology has been following, nephrology has been following as well, continue to monitor the patient electrolyte and Dilantin level as well. REVIEW OF SYSTEMS: Patient is unresponsive at this point in time. Could not obtain any review of system PHYSICAL EXAMINATION: General: 78-year-old female laying down in bed does not respond to verbal stimuli. HEENT: Head is atraumatic, normocephalic, pupils were equal patient does not follow any command at this time and her mucous membranes of mouth are somewhat dry. Neck: Supple, no JVP, normal carotid upstroke bilaterally, no lymphadenopathy. Chest: Decreased breath sounds at the bases, few rhonchi, no expiratory wheezes, no chest wall tenderness, no intercostal retractions. Heart: First heart sound is normal, second heart sounds normal Abdomen: Soft, nontender, nondistended, positive bowel sounds. PEG tube in place. Extremities: There is no edema no calf tenderness DP +2 bilaterally. Neurologic examination: Patient is unresponsive at this point in time, she is clenching both upper and lower extremities, she does have a baseline right-sided hemiplegia. ASSESSMENT AND PLAN: 1. Acute toxic metabolic encephalopathy due to seizure activity as well as hypovolemic hyponatremia due to water deficit.. Patient underwent CT of the brain as well as MRI of the brain with and without deion that showed evidence of AV malformation of the right frontal area, patient underwent another EEG today that showed evidence of epileptic form in the left hemispheric,, she has been on Keppra to 500 mg twice every day and Vimpat 100 mg IV push twice a day, along with Dilantin 200 mg of piggyback every 12 hours neurology is following at this point in time, we will follow-up with the patient very closely, patient has been having EEG on a daily basis, urinalysis did not show any evidence of any urinary tract infection at this point in time, chest x-ray showed evidence of right lower lobe atelectasis versus pneumonia she was started on Azactam 1 g of piggyback every 8 hours. 2. History of intracranial bleed with right sided hemiplegia status post surgical intervention status post tracheostomy placement removal status post PEG tube placement, patient is currently nonverbal she is a wheelchair/bedbound with right-sided hemiplegia. Continue Keppra 500 mg twice every day, Vimpat 100 mg IV push twice every day monitor levels. Also Dilantin 200 mg with piggyback every 12 hours. MRI did show evidence of right frontal AV malformation that she will need to have an angiogram as an outpatient. However the patient is not a candidate for any invasive procedure at this point in time. 3. Hypertension and hypertensive cardiovascular disease. Continue amlodipine 10 mg orally once every day, continue metoprolol 25 mg per PEG tube twice every day, continue with lisinopril 20 mg once every day. Monitor the patient blood pressure very closely. 4. Mixed hyperlipidemia. Start the patient on atorvastatin 40 mg once every day. 5. Diabetes mellitus type 2. Continue Levemir 15 units at bedtime along with the Farxiga 5 mg once every day, continue sliding scale insulin, patient has been off metformin however will restart 500 mg twice every day. 6. Parkinsonism. Patient was taken off Sinemet per the request of her family and we will start her back on amantadine 100 mg per PEG tube once every day per their request as well. 7. Right lower lobe pneumonia versus atelectasis. Continue the patient on Azactam 1 g piggyback every 8 hours, monitor the patient very closely during her hospital stay. Aspiration precautions. This is day 6 out of 7 tomorrow will be her last day. 8. Recent COVID-19 infection resolved. 9. Hypernatremia due to hypovolemia and free water deficit. continue IV fluid to D5 half-normal saline at 75 cc an hour, increase free water flushes through the PEG tube, 200 ml 4 times every day, nephrology consultation Dr. Montoya appreciated. 10. DVT prophylaxis. Continue Lovenox 40 mg subcutaneous every 24 hours. 11. GI prophylaxis. Continue patient on famotidine 20 mg per PEG tube once every day. 12. Medical debility continue physical therapy and Occupational Therapy. 13. patient prognosis is continued to be dismal . 14. Patient continues to be DNR. 15. Family is interested in transferring the patient to an extended care facility in [facility] we will discuss with social work assistant. 16. Hypokalemia status post replacement. 17. Patient hopefully will be accepted at [facility] on 05/05/2024 18. Stage II pressure ulcer that appears to be stable at this point in time, continue with turning the patient every 2 hours, continue with protein intake, continue with zinc oxide 20% once every day. 19. Overall prognosis is guarded. 20. Patient is DNR. Objective - Vital Signs Vital signs: Vital Signs Temp 97.9 F 05/03/24 12:27 Pulse 84 05/03/24 12:27 Resp 18 05/03/24 12:27 BP 126/80 05/03/24 12:27 Pulse Ox 97 05/03/24 07:20 FiO2 35 04/18/24 17:36 Intake & Output 05/02/24 05/03/24 05/03/24 18:59 06:59 18:59 Output Total 500 300 Balance -500 -300 Weight 46.5 kg 44 kg Output: Urine 500 300 Other: Voiding Method Diaper Diaper Incontinent Incontinent External Catheter External Catheter # Bowel Movements 1 1 - Labs CBC & Chem 7: 05/03/24 05:05 05/03/24 05:05 Labs: Abnormal Lab Results - Last 24 Hours (Table) 05/03/24 05/03/24 05/03/24 Range/Units 05:05 05:05 07:18 RBC 3.71 L (4.10-5.20) X 10*6/uL Hgb 11.7 L (12.0-15.0) g/dL Hct 37.0 L (37.2-46.3) % MCV 99.7 H (80.0-97.0) FL MCHC 31.6 L (32.0-37.0) g/dL Immature Gran # 0.17 H (0.00-0.04) X 10*3/uL Creatinine 0.4 L (0.6-1.5) mg/dL BUN/Creatinine Ratio 34.50 H (12.00-20.00) Ratio Glucose 148 H (70-110) mg/dL POC Glucose (mg/dL) 159 H (70-110) mg/dL Total Bilirubin <0.2 L (0.3-1.2) mg/dL Alkaline Phosphatase 182 H (41-126) U/L Total Protein 5.8 L (6.2-8.2) g/dL Albumin 3.1 L (3.8-4.9) g/dL Albumin/Globulin Ratio 1.15 L (1.60-3.17) Ratio 05/03/24 Range/Units 12:22 RBC (4.10-5.20) X 10*6/uL Hgb (12.0-15.0) g/dL Hct (37.2-46.3) % MCV (80.0-97.0) FL MCHC (32.0-37.0) g/dL Immature Gran # (0.00-0.04) X 10*3/uL Creatinine (0.6-1.5) mg/dL BUN/Creatinine Ratio (12.00-20.00) Ratio Glucose (70-110) mg/dL POC Glucose (mg/dL) 171 H (70-110) mg/dL Total Bilirubin (0.3-1.2) mg/dL Alkaline Phosphatase (41-126) U/L Total Protein (6.2-8.2) g/dL Albumin (3.8-4.9) g/dL Albumin/Globulin Ratio (1.60-3.17) Ratio Microbiology - Last 24 Hours (Table) 04/29/24 12:04 Blood Culture - Preliminary Blood
[2024-05-03 17:31] LABS: Glucose,Whole Blood 99 mg/dL (70-110)
[2024-05-03 19:54] LABS: Glucose,Whole Blood 109 mg/dL (70-110)
[2024-05-04 07:32] LABS: Glucose,Whole Blood 148 mg/dL (70-110)
[2024-05-04 08:52] LABS: Basophils # (A) 0.06 X 10*3/uL (0.00-0.10); Basophils % (A) 0.7 %; Eosinophils # (A) 0.23 X 10*3/uL (0.04-0.35); Eosinophils % (A) 2.6 %; HCT 36.2 % (37.2-46.3); HGB 11.8 g/dL (12.0-15.0); Lymphocytes # (A) 1.39 X 10*3/uL (0.90-5.00); MCH 31.9 pg (27.0-32.0); MCHC 32.6 g/dL (32.0-37.0); MCV 97.8 FL (80.0-97.0); Monocytes # (A) 0.64 X 10*3/uL (0.20-1.00); Monocytes % (A) 7.3 %; NRBC Per 100 WBC 0 X 10*3/uL (0.00-0.01); Neutrophils # (A) 6.24 X 10*3/uL (1.80-7.70); Neutrophils % (A) 71.7 %; Platelet Count 369 X 10*3/uL (140-440); RDW 13.4 % (11.5-14.5); WBC 8.71 X 10*3/uL (4.50-10.00)
--- NOTE | 2024-05-04 08:55 | XR ---
EXAMINATION TYPE: XR chest 1V DATE OF EXAM: 05/04/2024 COMPARISON: 04/28/2024 HISTORY: 78 year-old female follow-up pneumonia TECHNIQUE: Single frontal view of the chest is obtained. FINDINGS: Low lung volumes with crowded vascular markings. Tortuous thoracic aorta. Slight rightward patient rotation alters the normal cardiomediastinal contours. Interstitial prominence is present. A eration at the right base but aeration at the left base shows increased opacity. Severe degenerative change left glenohumeral joint. A couple prominent skinfolds project over the chest. Heart is enlarge d. Surgical clips project at the upper abdomen. IMPRESSION: 1. Portable exam further limited by hypoventilatory changes. 2. Aeration at the right base as improved. However, there is development of new atelectasis or infilt rate at the left base. [facility], , 05/04/2024 8:53 AM
[2024-05-04 09:14] LABS: ALT 37 U/L (8-44); AST 21 U/L (13-35); Albumin 3.1 g/dL (3.8-4.9); Albumin/Globulin Ratio 1.24 Ratio (1.60-3.17); Alkaline Phosphatase 180 U/L (41-126); Calcium 9.2 mg/dL (8.7-10.3); Carbon Dioxide 27.6 mmol/L (21.6-31.8); Chloride 108 mmol/L (96-109); Globulin 2.5 g/dL (1.6-3.3); Glucose 166 mg/dL (70-110); Potassium 3.8 mmol/L (3.5-5.5); Sodium 145 mmol/L (135-145); Total Bilirubin <0.2 mg/dL (0.3-1.2); Total Protein 5.6 g/dL (6.2-8.2)
[2024-05-04 12:16] LABS: Glucose,Whole Blood 216 mg/dL (70-110)
[2024-05-04 17:12] LABS: Glucose,Whole Blood 94 mg/dL (70-110)
--- NOTE | 2024-05-04 17:48 | P.PN ---
Subjective Progress Note Date: 05/04/24 I am following-up with patient and per nurse is about the same. No change in her overall condition. Objective - Vital Signs Vital signs: Vital Signs Temp 99.1 F 05/04/24 14:00 Pulse 83 05/04/24 14:00 Resp 22 05/04/24 07:08 BP 143/79 05/04/24 14:00 Pulse Ox 98 05/04/24 14:00 FiO2 35 04/18/24 17:36 Intake & Output 05/03/24 05/04/24 05/04/24 18:59 06:59 18:59 Other: Voiding Method Diaper Diaper Diaper Incontinent Incontinent Incontinent External Catheter External Catheter External Catheter # Bowel Movements 1 1 - Exam General: Lying in bed and does not appear in acute distress. Neuro: Very Limited. Severely drowsy but opens her eyes to voice. Not verbalizing or following commands. - Labs CBC & Chem 7: 05/04/24 03:45 05/04/24 03:45 Labs: Abnormal Lab Results - Last 24 Hours (Table) 05/04/24 05/04/24 05/04/24 Range/Units 03:45 03:45 07:28 RBC 3.70 L (4.10-5.20) X 10*6/uL Hgb 11.8 L (12.0-15.0) g/dL Hct 36.2 L (37.2-46.3) % MCV 97.8 H (80.0-97.0) FL Immature Gran # 0.15 H (0.00-0.04) X 10*3/uL Creatinine 0.4 L (0.6-1.5) mg/dL BUN/Creatinine Ratio 40.00 H (12.00-20.00) Ratio Glucose 166 H (70-110) mg/dL POC Glucose (mg/dL) 148 H (70-110) mg/dL Total Bilirubin <0.2 L (0.3-1.2) mg/dL Alkaline Phosphatase 180 H (41-126) U/L Total Protein 5.6 L (6.2-8.2) g/dL Albumin 3.1 L (3.8-4.9) g/dL Albumin/Globulin Ratio 1.24 L (1.60-3.17) Ratio 05/04/24 Range/Units 12:15 RBC (4.10-5.20) X 10*6/uL Hgb (12.0-15.0) g/dL Hct (37.2-46.3) % MCV (80.0-97.0) FL Immature Gran # (0.00-0.04) X 10*3/uL Creatinine (0.6-1.5) mg/dL BUN/Creatinine Ratio (12.00-20.00) Ratio Glucose (70-110) mg/dL POC Glucose (mg/dL) 216 H (70-110) mg/dL Total Bilirubin (0.3-1.2) mg/dL Alkaline Phosphatase (41-126) U/L Total Protein (6.2-8.2) g/dL Albumin (3.8-4.9) g/dL Albumin/Globulin Ratio (1.60-3.17) Ratio Assessment and Plan Assessment: This is an 78-year-old woman who on November 2023 had 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 Per family members as result of stroke she had right-sided weakness then eventually was discharged to rehab. 2 weeks ago she had COVID-19. She is having fluctuation in mentation. Also she was evaluated by her outpatient neurologist who on 04/06/2024 suspected Parkinson's questionable due to her bleed and placed her on Sinemet, was placed on Baclofen which Baclofen was discontinue who is recently having altered mental status. Altered mental status fluctuation in mentation seems more delirium. Initial EEG is negative for seizure or discharges, however repeat EEG performed 04/24/2024 showed epileptiform activity over the left temporal parietal region. 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 Parmar but on my most recent EEG no seizure noted and clinically for past two weeks no clinical improvement. 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 I will not change dose of Dilantin even if low since electrographically no seizure and clinically she seems about the same for past two weeks. Repeat prolonged 1 hour EEG on 05/01/2024: Is abnormal. The parkinsonian suggestive of mild to moderate encephalopathy. There is no focal slowing or seizure noted during the study. There is sharply contoured activity over the left temporal region which can increase risk of cortical irritability but no clear seizure or discharges noted. EEG 04/28/2024: Abnormal EEG due to background slowing, suggestive of moderate to severe encephalopathy. Continued presence of epileptic focus particularly involving the left hemispheric region. Very frequent left temporal parietal sharp waves were seen, which sometimes generalized to bihemispheric region. Very rare right parietal sharp waves were seen. Overall this is suggestive of severe encephalopathy with underlying multifocal irritable foci, with tendency for partial onset seizures. In an appropriate clinical setting, nonconvulsive status can be considered. Continuous EEG monitoring recommended. Repeat Stat Dilantin level was checked. It was 11.6. We will reload Dilantin 250 mg x 1 dose to increase the level. Continue same dose of Vimpat 100 mg twice daily and Keppra 500 mg twice daily. EEG 04/27/2024 revealed background slowing, suggestive of moderate encephalopathy. Remarkable improvement in the epileptiform activity, with resolution of electrographic nonconvulsive status. Sporadic left or right temporal independent sharp waves were seen during the study. This may suggest underlying cortical irritability. Clinical correlation recommended. Continue Dilantin 200 mg twice daily, decreased Vimpat to 100 mg twice daily because of severe somnolence, also Keppra decreased to 500 mg twice daily. Repeat EEG in the morning to make sure patient is staying out of status, before the weekend. EEG 04/26/2024 was abnormal due to background slowing, suggestive of moderate to severe encephalopathy. Continued presence of intermittent epileptiform activity involving the right parietal and left parietal temporal region, independent and sometimes bisynchronous. In the appropriate setting, nonconvulsive status cannot have this presentation. Suggest continuous EEG monitoring. Patient was started on Dilantin therapy. EEG 04/25/2024 revealed continued presence of epileptiform activity now fluctuating between the right hemispheric region and left and sometimes bisynchronous, at times becomes repetitive at 1 Hz. No clear-cut electrographic seizure however was seen. When compared to the EEG from yesterday, there is improvement in the epileptiform activity over the left hemispheric region, but now with more involvement of the right hemispheric region. Clinical correlation and continuous EEG monitoring recommended. Vimpat increased to 200 mg twice daily and Keppra 1500 mg twice daily. EEG 04/24/2024 revealed epileptic focus involving the left temporal parietal region, and also evidence of moderate to severe background slowing, consistent with encephalopathy. No electrographic seizure was recorded. Patient was placed on Vimpat 200 mg loading dose followed by 100 mg IV twice daily. Also dose of Keppra was increased from 500 to 1000 mg twice daily. I discontinued her Sinemet on 04/19/2024 since per family no improvement in her condition with medication and patient's family were in agreement of discontinuing medication. Will defer the rest of the medical management to primary and other specialist Patient's overall prognosis for meaningful recovery appears poor. Consider palliative care. Per nurse, she was accepted to rehab in [place] where her daughters reside. Plan discussed with the patient nurse. Time with Patient: Less than 30
--- NOTE | 2024-05-04 18:13 | P.PN ---
Subjective Progress Note Date: 05/04/24 HISTORY OF PRESENT ILLNESS: This is an 78-year-old female with a previous medical history signi ficant for hypertension and hypertensive cardiovascular disease, hyperlipidemia, history of asthma, history of major cerebrovascular accident that was in December 2023 when she suffered from significant intracranial hemorrhage she was initially evaluated at [facility] at that time, and she was transported to a tertiary care center at [facility], she ended up having evacuation of the hematoma and after that she had a prolonged hospital stay due to significant respiratory failure requiring ventilator and a trach placement along with a PEG tube placement, she became nonverbal, she had dense right-sided hemiplegia, patient apparently transported to [facility] and after that she was transported to [facility] for physical therapy and rehabilitation, she was under the care of a different physician, I assumed her care care few weeks ago at [facility], patient had contacted COVID-19 about a week ago and she developed to have a significant respiratory distress at that time, she had a chest x-ray did not show evidence of acute or maladies she could not take Paxlovid because she was unable to swallow the medications, and we could not crush the medicine put in the PEG tube, patient was treated with supportive care at that time, she was given zinc as well as vitamin D and vitamin C and she was given some breathing treatment, patient has done well up till yesterday when the patient became more obtunded and she has been none verbal ever since her stroke, and the family requested the patient to be transported to the emergency department [facility], she had a CT scan of brain did not show evidence of acute normalities, but because of her presentation she was sent for CT angiography of the chest to rule out any pulm embolism that was negative, but because of the presentation she was admitted to the hospital initially family were in agreement to go for no code and a hospice consult however they changed her mind next day after I spoke with the daughter and the and they stated they wanted her to continue current treatment without any resuscitation at this point in time, I consulted neurology and obtained MRI of the brain with and without deion. 04/20: Patient is more awake and more alert today, she is nonverbal, she is not responding to any verbal stimuli at this time, she is staring at everybody and but she is not following any command at this point in time, she is not moving her upper or lower extremities, she is scheduled to go for MRI of the brain with and without gadolinium at 3:00 this afternoon, I will continue to follow-up with the patient very closely continue patient on Keppra 500 mg per PEG tube twice every day, neurology is following, we will continue with current treatment at this point in time until further recommendation the family stated that the patient is a candidate to go for inpatient rehabilitation I will discuss this with physical therapy and Occupational Therapy will keep patient on nothing per mouth until evaluated by the speech therapist again. 04/21: Patient is laying down in bed does not follow any commands at this point in time, her daughter who is a visiting dentist from [place] is having issues with her mom going back to [facility] on the [place] at this time, and she think her mother can go home and according to what case management rn suggested for the patient to be a good candidate for inpatient rehabilitation as well as physical therapy we will discuss with them and we will consult Dr. Melara for further evaluation recommendation patient underwent MRI of the brain with and without deion that showed evidence of right frontal AV malformation, and our neurologist recommended outpatient angiogram by neurosurgery that she has seen at [facility], meanwhile the patient had an EEG did not show evidence of acute seizure, continue Keppra for now, continue current treatment plan, will follow-up with the patient very closely, apparently the family is not ready for hospice at this point in time, and they want the patient to have more physical therapy in an inpatient rehab facility. 04/24: Patient is laying down in bed in no apparent distress, she continues to be nonverbal, at this time, she does not follow any commands at this point in time, family were concerned that the patient is having urinary tract infection, she did have a urinalysis did not show evidence of acute infection at this time, they were concerned that the patient is not getting enough fluid discussed with the dietitian, to give the patient 125 cc of water every 8 hours, continue current tube feeding, patient did have an EEG done by neurology and that showed evidence of seizure activity of the left frontal area, she has been maintained on Keppra that was increased to 1000 mg twice every day and she was started on Vimpat 200 mg daily. Will continue to monitor the patient very closely follow- up with the patient very closely at this point in time. 04/25: Patient has been seen by inpatient rehab for evaluation but because patient is unable to participate with therapy in the current state, hospice seems appropriate at this time. If patient has improvements would recommend [facility] for slower pace rehab. Family is considering returning the patient home with 24-hour care and social work is following for discharge planning. Family declined hospice services. Vital signs have been stable and patient has been afebrile. 04/26: Patient is about the same, she is completely unresponsive, she barely open her eyes in response to verbal stimuli, her was at the bedside, he was advised about transferring the patient back to [facility] and after making a decision on transferring her out of the state to a different institution that can be done as an outpatient, I spoke with Dr. Winston yesterday in the neurologist who recommended for the patient to be transferred to [facility] I spoke with [facility] and they declined the transfer at this point in time because is not can add anything for her treatment at this point, her seizure medications were adjusted, patient continues to be about the same, we will start her on a small dose of IV fluid resuscitation in the form of normal saline at 50 cc an hour, repeat her labs tomorrow morning, I will follow- up with the patient 04/27: Patient is laying down in bed that she continues to be unresponsive, both of her daughters were at the bedside, patient does not appear to have improved despite current treatment plan, we will continue to monitor the patient very closely, patient was taken down on her Keppra to 500 mg orally twice per day because the patient is completely obtunded, she was also started on Dilantin 200 mg IV piggyback every 12 hours, she was also on Vimpat 100 mg IV push every 12 hours, monitor the patient Dilantin level, monitor the patient very closely, once the patient is seizures controlled patient can be transferred back to [facility], and then the final decision will be made by the family whether or not the family is interested with hospice or end-of-life care at this point in time. 04/28: Patient is laying down in bed she opened her eye once while we were going to adjust her body position, she appears to be somewhat rhonchorous, will discontinue IV fluid, will obtain chest x-ray, I spoke with neurology about Dilantin that was increased to 200 mg of piggyback every 12 hours, she was decr eased on Vimpat 200 mg IV push every 12 hours and Keppra down to 500 mg twice every day, we will continue to follow up with the patient very closely, patient will have a daily EEG once her activity is better patient can be discharged to either [facility] the [place] versus hospice home on Wednesday a consult was placed for [facility] at this point in time since the patient appears to be at end-stage. 04/29: Patient is laying down in bed she does not follow much command, however she is more awake and alert she underwent chest x-ray yesterday that showed atelectasis and possible right lower lobe pneumonia could be aspiration, we will start the patient on Azactam 1 g IV piggyback every 8 hours since the patient is allergic to penicillin, and we will monitor the patient very closely I will a void fluoroquinolones because of her seizure activity, patient did have another EEG yesterday that showed evidence of significant encephalopathy with epileptic activity in the left hemispheric area, we will continue patient on current treatment plan, she was started back on Dilantin 200 mg of piggyback every 12 hours, Vimpat 100 mg IV push every 12 hours, as well as Keppra was down to 500 mg twice every day, neurology is following, try to transfer the patient to [facility] for continuous EEG monitoring but that was declined, her sodium was elevated due to water deficit her sodium went up to 150 nephrology consultation was obtained, increase her free fluid flushes in the PEG tube to 204 times every day continue IV fluid in the form of D5 half-normal saline, follow-up with the patient sodium this afternoon I spoke with the family including and 2 daughters and they are in the Process of transferring the patient to [facility] to another extended-care facility. 04/30: Patient is about the same, opens her eyes but she does not follow much commands, she is laying down in bed does not appear to be in acute distress, she has been maintained on IV fluid in the form of D5 normal saline at 75 cc an hour increase of fluid flushes in the PEG tube to 200 mL 4 times every day, her sodium last night was 146 sodium from today still pending at the time of dictation, restart the patient back on her metformin 500 mg twice every day, continue to monitor the patient very closely discussed with social work manager tomorrow the possibility of transferring the patient from hospital to [facility] extended-care [facility] or going to [facility] and then getting transferred. 05/01: Patient is laying down in bed she is more awake and alert, she is not saying anything however she is tracking her eyes, she does appear to yawn once in a while, her potassium is a bit on the lower side at 3.2, we will replace, we will discontinue IV fluid resuscitation at this point in time, we will follow-up with the patient very closely, family is interested to transfer the patient to a facility in the [place] that they already have a bed for her we will discuss with the social work manager and will take it from there. Patient will need to have 4 more days of IV antibiotic prior to her discharge or she can do this as an outpatient. 05/02: Patient is more awake and more alert today, she is tracking with her eyes, she does not appear to be in acute distress, her vital signs appears to be stable at this point in time, we are awaiting the final disposition for the patient to be transferred to medical care facility in [facility] based on the family request. painting trades worker and correctional case records supervisor are involved. 05/03: I spoke with the social work manager/correctional case records supervisor stating that [facility] will take the patient tentatively on May 05, 2024, patient is appearing to be more awake and alert, continues to be on IV antibiotic in the form of Azactam 1 g piggyback every 8 hours, for another 48 hours today and tomorrow hopefully by Wednesday she will be done with IV antibiotic and the patient can be discharged and transferred to [place] closer to her family, we will continue current seizure medication at this point in time, neurology has been following, nephrology has been following as well, continue to monitor the patient electrolyte and Dilantin level as well. 05/04: Patient is laying down in bed appears to be resting comfortably, her was at the bedside, the arrangements were made for the patient to be moved to [facility] tomorrow morning at 10:00 in the morning to go to [place] near her daughters, patient is day number 7 out of 7 IV antibiotic, we will discontinue there on tonight, the patient can be discharged tomorrow morning. Her repeated chest x-ray showed improvement of the right lower lobe infiltrate, and the patient is to be maintained on nebulized treatment for atelectasis at this point in time. REVIEW OF SYSTEMS: Patient is unresponsive at this point in time. Could not obtain any review of system PHYSICAL EXAMINATION: General: 78-year-old female laying down in bed does not respond to verbal stimuli. HEENT: Head is atraumatic, normocephalic, pupils were equal patient does not follow any command at this time and her mucous membranes of mouth are somewhat dry. Neck: Supple, no JVP, normal carotid upstroke bilaterally, no lymphadenopathy. Chest: Decreased breath sounds at the bases, few rhonchi, no expiratory wheezes, no chest wall tenderness, no intercostal retractions. Heart: First heart sound is normal, second heart sounds normal Abdomen: Soft, nontender, nondistended, positive bowel sounds. PEG tube in place. Extremities: There is no edema no calf tenderness DP +2 bilaterally. Neurologic examination: Patient is unresponsive at this point in time, she is clenching both upper and lower extremities, she does have a baseline right-sided hemiplegia. ASSESSMENT AND PLAN: 1. Acute toxic metabolic encephalopathy due to seizure activity as well as hypovolemic hyponatremia due to water deficit.. Patient underwent CT of the brain as well as MRI of the brain with and without deion that showed evidence of AV malformation of the right frontal area, patient underwent another EEG today that showed evidence of epileptic form in the left hemispheric,, she has been on Keppra to 500 mg twice every day and Vimpat 100 mg IV push twice a day, along with Dilantin 200 mg of piggyback every 12 hours neurology is following at this point in time, we will follow-up with the patient very closely, patient has been having EEG on a daily basis, urinalysis did not show any evidence of any urinary tract infection at this point in time, chest x-ray showed evidence of right lower lobe atelectasis versus pneumonia patient is finishing Azactam 1 g of piggyback every 8 hours day 7 out of 7. 2. History of intracranial bleed with right sided hemiplegia status post surgical intervention status post tracheostomy placement removal status post PEG tube placement, patient is currently nonverbal she is a wheelchair/bedbound with right-sided hemiplegia. Continue Keppra 500 mg twice every day, Vimpat 100 mg IV push twice every day monitor levels. Also Dilantin 200 mg with piggyback every 12 hours. MRI did show evidence of right frontal AV malformation that she will need to have an angiogram as an outpatient. However the patient is not a candidate for any invasive procedure at this point in time. 3. Hypertension and hypertensive cardiovascular disease. Continue amlodipine 10 mg orally once every day, continue metoprolol 25 mg per PEG tube twice every day, continue with lisinopril 20 mg once every day. Monitor the patient blood pressure very closely. 4. Mixed hyperlipidemia. Start the patient on atorvastatin 40 mg once every day. 5. Diabetes mellitus type 2. Continue Levemir 15 units at bedtime along with the Farxiga 5 mg once every day, continue sliding scale insulin, patient has been off metformin however will restart 500 mg twice every day. 6. Parkinsonism. Patient was taken off Sinemet per the request of her family and we will start her back on amantadine 100 mg per PEG tube once every day per their request as well. 7. Right lower lobe pneumonia versus atelectasis. Continue the patient on Azactam 1 g piggyback every 8 hours, monitor the patient very closely during her hospital stay. Aspiration precautions. This is day 7 out of 7 this will be discontinued. 8. Recent COVID-19 infection resolved. 9. Hypernatremia due to hypovolemia and free water deficit. continue IV fluid to D5 half-normal saline at 75 cc an hour, increase free water flushes through the PEG tube, 200 ml 4 times every day, nephrology consultation Dr. Montoya appreciated. 10. DVT prophylaxis. Continue Lovenox 40 mg subcutaneous every 24 hours. 11. GI prophylaxis. Continue patient on famotidine 20 mg per PEG tube once every day. 12. Medical debility continue physical therapy and Occupational Therapy. 13. patient prognosis is continued to be dismal . 14. Patient continues to be DNR. 15. Family is interested in transferring the patient to an extended care facility in [facility] we will discuss with social work manager. 16. Hypokalemia status post replacement. 17. Patient hopefully will be accepted at [facility] on 05/05/2024 18. Stage II pressure ulcer that appears to be stable at this point in time, continue with turning the patient every 2 hours, continue with protein intake, continue with zinc oxide 20% once every day. 19. Overall prognosis is guarded. 20. Patient is DNR. 21. Patient is medically stable to be transferred to [facility] tomorrow morning. Objective - Vital Signs Vital signs: Vital Signs Temp 99.1 F 05/04/24 14:00 Pulse 83 05/04/24 14:00 Resp 22 05/04/24 07:08 BP 143/79 05/04/24 14:00 Pulse Ox 98 05/04/24 14:00 FiO2 35 04/18/24 17:36 Intake & Output 05/03/24 05/04/24 05/04/24 18:59 06:59 18:59 Other: Voiding Method Diaper Diaper Diaper Incontinent Incontinent Incontinent External Catheter External Catheter External Catheter # Bowel Movements 1 1 - Labs CBC & Chem 7: 05/04/24 03:45 05/04/24 03:45 Labs: Abnormal Lab Results - Last 24 Hours (Table) 05/04/24 05/04/24 05/04/24 Range/Units 03:45 03:45 07:28 RBC 3.70 L (4.10-5.20) X 10*6/uL Hgb 11.8 L (12.0-15.0) g/dL Hct 36.2 L (37.2-46.3) % MCV 97.8 H (80.0-97.0) FL Immature Gran # 0.15 H (0.00-0.04) X 10*3/uL Creatinine 0.4 L (0.6-1.5) mg/dL BUN/Creatinine Ratio 40.00 H (12.00-20.00) Ratio Glucose 166 H (70-110) mg/dL POC Glucose (mg/dL) 148 H (70-110) mg/dL Total Bilirubin <0.2 L (0.3-1.2) mg/dL Alkaline Phosphatase 180 H (41-126) U/L Total Protein 5.6 L (6.2-8.2) g/dL Albumin 3.1 L (3.8-4.9) g/dL Albumin/Globulin Ratio 1.24 L (1.60-3.17) Ratio 05/04/24 Range/Units 12:15 RBC (4.10-5.20) X 10*6/uL Hgb (12.0-15.0) g/dL Hct (37.2-46.3) % MCV (80.0-97.0) FL Immature Gran # (0.00-0.04) X 10*3/uL Creatinine (0.6-1.5) mg/dL BUN/Creatinine Ratio (12.00-20.00) Ratio Glucose (70-110) mg/dL POC Glucose (mg/dL) 216 H (70-110) mg/dL Total Bilirubin (0.3-1.2) mg/dL Alkaline Phosphatase (41-126) U/L Total Protein (6.2-8.2) g/dL Albumin (3.8-4.9) g/dL Albumin/Globulin Ratio (1.60-3.17) Ratio
[2024-05-04] MEDS: LACOSAMIDE 50 MG TABLET PO SCH (20:45)
[2024-05-04] MEDS: PHENYTOIN ORAL SUSP 100 MG/4 ML CUP PO SCH (20:45)
[2024-05-04 20:52] LABS: Glucose,Whole Blood 95 mg/dL (70-110)
[2024-05-05 07:13] LABS: Glucose,Whole Blood 217 mg/dL (70-110)
--- NOTE | 2024-05-05 07:46 | P.DS ---
Providers Date of admission: 04/18/24 21:16 Expected date of discharge: 05/05/24 Attending physician: Lisa Cox Consults: 04/19/24 14:06 Consult Physician Routine Consulting Provider: Prabhjot Parmar Consult Reason/Comments: uresponsiveness, hx of stroke Do you want consulting provider notified?: Yes 04/21/24 15:59 Consult Physician Routine Consulting Provider: Jeff Melara Consult Reason/Comments: inpatient rehab eval Do you want consulting provider notified?: Yes 04/29/24 10:50 Consult Physician Urgent Consulting Provider: Grace Montoya Consult Reason/Comments: Hypernastremia Do you want consulting provider notified?: Yes Primary care physician: Lisa Cox Hospital Course: HISTORY OF PRESENT ILLNESS: This is an 78-year-old female with a previous medical history significant for hypertension and hypertensive cardiovascular disease, hyperlipidemia, history of asthma, history of major cerebrovascular accident that was in December 2023 when she suffered from significant intracranial hemorrhage she was initially evaluated at [facility] at that time, and she was transported to a tertiary care center at [facility], she ended up having evacuation of the hematoma and after that she had a prolonged hospital stay due to significant respiratory failure requiring ventilator and a trach placement along with a PEG tube placement, she became nonverbal, she had dense right-sided hemiplegia, patient apparently transported to [facility] and after that she was transported to [facility] for physical therapy and rehabilitation, she was under the care of a different physician, I assumed her care care few weeks ago at [facility], patient had contacted [facility] about a week ago and she developed to have a significant respiratory distress at that time, she had a chest x-ray did not show evidence of acute or maladies she could not take Paxlovid because she was unable to swallow the medications, and we could not crush the medicine put in the PEG tube, patient was treated with supportive care at that time, she was given zinc as well as vitamin D and vitamin C and she was given some breathing treatment, patient has done well up till yesterday when the patient became more obtunded and she has been none verbal ever since her stroke, and the family requested the patient to be transported to the emergency department [facility], she had a CT scan of brain did not show evidence of acute normalities, but because of her presentation she was sent for CT angiography of the chest to rule out any pulm embolism that was negative, but because of the presentation she was admitted to the hospital initially family were in agreement to go for no code and a hospice consult however they changed her mind next day after I spoke with the daughter and the and they stated they wanted her to continue current treatment without any resuscitation at this point in time, I consulted neurology and obtained MRI of the brain with and without deion. 04/20: Patient is more awake and more alert today, she is nonverbal, she is not responding to any verbal stimuli at this time, she is staring at everybody and but she is not following any command at this point in time, she is not moving her upper or lower extremities, she is scheduled to go for MRI of the brain with and without gadolinium at 3:00 this afternoon, I will continue to follow-up with the patient very closely continue patient on Keppra 500 mg per PEG tube twice every day, neurology is following, we will continue with current treatment at this point in time until further recommendation the family stated that the patient is a candidate to go for inpatient rehabilitation I will discuss this with physical therapy and Occupational Therapy will keep patient on nothing per mouth until evaluated by the speech therapist again. 04/21: Patient is laying down in bed does not follow any commands at this point in time, her daughter who is a visiting dentist from [place] is having issues with her mom going back to [facility] [place] at this time, and she think her mother can go home and according to what vocational case manager suggested for the patient to be a good candidate for inpatient rehabilitation as well as physical therapy we will discuss with them and we will consult Dr. 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 04/24: Patient is laying down in bed in no apparent distress, she continues to be nonverbal, at this time, she does not follow any commands at this point in time, family were concerned that the patient is having urinary tract infection, she did have a urinalysis did not show evidence of acute infection at this time, they were concerned that the patient is not getting enough fluid discussed with the dietitian, to give the patient 125 cc of water every 8 hours, continue current tube feeding, patient did have an EEG done by neurology and that showed evidence of seizure activity of the left frontal area, she has been maintained on Keppra that was increased to 1000 mg twice every day and she was started on Vimpat 200 mg daily. Will continue to monitor the patient very closely follow- up with the patient very closely at this point in time. 04/25: Patient has been seen by inpatient rehab for evaluation but because patient is unable to participate with therapy in the current state, hospice seems appropriate at this time. If patient has improvements would recommend [facility] for slower pace rehab. Family is considering returning the patient home with 24-hour care and social work is following for discharge planning. Family declined hospice services. Vital signs have been stable and patient has been afebrile. 04/26: Patient is about the same, she is completely unresponsive, she barely open her eyes in response to verbal stimuli, her was at the bedside, he was advised about transferring the patient back to [facility] [place] [facility] [place] and after making a decision on transferring her out of the state to a different institution that can be done as an outpatient, I spoke with Dr. Winston yesterday in the neurologist who recommended for the patient to be transferred to [facility] I spoke with [facility] and they declined the transfer at this point in time because is not can add anything for her treatment at this point, her seizure medications were adjusted, patient continues to be about the same, we will start her on a small dose of IV fluid resuscitation in the form of normal saline at 50 cc an hour, repeat her labs tomorrow morning, I will follow- up with the patient 04/27: Patient is laying down in bed that she continues to be unresponsive, both of her daughters were at the bedside, patient does not appear to have improved despite current treatment plan, we will continue to monitor the patient very closely, patient was taken down on her Keppra to 500 mg orally twice per day because the patient is completely obtunded, she was also started on Dilantin 200 mg IV piggyback every 12 hours, she was also on Vimpat 100 mg IV push every 12 hours, monitor the patient Dilantin level, monitor the patient very closely, once the patient is seizures controlled patient can be transferred back to [facility], and then the final decision will be made by the family whether or not the family is interested with hospice or end-of-life care at this point in time. 04/28: Patient is laying down in bed she opened her eye once while we were going to adjust her body position, she appears to be somewhat rhonchorous, will discontinue IV fluid, will obtain chest x-ray, I spoke with neurology about Dilantin that was increased to 200 mg of piggyback every 12 hours, she was decreased on Vimpat 200 mg IV push every 12 hours and Keppra down to 500 mg twice every day, we will continue to follow up with the patient very closely, patient will have a daily EEG once her activity is better patient can be discharged to either [facility] versus hospice home on Wednesday a consult was placed for [facility] at this point in time since the patient appea rs to be at end-stage. 04/29: Patient is laying down in bed she does not follow much command, however she is more awake and alert she underwent chest x-ray yesterday that showed atelectasis and possible right lower lobe pneumonia could be aspiration, we will start the patient on Azactam 1 g IV piggyback every 8 hours since the patient is allergic to penicillin, and we will monitor the patient very closely I will avoid fluoroquinolones because of her seizure activity, patient did have another EEG yesterday that showed evidence of significant encephalopathy with epileptic activity in the left hemispheric area, we will continue patient on current treatment plan, she was started back on Dilantin 200 mg of piggyback every 12 hours, Vimpat 100 mg IV push every 12 hours, as well as Keppra was down to 500 mg twice every day, neurology is following, try to transfer the patient to [facility] for continuous EEG monitoring but that was declined, her sodium was elevated due to water deficit her sodium went up to 150 nephrology consultation was obtained, increase her free fluid flushes in the PEG tube to 204 times every day continue IV fluid in the form of D5 half-normal saline, follow-up with the patient sodium this afternoon I spoke with the family including and 2 daughters and they are in the Process of transferring the patient to [facility] to another extended-care facility. 04/30: Patient is about the same, opens her eyes but she does not follow much commands, she is laying down in bed does not appear to be in acute distress, she has been maintained on IV fluid in the form of D5 normal saline at 75 cc an hour increase of fluid flushes in the PEG tube to 200 mL 4 times every day, her sodium last night was 146 sodium from today still pending at the time of di ctation, restart the patient back on her metformin 500 mg twice every day, continue to monitor the patient very closely discussed with social worker palliative care tomorrow the [facility] or going to [facility] and then getting transferred. 05/01: Patient is laying down in bed she is more awake and alert, she is not saying anything however she is tracking her eyes, she does appear to yawn once in a while, her potassium is a bit on the lower side at 3.2, we will replace, we will discontinue IV fluid resuscitation at this point in time, we will follow-up with the patient very closely, family is interested to transfer the patient [place] a [place] that they already have a bed for her we will discuss with the social worker palliative care and will take it from there. Patient will need to have 4 more days of IV antibiotic prior to her discharge or she can do this as an outpatient. 05/02: Patient is more awake and more alert today, she is tracking with her eyes, she does not appear to be in acute distress, her vital signs appears to be stable at this point in time, we are awaiting the final disposition for the patient to be transferred to medical care facility in [facility] based on the family request. drug department worker and showcase trimmer are involved. 05/03: I spoke with the social worker palliative care/showcase trimmer stating that [facility] will take the patient tentatively on May 05, 2024, patient is appearing to be more awake and alert, continues to be on IV antibiotic in the form of Azactam 1 g piggyback every 8 hours, for another 48 hours today and tomorrow hopefully by Wednesday she will be done with IV antibiotic and the patient can be discharged and transferred to [place] closer to her family, we will continue current seizure medication at this point in time, neurology has been following, nephrology has been following as well, continue to monitor the patient electrolyte and Dilantin level as well. 05/04: Patient is laying down in bed appears to be resting comfortably, her was at the bedside, the arrangements were made for the patient to be moved to [facility] tomorrow morning at 10:00 in the morning to go to [place] near her daughters, patient is day number 7 out of 7 IV antibiotic, we will discontinue there on tonight, the patient can be discharged tomorrow morning. Her repeated chest x-ray showed improvement of the right lower lobe infiltrate, and the patient is to be maintained on nebulized treatment for atelectasis at this point in time. 05/05: No new concerns overnight. Patient will be discharged today once all arrangements are completed. DISCHARGE DIAGNOSES: 1. Acute toxic metabolic encephalopathy due to seizure activity as well as hypovolemic hyponatremia due to water deficit. 2. History of intracranial bleed with right sided hemiplegia status post surgical intervention status post tracheostomy placement removal status post PEG tube placement, patient is currently nonverbal she is a wheelchair/bedbound with right-sided hemiplegia. 3. Hypertension and hypertensive cardiovascular disease. 4. Mixed hyperlipidemia. 5. Diabetes mellitus type 2. 6. Parkinsonism. 7. Right lower lobe pneumonia versus atelectasis. 8. Recent COVID-19 infection resolved. 9. Hypernatremia due to hypovolemia and free water deficit. 10. Hypokalemia status post replacement. 11. Stage II pressure ulcer that appears to be stable at this point in time. 12. Overall prognosis is guarded. 13. Patient is DNR. 14. Patient is medically stable to be transferred to [facility] in [place] halfway facility tomorrow morning. Greater than 35 minutes was utilized and coordinating patient's discharge. Impression and plan of care have been directed as dictated by the signing physician. Myriam Robles nurse practitioner acting as scribe for signing physician. Patient Condition at Discharge: Serious Plan - Discharge Summary New Discharge Prescriptions: New Phenytoin Oral Susp [Dilantin Oral Susp] 200 mg PO BID ml Atorvastatin [Lipitor] 40 mg PO DAILY tab Enoxaparin [Lovenox] 40 mg SQ DAILY each INSULIN ASPART (NovoLOG) [NovoLOG (formulary)] 0 unit SQ ACHS each Lacosamide [Vimpat] 100 mg PO BID #6 tab amantadine HCL [Amantadine] 100 mg PO DAILY #30 capsule Albuterol Nebulized [Ventolin Nebulized] 2.5 mg INHALATION RT-QID PRN ml PRN Reason: Shortness Of Breath Or Wheezing Continue Acetaminophen Tab [Tylenol] 650 mg PEG/G-TUBE Q6H PRN PRN Reason: Pain Loratadine 10 mg PEG/G-TUBE DAILY PRN PRN Reason: Allergy Symptoms guaiFENesin [guaiFENesin Oral Solution] 200 mg PEG/G-TUBE Q4H PRN PRN Reason: Cough Amino Acids/Protein Hydrolys [Pro-Stat Awc Liquid] 30 ml PEG/G-TUBE TID@0900,1300,2100 metFORMIN HCL [Glucophage] 500 mg PEG/G-TUBE BID Metoprolol Tartrate [Lopressor] 25 mg PEG/G-TUBE BID Ascorbic Acid [Vitamin C] 500 mg PEG/G-TUBE DAILY amLODIPine [Norvasc] 10 mg PEG/G-TUBE DAILY lisinopriL [Zestril] 20 mg PEG/G-TUBE DAILY Insulin Glargine,Hum.rec.anlog [Lantus Solostar Pen] 15 units SQ HS Famotidine [Pepcid] 20 mg PEG/G-TUBE DAILY@0600 Jevity 1.5 Vladimir Liquid 1 dose PEG/G-TUBE DIRECTED Sennosides/Docusate Sodium [Senna Plus 8.6-50 mg Tablet] 1 tab PEG/G-TUBE Q24H PRN PRN Reason: Constipation levETIRAcetam ORAL SOLN [Keppra Oral Soln] 500 mg PEG/G-TUBE BID Zinc Gluconate [Zinc] 50 mg PEG/G-TUBE DAILY Cholecalciferol [Vitamin D3 (25 Mcg = 1000 Iu)] 50 mcg PEG/G-TUBE DAILY Dapagliflozin Propanediol [Farxiga] 5 mg PEG/G-TUBE HS Discontinued Therahoney External Gel 1 applic TOPICAL HS Carbidopa-Levodopa 25-100 mg [Sinemet 25-100] See Taper PEG/G-TUBE DIRECTED Enoxaparin [Lovenox] 40 mg SQ HS Therahoney External Gel 1 applic TOPICAL DAILY PRN PRN Reason: wound care Discharge Medication List Acetaminophen Tab [Tylenol] 650 mg PEG/G-TUBE Q6H PRN 04/18/24 [History] Amino Acids/Protein Hydrolys [Pro-Stat Awc Liquid] 30 ml PEG/G-TUBE TID@0900,1300,2100 04/18/24 [History] Ascorbic Acid [Vitamin C] 500 mg PEG/G-TUBE DAILY 04/18/24 [History] Cholecalciferol [Vitamin D3 (25 Mcg = 1000 Iu)] 50 mcg PEG/G-TUBE DAILY 04/18/24 [History] Dapagliflozin Propanediol [Farxiga] 5 mg PEG/G-TUBE HS 04/18/24 [History] Famotidine [Pepcid] 20 mg PEG/G-TUBE DAILY@0600 04/18/24 [History] Insulin Glargine,Hum.rec.anlog [Lantus Solostar Pen] 15 units SQ HS 04/18/24 [History] Jevity 1.5 Vladimir Liquid 1 dose PEG/G-TUBE DIRECTED 04/18/24 [History] Loratadine 10 mg PEG/G-TUBE DAILY PRN 04/18/24 [History] Metoprolol Tartrate [Lopressor] 25 mg PEG/G-TUBE BID 04/18/24 [History] Sennosides/Docusate Sodium [Senna Plus 8.6-50 mg Tablet] 1 tab PEG/G-TUBE Q24H PRN 04/18/24 [History] Zinc Gluconate [Zinc] 50 mg PEG/G-TUBE DAILY 04/18/24 [History] amLODIPine [Norvasc] 10 mg PEG/G-TUBE DAILY 04/18/24 [History] guaiFENesin [guaiFENesin Oral Solution] 200 mg PEG/G-TUBE Q4H PRN 04/18/24 [History] levETIRAcetam ORAL SOLN [Keppra Oral Soln] 500 mg PEG/G-TUBE BID 04/18/24 [History] lisinopriL [Zestril] 20 mg PEG/G-TUBE DAILY 04/18/24 [History] metFORMIN HCL [Glucophage] 500 mg PEG/G-TUBE BID 04/18/24 [History] Albuterol Nebulized [Ventolin Nebulized] 2.5 mg INHALATION RT-QID PRN ml 05/05/24 [Rx] Atorvastatin [Lipitor] 40 mg PO DAILY tab 05/05/24 [Rx] Enoxaparin [Lovenox] 40 mg SQ DAILY each 05/05/24 [Rx] INSULIN ASPART (NovoLOG) [NovoLOG (formulary)] 0 unit SQ ACHS each 05/05/24 [Rx] Lacosamide [Vimpat] 100 mg PO BID #6 tab 05/05/24 [Rx] Phenytoin Oral Susp [Dilantin Oral Susp] 200 mg PO BID ml 05/05/24 [Rx] amantadine HCL [Amantadine] 100 mg PO DAILY #30 capsule 05/05/24 [Rx] Follow up Appointment(s)/Referral(s): Chaec Power MD [STAFF PHYSICIAN] - 10 Days (frontal venous malformation on MRI. Has recent brain bleed on 11/2023 and work-up at [place]) Activity/Diet/Wound Care/Special Instructions: Tiara Palafox-daughter P: [phone] Christianne Pak-daughter P:[phone] Leah San-daughter P: [phone]
[2024-05-05 08:07] VITALS: BP 157/95; PULSE 100; RESP 20; TEMP 98.7
[2024-05-05 08:41] LABS: Basophils # (A) 0.04 X 10*3/uL (0.00-0.10); Basophils % (A) 0.4 %; Eosinophils # (A) 0.27 X 10*3/uL (0.04-0.35); HCT 34.9 % (37.2-46.3); HGB 11.1 g/dL (12.0-15.0); Lymphocytes # (A) 1.43 X 10*3/uL (0.90-5.00); Lymphocytes % (A) 16.1 %; MCH 30.7 pg (27.0-32.0); MCHC 31.8 g/dL (32.0-37.0); MCV 96.4 FL (80.0-97.0); Mean Platelet Volume 9.8 FL (9.5-12.2); Monocytes # (A) 0.79 X 10*3/uL (0.20-1.00); Monocytes % (A) 8.9 %; NRBC Per 100 WBC 0 X 10*3/uL (0.00-0.01); Neutrophils # (A) 6.26 X 10*3/uL (1.80-7.70); Neutrophils % (A) 70.4 %; Platelet Count 345 X 10*3/uL (140-440); RBC 3.62 X 10*6/uL (4.10-5.20); RDW 13.5 % (11.5-14.5)
[2024-05-05 08:52] LABS: ALT 35 U/L (8-44); AST 24 U/L (13-35); Albumin 3.1 g/dL (3.8-4.9); Albumin/Globulin Ratio 1.24 Ratio (1.60-3.17); Alkaline Phosphatase 180 U/L (41-126); Blood Urea Nitrogen 14.8 mg/dL (9.0-27.0); Carbon Dioxide 27.3 mmol/L (21.6-31.8); Chloride 104 mmol/L (96-109); Globulin 2.5 g/dL (1.6-3.3); Glucose 160 mg/dL (70-110); Phenytoin (Dilantin) 5.5 UG/ML (10.0-20.0); Potassium 3.9 mmol/L (3.5-5.5); Sodium 141 mmol/L (135-145); Total Bilirubin <0.2 mg/dL (0.3-1.2); Total Protein 5.6 g/dL (6.2-8.2)
== END 2024-05-05 11:22 | DRG 100 ==
LOC: EC 17:00 → 5NMEDONC 21:16
PROVIDERS: ADMIT Internal Medicine; ATTEND Internal Medicine
PROC: 3E0G76Z Introduction of Nutritional Substance into Upper GI, Via Natural or Artificial Opening (ICD-10-PCS; principal; 2024-04-18)
DX: G40.909 Epilepsy, unspecified, not intractable, without status epilepticus (principal); G92.8 Other toxic encephalopathy; I26.99 Other pulmonary embolism without acute cor pulmonale; J96.90 Respiratory failure, unspecified, unspecified whether with hypoxia or hypercapnia; Q28.2 Arteriovenous malformation of cerebral vessels; I69.151 Hemiplegia and hemiparesis following nontraumatic intracerebral hemorrhage affecting right dominant side; E87.1 Hypo-osmolality and hyponatremia; J98.11 Atelectasis; R47.01 Aphasia; I11.9 Hypertensive heart disease without heart failure; G20.A1 Parkinson's disease without dyskinesia, without mention of fluctuations; Z66 Do not resuscitate; E11.9 Type 2 diabetes mellitus without complications; Z51.5 Encounter for palliative care; R62.7 Adult failure to thrive; J45.30 Mild persistent asthma, uncomplicated; I69.191 Dysphagia following nontraumatic intracerebral hemorrhage; L89.92 Pressure ulcer of unspecified site, stage 2; E86.1 Hypovolemia; E78.2 Mixed hyperlipidemia; E86.0 Dehydration; E87.6 Hypokalemia; Z71.3 Dietary counseling and surveillance; Z86.16 Personal history of COVID-19; Z74.01 Bed confinement status; Z79.4 Long term (current) use of insulin; Z79.84 Long term (current) use of oral hypoglycemic drugs; Z79.899 Other long term (current) drug therapy; Z88.0 Allergy status to penicillin; Z93.1 Gastrostomy status; Z96.652 Presence of left artificial knee joint; Z99.3 Dependence on wheelchair
CPT/HCPCS: 36415; 70450; 70553; 71045; 71275; 80048; 80053; 80185; 80186; 81001; 81003; 82140; 82607; 82746; 82803; 83036; 83605; 83735; 84100; 84145; 84295; 84443; 84484; 85025; 85027; 85379; 85610; 85730; 87040; 93005; 94640; 94660; 94760; 95812; 95813; 95816; 96361; 96374; 99291